=== PATIENT | female | born 1950 | race Caucasian/White ===

== ENCOUNTER 2016-03-20 12:30 | Outpatient (RCR) | payer MEDICARE | END 2016-03-31 | LOC: M CR 12:30 | PROVIDERS: ATTEND Internal Medicine Cardiovascular Disease | DX: Z98.61 Coronary angioplasty status (principal) ==

== ENCOUNTER 2016-04-01 09:18 | Outpatient (RCR) | payer MEDICARE | END 2016-04-28 | LOC: M CR 09:18 | PROVIDERS: ATTEND Internal Medicine Cardiovascular Disease | DX: Z51.89 Encounter for other specified aftercare (principal); Z95.9 Presence of cardiac and vascular implant and graft, unspecified ==

== ENCOUNTER 2016-10-08 06:39 | Day surgery (SDC) | payer MEDICARE ==
[~2016-10-08] VITALS: Ht 170.2 cm; Wt 139.2 kg
[~2016-10-08 06:39] MED LIST: ARNU1INH3 IN; ASPI1TAB PO; BETAPOW70 TOP; BUME1TAB29 PO; CALC600T31 PO; CALMOIN EX; CARD120T4 PO; COZA1TAB PO; EPIP0.3I2 IJ; ISOSPOW PO; MAGN1TAB25 PO; METF10004 PO; METO50TA7 PO; NITR0.4S14 SL; NITR4PA EXT; PLAV1TAB2 PO; PROBCAP4 PO; PROT1TAB2 PO; RANE1000 PO; SILVGEL EX; SPIR25TA2 PO; VITA200038 PO; XARE10TA PO; ZOVI5CRE4 EX
[2016-10-08] MEDS ORDERED: NS 1,000 ML IV SCH (07:30)
[2016-10-08] MEDS ORDERED: LR 1,000 ML IV SCH (07:30)
[2016-10-08] MEDS ORDERED: LOVE0.6I2 SC (07:35)
[2016-10-08] MEDS ORDERED: LIDOCAINE 2% INJ 100 MG/5 ML SDV (FOR ANES.) As Ordered ONE (07:49)
[2016-10-08] MEDS ORDERED: PROPOFOL 200 MG/20 ML VIAL As Ordered ONE (07:49)
--- NOTE | 2016-10-08 09:18 | ROOR ---
Patient Name: Shantelle Sosa Procedure Date: 10/08/2016 9:15 AM Date of : 1950 Age: 66 Room: [facility] Gender: Female Note Status: Finalized Procedure: Upper GI endoscopy Indications: Heartburn Providers: Vaughn AESTON MD Referring MD: RICHI METCALF MD Requesting Provider: Medicines: Monitored Anesthesia Care Complications: No immediate complications. Procedure: Pre-Anesthesia Assessment: - The heart rate, respiratory rate, oxygen saturations, blood pressure, adequacy of pulmonary ventilation, and response to care were monitored throughout the procedure. - The physical status of the patient was re-assessed after the procedure. The Endoscope was introduced through the mouth, and advanced to the second part of duodenum. The upper GI endoscopy was accomplished without difficulty. The patient tolerated the procedure well. Findings: A small diverticulum was found in the gastric fundus. The esophagus was normal. The stomach was normal. The examined duodenum was normal. Impression: - Gastric diverticulum. - Normal esophagus. - Normal stomach. - Normal examined duodenum. - No specimens collected. Recommendation: - Continue present medications. - Resume Lovenox (enoxaparin) today, Plavix (clopidogrel) today and Xarelto (rivaroxaban) today at prior doses. Refer to managing physician for further adjustment of therapy. Vaughn Easton MD Vaughn EASTON MD 10/08/2016 9:18:04 AM This report has been signed electronically. Number of Addenda: 0 Note Initiated On: 10/08/2016 9:15 AM Estimated Blood Loss: Estimated blood loss: none.
--- NOTE | 2016-10-08 09:32 | ROOR ---
Patient Name: Shantelle Sosa Procedure Date: 10/08/2016 8:34 AM Date of : 1950 Age: 66 Room: Main OR Gender: Female Note Status: Finalized Procedure: Colonoscopy Indications: Screening for colorectal malignant neoplasm Providers: Vaughn EASTON MD Referring MD: RICHI METCALF MD Requesting Provider: Medicines: Monitored Anesthesia Care Complications: No immediate complications. Procedure: Pre-Anesthesia Assessment: - The heart rate, respiratory rate, oxygen saturations, blood pressure, adequacy of pulmonary ventilation, and response to care were monitored throughout the procedure. The Colonoscope was introduced through the anus and advanced to the cecum, identified by appendiceal orifice and ileocecal valve. The colonoscopy was performed without difficulty. The patient tolerated the procedure well. The quality of the bowel preparation was adequate. Findings: The perianal and digital rectal examinations were normal. Five sessile polyps were found in the descending colon, transverse colon and hepatic flexure. The polyps were 3 to 5 mm in size. These polyps were removed with a cold snare. Resection and retrieval were complete. Small Internal Hemorrhoids. Multiple medium-mouthed diverticula were found in the sigmoid colon. The exam was otherwise without abnormality on direct and retroflexion views. Impression: - Five 3 to 5 mm polyps in the descending colon, in the transverse colon and at the hepatic flexure, removed with a cold snare. Resected and retrieved. - Small Internal Hemorrhoids. - Moderate diverticulosis in the sigmoid colon. - The examination was otherwise normal on direct and retroflexion views. Recommendation: - Resume Lovenox (enoxaparin) today, Plavix (clopidogrel) today and Xarelto (rivaroxaban) today at prior doses. Refer to managing physician for further adjustment of therapy. - Repeat colonoscopy in 3 years for surveillance. - Return to referring physician as previously scheduled. Vaughn Easton MD Vaughn EASTON MD 10/08/2016 9:31:40 AM This report has been signed electronically. Number of Addenda: 0 Note Initiated On: 10/08/2016 8:34 AM Estimated Blood Loss: Estimated blood loss: none.
[2016-10-08 09:40] VITALS: BP 110/59
== END 2016-10-08 10:11 | disposition home or self-care (01) ==
LOC: M SDC 06:39
PROVIDERS: ATTEND Internal Medicine Gastroenterology
DX: K92.1 Melena (principal); D12.3 Benign neoplasm of transverse colon; D12.4 Benign neoplasm of descending colon; K57.30 Diverticulosis of large intestine without perforation or abscess without bleeding; K64.8 Other hemorrhoids; K31.4 Gastric diverticulum; R12 Heartburn; I11.0 Hypertensive heart disease with heart failure; I50.9 Heart failure, unspecified; J45.909 Unspecified asthma, uncomplicated; E11.9 Type 2 diabetes mellitus without complications; I48.91 Unspecified atrial fibrillation; G50.0 Trigeminal neuralgia; I25.10 Atherosclerotic heart disease of native coronary artery without angina pectoris; I25.2 Old myocardial infarction; Z95.0 Presence of cardiac pacemaker; G47.30 Sleep apnea, unspecified; Z79.899 Other long term (current) drug therapy; Z79.01 Long term (current) use of anticoagulants; Z79.02 Long term (current) use of antithrombotics/antiplatelets; Z79.51 Long term (current) use of inhaled steroids; Z79.82 Long term (current) use of aspirin; Z79.84 Long term (current) use of oral hypoglycemic drugs; Z88.8 Allergy status to other drugs, medicaments and biological substances; Z88.2 Allergy status to sulfonamides; Z88.1 Allergy status to other antibiotic agents; Z88.5 Allergy status to narcotic agent; Z91.040 Latex allergy status; Z91.048 Other nonmedicinal substance allergy status; Z95.5 Presence of coronary angioplasty implant and graft; Z91.010 Allergy to peanuts; Z91.018 Allergy to other foods

== ENCOUNTER → 2018-01-06 | Outpatient (REF) | payer MEDICARE ==
[2018-01-06 14:51] LABS: FERRITIN 152 NG/ML (8-252); IRON (FE) 23 UG/DL (50-170); PERCENT SATURATION 7.9 % (13.2-45.0); TOTAL IRON BINDING CAPACITY 290 UG/DL (250-450)
[2018-01-06 15:17] LABS: VITAMIN B12 LEVEL 371 PG/ML
[2018-01-06 15:18] LABS: FOLATE 22.5 NG/ML
== END ==
LOC: M LAB REF 13:07
DX: D64.9 Anemia, unspecified (principal)
CPT/HCPCS: 82746

== ENCOUNTER 2018-01-28 11:04 | Outpatient (CLI) | payer MEDICARE ==
[2018-01-28] MEDS: IRON SUCROSE 25 MG in NS 50 ML IV (12:53)
[2018-01-28] MEDS: IRON SUCROSE 375 MG in NS 250 ML IV (13:51)
== END 2018-01-28 17:10 | disposition home or self-care (01) ==
LOC: M INFU 11:04
DX: D50.9 Iron deficiency anemia, unspecified (principal); N17.9 Acute kidney failure, unspecified; N18.3 Chronic kidney disease, stage 3 (moderate); I12.9 Hypertensive chronic kidney disease with stage 1 through stage 4 chronic kidney disease, or unspecified chronic kidney disease; I50.9 Heart failure, unspecified; E79.0 Hyperuricemia without signs of inflammatory arthritis and tophaceous disease; E87.6 Hypokalemia; R60.0 Localized edema; E11.9 Type 2 diabetes mellitus without complications; Z79.899 Other long term (current) drug therapy; Z88.8 Allergy status to other drugs, medicaments and biological substances; Z91.040 Latex allergy status; E73.9 Lactose intolerance, unspecified
CPT/HCPCS: J1756

== ENCOUNTER 2018-03-14 12:03 | Outpatient (CLI) | payer MEDICARE ==
[2018-03-14] VITALS (7 sets, daily range): BP systolic 54–160; BP diastolic 51–78
[~2018-03-14] VITALS: Ht 170.2 cm; Wt 116.0 kg
[~2018-03-14 12:03] MED LIST changes: +LOVE0.6I2 SC; +NITR0.4D3 EXT; -NITR4PA EXT; +SPIR-10 PO; -SPIR25TA2 PO
[2018-03-14] MEDS ORDERED: IRON SUCROSE 375 MG in NS 250 ML IV ONE (12:30)
[2018-03-14] MEDS ORDERED: IRON SUCROSE 25 MG in NS 50 ML IV ONE (12:30)
[2018-03-14] MEDS ORDERED: ASPI325T25 PO (15:03)
[2018-03-14] MEDS ORDERED: ISOS120T4 PO (15:09)
[2018-03-14] MEDS ORDERED: K-TA10TA2 PO (15:13)
[2018-03-14] MEDS ORDERED: CORE12.5 PO (15:14)
[2018-03-14] MEDS ORDERED: COLA100C5 PO (15:14)
[2018-03-14] MEDS ORDERED: MULT1TAB10 PO (15:15)
[2018-03-14] MEDS ORDERED: ZOFR8TAB24 PO (15:41)
[2018-03-14] MEDS ORDERED: FLON50SP NARES (15:41)
== END 2018-03-14 18:25 | disposition home or self-care (01) ==
LOC: M INFU 12:03
PROVIDERS: ATTEND Internal Medicine Nephrology
DX: D50.9 Iron deficiency anemia, unspecified (principal); Z91.040 Latex allergy status; Z88.8 Allergy status to other drugs, medicaments and biological substances; Z88.2 Allergy status to sulfonamides; Z91.048 Other nonmedicinal substance allergy status; Z91.018 Allergy to other foods
CPT/HCPCS: 96365; 96366; J1756

== ENCOUNTER 2018-03-28 11:27 | Outpatient (CLI) | payer MEDICARE ==
[~2018-03-28] VITALS: Ht 170.2 cm; Wt 115.9 kg
[2018-03-28] VITALS (7 sets, daily range): BP systolic 126–166; BP diastolic 60–75
[~2018-03-28 11:27] MED LIST changes: +ASPI325T25 PO; +COLA100C5 PO; +CORE12.5 PO; +FLON50SP NARES; +ISOS120T4 PO; +K-TA10TA2 PO; +MULT1TAB10 PO; +ZOFR8TAB24 PO
[2018-03-28] MEDS ORDERED: IRON SUCROSE 25 MG in NS 50 ML IV ONE (11:30)
[2018-03-28] MEDS ORDERED: IRON SUCROSE 375 MG in NS 250 ML IV ONE (11:30)
== END 2018-03-28 17:05 | disposition home or self-care (01) ==
LOC: M INFU 11:27
PROVIDERS: ATTEND Internal Medicine Nephrology
DX: D50.9 Iron deficiency anemia, unspecified (principal); Z88.8 Allergy status to other drugs, medicaments and biological substances; Z88.2 Allergy status to sulfonamides
CPT/HCPCS: 96365; 96366; J1756

== ENCOUNTER → 2018-05-31 | Outpatient (REF) | payer MEDICARE ==
[~2018-05-31] MED LIST changes: +ASPI-255 PO; -ASPI1TAB PO; -ASPI325T25 PO; +ASPI81TA26 PO; -ISOS120T4 PO; +ISOS120T7 PO; -MAGN1TAB25 PO; +MAGN1TAB26 PO
[2018-06-01 13:33] LABS: PERCENT SATURATION 11.9 % (13.2-45.0)
== END ==
LOC: M LAB REF 12:55
PROVIDERS: ATTEND Internal Medicine Nephrology
DX: D50.9 Iron deficiency anemia, unspecified (principal)

== ENCOUNTER 2018-06-14 08:57 | Outpatient (CLI) | payer MEDICARE ==
[~2018-06-14] VITALS: Ht 170.2 cm; Wt 110.9 kg
[2018-06-14 09:08] VITALS: BP 150/69
[2018-06-14] MEDS ORDERED: IRON SUCROSE 25 MG in NS 50 ML IV ONE (09:15)
[2018-06-14] MEDS ORDERED: IRON SUCROSE 200 MG in NS 100 ML IV ONE (09:15)
[2018-06-14] MEDS ORDERED: IRON SUCROSE 175 MG in NS 100 ML IV ONE (09:15)
[2018-06-14 09:50] VITALS: BP 134/68
[2018-06-14 10:37] VITALS: BP 131/60
[2018-06-14 11:34] VITALS: BP 152/77
[2018-06-14 12:25] VITALS: BP 137/67
[2018-06-14 12:57] VITALS: BP 126/71
== END 2018-06-14 13:00 | disposition home or self-care (01) ==
LOC: M INFU 08:57
PROVIDERS: ATTEND Internal Medicine Nephrology
DX: D50.9 Iron deficiency anemia, unspecified (principal); Z79.899 Other long term (current) drug therapy; Z88.2 Allergy status to sulfonamides; Z88.8 Allergy status to other drugs, medicaments and biological substances; Z91.040 Latex allergy status
CPT/HCPCS: 96365; 96366; J1756

== ENCOUNTER 2018-06-21 10:08 | Outpatient (CLI) | payer MEDICARE ==
[~2018-06-21] VITALS: Ht 167.6 cm; Wt 111.0 kg
[2018-06-21 10:23] VITALS: BP 137/69
[2018-06-21] MEDS ORDERED: IRON SUCROSE 200 MG in NS 100 ML OVER 1HR IV ONE (11:00)
[2018-06-21 11:30] VITALS: BP 141/74
[2018-06-21 13:05] VITALS: BP 127/61
== END 2018-06-21 13:05 | disposition home or self-care (01) ==
LOC: M INFU 10:08
PROVIDERS: ATTEND Internal Medicine Nephrology
DX: D50.9 Iron deficiency anemia, unspecified (principal); N18.3 Chronic kidney disease, stage 3 (moderate); R60.0 Localized edema; I12.9 Hypertensive chronic kidney disease with stage 1 through stage 4 chronic kidney disease, or unspecified chronic kidney disease; I50.9 Heart failure, unspecified; E79.0 Hyperuricemia without signs of inflammatory arthritis and tophaceous disease; Z79.899 Other long term (current) drug therapy; Z79.82 Long term (current) use of aspirin; Z88.2 Allergy status to sulfonamides; Z88.8 Allergy status to other drugs, medicaments and biological substances; Z91.040 Latex allergy status
CPT/HCPCS: 96365; 96366; J1756

== ENCOUNTER 2018-06-28 09:57 | Outpatient (CLI) | payer MEDICARE ==
[~2018-06-28] VITALS: Ht 167.6 cm; Wt 111.0 kg
[2018-06-28 10:00] VITALS: BP 137/66
[2018-06-28] MEDS ORDERED: IRON SUCROSE 200 MG in NS 100 ML IV ONE (10:15)
[2018-06-28 10:45] VITALS: BP 117/61
[2018-06-28 11:00] VITALS: BP 127/61
[2018-06-28 12:20] VITALS: BP 129/67
== END 2018-06-28 12:40 | disposition home or self-care (01) ==
LOC: M INFU 09:57
PROVIDERS: ATTEND Internal Medicine Nephrology
DX: D50.9 Iron deficiency anemia, unspecified (principal); Z88.8 Allergy status to other drugs, medicaments and biological substances; Z88.2 Allergy status to sulfonamides; Z91.040 Latex allergy status; Z91.048 Other nonmedicinal substance allergy status
CPT/HCPCS: 96365; 96366; J1756

== ENCOUNTER 2018-07-05 09:19 | Outpatient (CLI) | payer MEDICARE ==
[~2018-07-05] VITALS: Ht 167.6 cm; Wt 111.0 kg
[2018-07-05 09:30] VITALS: BP 120/64
[2018-07-05] MEDS ORDERED: IRON SUCROSE 200 MG in NS 100 ML IV ONE (10:00)
[2018-07-05 10:15] VITALS: BP 118/56
[2018-07-05 11:05] VITALS: BP 117/58
[2018-07-05 12:00] VITALS: BP 130/59
== END 2018-07-05 12:45 | disposition home or self-care (01) ==
LOC: M INFU 09:19
PROVIDERS: ATTEND Internal Medicine Nephrology
DX: D50.9 Iron deficiency anemia, unspecified (principal); Z88.2 Allergy status to sulfonamides; Z88.8 Allergy status to other drugs, medicaments and biological substances; Z91.040 Latex allergy status
CPT/HCPCS: 96365; 96366; J1756

== ENCOUNTER 2018-07-12 09:54 | Outpatient (CLI) | payer MEDICARE ==
[~2018-07-12] VITALS: Ht 167.6 cm; Wt 111.0 kg
[2018-07-12 09:55] VITALS: BP 166/74
[2018-07-12] MEDS ORDERED: IRON SUCROSE 200 MG in NS 100 ML IV ONE (11:00)
[2018-07-12 11:15] VITALS: BP 139/66
[2018-07-12 12:15] VITALS: BP 108/52
[2018-07-12 13:00] VITALS: BP 117/56
== END 2018-07-12 13:30 | disposition home or self-care (01) ==
LOC: M INFU 09:54
PROVIDERS: ATTEND Internal Medicine Nephrology
DX: D50.9 Iron deficiency anemia, unspecified (principal); Z88.8 Allergy status to other drugs, medicaments and biological substances; Z88.2 Allergy status to sulfonamides; Z91.040 Latex allergy status
CPT/HCPCS: 96365; 96366; J1756

== ENCOUNTER → 2019-04-06 | Outpatient (REF) | payer MEDICARE ==
[2019-04-06 14:27] LABS: PERCENT SATURATION 18.1 % (13.2-45.0)
== END ==
LOC: M LAB REF 13:04
PROVIDERS: ATTEND Internal Medicine Nephrology
DX: D50.9 Iron deficiency anemia, unspecified (principal)

== ENCOUNTER → 2019-08-09 | Outpatient (REF) ==
[~2019-08-09] MED LIST changes: +ACET-907 PO; +ADV100INH INH; +BACI1CAP PO; +CORE3.12 PO; +DULC10SU2 PR; +ENEMENE PR; +ISOS30TA4 PO; +LIDO5TD TOP; +MELA3TAB62 PO; +MOM30SS PO; +NITR4TASL SL; +ONDA-83 PO; +PANT-23 PO; +POTA10TA17 PO; +PREDOPD OD; +RANO500T7 PO; +SENN-23 PO; +SIME80TA PO; +TRAM50TA2 PO; +ZYLO300T6 PO
== END ==
LOC: SKLAB5 13:35
PROVIDERS: ATTEND Internal Medicine
DX: Z16.21 Resistance to vancomycin (principal)

== ENCOUNTER 2019-08-10 22:19 | Inpatient (IN) | payer MEDICARE ==
[~2019-08-10] VITALS: Ht 165.1 cm; Wt 96.0 kg
[~2019-08-10 22:19] MED LIST changes: -ACET-907 PO; -ADV100INH INH; -BACI1CAP PO; -CORE3.12 PO; -DULC10SU2 PR; -ENEMENE PR; -ISOS30TA4 PO; -LIDO5TD TOP; -MELA3TAB62 PO; -MOM30SS PO; -NITR4TASL SL; -ONDA-83 PO; -PANT-23 PO; -POTA10TA17 PO; -PREDOPD OD; -RANO500T7 PO; -SENN-23 PO; -SIME80TA PO; -TRAM50TA2 PO; -ZYLO300T6 PO
[2019-08-10] MEDS ORDERED: PANT-23 PO (22:57)
[2019-08-10] MEDS ORDERED: POTA10TA17 PO (22:57)
[2019-08-10] MEDS ORDERED: BACI1CAP PO (22:57)
[2019-08-10] MEDS ORDERED: CORE3.12 PO (22:57)
[2019-08-10] MEDS ORDERED: ENEMENE PR (22:57)
[2019-08-10] MEDS ORDERED: MELA3TAB62 PO (22:57)
[2019-08-10] MEDS ORDERED: DULC10SU2 PR (22:57)
[2019-08-10] MEDS ORDERED: ISOS30TA4 PO (22:57)
[2019-08-10] MEDS ORDERED: TRAM50TA2 PO (22:57)
[2019-08-10] MEDS ORDERED: RANO500T7 PO (22:57)
[2019-08-10] MEDS ORDERED: SENN-23 PO (22:57)
[2019-08-10] MEDS ORDERED: PLAV1TAB2 PO (22:57)
[2019-08-10] MEDS ORDERED: ZYLO300T6 PO (22:57)
[2019-08-10] MEDS ORDERED: ADV100INH INH (22:57)
[2019-08-10] MEDS ORDERED: ACET-907 PO (22:57)
[2019-08-10] MEDS ORDERED: SIME80TA PO (22:57)
[2019-08-10] MEDS ORDERED: PREDOPD OD (22:57)
[2019-08-10] MEDS ORDERED: MOM30SS PO (22:57)
[2019-08-10] MEDS ORDERED: LIDO5TD TOP (22:57)
[2019-08-10] MEDS ORDERED: NITR4TASL SL (22:57)
[2019-08-10] MEDS ORDERED: ONDA-83 PO (22:57)
[2019-08-10] MEDS ORDERED: ONDANSETRON 4MG/2ML VIAL IV ONE (23:00)
[2019-08-10 23:19] LABS: BASO # 0.1 10^3/uL (0.0-0.2); BASO % 0.5 % (0.0-1.0); EOS # 0.4 10^3/uL (0.0-0.5); EOS % 2.1 % (0.0-3.0); HEMATOCRIT 32.6 % (36.0-47.0); HEMOGLOBIN 10.4 g/dl (12.0-15.5); LYMPH # 2.3 10^3/uL (1.5-5.0); LYMPH % 11.8 % (24.0-44.0); MEAN CORPUSCULAR HEMOGLOBIN 29.5 pg (27.0-33.0); MEAN CORPUSCULAR HGB CONC 31.9 g/dl (32.0-36.5); MEAN CORPUSCULAR VOLUME 92.4 fl (80.0-96.0); MONO # 2.2 10^3/uL (0.0-0.8); MONO % 11.2 % (0.0-5.0); NEUTROPHILS # 14.2 10^3/uL (1.5-8.5); NEUTROPHILS % 73.8 % (36.0-66.0); PLATELET COUNT, AUTOMATED 344 10^3/uL (150-450); RED BLOOD COUNT 3.53 10^6/uL (4.00-5.40); WHITE BLOOD COUNT 19.3 10^3/uL (4.0-10.0)
[2019-08-10] MEDS ORDERED: ISOVUE-370 76% 100ML VIAL As Ordered ONE (23:31)
--- NOTE | 2019-08-11 00:09 | REPVR ---
PROCEDURE INFORMATION: Exam: CT Abdomen And Pelvis With Contrast Exam date and time: 08/10/2019 11:26 PM Age: 69 years old Clinical indication: Abdominal pain; Generalized; Additional info: Sbo vs ileus TECHNIQUE: Imaging protocol: Computed tomography of the abdomen and pelvis with intravenous contrast. Radiation optimization: All CT scans at this facility use at least one of these dose optimization techniques: automated exposure control; mA and/or kV adjustment per patient size (includes targeted exams where dose is matched to clinical indication); or iterative reconstruction. Contrast material: ISO; Contrast volume: 100 ml; Contrast route: AC; COMPARISON: No relevant prior studies available. FINDINGS: Lungs: Compressive atelectasis at both lung bases. Pneumonitis cannot be excluded. Pleural space: Bilateral pleural effusions. Liver: There are no focal liver lesions present. Gallbladder and bile ducts: The gallbladder is not visualized, may be completely contracted or resected. Pancreas: The pancreas is normal. Spleen: The spleen is normal. Adrenals: No adrenal mass identified. Kidneys and ureters: Simple appearing bilateral renal cysts, largest on the left measuring 4.9 cm. There is no evidence of hydronephrosis. Stomach and bowel: The stomach is normal. Diverticulosis coli. No findings of acute diverticulitis. There are several air-filled loops of small bowel, some of which are prominent but remain within upper limits of normal caliber, with multiple air-fluid levels visualized. Findings may reflect ileus or early obstruction. No focal obstructing lesion is detected. Appendix: No evidence of appendicitis. Intraperitoneal space: No free air. No free fluid. Vasculature: Atherosclerotic vascular disease is noted. There is no evidence of an abdominal aortic aneurysm. Lymph nodes: Unremarkable. No enlarged lymph nodes. Bladder: Unremarkable as visualized. Reproductive: Hysterectomy. Bones/joints: Unremarkable. No acute fracture. Soft tissues: Unremarkable. IMPRESSION: 1. Likely small bowel ileus. Early obstruction cannot be excluded. No focal obstructing lesion detected. 2. Bilateral pleural effusions, with compressive atelectasis at both lung bases. 3. Diverticulosis coli. COMMENTS: Consistent with the [employer]'s Incidental Findings Committee white paper (J Am Eri Radiol 2018): Any incidental renal lesion less than 1.0 cm or classified as too small to characterize, or any incidental cystic renal lesion characterized as simple-appearing, is likely benign. No follow-up imaging is recommended for these lesions per consensus recommendations based on imaging criteria. Electronically signed by: Odilia Montgomery On 08/11/2019 00:08:10 AM
[2019-08-11] MEDS ORDERED: MORPHINE 2 MG/ML 1ML VIAL (J2270) IV ONE (00:15)
[2019-08-11] MEDS ORDERED: BISACODYL 10 MG SUPP PR PRN (01:45)
--- NOTE | 2019-08-11 01:58 | HPEPDOC ---
[facility] Medical History & Physical Date of Admission Aug 11, 2019 Date of Service: Aug 11, 2019 Attending Physician: CELI NELSON MD History and Physical CHIEF COMPLAINT: Abdominal pain HISTORY OF PRESENT ILLNESS: 69-year-old female with past medical history of congestive heart failure, hypertension, hyperlipidemia, diabetes mellitus, coronary artery disease status post stent placement, atrial fibrillation and recent spinal fusion presents with abdominal pain. She had a mechanical fall with vertebral fractures, underwent spinal fusion a few weeks ago, currently residing at [facility] for rehabilitation. She experienced a small bowel obstruction/ileus 2 weeks ago which self resolved. She now returns with similar symptoms consisting of abdominal pain, nausea/dry heaving and const ipation for the past [address] scan of the ED, consistent with ileus/early small bowel obstruction. She has no other complaints at this time. 10 point review of system is negative except for above PAST MEDICAL HISTORY: 1. Congestive heart failure. 2. Hypertension. 3. Hyperlipidemia. 4. Coronary artery disease. 5. Diabetes mellitus. 6. Atrial fibrillation PAST SURGICAL HISTORY: 1. coronary stent placement. 2. Cholecystectomy. 3. Hysterectomy. 4. Spinal fusion SOCIAL HISTORY: Denies smoking. Denies alcohol use. Denies drug use FAMILY HISTORY: Father had AR ALLERGIES: Please see below. HOME MEDICATIONS: Please see below. PHYSICAL EXAMINATION: VITAL SIGNS: Please see below. GENERAL: No distress, morbidly obese HEENT: Normocephalic, atraumatic, moist mucous membranes NECK: Supple CARDIOVASCULAR EXAMINATION: S1, S2, no murmurs RESPIRATORY EXAMINATION: Diminished in the bases, poor air movement, basilar rhonchi, no wheezing ABDOMINAL EXAMINATION: Soft, mild diffuse tenderness to palpation, nondistended, hypoactive bowel sounds EXTREMITIES: Bilateral lower extremity pitting edema SKIN: No rash NEUROLOGICAL EXAMINATION: Alert and oriented 3, no focal deficits PSYCHIATRIC EXAMINATION: Calm and cooperative LABORATORY DATA: See below. IMAGING: CT abdomen and pelvis consistent with early small bowel obstruction versus ileus MICROBIOLOGY: Please see below. ASSESSMENT: 69-year-old female with multiple medical comorbidities who recently underwent spinal fusion being admitted for recurrent ileus versus small bowel obstruction. PLAN: 1. Ileus/small bowel obstruction. Likely caused by pain control and immobility due to recent spinal fusion, has had multiple abdominal surgeries, nothing by mouth, NG tube placement. 2. Congestive heart failure. Imaging consistent with bilateral pleural effusions with bilateral lower extremity pitting edema, will hold off on diuresis given patient will be nothing by mouth. 3. Diabetes mellitus. Sliding scale insulin coverage every 6 hours 4. Hypertension. Continue Coreg and Imdur 5. Atrial fibrillation. Not on anticoagulation, continue Coreg for rate control. 6. Coronary artery disease. Status post stent placement, continue Plavix and beta andrew. DVT prophylaxis: Heparin subcutaneous GI prophylaxis: PPI Vital Signs Vital Signs Date Time Temp Pulse Resp B/P (MAP) Pulse Ox O2 Delivery O2 Flow Rate FiO2 08/11/19 01:01 60 18 95 Room Air 08/11/19 01:00 130/61 (84) 08/10/19 22:20 98.5 Laboratory Data Labs 24H Laboratory Tests 2 08/10/19 23:07: Immature Granulocyte % (Auto) 0.6, Neutrophils (%) (Auto) 73.8H, Lymphocytes (%) (Auto) 11.8L, Monocytes (%) (Auto) 11.2H, Eosinophils (%) (Auto) 2.1, Basophils (%) (Auto) 0.5, Neutrophils # (Auto) 14.2H, Lymphocytes # (Auto) 2.3, Monocytes # (Auto) 2.2H, Eosinophils # (Auto) 0.4, Basophils # (Auto) 0.1, Nucleated Red Blood Cells % (auto) 0.0 08/10/19 23:17: POC Glucose (Misc Panel) 91, POC Sodium (Misc Panel) 136, POC Potassium (Misc Panel) 4.3, POC Chloride (Misc Panel) 103, POC Total CO2 (Misc Panel) 20.0L, POC Blood Urea Nitrogen (Misc Panel 19, POC Ionized Calcium (Misc Panel) 4.7, POC Creatinine (Misc Panel) 1.4H, POC Hematocrit (Misc Panel) 33.0L 08/10/19 23:18: POC Lactate (Misc Panel) 1.08 CBC/BMP Laboratory Tests 08/10/19 23:07 Home Medications Scheduled Allopurinol (Zyloprim) 300 Mg Tablet, 300 MG PO DAILY Bacillus Coagulans (Bacid with Lactospore) 1 Each Capsule, 1 CAP PO BID Carvedilol (Coreg) 3.125 Mg Tablet, 3.125 MG PO BID Clopidogrel Bisulfate (Plavix) 75 Mg Tablet, 75 MG PO DAILY Isosorbide Mononitrate (Isosorbide Mononitrate ER) 30 Mg Tab.er.24h, 30 MG PO DAILY Lidocaine (Lidocaine) 5% Adh..patch, 1 PATCH TOP DAILY APPLY TO BACK Melatonin (Melatonin) 3 Mg Tablet, 3 MG PO QHS Pantoprazole Sodium (Pantoprazole Sodium) 40 Mg Tablet.dr, 40 MG PO DAILY Potassium Chloride (Potassium Chloride) 10 Meq Tab.er.prt, 20 MEQ PO DAILY Prednisolone Acetate (Prednisolone Acetate 1% Opth Susp) 5 Ml Drops.susp, 1 DROP OD QID Ranolazine (Ranexa) 500 Mg Tab.er.12h, 500 MG PO BID Salmeterol/Fluticasone (Advair 100-50 Diskus) 1 Each Blst.w.dev, 1 PUFF INH BID Sennosides/Docusate Sodium (Senna-S Tablet) 1 Each Tablet, 2 TAB PO DAILY Scheduled PRN Acetaminophen (Tylenol) 325 Mg Tablet, 650 MG PO Q4H PRN for PAIN / FEVER Bisacodyl (Dulcolax) 10 Mg Supp.rect, 10 MG OK DAILY PRN for CONSTIPATION Milk Of Magnesia (Milk of Magnesia) 2,400 Mg/10 Ml Oral.susp, 10 ML PO DAILY PRN for CONSTIPATION Nitroglycerin (Nitrostat) 0.4 Mg Tab.subl, 0.4 MG SL NITRO PRN for CHEST PAIN Ondansetron HCl (Ondansetron HCl) 4 Mg Tablet, 4 MG PO Q6H PRN for NAUSEA OR VOMITING Simethicone (Simethicone) 80 Mg Tab.chew, 80 MG PO Q6H PRN for DYSPEPSIA Sodium Phosphate,[place]-Dibasic (Enema) 133 Ml Enema, 1 ROBERT OK DAILY PRN for CONSTIPATION Tramadol HCl (Tramadol HCl) 50 Mg Tablet, 50 MG PO Q6H PRN for PAIN Allergies Coded Allergies: Sulfa (Sulfonamide Antibiotics) (Verified Allergy, Severe, ANAPHYLACTIC SHOCK, 06/14/18) NUTS (Verified Allergy, Intermediate, DIFFICULTY BREATHING, 06/14/18) dronedarone (Unverified Allergy, Intermediate, CONTRAINDICATED DUE TO RANEXA, 06/14/18) lansoprazole (Unverified Allergy, Intermediate, CONTRAINDICATED DUE TO BLOOD THINNERS, 06/14/18) latex (Unverified Allergy, Intermediate, RASH, 06/14/18) bacitracin (Verified Allergy, Unknown, 08/10/19) Frzvypp-Wvi-Tib Reductase Inhibitor (Unverified Adverse Reaction, Intermediate, MUSCLE WEAKNESS, 06/14/18) glycopyrrolate (Unverified Adverse Reaction, Intermediate, CHEST PAIN, 06/14/18) naloxone (Unverified Adverse Reaction, Intermediate, GI UPSET, DIZZY, 06/14/18) nifedipine (Unverified Adverse Reaction, Intermediate, SORE THROAT, 06/14/18) pentazocine (Unverified Adverse Reaction, Intermediate, GI UPSET, DIZZY, 06/14/18) Uncoded Allergies: CLEAR DRESSING ON IV (Allergy, Intermediate, rash, 09/22/16) DEXADROL (Allergy, Intermediate, CHF, 09/22/16) dryer sheets (Allergy, Unknown, 08/10/19) purfumes (Allergy, Unknown, 08/10/19) A-FIB/CHADSVASC A-FIB History Current/History of A-Fib/PAF?: Yes Current PO Anticoag Therapy: No Treatment Reason Anticoagulant not given: Other Other reason anticoagulant not: unknown CELI NELSON MD Aug 11, 2019 01:58
[2019-08-11] MEDS ORDERED: DEXTROSE 50% 50 ML SYRINGE IV PRN (02:00)
[2019-08-11] MEDS ORDERED: GLUCAGON INJ 1MG VIAL SC PRN (02:00)
[2019-08-11] MEDS ORDERED: GLUCOSE 4GM CHEW TABLET PO PRN (02:00)
[2019-08-11 03:35] VITALS: BP 132/68
[2019-08-11 06:00] VITALS: BP 159/76
[2019-08-11] MEDS: HumaLOG INSULIN (NovoLOG) PER UNIT SC SCH ×4 (06:00→23:55)
[2019-08-11] MEDS: ADVAIR HFA 45/21MCG INHALER INH SCH ×2 (07:26→19:55)
[2019-08-11] MEDS: prednisoLONE ACET 1% OPHTH SUSP 5ML OD SCH ×5 (09:00→21:14)
[2019-08-11] MEDS ORDERED: PANTOPRAZOLE 40MG VIAL (C9113 PER 1) IV SCH (09:00)
[2019-08-11] MEDS ORDERED: PANTOPRAZOLE 40MG TAB (PROTONIX) PO SCH (09:00)
--- NOTE | 2019-08-11 09:50 | REP ---
CHEST PORTABLE: Two AP portable views of the chest are performed. Nasogastric tube is seen with sideport in the stomach. There are bibasilar infiltrates and effusions. There is cardiomegaly. Left pacemaker is noted. There are metallic rods and screws in the thoracic spine. Electronically Signed by Noe Cardenas MD 08/15/2019 06:22 P
[2019-08-11] MEDS: HEPARIN SOD (PORCINE) 5000UNITS/ML VIAL (J1644 PER 1000UNITS) SC SCH ×2 (12:15→21:13)
[2019-08-11] MEDS: RANOLAZINE 500 MG ER TAB PO SCH ×2 (12:16→21:13)
[2019-08-11] MEDS: allopurinoL 300 MG TAB PO SCH (12:16)
[2019-08-11] MEDS: ISOSORBIDE MON. (IMDUR) 30 MG XR TAB PO SCH (12:17)
[2019-08-11] MEDS: CARVedilol 3.125 MG TAB PO SCH ×2 (12:17→21:14)
[2019-08-11] MEDS: CLOPIDOGREL 75 MG TAB PO SCH (12:17)
[2019-08-11] MEDS: LIDOCAINE 5% (LIDODERM) PATCH TOP SCH (12:18)
[2019-08-11] MEDS: NYSTATIN 100,000 UNITS/GM TOPICAL PWD 15 GM TOP SCH ×2 (12:18→21:15)
[2019-08-11] MEDS: ONDANSETRON 4 MG TAB PO PRN (12:28)
[2019-08-11] MEDS: ACETAMINOPHEN 325 MG TAB PO PRN (12:28)
[2019-08-11 14:00] VITALS: BP 143/74
[2019-08-11 14:13] LABS: BASO # 0.1 10^3/uL (0.0-0.2); BASO % 0.6 % (0.0-1.0); EOS # 0.5 10^3/uL (0.0-0.5); EOS % 4.1 % (0.0-3.0); HEMATOCRIT 29.3 % (36.0-47.0); HEMOGLOBIN 9.4 g/dl (12.0-15.5); LYMPH # 1.7 10^3/uL (1.5-5.0); LYMPH % 14.3 % (24.0-44.0); MEAN CORPUSCULAR HEMOGLOBIN 29.7 pg (27.0-33.0); MEAN CORPUSCULAR HGB CONC 32.1 g/dl (32.0-36.5); MEAN CORPUSCULAR VOLUME 92.7 fl (80.0-96.0); MONO # 1.2 10^3/uL (0.0-0.8); MONO % 10.3 % (0.0-5.0); NEUTROPHILS # 8.3 10^3/uL (1.5-8.5); NEUTROPHILS % 70.2 % (36.0-66.0); PLATELET COUNT, AUTOMATED 311 10^3/uL (150-450); RED BLOOD COUNT 3.16 10^6/uL (4.00-5.40); WHITE BLOOD COUNT 11.8 10^3/uL (4.0-10.0)
[2019-08-11 14:52] LABS: ALBUMIN 2.4 GM/DL (3.2-5.2); ALT/SGPT 10 U/L (12-78); BILIRUBIN,TOTAL 0.5 MG/DL (0.2-1.0); BLOOD UREA NITROGEN 19 MG/DL (7-18); CALCIUM LEVEL 8.5 MG/DL (8.8-10.2); CARBON DIOXIDE LEVEL 24 MEQ/L (21-32); CHLORIDE LEVEL 106 MEQ/L (98-107); CK-MB VALUE MASS 1.7 NG/ML (<3.6); CPK CREATINE PHOSPHOKINASE 20 U/L (26-192); CREATININE FOR GFR 1.34 MG/DL (0.55-1.30); GLOMERULAR FILTRATION RATE 41.7 (>45); GLUCOSE, FASTING 77 MG/DL (70-100); MAGNESIUM LEVEL 1.7 MG/DL (1.8-2.4); NT-PRO BNP 5035 PG/ML (<125); POTASSIUM SERUM 4.7 MEQ/L (3.5-5.1); SODIUM LEVEL 140 MEQ/L (136-145); TOTAL PROTEIN 5.7 GM/DL (6.4-8.2); TROPONIN I < 0.02 NG/ML (< 0.10)
[2019-08-11] MEDS: metroNIDAZOLE 500 MG in IV 1 EA IV SCH ×2 (16:08→22:31)
--- NOTE | 2019-08-11 16:10 | REP ---
ABDOMINAL SERIES: Cross-table lateral and supine films of the abdomen and pelvis are performed. No free air is seen. There is air scattered throughout a mildly distended colon. There appear to be a couple of mildly dilated small bowel loops in the mid abdomen, probably representing a mild ileus. There is no compelling evidence for small bowel obstruction. Contrast material is seen in the bladder. A nasogastric tube is seen with sideport in the stomach. There are degenerative changes of the spine. An accompanying view of the chest demonstrates bibasilar pleural and parenchymal opacities, unchanged. There is cardiomegaly, unchanged. IMPRESSION: No free air. A few mildly dilated small bowel loops probably represent a mild ileus with no compelling evidence for small bowel obstruction. Electronically Signed by Noe Cardenas MD 08/15/2019 06:39 P
[2019-08-11] MEDS ORDERED: FUROSEMIDE 40MG/4ML VIAL (J1940) IV ONE (16:15)
[2019-08-11] MEDS ORDERED: HYDROMORPHONE HCL 0.5 MG/ 0.5 ML SYRINGE (J1170 PER 1) IV PRN (16:15)
[2019-08-11] MEDS: HYDROMORPHONE HCL 0.5 MG/ 0.5 ML SYRINGE (J1170 PER 1) IV PRN ×2 (16:19→21:45)
[2019-08-11] MEDS: CIPROFLOXACIN 400 MG in IV 1 EA IV SCH (17:56)
[2019-08-11] MEDS ORDERED: BACITRACIN OINTMENT 30GM TUBE TOP SCH (21:00)
[2019-08-11] MEDS: PANTOPRAZOLE 40MG VIAL (C9113 PER 1) IV SCH (21:13)
[2019-08-11] MEDS: **NOTE PATIENT COMMENT** MISC XX SCH (21:15)
[2019-08-11 22:00] VITALS: BP 168/90
[2019-08-12] MEDS: HYDROMORPHONE HCL 0.5 MG/ 0.5 ML SYRINGE (J1170 PER 1) IV PRN ×2 (02:52→19:50)
[2019-08-12] MEDS: ACETAMINOPHEN 325 MG TAB PO PRN (03:54)
[2019-08-12] MEDS: CIPROFLOXACIN 400 MG in IV 1 EA IV SCH (03:55)
[2019-08-12] MEDS: ACETAMINOPHEN TAB 650MG DOSE (2X325MG) PO PRN ×2 (04:30→22:53)
[2019-08-12 06:00] VITALS: BP 143/70
[2019-08-12] MEDS: HumaLOG INSULIN (NovoLOG) PER UNIT SC SCH ×3 (06:00→18:00)
[2019-08-12] MEDS: metroNIDAZOLE 500 MG in IV 1 EA IV SCH (06:38)
[2019-08-12] MEDS: ADVAIR HFA 45/21MCG INHALER INH SCH ×2 (07:13→19:54)
[2019-08-12 07:41] LABS: BASO # 0.1 10^3/uL (0.0-0.2); BASO % 0.6 % (0.0-1.0); EOS # 0.5 10^3/uL (0.0-0.5); EOS % 4.5 % (0.0-3.0); HEMATOCRIT 29.6 % (36.0-47.0); HEMOGLOBIN 9.4 g/dl (12.0-15.5); LYMPH # 1.7 10^3/uL (1.5-5.0); LYMPH % 14.8 % (24.0-44.0); MEAN CORPUSCULAR HEMOGLOBIN 29.5 pg (27.0-33.0); MEAN CORPUSCULAR HGB CONC 31.8 g/dl (32.0-36.5); MEAN CORPUSCULAR VOLUME 92.8 fl (80.0-96.0); MONO # 1.3 10^3/uL (0.0-0.8); MONO % 10.9 % (0.0-5.0); NEUTROPHILS # 8.1 10^3/uL (1.5-8.5); NEUTROPHILS % 68.4 % (36.0-66.0); PLATELET COUNT, AUTOMATED 316 10^3/uL (150-450); RED BLOOD COUNT 3.19 10^6/uL (4.00-5.40); WHITE BLOOD COUNT 11.8 10^3/uL (4.0-10.0)
[2019-08-12 07:45] LABS: BLOOD UREA NITROGEN 17 MG/DL (7-18); CALCIUM LEVEL 8.5 MG/DL (8.8-10.2); CARBON DIOXIDE LEVEL 23 MEQ/L (21-32); CHLORIDE LEVEL 106 MEQ/L (98-107); CREATININE FOR GFR 1.22 MG/DL (0.55-1.30); GLOMERULAR FILTRATION RATE 46.5 (>45); GLUCOSE, FASTING 79 MG/DL (70-100); MAGNESIUM LEVEL 1.7 MG/DL (1.8-2.4); POTASSIUM SERUM 4.2 MEQ/L (3.5-5.1); SODIUM LEVEL 137 MEQ/L (136-145)
[2019-08-12 07:59] LABS: CK-MB VALUE MASS 1.6 NG/ML (<3.6); CPK CREATINE PHOSPHOKINASE 26 U/L (26-192); MB/CK RELATIVE INDEX 6.15 (< OR =4); NT-PRO BNP 4334 PG/ML (<125); TROPONIN I < 0.02 NG/ML (< 0.10)
[2019-08-12] MEDS: LIDOCAINE 5% (LIDODERM) PATCH TOP SCH (09:18)
[2019-08-12] MEDS: prednisoLONE ACET 1% OPHTH SUSP 5ML OD SCH ×4 (09:18→21:27)
[2019-08-12] MEDS: NYSTATIN 100,000 UNITS/GM TOPICAL PWD 15 GM TOP SCH ×2 (09:18→21:27)
[2019-08-12] MEDS: CLOPIDOGREL 75 MG TAB PO SCH (09:19)
[2019-08-12] MEDS: RANOLAZINE 500 MG ER TAB PO SCH ×2 (09:19→21:26)
[2019-08-12] MEDS: PANTOPRAZOLE 40MG VIAL (C9113 PER 1) IV SCH ×2 (09:19→21:26)
[2019-08-12] MEDS: allopurinoL 300 MG TAB PO SCH (09:19)
[2019-08-12] MEDS: HEPARIN SOD (PORCINE) 5000UNITS/ML VIAL (J1644 PER 1000UNITS) SC SCH ×2 (09:19→21:26)
[2019-08-12] MEDS: ISOSORBIDE MON. (IMDUR) 30 MG XR TAB PO SCH (09:22)
[2019-08-12] MEDS: CARVedilol 3.125 MG TAB PO SCH ×2 (09:22→21:26)
[2019-08-12] MEDS ORDERED: FUROSEMIDE 40MG/4ML VIAL (J1940) IV ONE (10:00)
[2019-08-12] MEDS: ALVIMOPAN 12 MG CAPSULE (ENTEREG) PO SCH ×2 (11:39→21:26)
--- NOTE | 2019-08-12 12:19 | IPN ---
DATE: 08/12/2019 Patient still complains of shortness of breath, especially with exertion. Found to have bilateral pleural effusion. Status post Lasix. Diuresed 2.6 liters out yesterday. She passed a small bowel movement yesterday but says that her abdomen is still quite distended. She is passing a small amount of flatus. Per surgery, Dr. Betancur, patient does not require any surgical intervention, most likely ileus. Afebrile overnight. No chills. No nausea or vomiting. Patient has not ambulated outside of her room as yet. Temperature 97.5, pulse 56, respiratory rate 18, blood pressure 143/70, 95% on room air. GENERAL: Patient is awake, alert, oriented to person, place, and time, answering questions appropriately. No cyanosis. No pallor or icterus. LUNGS: Diminished. Bibasilar rales. HEART: S1, S2, sinus rhythm. ABDOMEN: Soft, tender in the epigastrium, distended. Hypoactive bowel sounds. Tympanitic. EXTREMITIES: Positive edema. LABORATORY DATA: Reviewed. Notable for magnesium of 1.7. BNP of 4334. On 08/11/2019, abdominal x-ray: No free air. Mild ileus. No evidence of bowel sounds obstruction. ASSESSMENT AND PLAN: This is a 69 -year-old female with a history of congestive heart failure (CHF), chronic atrial fibrillation, hyperlipidemia, diabetes, coronary artery disease (CAD) and stent, vertebral fractures and spinal fusion a few weeks ago and went to [facility] for rehabilitation. Developed a small-bowel obstruction/ileus 2 weeks ago, which resolved. Now presents with similar issues. CT shows ileus versus early small-bowel obstruction. Patient had a small bowel movement and passing small amount of gas. CURRENT ISSUES: 1. Ileus. Patient is on Cipro and Flagyl. She had multiple abdominal surgeries in the past. Remains nothing by mouth with nasogastric (NG) tube. Still is suctioning 200 mL over 24 hours. Will attempt to provide with Entereg by mouth as well as a bowel regimen. 2. Congestive heart failure, decompensated, preserved EF. Currently on intravenous (IV) Lasix. Net-negative balance. Strict intake and output and daily weights. 3. Chronic atrial fibrillation. Currently rate controlled. Patient on Coreg 3.25 twice a day. 4. History of CAD, on Plavix, Coreg, and Ranexa. 5. Type 2 diabetes, on sliding scale every 6 hours. MTDD
--- NOTE | 2019-08-12 12:39 | REP ---
CT brain: 08/12/2019. Indication: Acute mental status change. Stroke. Technique: Unenhanced axial CT images of the brain were obtained from skull base to vertex with coronal reconstructions provided. Comparison: None. Findings: There is no acute intracranial hemorrhage, acute cortical infarction, mass effect or hydrocephalous. The visualized paranasal sinuses and mastoid air cells are clear. Impression: No acute intracranial process. Electronically Signed by Dharmesh Ku DO 08/12/2019 12:30 P
[2019-08-12] MEDS ORDERED: MAG SULF 1GM/100ML (MAG RUN) 1 GM in IV 1 EA IV ONE (13:00)
[2019-08-12] MEDS: BISACODYL 10 MG SUPP PR SCH ×3 (13:14→21:26)
[2019-08-12] MEDS: FUROSEMIDE 40MG/4ML VIAL (J1940) IV SCH ×2 (13:14→17:13)
--- NOTE | 2019-08-12 13:49 | ECHO ---
DATE OF PROCEDURE: 08/11/2019 DATE OF : 1950 AGE: 69 REFERRING PROVIDER: Dr. Janis Daniel PATIENT LOCATION: Room 4205 2-D MEASUREMENTS: IVS: 1.2 cm LV: 4.51 cm LVPW: 1.2 cm LA: 5.3 cm Aorta: 3.3 cm DOPPLER MEASUREMENTS: Peak velocity across the aortic valve: 2.1 m/sec Peak velocity across the LVOT: 1.1 m/sec Mitral E: 1.1, Mitral A: 0.49 Maximum tricuspid valve velocity: 2.9 m/sec 2-D COMMENTS: 1. Normal left ventricular size and wall thickness with a low normal global left ventricular systolic function estimated at 50-55%. 2. Moderately enlarged left atrium and right atrium. Normal right ventricle. 3. The atrial septum appeared to be normal without evidence of defect or shunt. 4. Normal aortic root. 5. No pericardial effusion seen. 6. Mildly calcified aortic valve with minimally restricted leaflet motion. Mildly calcified mitral annulus with normal anterior mitral valve leaflet motion. Normal tricuspid valve. The pulmonic valve and proximal pulmonary artery branches were not well visualized. 7. The inferior vena cava was not well visualized. DOPPLER: It detects mild aortic radiation, mild mitral regurgitation, and mild tricuspid regurgitation. The calculated pulmonary artery systolic pressure varies between 40-50 mmHg. Assessment of the left ventricular diastolic function appeared to be normal. IMPRESSION: 1. Low normal global left ventricular systolic function. Assessment of the left ventricular diastolic function appeared to be normal. 2. Aortic valve sclerosis with mild aortic radiation and probably mild aortic stenosis. 3. Mitral annulus calcification with moderately enlarged left atrium and mild mitral regurgitation. 4. Mild tricuspid radiation with moderate pulmonary hypertension. The right atrium appeared to be moderately enlarged. The right ventricle appear to be normal in size. 5. Not mentioned above, pacemaker wire artifacts noted in the right heart chambers.
[2019-08-12 14:00] VITALS: BP 147/67
[2019-08-12 14:28] LABS: ALBUMIN 2.6 GM/DL (3.2-5.2); BILIRUBIN,DIRECT 0.3 MG/DL (0.0-0.2); BILIRUBIN,TOTAL 0.6 MG/DL (0.2-1.0); TOTAL PROTEIN 6.3 GM/DL (6.4-8.2)
--- NOTE | 2019-08-12 15:42 | REP ---
Three views chest and abdomen: 08/12/2019. Indication: Dyspnea. Abdominal distension. Comparison: Yesterday. Findings: Compared to yesterday, no significant changes are present. Bibasilar pleural parenchymal opacities and cardiomegaly are redemonstrated. There is no evidence of pneumothorax. Posterior stabilization hardware is noted within the thoracic spine. Left sided pacing device is unchanged. Mildly dilated loops of small and large bowel are present without evidence of obstruction. Mild ileus is again considered. There is no evidence of free intraperitoneal air. Impression: Stable examination compared to yesterday. Electronically Signed by Dharmesh Ku DO 08/12/2019 03:33 P
[2019-08-12] MEDS ORDERED: GLUCAGON INJ 1MG VIAL SC PRN (16:15)
[2019-08-12] MEDS ORDERED: GLUCOSE 4GM CHEW TABLET PO PRN (16:15)
[2019-08-12] MEDS ORDERED: DEXTROSE 50% 50 ML SYRINGE IV PRN (16:15)
[2019-08-12] MEDS: **NOTE PATIENT COMMENT** MISC XX SCH (21:27)
[2019-08-12 22:00] VITALS: BP 139/66
[2019-08-13] MEDS ORDERED: KETOROLAC 30 MG/ML 1ML VIAL IV ONE
[2019-08-13 06:00] VITALS: BP 140/65
[2019-08-13] MEDS ORDERED: CIPROFLOXACIN 200 MG in IV 1 EA IV SCH (06:00)
[2019-08-13] MEDS: HumaLOG INSULIN (NovoLOG) PER UNIT SC SCH ×5 (06:00→23:52)
[2019-08-13 06:03] LABS: BASO # 0.1 10^3/uL (0.0-0.2); BASO % 0.9 % (0.0-1.0); EOS # 0.6 10^3/uL (0.0-0.5); EOS % 5.4 % (0.0-3.0); HEMATOCRIT 30.2 % (36.0-47.0); HEMOGLOBIN 9.6 g/dl (12.0-15.5); LYMPH # 1.9 10^3/uL (1.5-5.0); LYMPH % 17.9 % (24.0-44.0); MEAN CORPUSCULAR HEMOGLOBIN 29.1 pg (27.0-33.0); MEAN CORPUSCULAR HGB CONC 31.8 g/dl (32.0-36.5); MEAN CORPUSCULAR VOLUME 91.5 fl (80.0-96.0); MONO # 1.2 10^3/uL (0.0-0.8); MONO % 10.9 % (0.0-5.0); NEUTROPHILS # 6.8 10^3/uL (1.5-8.5); PLATELET COUNT, AUTOMATED 314 10^3/uL (150-450); WHITE BLOOD COUNT 10.6 10^3/uL (4.0-10.0)
[2019-08-13 06:21] LABS: CALCIUM LEVEL 8.1 MG/DL (8.8-10.2); CREATININE FOR GFR 1.32 MG/DL (0.55-1.30); GLOMERULAR FILTRATION RATE 42.5 (>45); MAGNESIUM LEVEL 1.8 MG/DL (1.8-2.4); POTASSIUM SERUM 3.5 MEQ/L (3.5-5.1)
[2019-08-13] MEDS: ADVAIR HFA 45/21MCG INHALER INH SCH ×2 (07:15→19:48)
[2019-08-13] MEDS: NYSTATIN 100,000 UNITS/GM TOPICAL PWD 15 GM TOP SCH ×2 (09:00→20:55)
[2019-08-13] MEDS: prednisoLONE ACET 1% OPHTH SUSP 5ML OD SCH ×4 (09:00→20:55)
[2019-08-13] MEDS ORDERED: MOM 30ML SUSPENSION UDC PO SCH (09:00)
[2019-08-13] MEDS: PANTOPRAZOLE 40MG VIAL (C9113 PER 1) IV SCH ×2 (09:00→20:54)
[2019-08-13] MEDS: LIDOCAINE 5% (LIDODERM) PATCH TOP SCH (09:00)
[2019-08-13] MEDS: SENOKOT S TAB PO SCH ×2 (09:01→20:53)
[2019-08-13] MEDS: HEPARIN SOD (PORCINE) 5000UNITS/ML VIAL (J1644 PER 1000UNITS) SC SCH ×2 (09:01→20:55)
[2019-08-13] MEDS: BISACODYL 10 MG SUPP PR SCH ×2 (09:01→20:54)
[2019-08-13] MEDS: CLOPIDOGREL 75 MG TAB PO SCH (09:01)
[2019-08-13] MEDS: ISOSORBIDE MON. (IMDUR) 30 MG XR TAB PO SCH (09:01)
[2019-08-13] MEDS: RANOLAZINE 500 MG ER TAB PO SCH ×2 (09:01→20:53)
[2019-08-13] MEDS: ALVIMOPAN 12 MG CAPSULE (ENTEREG) PO SCH ×2 (09:01→20:53)
[2019-08-13] MEDS: allopurinoL 300 MG TAB PO SCH (09:01)
[2019-08-13] MEDS: CARVedilol 3.125 MG TAB PO SCH ×2 (09:02→20:54)
--- NOTE | 2019-08-13 10:23 | IPN ---
DATE OF SERVICE: 08/13/2019 Yesterday, the patient was found to be hallucinating visually, thinking that her family was close to her. Cipro and Flagyl have been discontinued as there was no signs of infection. Urinalysis (UA) was unremarkable. The patient said that her breathing is significantly improved. She diuresed 3.3 liters out yesterday via urine after Lasix three doses. This morning, she says she has a slight discomfort in the right lower quadrant of the abdomen but otherwise no vomiting overnight. Nasogastric tube put out about 300 mL overnight. The patient is anxious to start eating and is requesting some beth audi this morning. No fever or chills overnight. No dysuria, urgency, frequency. No chills. The patient overnight per nursing had complaint of chest pain. Troponins have been negative. The patient improved with a dose of Toradol 30 mg. The patient's echocardiogram had been reviewed. No new complaints of chest pain this morning. Temperature 97.1, pulse 60, respiratory rate 18, blood pressure 140/65, 96% on room air. Generally, awake, alert, oriented to person, place, and time, answering questions appropriately. No cervical lymphadenopathy. Nasogastric tube in place with bilious drainage. LUNGS: Diminished breath sounds but improve. Air entry is equal bilaterally. HEART: S1, S2, sinus rhythm. No murmurs, rubs, or gallops. ABDOMEN: Is obese, soft, slight tenderness right lower quadrant. No rebound, guarding. Positive bowel sounds. EXTREMITIES: No cyanosis or clubbing. LABORATORY DATA: White count 10.6, hemoglobin 9.6, hematocrit 30, platelet count of 314. Sodium 142, potassium 3.5, chloride 104, bicarbonate 26, BUN 17, creatinine 1.32, glucose of 73, magnesium of 1.8. ASSESSMENT AND PLAN: This is a 69-year-old female with history of coronary artery disease on chronic Ranexa, congestive heart failure (CHF), diastolic dysfunction, ejection fraction (EF) of 50%, chronic atrial fibrillation, hypertension, diabetes, coronary artery disease (CAD) stent, vertebral fracture and spinal fusion a few weeks ago. Went to [facility] for rehabilitation. Developed a small-bowel obstruction/ileus 2 weeks ago, which resolved. Now presents with increasing abdominal distention, abdominal pain. CT abdomen shows ileus versus early small-bowel obstruction. The patient had a small bowel movement yesterday and is anxious to be advanced on a diet. Yesterday, she developed some confusion with hallucinations. CT head was negative. Cipro and Flagyl have been discontinued, as there are no signs of any acute infection. The patient had decompensated heart failure and diuresed 3.3 liters out yesterday. Currently, on strict intake and output (I and O) and fluid restriction. For her ileus, she is now started on Entereg and given fluid diet this morning. IMPRESSION: 1. Ileus. Status post intravenous (IV) Cipro and Flagyl. The patient has had multiple abdominal surgeries in the past. By nothing by mouth status. Nasogastric tube still in place. Aggressive bowel regimen has been given with Dulcolax, Senokot, and milk of magnesia. She is on Entereg. We are hoping to advance her diet today. She is currently on full-liquid diet. 2. Coronary artery disease, status post stents with chest pains yesterday. The patient improved with IV Toradol. Now with acute kidney injury with creatinine of 1.32. The patient is currently asymptomatic and continued on her home regimen of Ranexa, Plavix, and Coreg. Monitor for any kind of gastrointestinal (GI) bleeding due to Plavix use. 3. Acute delirium, resolved. Cipro had been discontinued. 4. Acute kidney injury secondary to diuresis and concomitant use of Toradol, which have both been discontinued. No IV fluids due to congestive heart failure. The patient appears to be significantly improved. 5. Hypertension. On isosorbide and Coreg.
--- NOTE | 2019-08-13 10:56 | REP ---
Two views chest: 08/13/2019. Indication: Dyspnea. Comparison: 08/11/2019. Findings: Nasogastric tube is redemonstrated with the tip below the diaphragm. Bibasilar atelectasis and suspected infiltrates are stable. Bilateral pleural effusions are noted. There is cardiomegaly. Left-sided pacing / AICD device is present. Posterior instrument effusion of the thoracic spine is noted. Impression: No significant change compared with a most recent chest x-ray from 2 days earlier. Electronically Signed by Dharmesh Ku DO 08/13/2019 10:48 A
[2019-08-13] MEDS: ACETAMINOPHEN TAB 650MG DOSE (2X325MG) PO PRN (12:25)
[2019-08-13 14:00] VITALS: BP 136/63
[2019-08-13] MEDS ORDERED: MAGNESIUM CITRATE 300 ML BTL PO ONE (15:00)
[2019-08-13] MEDS ORDERED: oxyCODONE 5MG TAB PO ONE (15:00)
[2019-08-13] MEDS ORDERED: ACETAMINOPHEN *IV* 1,000 MG in IV 1 EA IV ONE (15:00)
[2019-08-13] MEDS: SIMETHICONE 80 MG CHEW TAB PO SCH ×3 (15:14→20:55)
[2019-08-13] MEDS: FUROSEMIDE 40MG/4ML VIAL (J1940) IV SCH ×3 (15:15→23:03)
[2019-08-13] MEDS: oxyCODONE 10 MG CR TAB PO SCH (20:53)
[2019-08-13] MEDS: **NOTE PATIENT COMMENT** MISC XX SCH (20:56)
[2019-08-13 22:00] VITALS: BP 128/59
[2019-08-13 22:35] LABS: CALCIUM LEVEL 8.1 MG/DL (8.8-10.2); CREATININE FOR GFR 1.42 MG/DL (0.55-1.30); POTASSIUM SERUM 3.5 MEQ/L (3.5-5.1)
[2019-08-14 00:50] LABS: CALCIUM LEVEL 8.2 MG/DL (8.8-10.2); CREATININE FOR GFR 1.28 MG/DL (0.55-1.30); POTASSIUM SERUM 3.4 MEQ/L (3.5-5.1)
[2019-08-14] MEDS: FUROSEMIDE 40MG/4ML VIAL (J1940) IV SCH ×6 (03:06→23:48)
[2019-08-14] MEDS ORDERED: MORPHINE 2 MG/ML 1ML VIAL (J2270) IV ONE (04:15)
[2019-08-14 05:52] LABS: BASO # 0.1 10^3/uL (0.0-0.2); BASO % 0.8 % (0.0-1.0); EOS # 0.9 10^3/uL (0.0-0.5); EOS % 7.8 % (0.0-3.0); HEMATOCRIT 31.5 % (36.0-47.0); HEMOGLOBIN 10.4 g/dl (12.0-15.5); LYMPH # 1.7 10^3/uL (1.5-5.0); LYMPH % 15.4 % (24.0-44.0); MEAN CORPUSCULAR HEMOGLOBIN 30.5 pg (27.0-33.0); MEAN CORPUSCULAR VOLUME 92.4 fl (80.0-96.0); MONO # 1.3 10^3/uL (0.0-0.8); MONO % 11.8 % (0.0-5.0); NEUTROPHILS # 6.9 10^3/uL (1.5-8.5); NEUTROPHILS % 63.6 % (36.0-66.0); PLATELET COUNT, AUTOMATED 334 10^3/uL (150-450); RED BLOOD COUNT 3.41 10^6/uL (4.00-5.40); WHITE BLOOD COUNT 10.9 10^3/uL (4.0-10.0)
[2019-08-14] MEDS: HumaLOG INSULIN (NovoLOG) PER UNIT SC SCH ×4 (05:54→23:48)
[2019-08-14 06:00] VITALS: BP 131/58
[2019-08-14 06:15] LABS: CALCIUM LEVEL 8.2 MG/DL (8.8-10.2); CREATININE FOR GFR 1.27 MG/DL (0.55-1.30); GLOMERULAR FILTRATION RATE 44.4 (>45); MAGNESIUM LEVEL 1.8 MG/DL (1.8-2.4); POTASSIUM SERUM 3.3 MEQ/L (3.5-5.1)
[2019-08-14] MEDS: ADVAIR HFA 45/21MCG INHALER INH SCH ×2 (07:16→19:32)
[2019-08-14] MEDS: RANOLAZINE 500 MG ER TAB PO SCH ×2 (08:24→22:05)
[2019-08-14] MEDS: CLOPIDOGREL 75 MG TAB PO SCH (08:25)
[2019-08-14] MEDS: ALVIMOPAN 12 MG CAPSULE (ENTEREG) PO SCH ×2 (08:25→22:06)
[2019-08-14] MEDS: allopurinoL 300 MG TAB PO SCH (08:25)
[2019-08-14] MEDS: SENOKOT S TAB PO SCH ×2 (08:25→22:05)
[2019-08-14] MEDS: PANTOPRAZOLE 40MG VIAL (C9113 PER 1) IV SCH ×2 (08:26→22:04)
[2019-08-14] MEDS: prednisoLONE ACET 1% OPHTH SUSP 5ML OD SCH ×4 (08:26→22:08)
[2019-08-14] MEDS: LIDOCAINE 5% (LIDODERM) PATCH TOP SCH (08:26)
[2019-08-14] MEDS: BISACODYL 10 MG SUPP PR SCH ×3 (08:26→21:00)
[2019-08-14] MEDS: SIMETHICONE 80 MG CHEW TAB PO SCH ×4 (08:26→22:05)
[2019-08-14] MEDS: HEPARIN SOD (PORCINE) 5000UNITS/ML VIAL (J1644 PER 1000UNITS) SC SCH ×2 (08:27→22:05)
[2019-08-14] MEDS: NYSTATIN 100,000 UNITS/GM TOPICAL PWD 15 GM TOP SCH ×2 (08:27→22:07)
[2019-08-14] MEDS: ISOSORBIDE MON. (IMDUR) 30 MG XR TAB PO SCH (08:27)
[2019-08-14] MEDS: CARVedilol 3.125 MG TAB PO SCH ×2 (08:27→22:06)
[2019-08-14] MEDS: oxyCODONE 10 MG CR TAB PO SCH ×2 (08:32→21:00)
[2019-08-14] MEDS ORDERED: POTASSIUM CHLORIDE 10 MEQ SR TABLET PO ONE (09:00)
[2019-08-14] MEDS: ONDANSETRON 4 MG TAB PO PRN (09:34)
[2019-08-14 12:57] LABS: CALCIUM LEVEL 8.4 MG/DL (8.8-10.2); CREATININE FOR GFR 1.29 MG/DL (0.55-1.30); GLOMERULAR FILTRATION RATE 43.6 (>45); POTASSIUM SERUM 3.7 MEQ/L (3.5-5.1)
[2019-08-14] MEDS: LINEZOLID 600 MG in IV 1 EA IV SCH ×2 (13:10→22:03)
[2019-08-14 14:00] VITALS: BP 176/79
--- NOTE | 2019-08-14 17:15 | IPN ---
DATE: 08/14/2019 The patient says that she had a bowel movement yesterday, which was yogurt-like in appearance. She has tolerated her advancement of diet without vomiting. She says that she constantly has nausea. She continues to have dyspnea on exertion, which she said she has had for months, improved on Ranexa. Dr. Brantley had cut it down from 1000 mg twice a day to 500 mg twice daily. Patient says that she is not quite back to baseline. She has her that she takes care of at home. Usually is able to wash her dishes and clean the house but usually has to stop several minutes when she gets winded. She is requesting [facility] and says that her four children have contributed to make a handicap accessible bathroom for her. Her daughter is in [place] and the other one is in [place], both of whom were involved in preparing the bathroom for her. She is anxious to go home and says that she is almost back to baseline. She diuresed about 1.1 liter yesterday, but was positive balance. She otherwise feels significantly improved. Despite low potassium, patient has no complaints of weakness or paresthesias. Vital Signs: Temperature is 98.2, pulse 60, respiratory rate 18, blood pressure 131/58, 96% on room air. Generally, awake, alert, oriented times three, able to provide review of systems. No conversational dyspnea. No cyanosis. No tracheal deviation. No jugular venous distention (JVD), no thyromegaly. No cervical lymphadenopathy. Lungs: Diminished breath sounds bilaterally but clear to auscultation, slight fine crackles at the bases. Heart: S1, S2, sinus rhythm. Abdomen is soft, nontender, nondistended. Obese abdomen. Extremities: Trace edema. Multiple excoriations. Patient's thoracic back has a midline incision that is clean with some mild serous drainage. No signs of induration or cellulitis. LABORATORY DATA: White count 10.9, hemoglobin 10, hematocrit 31, platelet count 334. Sodium 140, potassium 3.3, chloride 102, bicarbonate 29, BUN 16, creatinine 1.27, glucose of 80, BNP was 441. Wound culture on the back: Enterococcus (E) faecalis and coag negative staph sensitive to vancomycin and Zyvox, tetracycline and penicillin. 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 Ejection fraction on 08/11/2019 echo 50-55% with moderate pulmonary hypertension with low normal systolic function, chronic atrial fibrillation, vertebral fractures and spinal fusion, a few weeks ago went to [facility] for rehab developed small bowel obstruction/ileus 2 weeks ago which resolved, now presented with abdominal ileus, shortness of breath, found to have CHF, acute systolic dysfunction, EF of 50-55% with depressed systolic function. CT abdomen showed ileus. Patient had multiple bowel regimens and had a bowel movement, and diet was advanced. She was diuresed 3.3 liters since admission, but was net positive overnight. CURRENT ISSUES: 1. Congestive heart failure, acute systolic dysfunction with exacerbation. Currently on IV Lasix every 4 hours, net negative balance goal of at least one liter daily. Strict intake and output, daily weights. Patient has known history of diffuse coronary artery disease, on chronic Ranexa and says that she is dyspneic on exertion at all times. She is currently resumed on her home medications. She has improved significantly since admission. We are monitoring metabolic panel due to acute kidney injury that she had had earlier, which is most likely due to decrease in effective circulating volume. 2. Ileus, resolved. Patient has had a bowel movement yesterday, tolerating her diet well. She has learned to eat small meals. She is currently on Entereg, had been given a bowel regimen, including Senokot, Milk of Magnesia, Dulcolax, and mag citrate. 3. History of coronary artery disease, status post stent with diffuse coronary artery disease, on chronic Ranexa. Follows with Dr. Brantley. Had stents put in. Echo shows systolic dysfunction with ejection fraction (EF) of 50-55%, moderate pulmonary hypertension. 4. Moderate pulmonary hypertension contributing to chronic dyspnea on exertion. 5. Acute delirium. Most likely secondary to ciprofloxacin, which has been discontinued. Initially given for ileus versus bowel obstruction with elevated white count on admission. 6. Acute kidney injury, resolved. 7. Hypertension, on isosorbide and Coreg. 8. surgical wound infection wound cx with e. faecalis and coag neg staph. on zyvox. DISPOSITION: Patient will require another day of diuresis with Lasix, discharge home in the morning, arrange for [facility]. VINEET
[2019-08-14 18:11] VITALS: BP 129/61
[2019-08-14] MEDS: **NOTE PATIENT COMMENT** MISC XX SCH (21:00)
[2019-08-14 22:00] VITALS: BP 122/62
[2019-08-14] MEDS: ACETAMINOPHEN TAB 650MG DOSE (2X325MG) PO PRN (22:07)
[2019-08-15] MEDS: FUROSEMIDE 40MG/4ML VIAL (J1940) IV SCH ×2 (03:55→08:40)
[2019-08-15] MEDS: ACETAMINOPHEN TAB 650MG DOSE (2X325MG) PO PRN (03:55)
[2019-08-15] MEDS: HumaLOG INSULIN (NovoLOG) PER UNIT SC SCH ×3 (05:43→17:36)
[2019-08-15 05:53] LABS: BASO # 0.1 10^3/uL (0.0-0.2); BASO % 0.8 % (0.0-1.0); EOS # 0.5 10^3/uL (0.0-0.5); EOS % 5.5 % (0.0-3.0); HEMATOCRIT 29.6 % (36.0-47.0); HEMOGLOBIN 9.8 g/dl (12.0-15.5); LYMPH # 2.1 10^3/uL (1.5-5.0); LYMPH % 22.8 % (24.0-44.0); MEAN CORPUSCULAR HEMOGLOBIN 30.2 pg (27.0-33.0); MEAN CORPUSCULAR HGB CONC 33.1 g/dl (32.0-36.5); MEAN CORPUSCULAR VOLUME 91.1 fl (80.0-96.0); MONO # 1.2 10^3/uL (0.0-0.8); MONO % 12.6 % (0.0-5.0); NEUTROPHILS # 5.3 10^3/uL (1.5-8.5); NEUTROPHILS % 57.4 % (36.0-66.0); PLATELET COUNT, AUTOMATED 302 10^3/uL (150-450); RED BLOOD COUNT 3.25 10^6/uL (4.00-5.40); WHITE BLOOD COUNT 9.2 10^3/uL (4.0-10.0)
[2019-08-15 06:00] VITALS: BP 170/73
[2019-08-15 06:09] LABS: CALCIUM LEVEL 8.1 MG/DL (8.8-10.2); CREATININE FOR GFR 1.11 MG/DL (0.55-1.30); GLOMERULAR FILTRATION RATE 51.9 (>45); MAGNESIUM LEVEL 1.7 MG/DL (1.8-2.4); POTASSIUM SERUM 3.9 MEQ/L (3.5-5.1)
[2019-08-15] MEDS: ADVAIR HFA 45/21MCG INHALER INH SCH ×2 (07:37→19:45)
[2019-08-15] MEDS: PANTOPRAZOLE 40MG VIAL (C9113 PER 1) IV SCH ×2 (08:40→20:03)
[2019-08-15] MEDS: LIDOCAINE 5% (LIDODERM) PATCH TOP SCH (08:40)
[2019-08-15] MEDS: HEPARIN SOD (PORCINE) 5000UNITS/ML VIAL (J1644 PER 1000UNITS) SC SCH ×2 (08:41→20:03)
[2019-08-15] MEDS: SIMETHICONE 80 MG CHEW TAB PO SCH ×4 (08:41→20:03)
[2019-08-15] MEDS: BISACODYL 10 MG SUPP PR SCH ×2 (08:41→20:06)
[2019-08-15] MEDS: SENOKOT S TAB PO SCH ×2 (08:41→20:04)
[2019-08-15] MEDS: allopurinoL 300 MG TAB PO SCH (08:42)
[2019-08-15] MEDS: CARVedilol 3.125 MG TAB PO SCH ×2 (08:42→20:04)
[2019-08-15] MEDS: RANOLAZINE 500 MG ER TAB PO SCH ×2 (08:42→20:03)
[2019-08-15] MEDS: ISOSORBIDE MON. (IMDUR) 30 MG XR TAB PO SCH (08:42)
[2019-08-15] MEDS: ALVIMOPAN 12 MG CAPSULE (ENTEREG) PO SCH ×2 (08:42→20:03)
[2019-08-15] MEDS: CLOPIDOGREL 75 MG TAB PO SCH (08:42)
[2019-08-15] MEDS: NYSTATIN 100,000 UNITS/GM TOPICAL PWD 15 GM TOP SCH ×2 (08:43→20:05)
[2019-08-15] MEDS: prednisoLONE ACET 1% OPHTH SUSP 5ML OD SCH ×4 (08:43→20:05)
[2019-08-15] MEDS: oxyCODONE 10 MG CR TAB PO SCH (08:43)
[2019-08-15] MEDS ORDERED: FUROSEMIDE 40 MG TAB PO SCH (09:00)
[2019-08-15] MEDS ORDERED: MAGNESIUM OXIDE 400 MG TAB (MAG-OX) PO ONE (09:00)
[2019-08-15] MEDS ORDERED: traMADol 50 MG TAB PO SCH (09:45)
[2019-08-15] MEDS ORDERED: PERCOCET 5MG/325MG TAB PO PRN (09:45)
[2019-08-15] MEDS: LINEZOLID 600 MG in IV 1 EA IV SCH (10:56)
[2019-08-15] MEDS ORDERED: PERCOCET 5MG/325MG TAB PO SCH (12:00)
[2019-08-15 14:00] VITALS: BP 152/70
--- NOTE | 2019-08-15 15:38 | IPNPDOC ---
Date Seen The patient was seen on 08/15/19. Progress Note SUBJECTIVE: Modified pain medication to tramadol 100 mg every 6 hours, Tylenol [id number] and when necessary medication. Antibiotic was changed from Zyvox to vancomycin due to severe interactions between tramadol and Zyvox. Patient states the pain was uncontrolled on prior regimen. She admits to having severe back pain, unchanged compared to 08/14/2019. She denies chest pain, increased shortness of breath, fevers, chills. She had 1 large bowel movement today and her diet was further advanced this afternoon. OBJECTIVE: VITAL SIGNS: Please see below PHYSICAL EXAMINATION: CONSTITUTIONAL: Appears uncomfortable sitting at the bedside chair, AAO x 3 EYES: PERRLA, EOM intact HENT, MOUTH: Normocephalic, atraumatic, moist mucous membranes NECK: SUPPLE, no JVD, no lymphadenopathy, no carotid bruit CV: Regular rate and rhythm, S1S2 normal, no murmurs/rubs/gallops RESPIRATORY: Clear to auscultation bilaterally, no rales/rhonchi/wheezes GI: BS positive in 4 quadrants, soft, nontender, nondistended, no rebound or guarding, no organomegaly : Deferred MUSCULOSKELETAL: Hunched curvature of spine, ROM not tested. No cyanosis, clubbing, swelling, joint deformity, extremity edema INTEGUMENTARY: Large well-healing incision along the thoracic spine, exposed to air, nonsuppurative, no increased erythema. No rashes, no lesions, no erythema NEUROLOGIC: Cranial Nerves II-XII are intact, no focal deficits PSYCHIATRIC: Mood and affect are normal CURRENT MEDICATIONS: Please see below LABORATORY DATA: Please see below IMAGING: No new imaging ASSESSMENT: 69 y/o F treated for abdominal ileus-resolved, severe thoracic back pain, acute on chronic CHF exacerbation. PLAN: 1. Severe thoracic back pain, chronic. States pain is unbearable today 10 out of 10 on pain scale. Unchanged in location from prior pain. Pain regimen was adjusted to tramadol every 6 hours, Tylenol around the clock and oxycodone/acetaminophen when necessary. The patient states she has hallucinations with oxycodone and hydrocodone products. Since we were limited we had to change her antibiotics to avoid serotonin syndrome. Will follow pain closely and modify as needed. Today PT/OT. 2. Ileus, resolved. Advanced diet to low sodium diet today. Large bowel movement this morning. Continue with bowel regimen senokot, Milk of Magnesia, Dulcolax, and mag citrate. 3. Congestive heart failure, acute systolic dysfunction with exacerbation. Switched to PO lasix BID, neg fluid balance. C/w BB, lasix, strict intake and output, daily weights low sodium diet. 4. Hallucinations likely 2/2 to oxycodone/codeine derivative products that she says "always" cause hallucinations for her. Pain meds switched, listed as adverse rxn. Previously believed to be 2/2 to ciprofloxacin. Monitor for mental status changes. 5. Coronary artery disease status post stent with diffuse coronary artery disease. Denies increased SOB, chest pain. Follows with Dr. Brantley. Echo shows systolic dysfunction with ejection fraction (EF) of 50-55%, moderate pulmonary hypertension. C/w ranexa, all other cardiac medications. 6. Hypertension. C/w isosorbide and Coreg. 7. DVT px. Heparin. DISPOSITION: Needed to change antibiotics today due to conflict with pain medications. Plan is for discharge to rehab when pain is better controlled. VS, I&O, 24H, Shanta Vital Signs/I&O Vital Signs Date Time Temp Pulse Resp B/P (MAP) Pulse Ox O2 Delivery O2 Flow Rate FiO2 08/15/19 14:00 97.8 60 17 152/70 (97) 97 Room Air I&O- Last 24 Hours up to 6 AM 08/15/19 06:00 Intake Total 1080 ml Output Total 1850 ml Balance -770 ml Laboratory Data 24H LABS Laboratory Tests 2 08/14/19 17:22: Bedside Glucose (Misc Panel) 97 08/14/19 23:40: Bedside Glucose (Misc Panel) 138H 08/15/19 05:16: Immature Granulocyte % (Auto) 0.9, Neutrophils (%) (Auto) 57.4, Lymphocytes (%) (Auto) 22.8L, Monocytes (%) (Auto) 12.6H, Eosinophils (%) (Auto) 5.5H, Basophils (%) (Auto) 0.8, Neutrophils # (Auto) 5.3, Lymphocytes # (Auto) 2.1, Monocytes # (Auto) 1.2H, Eosinophils # (Auto) 0.5, Basophils # (Auto) 0.1, Nucleated Red Blood Cells % (auto) 0.0, Anion Gap 10, Glomerular Filtration Rate 51.9, Calcium Level 8.1L, Magnesium Level 1.7L, [id number] Natriuretic Peptide 3495H 08/15/19 05:36: Bedside Glucose (Misc Panel) 92 08/15/19 12:36: Bedside Glucose (Misc Panel) 125H CBC/BMP Laboratory Tests 08/15/19 05:16 Microbiology Microbiology 08/14/19 Respiratory Virus Panel (PCR) (SONJA) - Final, Complete 08/12/19 Gram Stain - Final, Complete 08/12/19 Sputum Culture - Final, Complete Yeast Like Organism 08/11/19 Gram Stain - Final, Complete 08/11/19 Wound Culture - Final, Complete Enterococcus Faecalis Staphylococcus Sp Coag Neg Current Medications Current Medications Medications (Trade) Dose Ordered Sig/Arturo Route PRN Reason Start Time Stop Time Status Last Admin Dose Admin Acetaminophen (Tylenol Tab) 650 mg Q4H PRN PO PAIN / FEVER 08/11/19 01:45 08/12/19 09:26 DC 08/12/19 03:54 Acetaminophen (Tylenol Tab) 650 mg Q4H PRN PO PAIN / FEVER 08/12/19 09:26 08/13/19 13:59 DC 08/13/19 12:25 Acetaminophen (Tylenol Tab) 650 mg Q6H PO 08/15/19 18:00 Acetaminophen (Tylenol Tab) 650 mg Q6HP PRN PO PAIN / FEVER 08/14/19 22:00 08/15/19 15:46 DC 08/15/19 03:55 Allopurinol (Zyloprim) 300 mg DAILY PO 08/11/19 09:00 08/15/19 08:42 Alvimopan (Entereg) 12 mg BID PO 08/12/19 09:00 08/19/19 08:59 08/15/19 08:42 Bacitracin (Bacitracin Oint) back x5days BID TOP 08/11/19 21:00 08/11/19 14:41 DC Bisacodyl (Dulcolax Suppository) 10 mg BID WI 08/13/19 09:00 08/15/19 08:41 Bisacodyl (Dulcolax Suppository) 10 mg DAILY PRN WI CONSTIPATION 08/11/19 01:45 08/13/19 07:07 DC Bisacodyl (Dulcolax Suppository) 10 mg TID WI 08/12/19 09:00 08/13/19 07:07 DC 08/12/19 21:26 Carvedilol (COReg) 3.125 mg BID PO 08/11/19 09:00 08/15/19 08:42 Ciprofloxacin 200 mg/IV Miscellaneous Supplies 100 ml @ 100 mls/hr Q12H IV 08/13/19 06:00 08/12/19 16:21 DC Ciprofloxacin 400 mg/IV Miscellaneous Supplies 200 ml @ 200 mls/hr Q12H IV 08/11/19 16:00 08/12/19 16:17 DC 08/12/19 03:55 Clopidogrel Bisulfate (PLAVix) 75 mg DAILY PO 08/11/19 09:00 08/15/19 08:42 Dextrose (Dextrose 50%) 25 ml ASDIRECTED PRN IV SEE LABEL COMMENTS 08/11/19 02:00 Dextrose (Dextrose 50%) 25 ml ASDIRECTED PRN IV SEE LABEL COMMENTS 08/12/19 16:15 UNV Furosemide (LASIX injection) 40 mg Q4H IV 08/13/19 15:00 08/14/19 07:08 DC 08/14/19 06:31 Furosemide (LASIX injection) 40 mg Q4H IV 08/14/19 11:00 08/15/19 07:01 DC 08/15/19 08:40 Furosemide (LASIX injection) 40 mg Q6H IV 08/12/19 12:00 08/12/19 18:01 DC 08/12/19 17:13 Furosemide (Lasix) 40 mg BID@,17 PO 08/15/19 09:00 08/15/19 08:55 DC Furosemide (Lasix) 40 mg BID@09,17 PO 08/15/19 17:00 Glucagon (Glucagon) 1 mg ASDIRECTED PRN SC SEE LABEL COMMENTS 08/11/19 02:00 Glucagon (Glucagon) 1 mg ASDIRECTED PRN SC SEE LABEL COMMENTS 08/12/19 16:15 UNV Glucose (Glucose) 16 GM ASDIRECTED PRN PO SEE LABEL COMMENTS 08/11/19 02:00 Glucose (Glucose) 16 GM ASDIRECTED PRN PO SEE LABEL COMMENTS 08/12/19 16:15 UNV Heparin Sodium (Porcine) (Heparin) 5,000 units Q12H SC 08/11/19 09:00 08/15/19 08:41 Home Med (Med Rec Complete!) ASDIRECTED XX 08/10/19 23:00 08/10/19 22:58 DC Hydromorphone HCl (Dilaudid) 0.2 mg Q3HP PRN IV MILD PAIN (PS 1-4) 08/11/19 16:15 08/13/19 13:54 DC Hydromorphone HCl (Dilaudid) 0.4 mg Q3HP PRN IV MODERATE PAIN (PS 5-7) 08/11/19 16:15 08/13/19 13:54 DC 08/12/19 19:50 Insulin Human Lispro (HumaLOG INSULIN) SEE PROTOCOL TABLE Q6H SC 08/11/19 06:00 08/15/19 13:11 Isosorbide Mononitrate (Imdur) 30 mg DAILY PO 08/11/19 09:00 08/15/19 08:42 Lidocaine (Lidoderm Patch) 1 patch DAILY TOP 08/11/19 09:00 08/15/19 08:40 Linezolid 600 mg/ IV Miscellaneous Supplies 300 ml @ 150 mls/hr Q12H IV 08/14/19 10:00 08/15/19 15:46 DC 08/15/19 10:56 Magnesium Hydroxide (Milk Of Magnesia) 30 ml BID PO 08/13/19 09:00 08/13/19 13:58 DC 08/13/19 09:00 Metronidazole 500 mg/IV Miscellaneous Supplies 100 ml @ 100 mls/hr Q8H IV 08/11/19 15:00 08/12/19 16:23 DC 08/12/19 06:38 Non-Formulary Medication ( See Comment Field Below ) REMOVE LIDODERM PATCH DAILY@21 XX 08/11/19 21:00 08/14/19 21:00 Nystatin (Mycostatin Powder, Nystop) APPLY TO REDDENED AREAS BID TOP 08/11/19 09:00 08/15/19 08:43 Ondansetron HCl (Zofran) 4 mg Q6H PRN PO NAUSEA OR VOMITING 08/11/19 01:45 08/14/19 09:34 Oxycodone HCl (OxyCONTIN) 10 mg BID PO 08/13/19 21:00 08/15/19 09:41 DC 08/14/19 08:32 Oxycodone/ Acetaminophen (Percocet 5mg/ 325mg Tablet) 1 tab Q6H PO 08/15/19 12:00 08/15/19 15:46 DC 08/15/19 11:04 Oxycodone/ Acetaminophen (Percocet 5mg/ 325mg Tablet) 1 tab Q6HP PRN PO SEVERE PAIN (PS 8-10) 08/15/19 09:45 08/15/19 10:16 DC Oxycodone/ Acetaminophen (Percocet 5mg/ 325mg Tablet) 1 tab Q6HP PRN PO SEVERE PAIN (PS 8-10) 08/15/19 16:00 Pantoprazole Sodium (Protonix) 40 mg DAILY PO 08/11/19 09:00 08/11/19 13:56 DC 08/11/19 12:16 Pantoprazole Sodium (Protonix) 40 mg Q12H IV 08/11/19 09:00 Cancel Pantoprazole Sodium (Protonix) 40 mg Q12H IV 08/11/19 21:00 08/15/19 08:40 Prednisolone Acetate (Predforte 1% Ophth Susp) 1 drop QID OD 08/11/19 09:00 08/15/19 13:11 Ranolazine (Ranexa) 500 mg BID PO 08/11/19 09:00 08/15/19 08:42 Salmeterol Xinafoate/ Fluticasone (Advair Hfa 45-21 Mcg/Act) 2 puff RBID INH 08/11/19 08:00 08/15/19 07:37 Senna/Docusate Sodium (Senokot S) 2 tab BID PO 08/13/19 09:00 08/15/19 08:41 Simethicone (Mylicon) 120 mg QID PO 08/13/19 13:00 08/15/19 13:11 Tramadol HCl (Ultram) 100 mg Q6H PO 08/15/19 18:00 Tramadol HCl (Ultram) 100 mg Q8H PO 08/15/19 09:45 08/15/19 10:09 DC Vancomycin HCl 1000 mg/IV Miscellaneous Supplies 1 each/ Dextrose 270 ml @ 270 mls/hr Q12H IV 08/15/19 15:45 UNV Allergies Coded Allergies: NUTS (Verified Allergy, Severe, DIFFICULTY BREATHING, 08/11/19) Sulfa (Sulfonamide Antibiotics) (Verified Allergy, Severe, ANAPHYLACTIC SHOCK, 06/14/18) TAPE (Verified Allergy, Intermediate, clear dressings and tape on IV's - rash, 08/11/19) dronedarone (Unverified Allergy, Intermediate, CONTRAINDICATED DUE TO DON XA, 06/14/18) lansoprazole (Unverified Allergy, Intermediate, CONTRAINDICATED DUE TO BLOOD THINNERS, 06/14/18) latex (Unverified Allergy, Intermediate, RASH, 06/14/18) PERFUMES (Verified Allergy, Unknown, 08/11/19) STATES DRYER SHEETS WELL bacitracin (Verified Allergy, Unknown, 08/10/19) ketorolac (Verified Adverse Reaction, Severe, 08/13/19) renal failure Corticosteroids (Glucocorticoids) (Verified Adverse Reaction, Intermediate, STATED CHF FROM DEXADROL, 08/11/19) Woetmic-Nck-Fyf Reductase Inhibitor (Unverified Adverse Reaction, Intermediate, MUSCLE WEAKNESS, 06/14/18) glycopyrrolate (Unverified Adverse Reaction, Intermediate, CHEST PAIN, ) naloxone (Unverified Adverse Reaction, Intermediate, GI UPSET, DIZZY, 06/14/18) nifedipine (Unverified Adverse Reaction, Intermediate, SORE THROAT, 06/14/18) pentazocine (Unverified Adverse Reaction, Intermediate, GI UPSET, DIZZY, 06/14/18) Shanta Casiano MD Aug 15, 2019 15:38
[2019-08-15] MEDS ORDERED: VANCOMYCIN HCL 1,000 MG, VIAL MATE ADAPTER 1 EACH in D5W 250 ML IV ONE ×2 (17:00→18:00)
[2019-08-15] MEDS: FUROSEMIDE 40 MG TAB PO SCH (17:33)
[2019-08-15] MEDS: traMADol 50 MG TAB PO SCH (17:35)
[2019-08-15] MEDS: ACETAMINOPHEN TAB 650MG DOSE (2X325MG) PO SCH (17:36)
[2019-08-15] MEDS: **NOTE PATIENT COMMENT** MISC XX SCH (20:05)
[2019-08-15] MEDS: PERCOCET 5MG/325MG TAB PO PRN (20:05)
[2019-08-15 22:00] VITALS: BP 143/67
[2019-08-16] MEDS: traMADol 50 MG TAB PO SCH ×5 (00:15→23:48)
[2019-08-16] MEDS: ACETAMINOPHEN TAB 650MG DOSE (2X325MG) PO SCH ×5 (00:15→23:47)
[2019-08-16 05:55] LABS: BASO # 0.1 10^3/uL (0.0-0.2); BASO % 0.5 % (0.0-1.0); EOS # 0.6 10^3/uL (0.0-0.5); EOS % 5.1 % (0.0-3.0); HEMATOCRIT 30.9 % (36.0-47.0); HEMOGLOBIN 10.1 g/dl (12.0-15.5); LYMPH # 2.3 10^3/uL (1.5-5.0); MEAN CORPUSCULAR HEMOGLOBIN 29.7 pg (27.0-33.0); MEAN CORPUSCULAR HGB CONC 32.7 g/dl (32.0-36.5); MEAN CORPUSCULAR VOLUME 90.9 fl (80.0-96.0); MONO # 1.1 10^3/uL (0.0-0.8); MONO % 10.3 % (0.0-5.0); NEUTROPHILS # 6.9 10^3/uL (1.5-8.5); NEUTROPHILS % 62.2 % (36.0-66.0); PLATELET COUNT, AUTOMATED 310 10^3/uL (150-450)
[2019-08-16 06:00] VITALS: BP 137/3
[2019-08-16 06:23] LABS: CALCIUM LEVEL 8.1 MG/DL (8.8-10.2); CREATININE FOR GFR 1.09 MG/DL (0.55-1.30); MAGNESIUM LEVEL 1.7 MG/DL (1.8-2.4); POTASSIUM SERUM 3.4 MEQ/L (3.5-5.1)
[2019-08-16] MEDS: HumaLOG INSULIN (NovoLOG) PER UNIT SC SCH ×4 (07:25→20:36)
[2019-08-16] MEDS ORDERED: VANCOMYCIN HCL 1,000 MG, VIAL MATE ADAPTER 1 EACH in D5W 250 ML IV SCH (08:00)
[2019-08-16] MEDS ORDERED: POTASSIUM CHLORIDE 10 MEQ SR TABLET PO ONE (08:00)
[2019-08-16] MEDS: RANOLAZINE 500 MG ER TAB PO SCH ×2 (08:44→20:35)
[2019-08-16] MEDS: PANTOPRAZOLE 40MG VIAL (C9113 PER 1) IV SCH ×2 (08:44→20:34)
[2019-08-16] MEDS: BISACODYL 10 MG SUPP PR SCH ×3 (08:44→20:37)
[2019-08-16] MEDS: HEPARIN SOD (PORCINE) 5000UNITS/ML VIAL (J1644 PER 1000UNITS) SC SCH ×2 (08:44→20:35)
[2019-08-16] MEDS: CARVedilol 3.125 MG TAB PO SCH ×2 (08:45→20:36)
[2019-08-16] MEDS: FUROSEMIDE 40 MG TAB PO SCH ×2 (08:45→17:22)
[2019-08-16] MEDS: ISOSORBIDE MON. (IMDUR) 30 MG XR TAB PO SCH (08:46)
[2019-08-16] MEDS: SIMETHICONE 80 MG CHEW TAB PO SCH ×4 (08:46→20:35)
[2019-08-16] MEDS: SENOKOT S TAB PO SCH ×2 (08:46→20:35)
[2019-08-16] MEDS: ALVIMOPAN 12 MG CAPSULE (ENTEREG) PO SCH ×2 (08:47→20:35)
[2019-08-16] MEDS: LIDOCAINE 5% (LIDODERM) PATCH TOP SCH (08:47)
[2019-08-16] MEDS: MAGNESIUM OXIDE 400 MG TAB (MAG-OX) PO SCH (08:47)
[2019-08-16] MEDS: CLOPIDOGREL 75 MG TAB PO SCH (08:47)
[2019-08-16] MEDS: allopurinoL 300 MG TAB PO SCH (08:47)
[2019-08-16] MEDS: NYSTATIN 100,000 UNITS/GM TOPICAL PWD 15 GM TOP SCH ×2 (08:48→20:37)
[2019-08-16] MEDS: prednisoLONE ACET 1% OPHTH SUSP 5ML OD SCH ×4 (08:48→20:37)
[2019-08-16] MEDS: ADVAIR HFA 45/21MCG INHALER INH SCH ×2 (08:50→20:24)
--- NOTE | 2019-08-16 14:14 | IPNPDOC ---
Date Seen The patient was seen on 08/16/19. Progress Note SUBJECTIVE: Pain better controlled with modified pain regimen. Blood sugar likely increased due to D5 with Vancomycin. Supplemented potassium. WBC slightly increased to 11 from 9.2. Participated well with PT today. Has had several bowel movements since 08/15/19. Appears much more comfortable today and denies chest pain, increased shortness of breath, fevers, chills. OBJECTIVE: VITAL SIGNS: Please see below PHYSICAL EXAMINATION: CONSTITUTIONAL: Appears comfortable sitting at the bedside chair, AAO x 3 EYES: PERRLA, EOM intact HENT, MOUTH: Normocephalic, atraumatic, moist mucous membranes NECK: SUPPLE, no JVD, no lymphadenopathy, no carotid bruit CV: Regular rate and rhythm, S1S2 normal, no murmurs/rubs/gallops RESPIRATORY: Clear to auscultation bilaterally, no rales/rhonchi/wheezes GI: BS positive in 4 quadrants, soft, nontender, nondistended, no rebound or guarding, no organomegaly : Deferred MUSCULOSKELETAL: Hunched curvature of spine, ROM not tested. No cyanosis, clubb ing, swelling, joint deformity, extremity edema INTEGUMENTARY: Large well-healing incision along the thoracic spine, exposed to air, nonsuppurative, no increased erythema. No rashes, no lesions, no erythema NEUROLOGIC: Cranial Nerves II-XII are intact, no focal deficits PSYCHIATRIC: Mood and affect are normal CURRENT MEDICATIONS: Please see below LABORATORY DATA: Please see below IMAGING: No new imaging ASSESSMENT: 69 y/o F treated for abdominal ileus-resolved, severe thoracic back pain, acute on chronic CHF exacerbation. PLAN: 1. Severe thoracic back pain, chronic. Pain better controlled, participated well with PT this AM.C/w tramadol 100 mg PO Q6H, Tylenol ATC and oxycodone/aceta minophen PRN. No hallucinations documented with percocet. C/w PT/OT. 2. Hypomagnesemia. Started on magnesium daily. F/u AM level. 3. Hypokalemia. Supplemented 40 mEq today. F/u AM labs. 4. Hyperglycemia likely 2/2 to D5W with Vancomycin. BS 85-190. Monitor closely, can change to consistent carb diet and add AC/HS with ISS if needed. F/u HbA1c, lipid panel. No hx of DM type II. 5. Ileus- resolved. Tolerating diet well and has had several bowel movements since 08/15/19. Continue with bowel regimen senokot, Milk of Magnesia, Dulcolax, and mag citrate. 6. Congestive heart failure, acute systolic dysfunction with exacerbation. C/w lasix BID, BB, fluid restriction, strict I&Os, daily weights, low sodium diet. 7. Coronary artery disease status post stent with diffuse coronary artery dis ease. Denies increased SOB, chest pain. Follows with Dr. Brantley. Echo shows systolic dysfunction with ejection fraction (EF) of 50-55%, moderate pulmonary hypertension. C/w ranexa, all other cardiac medications. 8. Hypertension. C/w isosorbide and Coreg. 9. DVT px. Heparin. DISPOSITION: Plan is for discharge to rehab. Will discuss with team. VS, I&O, 24H, Fishbone Vital Signs/I&O Vital Signs Date Time Temp Pulse Resp B/P (MAP) Pulse Ox O2 Delivery O2 Flow Rate FiO2 08/16/19 12:35 19 08/16/19 08:46 156/71 08/16/19 08:45 62 08/16/19 06:00 98.2 96 Room Air I&O- Last 24 Hours up to 6 AM 08/16/19 06:00 Intake Total 1370 ml Output Total 0 ml Balance 1370 ml Laboratory Data 24H LABS Laboratory Tests 2 08/15/19 17:31: Bedside Glucose (Misc Panel) 85 08/15/19 20:27: Bedside Glucose (Misc Panel) 186H 08/16/19 05:18: Immature Granulocyte % (Auto) 0.9, Neutrophils (%) (Auto) 62.2, Lymphocytes (%) (Auto) 21.0L, Monocytes (%) (Auto) 10.3H, Eosinophils (%) (Auto) 5.1H, Basophils (%) (Auto) 0.5, Neutrophils # (Auto) 6.9, Lymphocytes # (Auto) 2.3, Monocytes # (Auto) 1.1H, Eosinophils # (Auto) 0.6H, Basophils # (Auto) 0.1, Nucleated Red Blood Cells % (auto) 0.0, Anion Gap 9, Glomerular Filtration Rate 53.0, Calcium Level 8.1L, Magnesium Level 1.7L 08/16/19 11:34: Bedside Glucose (Misc Panel) 119H CBC/BMP Laboratory Tests 08/16/19 05:18 Microbiology Microbiology 08/14/19 Respiratory Virus Panel (PCR) (SONJA) - Final, Complete 08/12/19 Gram Stain - Final, Complete 08/12/19 Sputum Culture - Final, Complete Yeast Like Organism 08/11/19 Gram Stain - Final, Complete 08/11/19 Wound Culture - Final, Complete Enterococcus Faecalis Staphylococcus Sp Coag Neg Current Medications Current Medications Medications (Trade) Dose Ordered Sig/Arturo Route PRN Reason Start Time Stop Time Status Last Admin Dose Admin Acetaminophen (Tylenol Tab) 650 mg Q4H PRN PO PAIN / FEVER 08/11/19 01:45 08/12/19 09:26 DC 08/12/19 03:54 Acetaminophen (Tylenol Tab) 650 mg Q4H PRN PO PAIN / FEVER 08/12/19 09:26 08/13/19 13:59 DC 08/13/19 12:25 Acetaminophen (Tylenol Tab) 650 mg Q6H PO 08/15/19 18:00 08/16/19 12:35 Acetaminophen (Tylenol Tab) 650 mg Q6HP PRN PO PAIN / FEVER 08/14/19 22:00 08/15/19 15:46 DC 08/15/19 03:55 Allopurinol (Zyloprim) 300 mg DAILY PO 08/11/19 09:00 08/16/19 08:47 Alvimopan (Entereg) 12 mg BID PO 08/12/19 09:00 08/19/19 08:59 08/16/19 08:47 Bacitracin (Bacitracin Oint) back x5days BID TOP 08/11/19 21:00 08/11/19 14:41 DC Bisacodyl (Dulcolax Suppository) 10 mg BID [place] 08/13/19 09:00 08/15/19 08:41 Bisacodyl (Dulcolax Suppository) 10 mg DAILY PRN [place] CONSTIPATION 08/11/19 01:45 08/13/19 07:07 DC Bisacodyl (Dulcolax Suppository) 10 mg TID [place] 08/12/19 09:00 08/13/19 07:07 DC 08/12/19 21:26 Carvedilol (COReg) 3.125 mg BID PO 08/11/19 09:00 08/16/19 08:45 Ciprofloxacin 200 mg/IV Miscellaneous Supplies 100 ml @ 100 mls/hr Q12H IV 08/13/19 06:00 08/12/19 16:21 DC Ciprofloxacin 400 mg/IV Miscellaneous Supplies 200 ml @ 200 mls/hr Q12H IV 08/11/19 16:00 08/12/19 16:17 DC 08/12/19 03:55 Clopidogrel Bisulfate (PLAVix) 75 mg DAILY PO 08/11/19 09:00 08/16/19 08:47 Dextrose (Dextrose 50%) 25 ml ASDIRECTED PRN IV SEE LABEL COMMENTS 08/11/19 02:00 Dextrose (Dextrose 50%) 25 ml ASDIRECTED PRN IV SEE LABEL COMMENTS 08/12/19 16:15 UNV Furosemide (LASIX injection) 40 mg Q4H IV 08/13/19 15:00 08/14/19 07:08 DC 08/14/19 06:31 Furosemide (LASIX injection) 40 mg Q4H IV 08/14/19 11:00 08/15/19 07:01 DC 08/15/19 08:40 Furosemide (LASIX injection) 40 mg Q6H IV 08/12/19 12:00 08/12/19 18:01 DC 08/12/19 17:13 Furosemide (Lasix) 40 mg BID@09,17 PO 08/15/19 09:00 08/15/19 08:55 DC Furosemide (Lasix) 40 mg BID@09,17 PO 08/15/19 17:00 08/16/19 08:45 Glucagon (Glucagon) 1 mg ASDIRECTED PRN SC SEE LABEL COMMENTS 08/11/19 02:00 Glucagon (Glucagon) 1 mg ASDIRECTED PRN SC SEE LABEL COMMENTS 08/12/19 16:15 UNV Glucose (Glucose) 16 GM ASDIRECTED PRN PO SEE LABEL COMMENTS 08/11/19 02:00 Glucose (Glucose) 16 GM ASDIRECTED PRN PO SEE LABEL COMMENTS 08/12/19 16:15 UNV Heparin Sodium (Porcine) (Heparin) 5,000 units Q12H SC 08/11/19 09:00 08/16/19 08:44 Home Med (Med Rec Complete!) ASDIRECTED XX 08/10/19 23:00 08/10/19 22:58 DC Hydromorphone HCl (Dilaudid) 0.2 mg Q3HP PRN IV MILD PAIN (PS 1-4) 08/11/19 16:15 08/13/19 13:54 DC Hydromorphone HCl (Dilaudid) 0.4 mg Q3HP PRN IV MODERATE PAIN (PS 5-7) 08/11/19 16:15 08/13/19 13:54 DC 08/12/19 19:50 Insulin Human Lispro (HumaLOG INSULIN) SEE PROTOCOL TABLE AC [place] 08/16/19 07:30 08/16/19 12:34 Insulin Human Lispro (HumaLOG INSULIN) SEE PROTOCOL TABLE Q6H [place] 08/11/19 06:00 08/15/19 23:26 DC 08/15/19 13:11 Insulin Human Lispro (HumaLOG INSULIN) SEE PROTOCOL TABLE QHS [place] 08/16/19 21:00 Isosorbide Mononitrate (Imdur) 30 mg DAILY PO 08/11/19 09:00 08/16/19 08:46 Lidocaine (Lidoderm Patch) 1 patch DAILY TOP 08/11/19 09:00 08/16/19 08:47 Linezolid 600 mg/ IV Miscellaneous Supplies 300 ml @ 150 mls/hr Q12H IV 08/14/19 10:00 08/15/19 15:46 DC 08/15/19 10:56 Magnesium Hydroxide (Milk Of Magnesia) 30 ml BID PO 08/13/19 09:00 08/13/19 13:58 DC 08/13/19 09:00 Magnesium Oxide (Mag-Ox) 400 mg DAILY PO 08/16/19 09:00 08/16/19 08:47 Metronidazole 500 mg/IV Miscellaneous Supplies 100 ml @ 100 mls/hr Q8H IV 08/11/19 15:00 08/12/19 16:23 DC 08/12/19 06:38 Non-Formulary Medication ( See Comment Field Below ) REMOVE LIDODERM PATCH DAILY@21 XX 08/11/19 21:00 08/15/19 20:05 Nystatin (Mycostatin Powder, Nystop) APPLY TO REDDENED AREAS BID TOP 08/11/19 09:00 08/16/19 08:48 Ondansetron HCl (Zofran) 4 mg Q6H PRN PO NAUSEA OR VOMITING 08/11/19 01:45 08/14/19 09:34 Oxycodone HCl (OxyCONTIN) 10 mg BID PO 08/13/19 21:00 08/15/19 09:41 DC 08/14/19 08:32 Oxycodone/ Acetaminophen (Percocet 5mg/ 325mg Tablet) 1 tab Q6H PO 08/15/19 12:00 08/15/19 15:46 DC 08/15/19 11:04 Oxycodone/ Acetaminophen (Percocet 5mg/ 325mg Tablet) 1 tab Q6HP PRN PO SEVERE PAIN (PS 8-10) 08/15/19 09:45 08/15/19 10:16 DC Oxycodone/ Acetaminophen (Percocet 5mg/ 325mg Tablet) 1 tab Q6HP PRN PO SEVERE PAIN (PS 8-10) 08/15/19 16:00 08/15/19 20:05 Pantoprazole Sodium (Protonix) 40 mg DAILY PO 08/11/19 09:00 08/11/19 13:56 DC 08/11/19 12:16 Pantoprazole Sodium (Protonix) 40 mg Q12H IV 08/11/19 09:00 Cancel Pantoprazole Sodium (Protonix) 40 mg Q12H IV 08/11/19 21:00 08/16/19 08:44 Prednisolone Acetate (Predforte 1% Ophth Susp) 1 drop QID OD 08/11/19 09:00 08/16/19 13:34 Ranolazine (Ranexa) 500 mg BID PO 08/11/19 09:00 08/16/19 08:44 Salmeterol Xinafoate/ Fluticasone (Advair Hfa 45-21 Mcg/Act) 2 puff RBID INH 08/11/19 08:00 08/16/19 08:50 Senna/Docusate Sodium (Senokot S) 2 tab BID PO 08/13/19 09:00 08/16/19 08:46 Simethicone (Mylicon) 120 mg QID PO 08/13/19 13:00 08/16/19 12:35 Tramadol HCl (Ultram) 100 mg Q6H PO 08/15/19 18:00 08/16/19 12:35 Tramadol HCl (Ultram) 100 mg Q8H PO 08/15/19 09:45 08/15/19 10:09 DC Vancomycin HCl 1000 mg/IV Miscellaneous Supplies 1 each/ Dextrose 270 ml @ 270 mls/hr Q12H IV 08/16/19 08:00 08/16/19 08:45 Allergies Coded Allergies: NUTS (Verified Allergy, Severe, DIFFICULTY BREATHING, 08/11/19) Sulfa (Sulfonamide Antibiotics) (Verified Allergy, Severe, ANAPHYLACTIC SHOCK, 06/14/18) TAPE (Verified Allergy, Intermediate, clear dressings and tape on IV's - rash, 08/11/19) dronedarone (Unverified Allergy, Intermediate, CONTRAINDICATED DUE TO RANEXA, 06/14/18) lansoprazole (Unverified Allergy, Intermediate, CONTRAINDICATED DUE TO BLOOD THINNERS, 06/14/18) latex (Unverified Allergy, Intermediate, RASH, 06/14/18) PERFUMES (Verified Allergy, Unknown, 08/11/19) STATES DRYER SHEETS WELL bacitracin (Verified Allergy, Unknown, 08/10/19) ketorolac (Verified Adverse Reaction, Severe, 08/13/19) renal failure Corticosteroids (Glucocorticoids) (Verified Adverse Reaction, Intermediate, STATED CHF FROM DEXADROL, 08/11/19) Vdbjuzi-Wuk-Qrg Reductase Inhibitor (Unverified Adverse Reaction, Intermediate, MUSCLE WEAKNESS, 06/14/18) codeine (Verified Adverse Reaction, Intermediate, HALLUCINATIONS, 08/15/19) glycopyrrolate (Unverified Adverse Reaction, Intermediate, CHEST PAIN, 06/14/18) naloxone (Unverified Adverse Reaction, Intermediate, GI UPSET, DIZZY, 06/14/18) nifedipine (Unverified Adverse Reaction, Intermediate, SORE THROAT, 06/14/18) oxycodone (Verified Adverse Reaction, Intermediate, HALLUCINATIONS, 08/15/19) pentazocine (Unverified Adverse Reaction, Intermediate, GI UPSET, DIZZY, 06/14/18) Shanta Casiano MD Aug 16, 2019 14:14
[2019-08-16] MEDS: LINEZOLID 600MG TABLET (ZYVOX) PO SCH (20:35)
[2019-08-16] MEDS: **NOTE PATIENT COMMENT** MISC XX SCH (20:38)
[2019-08-16 22:00] VITALS: BP 151/72
[2019-08-17] MEDS: PERCOCET 5MG/325MG TAB PO PRN ×3 (03:58→21:55)
[2019-08-17 05:57] LABS: BASO # 0.1 10^3/uL (0.0-0.2); BASO % 0.8 % (0.0-1.0); EOS # 0.5 10^3/uL (0.0-0.5); EOS % 5.4 % (0.0-3.0); HEMATOCRIT 30.8 % (36.0-47.0); HEMOGLOBIN 9.9 g/dl (12.0-15.5); LYMPH # 2.1 10^3/uL (1.5-5.0); LYMPH % 21.2 % (24.0-44.0); MEAN CORPUSCULAR HEMOGLOBIN 29.5 pg (27.0-33.0); MEAN CORPUSCULAR HGB CONC 32.1 g/dl (32.0-36.5); MEAN CORPUSCULAR VOLUME 91.7 fl (80.0-96.0); MONO % 10.3 % (0.0-5.0); NEUTROPHILS # 6.1 10^3/uL (1.5-8.5); NEUTROPHILS % 61.4 % (36.0-66.0); PLATELET COUNT, AUTOMATED 314 10^3/uL (150-450); RED BLOOD COUNT 3.36 10^6/uL (4.00-5.40); WHITE BLOOD COUNT 9.9 10^3/uL (4.0-10.0)
[2019-08-17 06:00] VITALS: BP 133/63
[2019-08-17 06:14] LABS: HEMOGLOBIN A1c 6.1 %
[2019-08-17 06:31] LABS: ALBUMIN 2.5 GM/DL (3.2-5.2); BILIRUBIN,TOTAL 0.6 MG/DL (0.2-1.0); CALCIUM LEVEL 8.5 MG/DL (8.8-10.2); CHOLESTEROL RISK RATIO 5.8 (<5); CREATININE FOR GFR 1.12 MG/DL (0.55-1.30); GLOMERULAR FILTRATION RATE 51.3 (>45); POTASSIUM SERUM 3.8 MEQ/L (3.5-5.1)
[2019-08-17] MEDS: ACETAMINOPHEN TAB 650MG DOSE (2X325MG) PO SCH ×4 (06:31→23:58)
[2019-08-17] MEDS: traMADol 50 MG TAB PO SCH ×4 (06:32→23:59)
[2019-08-17] MEDS: HumaLOG INSULIN (NovoLOG) PER UNIT SC SCH ×4 (07:30→21:00)
[2019-08-17] MEDS: ADVAIR HFA 45/21MCG INHALER INH SCH ×2 (07:35→21:03)
[2019-08-17] MEDS: prednisoLONE ACET 1% OPHTH SUSP 5ML OD SCH ×4 (08:57→21:55)
[2019-08-17] MEDS: LIDOCAINE 5% (LIDODERM) PATCH TOP SCH (08:58)
[2019-08-17] MEDS: BISACODYL 10 MG SUPP PR SCH ×2 (09:00→21:00)
[2019-08-17] MEDS: HEPARIN SOD (PORCINE) 5000UNITS/ML VIAL (J1644 PER 1000UNITS) SC SCH ×2 (09:00→21:53)
[2019-08-17] MEDS: PANTOPRAZOLE 40MG VIAL (C9113 PER 1) IV SCH ×2 (09:00→21:56)
[2019-08-17] MEDS: CLOPIDOGREL 75 MG TAB PO SCH (09:01)
[2019-08-17] MEDS: MAGNESIUM OXIDE 400 MG TAB (MAG-OX) PO SCH (09:01)
[2019-08-17] MEDS: SIMETHICONE 80 MG CHEW TAB PO SCH ×4 (09:01→21:53)
[2019-08-17] MEDS: allopurinoL 300 MG TAB PO SCH (09:02)
[2019-08-17] MEDS: POTASSIUM CHLORIDE 10 MEQ SR TABLET PO SCH (09:02)
[2019-08-17] MEDS: SENOKOT S TAB PO SCH ×2 (09:02→21:53)
[2019-08-17] MEDS: CARVedilol 3.125 MG TAB PO SCH ×2 (09:03→21:54)
[2019-08-17] MEDS: LINEZOLID 600MG TABLET (ZYVOX) PO SCH ×2 (09:03→21:53)
[2019-08-17] MEDS: ALVIMOPAN 12 MG CAPSULE (ENTEREG) PO SCH ×2 (09:03→21:53)
[2019-08-17] MEDS: FUROSEMIDE 40 MG TAB PO SCH ×2 (09:03→17:50)
[2019-08-17] MEDS: RANOLAZINE 500 MG ER TAB PO SCH ×2 (09:03→21:53)
[2019-08-17] MEDS: ISOSORBIDE MON. (IMDUR) 30 MG XR TAB PO SCH (09:03)
[2019-08-17] MEDS: NYSTATIN 100,000 UNITS/GM TOPICAL PWD 15 GM TOP SCH ×2 (09:04→21:55)
[2019-08-17 14:00] VITALS: BP 114/70
--- NOTE | 2019-08-17 20:38 | IPNPDOC ---
Date Seen The patient was seen on 08/17/19. Progress Note SUBJECTIVE: No issues with pain overnight, normal bowel movements. Abx changed to zyvox again after discussion with pharmacy, vancomycin d/aliya. WBC wnl, afebrile. BNP continues to improve with lasix BID. PT/OT would like one more day to assess if patient will be able to go home with home services vs. rehabilitation center. Patient denies chest pain, increased shortness of breath, fevers, chills. OBJECTIVE: VITAL SIGNS: Please see below PHYSICAL EXAMINATION: CONSTITUTIONAL: Appears comfortable sitting at the bedside chair, AAO x 3 EYES: PERRLA, EOM intact HENT, MOUTH: Normocephalic, atraumatic, moist mucous membranes NECK: SUPPLE, no JVD, no lymphadenopathy, no carotid bruit CV: Regular rate and rhythm, S1S2 normal, no murmurs/rubs/gallops RESPIRATORY: Clear to auscultation bilaterally, no rales/rhonchi/wheezes GI: BS positive in 4 quadrants, soft, nontender, nondistended, no rebound or guarding, no organomegaly : Deferred MUSCULOSKELETAL: Hunched curvature of spine, ROM not tested. No cyanosis, clubbing, swelling, joint deformity, extremity edema INTEGUMENTARY: Large well-healing incision along the thoracic spine, exposed to air, nonsuppurative, no increased erythema. No rashes, no lesions, no erythema NEUROLOGIC: Cranial Nerves II-XII are intact, no focal deficits PSYCHIATRIC: Mood and affect are normal CURRENT MEDICATIONS: Please see below LABORATORY DATA: Please see below IMAGING: No new imaging ASSESSMENT: 69 y/o F treated for thoracic back pain, acute on chronic CHF exacerbation. PLAN: 1. Thoracic back pain, chronic. Pain controlled with current regimen. Denies hallucination with PRN oxycodone/acetaminophen. Per PT note, the patient demonstrating safe sit-stand transfers and ambulation x250' with RW. Pt reports a daughter who lives <1 mile away available to assist with donning/doffing the back brace and as needed for mobility when fatigue is present. Pt too fatigued to perform stairs this session after ambulation. Testing tairs tomorrow AM in preparation for potential d/c home with services. C/w tramadol 50 mg PO Q6H, Tylenol ATC and oxycodone/acetaminophen PRN. 2. Hypomagnesemia. Stable, c/w supplementation. 3. Hypokalemia. Resolved. F/u AM labs. 4. Hypoglycemia. Previously hyperglycemia; however, more controlled. Stopped insulin sliding scale coverage, c/w AC/HS finger sticks to see if we need to reinstitute. HbA1c 6.1. Continue to monitor closely. 5. Hx of constipation with recently resolved ileus. Daily bowel movements. Tolerating diet well. Continue with bowel regimen. 6. Congestive heart failure, acute systolic dysfunction with exacerbation. Increased lasix to 60 mg IV BID, + fluid balance today with BNP slowly leveling off in 3000's. C/w C/w lasix BID, BB, fluid restriction, strict I&Os, daily weights, low sodium diet. 7. Coronary artery disease status post stent with diffuse coronary artery disea se. Denies increased SOB, chest pain. Follows with Dr. Brantley. Echo shows systolic dysfunction with ejection fraction (EF) of 50-55%, moderate pulmonary hypertension. C/w ranexa, all other cardiac medications. 8. Hypertension. Stable. C/w isosorbide and Coreg. 9. DVT px. Heparin. DISPOSITION: Plan is for discharge home hopefully tomorrow with follow up with PCP VS, I&O, 24H, Shanta Vital Signs/I&O Vital Signs Date Time Temp Pulse Resp B/P (MAP) Pulse Ox O2 Delivery O2 Flow Rate FiO2 08/17/19 17:49 18 08/17/19 14:00 97.0 60 114/70 (85) 94 Room Air I&O- Last 24 Hours up to 6 AM 08/17/19 06:00 Intake Total 990 ml Output Total 0 ml Balance 990 ml Laboratory Data 24H LABS Laboratory Tests 2 08/17/19 05:28: Immature Granulocyte % (Auto) 0.9, Neutrophils (%) (Auto) 61.4, Lymphocytes (%) (Auto) 21.2L, Monocytes (%) (Auto) 10.3H, Eosinophils (%) (Auto) 5.4H, Basophils (%) (Auto) 0.8, Neutrophils # (Auto) 6.1, Lymphocytes # (Auto) 2.1, Monocytes # (Auto) 1.0H, Eosinophils # (Auto) 0.5, Basophils # (Auto) 0.1, Nucleated Red Blood Cells % (auto) 0.0, Anion Gap 7L, Glomerular Filtration Rate 51.3, Estimated Mean Plasma Glucose 128H, Hemoglobin A1c 6.1, Calcium Level 8.5L, Total Bilirubin 0.6, Aspartate Amino Transf (AST/SGOT) 14, Alanine Aminotransferase (ALT/SGPT) 10L, Alkaline Phosphatase 223H, GB-Vng-J-Type N atriuretic Peptide 3279H, Total Protein 6.0L, Albumin 2.5L, Albumin/Globulin Ratio 0.7L, Triglycerides Level 250H, Total Cholesterol 145, LDL Cholesterol 70, Non-HDL Cholesterol (LDL + VLDL) 120, Total HDL Cholesterol 25L, Cholesterol/HDL Ratio 5.800H 08/17/19 12:12: Bedside Glucose (Misc Panel) 102 08/17/19 16:34: Bedside Glucose (Misc Panel) 83 CBC/BMP Laboratory Tests 08/17/19 05:28 Microbiology Microbiology 08/14/19 Respiratory Virus Panel (PCR) (SONJA) - Final, Complete 08/12/19 Gram Stain - Final, Complete 08/12/19 Sputum Culture - Final, Complete Yeast Like Organism 08/11/19 Gram Stain - Final, Complete 08/11/19 Wound Culture - Final, Complete Enterococcus Faecalis Staphylococcus Sp Coag Neg Current Medications Current Medications Medications (Trade) Dose Ordered Sig/Arturo Route PRN Reason Start Time Stop Time Status Last Admin Dose Admin Acetaminophen (Tylenol Tab) 650 mg Q4H PRN PO PAIN / FEVER 08/11/19 01:45 08/12/19 09:26 DC 08/12/19 03:54 Acetaminophen (Tylenol Tab) 650 mg Q4H PRN PO PAIN / FEVER 08/12/19 09:26 08/13/19 13:59 DC 08/13/19 12:25 Acetaminophen (Tylenol Tab) 650 mg Q6H PO 08/15/19 18:00 08/17/19 17:49 Acetaminophen (Tylenol Tab) 650 mg Q6HP PRN PO PAIN / FEVER 08/14/19 22:00 08/15/19 15:46 DC 08/15/19 03:55 Allopurinol (Zyloprim) 300 mg DAILY PO 08/11/19 09:00 08/17/19 09:02 Alvimopan (Entereg) 12 mg BID PO 08/12/19 09:00 08/19/19 08:59 08/17/19 21:53 Bacitracin (Bacitracin Oint) back x5days BID TOP 08/11/19 21:00 08/11/19 14:41 DC Bisacodyl (Dulcolax Suppository) 10 mg BID [place] 08/13/19 09:00 08/15/19 08:41 Bisacodyl (Dulcolax Suppository) 10 mg DAILY PRN [place] CONSTIPATION 08/11/19 01:45 08/13/19 07:07 DC Bisacodyl (Dulcolax Suppository) 10 mg TID TN 08/12/19 09:00 08/13/19 07:07 DC 08/12/19 21:26 Carvedilol (COReg) 3.125 mg BID PO 08/11/19 09:00 08/17/19 21:54 Ciprofloxacin 200 mg/IV Miscellaneous Supplies 100 ml @ 100 mls/hr Q12H IV 08/13/19 06:00 08/12/19 16:21 DC Ciprofloxacin 400 mg/IV Miscellaneous Supplies 200 ml @ 200 mls/hr Q12H IV 08/11/19 16:00 08/12/19 16:17 DC 08/12/19 03:55 Clopidogrel Bisulfate (PLAVix) 75 mg DAILY PO 08/11/19 09:00 08/17/19 09:01 Dextrose (Dextrose 50%) 25 ml ASDIRECTED PRN IV SEE LABEL COMMENTS 08/11/19 02:00 Dextrose (Dextrose 50%) 25 ml ASDIRECTED PRN IV SEE LABEL COMMENTS 08/12/19 16:15 UNV Furosemide (LASIX injection) 40 mg Q4H IV 08/13/19 15:00 08/14/19 07:08 DC 08/14/19 06:31 Furosemide (LASIX injection) 40 mg Q4H IV 08/14/19 11:00 08/15/19 07:01 DC 08/15/19 08:40 Furosemide (LASIX injection) 40 mg Q6H IV 08/12/19 12:00 08/12/19 18:01 DC 08/12/19 17:13 Furosemide (Lasix) 40 mg BID@09,17 PO 08/15/19 09:00 08/15/19 08:55 DC Furosemide (Lasix) 40 mg BID@,17 PO 08/15/19 17:00 08/17/19 17:50 Glucagon (Glucagon) 1 mg ASDIRECTED PRN SC SEE LABEL COMMENTS 08/11/19 02:00 Glucagon (Glucagon) 1 mg ASDIRECTED PRN SC SEE LABEL COMMENTS 08/12/19 16:15 UNV Glucose (Glucose) 16 GM ASDIRECTED PRN PO SEE LABEL COMMENTS 08/11/19 02:00 Glucose (Glucose) 16 GM ASDIRECTED PRN PO SEE LABEL COMMENTS 08/12/19 16:15 UNV Heparin Sodium (Porcine) (Heparin) 5,000 units Q12H SC 08/11/19 09:00 08/17/19 21:53 Home Med (Med Rec Complete!) ASDIRECTED XX 08/10/19 23:00 08/10/19 22:58 DC Hydromorphone HCl (Dilaudid) 0.2 mg Q3HP PRN IV MILD PAIN (PS 1-4) 08/11/19 16:15 08/13/19 13:54 DC Hydromorphone HCl (Dilaudid) 0.4 mg Q3HP PRN IV MODERATE PAIN (PS 5-7) 08/11/19 16:15 08/13/19 13:54 DC 08/12/19 19:50 Insulin Human Lispro (HumaLOG INSULIN) SEE PROTOCOL TABLE AC [place] 08/16/19 07:30 08/16/19 12:34 Insulin Human Lispro (HumaLOG INSULIN) SEE PROTOCOL TABLE Q6H [place] 08/11/19 06:00 08/15/19 23:26 DC 08/15/19 13:11 Insulin Human Lispro (HumaLOG INSULIN) SEE PROTOCOL TABLE QHS [place] 08/16/19 21:00 Isosorbide Mononitrate (Imdur) 30 mg DAILY PO 08/11/19 09:00 08/17/19 09:03 Lidocaine (Lidoderm Patch) 1 patch DAILY TOP 08/11/19 09:00 08/17/19 08:58 Linezolid (Zyvox) 600 mg BID PO 08/16/19 21:00 08/17/19 21:53 Linezolid 600 mg/ IV Miscellaneous Supplies 300 ml @ 150 mls/hr Q12H IV 08/14/19 10:00 08/15/19 15:46 DC 08/15/19 10:56 Magnesium Hydroxide (Milk Of Magnesia) 30 ml BID PO 08/13/19 09:00 08/13/19 13:58 DC 08/13/19 09:00 Magnesium Oxide (Mag-Ox) 400 mg DAILY PO 08/16/19 09:00 08/17/19 09:01 Metronidazole 500 mg/IV Miscellaneous Supplies 100 ml @ 100 mls/hr Q8H IV 08/11/19 15:00 08/12/19 16:23 DC 08/12/19 06:38 Non-Formulary Medication ( See Comment Field Below ) REMOVE LIDODERM PATCH DAILY@21 XX 08/11/19 21:00 08/16/19 20:38 Nystatin (Mycostatin Powder, Nystop) APPLY TO REDDENED AREAS BID TOP 08/11/19 09:00 08/17/19 21:55 Ondansetron HCl (Zofran) 4 mg Q6H PRN PO NAUSEA OR VOMITING 08/11/19 01:45 08/14/19 09:34 Oxycodone HCl (OxyCONTIN) 10 mg BID PO 08/13/19 21:00 08/15/19 09:41 DC 08/14/19 08:32 Oxycodone/ Acetaminophen (Percocet 5mg/ 325mg Tablet) 1 tab Q6H PO 08/15/19 12:00 08/15/19 15:46 DC 08/15/19 11:04 Oxycodone/ Acetaminophen (Percocet 5mg/ 325mg Tablet) 1 tab Q6HP PRN PO SEVERE PAIN (PS 8-10) 08/15/19 09:45 08/15/19 10:16 DC Oxycodone/ Acetaminophen (Percocet 5mg/ 325mg Tablet) 1 tab Q6HP PRN PO SEVERE PAIN (PS 8-10) 08/15/19 16:00 08/17/19 21:55 Pantoprazole Sodium (Protonix) 40 mg DAILY PO 08/11/19 09:00 08/11/19 13:56 DC 08/11/19 12:16 Pantoprazole Sodium (Protonix) 40 mg Q12H IV 08/11/19 09:00 Cancel Pantoprazole Sodium (Protonix) 40 mg Q12H IV 08/11/19 21:00 08/17/19 21:56 Potassium Chloride (Micro-K Extencaps) 30 meq DAILY PO 08/17/19 09:00 08/17/19 09:02 Prednisolone Acetate (Predforte 1% Ophth Susp) 1 drop QID OD 08/11/19 09:00 08/17/19 21:55 Ranolazine (Ranexa) 500 mg BID PO 08/11/19 09:00 08/17/19 21:53 Salmeterol Xinafoate/ Fluticasone (Advair Hfa 45-21 Mcg/Act) 2 puff RBID INH 08/11/19 08:00 08/17/19 21:03 Senna/Docusate Sodium (Senokot S) 2 tab BID PO 08/13/19 09:00 08/17/19 21:53 Simethicone (Mylicon) 120 mg QID PO 08/13/19 13:00 08/17/19 21:53 Tramadol HCl (Ultram) 100 mg Q6H PO 08/15/19 18:00 08/17/19 17:49 Tramadol HCl (Ultram) 100 mg Q8H PO 08/15/19 09:45 08/15/19 10:09 DC Vancomycin HCl 1000 mg/IV Miscellaneous Supplies 1 each/ Dextrose 270 ml @ 270 mls/hr Q12H IV 08/16/19 08:00 08/16/19 14:32 DC 08/16/19 08:45 Allergies Coded Allergies: NUTS (Verified Allergy, Severe, DIFFICULTY BREATHING, 08/11/19) Sulfa (Sulfonamide Antibiotics) (Verified Allergy, Severe, ANAPHYLACTIC SHOCK, 06/14/18) TAPE (Verified Allergy, Intermediate, clear dressings and tape on IV's - rash, 08/11/19) dronedarone (Unverified Allergy, Intermediate, CONTRAINDICATED DUE TO RANEXA, 06/14/18) lansoprazole (Unverified Allergy, Intermediate, CONTRAINDICATED DUE TO BLOOD THINNERS, 06/14/18) latex (Unverified Allergy, Intermediate, RASH, 06/14/18) PERFUMES (Verified Allergy, Unknown, 08/11/19) STATES DRYER SHEETS WELL bacitracin (Verified Allergy, Unknown, 08/10/19) ketorolac (Verified Adverse Reaction, Severe, 08/13/19) renal failure Corticosteroids (Glucocorticoids) (Verified Adverse Reaction, Intermediate, STATED CHF FROM DEXADROL, 08/11/19) Qhuzlpk-Pzr-Orv Reductase Inhibitor (Unverified Adverse Reaction, Intermediate, MUSCLE WEAKNESS, 06/14/18) codeine (Verified Adverse Reaction, Intermediate, HALLUCINATIONS, 08/15/19) glycopyrrolate (Unverified Adverse Reaction, Intermediate, CHEST PAIN, 06/14/18) naloxone (Unverified Adverse Reaction, Intermediate, GI UPSET, DIZZY, 06/14/18) nifedipine (Unverified Adverse Reaction, Intermediate, SORE THROAT, 06/14/18) oxycodone (Verified Adverse Reaction, Intermediate, HALLUCINATIONS, 08/15/19) pentazocine (Unverified Adverse Reaction, Intermediate, GI UPSET, DIZZY, 06/14/18) Shanta Casiano MD Aug 17, 2019 20:38
[2019-08-17 22:00] VITALS: BP 131/65
[2019-08-18] MEDS: **NOTE PATIENT COMMENT** MISC XX SCH (00:32)
[2019-08-18] MEDS: PERCOCET 5MG/325MG TAB PO PRN ×2 (04:28→10:58)
[2019-08-18 06:00] VITALS: BP 153/75
[2019-08-18] MEDS: ACETAMINOPHEN TAB 650MG DOSE (2X325MG) PO SCH ×3 (06:03→18:06)
[2019-08-18] MEDS: traMADol 50 MG TAB PO SCH ×3 (06:03→18:07)
[2019-08-18 06:10] LABS: BASO # 0.1 10^3/uL (0.0-0.2); BASO % 0.8 % (0.0-1.0); EOS # 0.6 10^3/uL (0.0-0.5); EOS % 5.8 % (0.0-3.0); HEMATOCRIT 34.4 % (36.0-47.0); HEMOGLOBIN 11.1 g/dl (12.0-15.5); LYMPH # 2.3 10^3/uL (1.5-5.0); MEAN CORPUSCULAR HEMOGLOBIN 29.7 pg (27.0-33.0); MEAN CORPUSCULAR HGB CONC 32.3 g/dl (32.0-36.5); NEUTROPHILS # 6.3 10^3/uL (1.5-8.5); NEUTROPHILS % 60.6 % (36.0-66.0); PLATELET COUNT, AUTOMATED 329 10^3/uL (150-450); RED BLOOD COUNT 3.74 10^6/uL (4.00-5.40); WHITE BLOOD COUNT 10.4 10^3/uL (4.0-10.0)
[2019-08-18 06:40] LABS: ALBUMIN 2.6 GM/DL (3.2-5.2); BILIRUBIN,TOTAL 0.6 MG/DL (0.2-1.0); CALCIUM LEVEL 8.7 MG/DL (8.8-10.2); CREATININE FOR GFR 1.16 MG/DL (0.55-1.30); GLOMERULAR FILTRATION RATE 49.3 (>45); MAGNESIUM LEVEL 1.8 MG/DL (1.8-2.4); POTASSIUM SERUM 3.8 MEQ/L (3.5-5.1); TOTAL PROTEIN 6.8 GM/DL (6.4-8.2)
[2019-08-18] MEDS: ADVAIR HFA 45/21MCG INHALER INH SCH ×2 (07:53→18:09)
[2019-08-18] MEDS: BISACODYL 10 MG SUPP PR SCH ×2 (09:00→20:08)
[2019-08-18] MEDS: FUROSEMIDE 20 MG TAB PO SCH ×2 (09:27→18:06)
[2019-08-18] MEDS: ALVIMOPAN 12 MG CAPSULE (ENTEREG) PO SCH ×2 (09:27→21:28)
[2019-08-18] MEDS: LINEZOLID 600MG TABLET (ZYVOX) PO SCH ×2 (09:27→21:28)
[2019-08-18] MEDS: allopurinoL 300 MG TAB PO SCH (09:27)
[2019-08-18] MEDS: CARVedilol 3.125 MG TAB PO SCH ×2 (09:28→21:29)
[2019-08-18] MEDS: SENOKOT S TAB PO SCH ×2 (09:28→21:28)
[2019-08-18] MEDS: SIMETHICONE 80 MG CHEW TAB PO SCH ×4 (09:28→21:28)
[2019-08-18] MEDS: CLOPIDOGREL 75 MG TAB PO SCH (09:29)
[2019-08-18] MEDS: ISOSORBIDE MON. (IMDUR) 30 MG XR TAB PO SCH (09:29)
[2019-08-18] MEDS: POTASSIUM CHLORIDE 10 MEQ SR TABLET PO SCH (09:29)
[2019-08-18] MEDS: RANOLAZINE 500 MG ER TAB PO SCH ×2 (09:29→21:28)
[2019-08-18] MEDS: PANTOPRAZOLE 40MG VIAL (C9113 PER 1) IV SCH ×2 (09:30→21:27)
[2019-08-18] MEDS: MAGNESIUM OXIDE 400 MG TAB (MAG-OX) PO SCH (09:30)
[2019-08-18] MEDS: HEPARIN SOD (PORCINE) 5000UNITS/ML VIAL (J1644 PER 1000UNITS) SC SCH ×2 (09:30→21:27)
[2019-08-18] MEDS: LIDOCAINE 5% (LIDODERM) PATCH TOP SCH (09:30)
[2019-08-18] MEDS: prednisoLONE ACET 1% OPHTH SUSP 5ML OD SCH ×4 (09:30→21:29)
[2019-08-18] MEDS: NYSTATIN 100,000 UNITS/GM TOPICAL PWD 15 GM TOP SCH ×2 (09:31→21:29)
[2019-08-18 14:00] VITALS: BP 141/63
[2019-08-18] MEDS: ONDANSETRON 4 MG TAB PO PRN (19:58)
[2019-08-18] MEDS ORDERED: LACTULOSE 20 GM/30 ML SYRUP UD PO ONE (20:00)
--- NOTE | 2019-08-18 20:05 | IPNPDOC ---
Date Seen The patient was seen on 08/18/19. Progress Note SUBJECTIVE: Nausea this AM after eating breakfast, did not perform well with PT. Diffuse abdominal pain, 3/10 on pain scale, dull. It appears rehabilitation will be needed over sending home. Passing gas, giving lactulose and will f/u on result. Patient denies chest pain, increased shortness of breath, fevers, chills. OBJECTIVE: VITAL SIGNS: Please see below PHYSICAL EXAMINATION: CONSTITUTIONAL: Appears uncomfortable in bed today, AAO x 3 EYES: PERRLA, EOM intact HENT, MOUTH: Normocephalic, atraumatic, moist mucous membranes NECK: SUPPLE, no JVD, no lymphadenopathy, no carotid bruit CV: Regular rate and rhythm, S1S2 normal, no murmurs/rubs/gallops RESPIRATORY: Clear to auscultation bilaterally, no rales/rhonchi/wheezes GI: abdominal discomfort diffuse, 3/10. BS positive in 4 quadrants, soft, nontender, nondistended, no rebound or guarding, no organomegaly : Deferred MUSCULOSKELETAL: Hunched curvature of spine, ROM not tested. No cyanosis, clubbing, swelling, joint deformity, extremity edema INTEGUMENTARY: Large well-healing incision along the thoracic spine, exposed to air, nonsuppurative, no increased erythema. No rashes, no lesions, no erythema NEUROLOGIC: Cranial Nerves II-XII are intact, no focal deficits PSYCHIATRIC: Mood and affect are normal CURRENT MEDICATIONS: Please see below LABORATORY DATA: Please see below IMAGING: No new imaging ASSESSMENT: 69 y/o F treated for thoracic back pain, acute on chronic CHF exacerbation. PLAN: 1. Constipation with recently resolved ileus. Last BM 08/15/18 with increased cramping abdominal pain after breakfast, passing gas, + nausea without vomiting, WBC wnl. Giving lactulose,f/u results. If no result, will need KUB to r/o another ileus. Had previously been having daily bowel movements, ambulating more and tolerating diet well. Continue with bowel regimen, zofran PRN. F/u electrolytes in the AM. Also, could be since we are diuresing her, perhaps she is losing too much fluid contributing to this. Consider backing down on diuresis if no response to lactulose. 2. Thoracic back pain, chronic and controlled. Pain controlled with current regimen. Denies hallucination with PRN oxycodone/acetaminophen. Per PT note today, pt is NOT yet safe for d/c home; would require 24/7 CGA to ensure safety. Discussed with social work and rehabilitation center is likely. C/w tramadol 50 mg PO Q6H, Tylenol ATC and oxycodone/acetaminophen PRN. 3. Hypoglycemia. Resolved but caution with patient not eating much today. Stopped insulin sliding scale coverage, c/w AC/HS finger sticks to see if we need to reinstitute. HbA1c 6.1. 4. Congestive heart failure, acute systolic dysfunction with exacerbation. C/w lasix to 60 mg IV BID, - fluid balance today.. C/w lasix BID, BB, fluid restriction, strict I&Os, daily weights, low sodium diet. 5. Coronary artery disease status post stent with diffuse coronary artery disease. Denies increased SOB, chest pain. Follows with Dr. Brantley. Echo shows systolic dysfunction with ejection fraction (EF) of 50-55%, moderate pulmonary hypertension. C/w ranexa, all other cardiac medications. 6. Hypertension. Stable. C/w isosorbide and Coreg. 7. DVT px. Heparin. DISPOSITION: Plan is for discharge likely to rehabilitation center. Discussed wi th clinical social work therapist who spoke with daughter. She will need to discuss with patient. VS, I&O, 24H, Fishbone Vital Signs/I&O Vital Signs Date Time Temp Pulse Resp B/P (MAP) Pulse Ox O2 Delivery O2 Flow Rate FiO2 08/18/19 18:07 19 08/18/19 14:00 97.5 60 141/63 (89) 94 Room Air I&O- Last 24 Hours up to 6 AM 08/18/19 05:59 Intake Total 600 ml Output Total 650 ml Balance -50 ml Laboratory Data 24H LABS Laboratory Tests 2 08/17/19 20:37: Bedside Glucose (Misc Panel) 80 08/18/19 05:41: Immature Granulocyte % (Auto) 0.8, Neutrophils (%) (Auto) 60.6, Lymphocytes (%) (Auto) 22.0L, Monocytes (%) (Auto) 10.0H, Eosinophils (%) (Auto) 5.8H, Basophils (%) (Auto) 0.8, Neutrophils # (Auto) 6.3, Lymphocytes # (Auto) 2.3, Monocytes # (Auto) 1.0H, Eosinophils # (Auto) 0.6H, Basophils # (Auto) 0.1, Nucleated Red Blood Cells % (auto) 0.0, Anion Gap 8, Glomerular Filtration Rate 49.3, Calcium Level 8.7L, Magnesium Level 1.8, Total Bilirubin 0.6, Aspartate Amino Transf (AST/SGOT) 10, Alanine Aminotransferase (ALT/SGPT) 13, Alkaline Phosphatase 255H, Total Protein 6.8, Albumin 2.6L, Albumin/Globulin Ratio 0.6L 08/18/19 08:22: Bedside Glucose (Misc Panel) 89 08/18/19 11:39: Bedside Glucose (Misc Panel) 86 08/18/19 16:24: Bedside Glucose (Misc Panel) 105 CBC/BMP Laboratory Tests 08/18/19 05:41 Microbiology Microbiology 08/14/19 Respiratory Virus Panel (PCR) (SONJA) - Final, Complete 08/12/19 Gram Stain - Final, Complete 08/12/19 Sputum Culture - Final, Complete Yeast Like Organism 08/11/19 Gram Stain - Final, Complete 08/11/19 Wound Culture - Final, Complete Enterococcus Faecalis Staphylococcus Sp Coag Neg Current Medications Current Medications Medications (Trade) Dose Ordered Sig/Arturo Route PRN Reason Start Time Stop Time Status Last Admin Dose Admin Acetaminophen (Tylenol Tab) 650 mg Q4H PRN PO PAIN / FEVER 08/11/19 01:45 08/12/19 09:26 DC 08/12/19 03:54 Acetaminophen (Tylenol Tab) 650 mg Q4H PRN PO PAIN / FEVER 08/12/19 09:26 08/13/19 13:59 DC 08/13/19 12:25 Acetaminophen (Tylenol Tab) 650 mg Q6H PO 08/15/19 18:00 08/18/19 18:06 Acetaminophen (Tylenol Tab) 650 mg Q6HP PRN PO PAIN / FEVER 08/14/19 22:00 08/15/19 15:46 DC 08/15/19 03:55 Allopurinol (Zyloprim) 300 mg DAILY PO 08/11/19 09:00 08/18/19 09:27 Alvimopan (Entereg) 12 mg BID PO 08/12/19 09:00 08/19/19 08:59 08/18/19 09:27 Bacitracin (Bacitracin Oint) back x5days BID TOP 08/11/19 21:00 08/11/19 14:41 DC Bisacodyl (Dulcolax Suppository) 10 mg BID CO 08/13/19 09:00 08/15/19 08:41 Bisacodyl (Dulcolax Suppository) 10 mg DAILY PRN CO CONSTIPATION 08/11/19 01:45 08/13/19 07:07 DC Bisacodyl (Dulcolax Suppository) 10 mg TID CO 08/12/19 09:00 08/13/19 07:07 DC 08/12/19 21:26 Carvedilol (COReg) 3.125 mg BID PO 08/11/19 09:00 08/18/19 09:28 Ciprofloxacin 200 mg/IV Miscellaneous Supplies 100 ml @ 100 mls/hr Q12H IV 08/13/19 06:00 08/12/19 16:21 DC Ciprofloxacin 400 mg/IV Miscellaneous Supplies 200 ml @ 200 mls/hr Q12H IV 08/11/19 16:00 08/12/19 16:17 DC 08/12/19 03:55 Clopidogrel Bisulfate (PLAVix) 75 mg DAILY PO 08/11/19 09:00 08/18/19 09:29 Dextrose (Dextrose 50%) 25 ml ASDIRECTED PRN IV SEE LABEL COMMENTS 08/11/19 02:00 Dextrose (Dextrose 50%) 25 ml ASDIRECTED PRN IV SEE LABEL COMMENTS 08/12/19 16:15 UNV Furosemide (LASIX injection) 40 mg Q4H IV 08/13/19 15:00 08/14/19 07:08 DC 08/14/19 06:31 Furosemide (LASIX injection) 40 mg Q4H IV 08/14/19 11:00 08/15/19 07:01 DC 08/15/19 08:40 Furosemide (LASIX injection) 40 mg Q6H IV 08/12/19 12:00 08/12/19 18:01 DC 08/12/19 17:13 Furosemide (Lasix) 40 mg BID@09,17 PO 08/15/19 09:00 08/15/19 08:55 DC Furosemide (Lasix) 40 mg BID@09,17 PO 08/15/19 17:00 08/17/19 22:47 DC 08/17/19 17:50 Furosemide (Lasix) 60 mg BID@ PO 08/18/19 09:00 08/18/19 18:06 Glucagon (Glucagon) 1 mg ASDIRECTED PRN SC SEE LABEL COMMENTS 08/11/19 02:00 Glucagon (Glucagon) 1 mg ASDIRECTED PRN SC SEE LABEL COMMENTS 08/12/19 16:15 UNV Glucose (Glucose) 16 GM ASDIRECTED PRN PO SEE LABEL COMMENTS 08/11/19 02:00 Glucose (Glucose) 16 GM ASDIRECTED PRN PO SEE LABEL COMMENTS 08/12/19 16:15 UNV Heparin Sodium (Porcine) (Heparin) 5,000 units Q12H SC 08/11/19 09:00 08/18/19 09:30 Home Med (Med Rec Complete!) ASDIRECTED XX 08/10/19 23:00 08/10/19 22:58 DC Hydromorphone HCl (Dilaudid) 0.2 mg Q3HP PRN IV MILD PAIN (PS 1-4) 08/11/19 16:15 08/13/19 13:54 DC Hydromorphone HCl (Dilaudid) 0.4 mg Q3HP PRN IV MODERATE PAIN (PS 5-7) 08/11/19 16:15 08/13/19 13:54 DC 08/12/19 19:50 Insulin Human Lispro (HumaLOG INSULIN) SEE PROTOCOL TABLE AC SC 08/16/19 07:30 08/17/19 22:49 DC 08/16/19 12:34 Insulin Human Lispro (HumaLOG INSULIN) SEE PROTOCOL TABLE Q6H SC 08/11/19 06:00 08/15/19 23:26 DC 08/15/19 13:11 Insulin Human Lispro (HumaLOG INSULIN) SEE PROTOCOL TABLE QHS PR 08/16/19 21:00 08/17/19 22:49 DC Isosorbide Mononitrate (Imdur) 30 mg DAILY PO 08/11/19 09:00 08/18/19 09:29 Lidocaine (Lidoderm Patch) 1 patch DAILY TOP 08/11/19 09:00 08/18/19 09:30 Linezolid (Zyvox) 600 mg BID PO 08/16/19 21:00 08/18/19 09:27 Linezolid 600 mg/ IV Miscellaneous Supplies 300 ml @ 150 mls/hr Q12H IV 08/14/19 10:00 08/15/19 15:46 DC 08/15/19 10:56 Magnesium Hydroxide (Milk Of Magnesia) 30 ml BID PO 08/13/19 09:00 08/13/19 13:58 DC 08/13/19 09:00 Magnesium Oxide (Mag-Ox) 400 mg DAILY PO 08/16/19 09:00 08/18/19 09:30 Metronidazole 500 mg/IV Miscellaneous Supplies 100 ml @ 100 mls/hr Q8H IV 08/11/19 15:00 08/12/19 16:23 DC 08/12/19 06:38 Non-Formulary Medication ( See Comment Field Below ) REMOVE LIDODERM PATCH DAILY@21 XX 08/11/19 21:00 08/18/19 00:32 Nystatin (Mycostatin Powder, Nystop) APPLY TO REDDENED AREAS BID TOP 08/11/19 09:00 08/18/19 09:31 Ondansetron HCl (Zofran) 4 mg Q6H PRN PO NAUSEA OR VOMITING 08/11/19 01:45 08/14/19 09:34 Oxycodone HCl (OxyCONTIN) 10 mg BID PO 08/13/19 21:00 08/15/19 09:41 DC 08/14/19 08:32 Oxycodone/ Acetaminophen (Percocet 5mg/ 325mg Tablet) 1 tab Q6H PO 08/15/19 12:00 08/15/19 15:46 DC 08/15/19 11:04 Oxycodone/ Acetaminophen (Percocet 5mg/ 325mg Tablet) 1 tab Q6HP PRN PO SEVERE PAIN (PS 8-10) 08/15/19 09:45 08/15/19 10:16 DC Oxycodone/ Acetaminophen (Percocet 5mg/ 325mg Tablet) 1 tab Q6HP PRN PO SEVERE PAIN (PS 8-10) 08/15/19 16:00 08/18/19 10:58 Pantoprazole Sodium (Protonix) 40 mg DAILY PO 08/11/19 09:00 08/11/19 13:56 DC 08/11/19 12:16 Pantoprazole Sodium (Protonix) 40 mg Q12H IV 08/11/19 09:00 Cancel Pantoprazole Sodium (Protonix) 40 mg Q12H IV 08/11/19 21:00 08/18/19 09:30 Potassium Chloride (Micro-K Extencaps) 30 meq DAILY PO 08/17/19 09:00 08/18/19 09:29 Prednisolone Acetate (Predforte 1% Ophth Susp) 1 drop QID OD 08/11/19 09:00 08/18/19 18:07 Ranolazine (Ranexa) 500 mg BID PO 08/11/19 09:00 08/18/19 09:29 Salmeterol Xinafoate/ Fluticasone (Advair Hfa 45-21 Mcg/Act) 2 puff RBID INH 08/11/19 08:00 08/18/19 18:09 Senna/Docusate Sodium (Senokot S) 2 tab BID PO 08/13/19 09:00 08/18/19 09:28 Simethicone (Mylicon) 120 mg QID PO 08/13/19 13:00 08/18/19 18:06 Tramadol HCl (Ultram) 50 mg Q6H PO 08/18/19 00:00 08/18/19 18:07 Tramadol HCl (Ultram) 100 mg Q6H PO 08/15/19 18:00 08/17/19 22:50 DC 08/17/19 17:49 Tramadol HCl (Ultram) 100 mg Q8H PO 08/15/19 09:45 08/15/19 10:09 DC Vancomycin HCl 1000 mg/IV Miscellaneous Supplies 1 each/ Dextrose 270 ml @ 270 mls/hr Q12H IV 08/16/19 08:00 08/16/19 14:32 DC 08/16/19 08:45 Allergies Coded Allergies: NUTS (Verified Allergy, Severe, DIFFICULTY BREATHING, 08/11/19) Sulfa (Sulfonamide Antibiotics) (Verified Allergy, Severe, ANAPHYLACTIC SHOCK, 06/14/18) TAPE (Verified Allergy, Intermediate, clear dressings and tape on IV's - rash, 08/11/19) dronedarone (Unverified Allergy, Intermediate, CONTRAINDICATED DUE TO RANEXA, 06/14/18) lansoprazole (Unverified Allergy, Intermediate, CONTRAINDICATED DUE TO BLOOD THINNERS, 06/14/18) latex (Unverified Allergy, Intermediate, RASH, 06/14/18) PERFUMES (Verified Allergy, Unknown, 08/11/19) STATES DRYER SHEETS WELL bacitracin (Verified Allergy, Unknown, 08/10/19) ketorolac (Verified Adverse Reaction, Severe, 08/13/19) renal failure Corticosteroids (Glucocorticoids) (Verified Adverse Reaction, Intermediate, STATED CHF FROM DEXADROL, 08/11/19) Uclckgh-[id number]-Dvg Reductase Inhibitor (Unverified Adverse Reaction, Intermediate, MUSCLE WEAKNESS, 06/14/18) codeine (Verified Adverse Reaction, Intermediate, HALLUCINATIONS, 08/15/19) glycopyrrolate (Unverified Adverse Reaction, Intermediate, CHEST PAIN, 06/14/18) naloxone (Unverified Adverse Reaction, Intermediate, GI UPSET, DIZZY, 06/14/18) nifedipine (Unverified Adverse Reaction, Intermediate, SORE THROAT, 06/14/18) oxycodone (Verified Adverse Reaction, Intermediate, HALLUCINATIONS, 08/15/19) pentazocine (Unverified Adverse Reaction, Intermediate, GI UPSET, DIZZY, 06/14/18) Shanta Casiano MD Aug 18, 2019 20:05
[2019-08-18 22:00] VITALS: BP 159/65
[2019-08-19] MEDS: ACETAMINOPHEN TAB 650MG DOSE (2X325MG) PO SCH ×6 (00:44→23:57)
[2019-08-19] MEDS: traMADol 50 MG TAB PO SCH ×5 (00:46→17:17)
[2019-08-19] MEDS: PERCOCET 5MG/325MG TAB PO PRN ×3 (04:12→21:16)
[2019-08-19] MEDS: **NOTE PATIENT COMMENT** MISC XX SCH (04:26)
[2019-08-19 06:00] VITALS: BP 142/65
--- NOTE | 2019-08-19 06:48 | REPVR ---
PROCEDURE INFORMATION: Exam: XR Abdomen, 1 View Exam date and time: 08/19/2019 1:06 AM Age: 69 years old Clinical indication: Abdominal pain; Additional info: Ileus TECHNIQUE: Imaging protocol: XR of the abdomen. Views: Frontal supine view of the abdomen. 1 View. COMPARISON: CR Abdomen,Flat Upright,PA CHEST 08/12/2019 8:04 AM FINDINGS: Gastrointestinal tract: Air is seen within nondilated small and large bowel throughout the abdomen. Intraperitoneal space: No free air is appreciated on this single supine view. Bones/joints: Degenerative endplate changes are seen at multiple levels in the visualized spine. Soft tissues: A surgical clip is seen in the left upper quadrant. IMPRESSION: Unremarkable bowel gas pattern. Electronically signed by: Kim Can On 08/19/2019 06:47:21 AM
[2019-08-19 07:08] LABS: HEMOGLOBIN 10.9 g/dl (12.0-15.5); MEAN CORPUSCULAR HEMOGLOBIN 29.8 pg (27.0-33.0); MEAN CORPUSCULAR HGB CONC 32.1 g/dl (32.0-36.5); MEAN CORPUSCULAR VOLUME 92.9 fl (80.0-96.0); PLATELET COUNT, AUTOMATED 328 10^3/uL (150-450); RED BLOOD COUNT 3.66 10^6/uL (4.00-5.40); WHITE BLOOD COUNT 11.2 10^3/uL (4.0-10.0)
[2019-08-19] MEDS: ADVAIR HFA 45/21MCG INHALER INH SCH ×2 (07:21→20:38)
[2019-08-19 07:24] LABS: ALBUMIN 2.7 GM/DL (3.2-5.2); BILIRUBIN,TOTAL 0.6 MG/DL (0.2-1.0); CALCIUM LEVEL 8.2 MG/DL (8.8-10.2); CREATININE FOR GFR 1.23 MG/DL (0.55-1.30); GLOMERULAR FILTRATION RATE 46.1 (>45); POTASSIUM SERUM 4.1 MEQ/L (3.5-5.1); TOTAL PROTEIN 6.4 GM/DL (6.4-8.2)
[2019-08-19] MEDS ORDERED: MIRALAX *UNIT DOSE* 17GM PACKET PO PRN (08:30)
[2019-08-19] MEDS ORDERED: LR 1,000 ML IV SCH (09:00)
[2019-08-19] MEDS ORDERED: LACTULOSE 20 GM/30 ML SYRUP UD PO ONE (09:00)
[2019-08-19] MEDS: PANTOPRAZOLE 40MG VIAL (C9113 PER 1) IV SCH ×2 (10:17→21:13)
[2019-08-19] MEDS: SIMETHICONE 80 MG CHEW TAB PO SCH ×4 (10:17→21:14)
[2019-08-19] MEDS: FUROSEMIDE 20 MG TAB PO SCH (10:18)
[2019-08-19] MEDS: allopurinoL 300 MG TAB PO SCH (10:18)
[2019-08-19] MEDS: HEPARIN SOD (PORCINE) 5000UNITS/ML VIAL (J1644 PER 1000UNITS) SC SCH ×2 (10:18→21:14)
[2019-08-19] MEDS: RANOLAZINE 500 MG ER TAB PO SCH ×2 (10:19→21:14)
[2019-08-19] MEDS: LINEZOLID 600MG TABLET (ZYVOX) PO SCH ×2 (10:19→21:14)
[2019-08-19] MEDS: DOCUSATE SODIUM 100 MG CAP PO SCH ×2 (10:19→21:14)
[2019-08-19] MEDS: SENNA 8.6 MG TAB (SENOKOT) PO SCH (10:19)
[2019-08-19] MEDS: POTASSIUM CHLORIDE 10 MEQ SR TABLET PO SCH (10:20)
[2019-08-19] MEDS: MAGNESIUM OXIDE 400 MG TAB (MAG-OX) PO SCH (10:20)
[2019-08-19] MEDS: NYSTATIN 100,000 UNITS/GM TOPICAL PWD 15 GM TOP SCH ×2 (10:21→21:16)
[2019-08-19] MEDS: ISOSORBIDE MON. (IMDUR) 30 MG XR TAB PO SCH (10:24)
[2019-08-19] MEDS: CLOPIDOGREL 75 MG TAB PO SCH (10:24)
[2019-08-19] MEDS: CARVedilol 3.125 MG TAB PO SCH ×2 (10:24→21:15)
[2019-08-19] MEDS: prednisoLONE ACET 1% OPHTH SUSP 5ML OD SCH ×4 (10:25→21:16)
[2019-08-19] MEDS: LIDOCAINE 5% (LIDODERM) PATCH TOP SCH (10:26)
[2019-08-19 14:00] VITALS: BP 159/65
[2019-08-19] MEDS: FUROSEMIDE 40 MG TAB PO SCH (17:16)
--- NOTE | 2019-08-19 17:30 | IPNPDOC ---
Date Seen The patient was seen on 08/19/19. Progress Note SUBJECTIVE: Abdominal pain severe today, increased standing dose tramadol. Abd xr neg for ileus overnight, large BM today. Modified bowel regimen. Passing gas. Patient denies chest pain, increased shortness of breath, fevers, chills. OBJECTIVE: VITAL SIGNS: Please see below PHYSICAL EXAMINATION: CONSTITUTIONAL: Appears uncomfortable in bed today, AAO x 3 EYES: PERRLA, EOM intact HENT, MOUTH: Normocephalic, atraumatic, moist mucous membranes NECK: SUPPLE, no JVD, no lymphadenopathy, no carotid bruit CV: Regular rate and rhythm, S1S2 normal, no murmurs/rubs/gallops RESPIRATORY: Clear to auscultation bilaterally, no rales/rhonchi/wheezes GI: abdominal discomfort diffuse, 4/10, cramping type pain. BS positive in 4 quadrants, soft, nontender, nondistended, no rebound or guarding, no organomegaly : Deferred MUSCULOSKELETAL: Hunched curvature of spine, ROM not tested. No cyanosis, clubbing, swelling, joint deformity, extremity edema INTEGUMENTARY: Large well-healing incision along the thoracic spine, exposed to air, nonsuppurative, no increased erythema. No rashes, no lesions, no erythema NEUROLOGIC: Cranial Nerves II-XII are intact, no focal deficits PSYCHIATRIC: Mood and affect are normal CURRENT MEDICATIONS: Please see below LABORATORY DATA: Please see below IMAGING: Abd XR: Unremarkable bowel gas pattern. ASSESSMENT: 69 y/o F treated for abdominal discomfort 2/2 to chronic constipation, thoracic back pain, acute on chronic CHF exacerbation. PLAN: 1. Chronic constipation with recently resolved ileus. Abd XR neg for ileus, BM today. Bowel regimen modified, encouraging to keep water at bedside and will decrease lasix which might be precipitating more constipation. 2. Thoracic back pain, chronic. Increased tramadol due to increased pain. Denies hallucination with PRN oxycodone/acetaminophen. Per PT note , pt is NOT yet safe for d/c home; would require 24/7 CGA to ensure safety. Discussed with social work and rehabilitation center is likely. C/w tramadol 100 mg PO Q6H, Tylenol ATC and oxycodone/acetaminophen PRN. 3. Congestive heart failure, acute systolic dysfunction with exacerbation. Decreased lasix to 40 mg IV BID, - fluid balance today. C/w lasix BID, BB, fluid restriction, strict I&Os, daily weights, low sodium diet. 4. Coronary artery disease status post stent with diffuse coronary artery disease. Denies increased SOB, chest pain. Follows with Dr. Brantley. Echo shows systolic dysfunction with ejection fraction (EF) of 50-55%, moderate pulmonary hypertension. C/w ranexa, all other cardiac medications. 5. Hypertension. Stable. C/w isosorbide and Coreg. 6. DVT px. Heparin. DISPOSITION: Plan is for discharge likely to rehabilitation center. Discussed with social human services assistants who spoke with daughter. She will need to discuss with patient. VS, I&O, 24H, Fishbone Vital Signs/I&O Vital Signs Date Time Temp Pulse Resp B/P (MAP) Pulse Ox O2 Delivery O2 Flow Rate FiO2 08/19/19 17:17 16 Room Air 08/19/19 10:24 61 163/65 08/19/19 06:00 98.4 97 I&O- Last 24 Hours up to 6 AM 08/19/19 06:00 Intake Total 1250 ml Output Total 1580 ml Balance -330 ml Laboratory Data 24H LABS Laboratory Tests 2 08/18/19 20:21: Bedside Glucose (Misc Panel) 113 08/19/19 06:30: Nucleated Red Blood Cells % (auto) 0.0, Anion Gap 10, Glomerular Filtration Rate 46.1, Calcium Level 8.2L, Total Bilirubin 0.6, Aspartate Amino Transf (AST/SGOT) 15, Alanine Aminotransferase (ALT/SGPT) 11L, Alkaline Phosphatase 265H, Total Protein 6.4, Albumin 2.7L, Albumin/Globulin Ratio 0.7L 08/19/19 12:21: Bedside Glucose (Misc Panel) 102 CBC/BMP Laboratory Tests 08/19/19 06:30 Microbiology Microbiology 08/14/19 Respiratory Virus Panel (PCR) (SONJA) - Final, Complete 08/12/19 Gram Stain - Final, Complete 08/12/19 Sputum Culture - Final, Complete Yeast Like Organism 08/11/19 Gram Stain - Final, Complete 08/11/19 Wound Culture - Final, Complete Enterococcus Faecalis Staphylococcus Sp Coag Neg Current Medications Current Medications Medications (Trade) Dose Ordered Sig/Arturo Route PRN Reason Start Time Stop Time Status Last Admin Dose Admin Acetaminophen (Tylenol Tab) 650 mg Q4H PRN PO PAIN / FEVER 08/11/19 01:45 08/12/19 09:26 DC 08/12/19 03:54 Acetaminophen (Tylenol Tab) 650 mg Q4H PRN PO PAIN / FEVER 08/12/19 09:26 08/13/19 13:59 DC 08/13/19 12:25 Acetaminophen (Tylenol Tab) 650 mg Q6H PO 08/15/19 18:00 08/19/19 17:17 Acetaminophen (Tylenol Tab) 650 mg Q6HP PRN PO PAIN / FEVER 08/14/19 22:00 08/15/19 15:46 DC 08/15/19 03:55 Allopurinol (Zyloprim) 300 mg DAILY PO 08/11/19 09:00 08/19/19 10:18 Alvimopan (Entereg) 12 mg BID PO 08/12/19 09:00 08/19/19 08:59 DC 08/18/19 21:28 Bacitracin (Bacitracin Oint) back x5days BID TOP 08/11/19 21:00 08/11/19 14:41 DC Bisacodyl (Dulcolax Suppository) 10 mg BID ID 08/13/19 09:00 08/19/19 08:27 DC 08/15/19 08:41 Bisacodyl (Dulcolax Suppository) 10 mg DAILY PRN ID CONSTIPATION 08/11/19 01:45 08/13/19 07:07 DC Bisacodyl (Dulcolax Suppository) 10 mg TID ID 08/12/19 09:00 08/13/19 07:07 DC 08/12/19 21:26 Carvedilol (COReg) 3.125 mg BID PO 08/11/19 09:00 08/19/19 10:24 Ciprofloxacin 200 mg/IV Miscellaneous Supplies 100 ml @ 100 mls/hr Q12H IV 08/13/19 06:00 08/12/19 16:21 DC Ciprofloxacin 400 mg/IV Miscellaneous Supplies 200 ml @ 200 mls/hr Q12H IV 08/11/19 16:00 08/12/19 16:17 DC 08/12/19 03:55 Clopidogrel Bisulfate (PLAVix) 75 mg DAILY PO 08/11/19 09:00 08/19/19 10:24 Dextrose (Dextrose 50%) 25 ml ASDIRECTED PRN IV SEE LABEL COMMENTS 08/11/19 02:00 Dextrose (Dextrose 50%) 25 ml ASDIRECTED PRN IV SEE LABEL COMMENTS 08/12/19 16:15 UNV Docusate Sodium (Colace) 100 mg BID PO 08/19/19 09:00 08/19/19 10:19 Furosemide (LASIX injection) 40 mg Q4H IV 08/13/19 15:00 08/14/19 07:08 DC 08/14/19 06:31 Furosemide (LASIX injection) 40 mg Q4H IV 08/14/19 11:00 08/15/19 07:01 DC 08/15/19 08:40 Furosemide (LASIX injection) 40 mg Q6H IV 08/12/19 12:00 08/12/19 18:01 DC 08/12/19 17:13 Furosemide (Lasix) 40 mg BID@,17 PO 08/15/19 09:00 08/15/19 08:55 DC Furosemide (Lasix) 40 mg BID@,17 PO 08/15/19 17:00 08/17/19 22:47 DC 08/17/19 17:50 Furosemide (Lasix) 40 mg BID@,17 PO 08/19/19 17:00 08/19/19 17:16 Furosemide (Lasix) 60 mg BID@,17 PO 08/18/19 09:00 08/19/19 11:07 DC 08/19/19 10:18 Glucagon (Glucagon) 1 mg ASDIRECTED PRN SC SEE LABEL COMMENTS 08/11/19 02:00 Glucagon (Glucagon) 1 mg ASDIRECTED PRN SC SEE LABEL COMMENTS 08/12/19 16:15 UNV Glucose (Glucose) 16 GM ASDIRECTED PRN PO SEE LABEL COMMENTS 08/11/19 02:00 Glucose (Glucose) 16 GM ASDIRECTED PRN PO SEE LABEL COMMENTS 08/12/19 16:15 UNV Heparin Sodium (Porcine) (Heparin) 5,000 units Q12H SC 08/11/19 09:00 08/19/19 10:18 Home Med (Med Rec Complete!) ASDIRECTED XX 08/10/19 23:00 08/10/19 22:58 DC Hydromorphone HCl (Dilaudid) 0.2 mg Q3HP PRN IV MILD PAIN (PS 1-4) 08/11/19 16:15 08/13/19 13:54 DC Hydromorphone HCl (Dilaudid) 0.4 mg Q3HP PRN IV MODERATE PAIN (PS 5-7) 08/11/19 16:15 08/13/19 13:54 DC 08/12/19 19:50 Insulin Human Lispro (HumaLOG INSULIN) SEE PROTOCOL TABLE AC MS 08/16/19 07:30 08/17/19 22:49 DC 08/16/19 12:34 Insulin Human Lispro (HumaLOG INSULIN) SEE PROTOCOL TABLE Q6H MS 08/11/19 06:00 08/15/19 23:26 DC 08/15/19 13:11 Insulin Human Lispro (HumaLOG INSULIN) SEE PROTOCOL TABLE QHS MS 08/16/19 21:00 08/17/19 22:49 DC Isosorbide Mononitrate (Imdur) 30 mg DAILY PO 08/11/19 09:00 08/19/19 10:24 Lactated Ringer's 1,000 ml @ 75 mls/hr [id number] IV 08/19/19 09:00 08/19/19 10:16 DC Lidocaine (Lidoderm Patch) 1 patch DAILY TOP 08/11/19 09:00 08/19/19 10:26 Linezolid (Zyvox) 600 mg BID PO 08/16/19 21:00 08/19/19 10:19 Linezolid 600 mg/ IV Miscellaneous Supplies 300 ml @ 150 mls/hr Q12H IV 08/14/19 10:00 08/15/19 15:46 DC 08/15/19 10:56 Magnesium Hydroxide (Milk Of Magnesia) 30 ml BID PO 08/13/19 09:00 08/13/19 13:58 DC 08/13/19 09:00 Magnesium Oxide (Mag-Ox) 400 mg DAILY PO 08/16/19 09:00 08/19/19 10:20 Metronidazole 500 mg/IV Miscellaneous Supplies 100 ml @ 100 mls/hr Q8H IV 08/11/19 15:00 08/12/19 16:23 DC 08/12/19 06:38 Non-Formulary Medication ( See Comment Field Below ) REMOVE LIDODERM PATCH DAILY@21 XX 08/11/19 21:00 08/19/19 04:26 Nystatin (Mycostatin Powder, Nystop) APPLY TO REDDENED AREAS BID TOP 08/11/19 09:00 08/19/19 10:21 Ondansetron HCl (Zofran) 4 mg Q6H PRN PO NAUSEA OR VOMITING 08/11/19 01:45 08/18/19 19:58 Oxycodone HCl (OxyCONTIN) 10 mg BID PO 08/13/19 21:00 08/15/19 09:41 DC 08/14/19 08:32 Oxycodone/ Acetaminophen (Percocet 5mg/ 325mg Tablet) 1 tab Q6H PO 08/15/19 12:00 08/15/19 15:46 DC 08/15/19 11:04 Oxycodone/ Acetaminophen (Percocet 5mg/ 325mg Tablet) 1 tab Q6HP PRN PO SEVERE PAIN (PS 8-10) 08/15/19 09:45 08/15/19 10:16 DC Oxycodone/ Acetaminophen (Percocet 5mg/ 325mg Tablet) 1 tab Q6HP PRN PO SEVERE PAIN (PS 8-10) 08/15/19 16:00 08/19/19 10:54 Pantoprazole Sodium (Protonix) 40 mg DAILY PO 08/11/19 09:00 08/11/19 13:56 DC 08/11/19 12:16 Pantoprazole Sodium (Protonix) 40 mg Q12H IV 08/11/19 09:00 Cancel Pantoprazole Sodium (Protonix) 40 mg Q12H IV 08/11/19 21:00 08/19/19 10:17 Polyethylene Glycol (Miralax) 1 pkt DAILYPRN PRN PO CONSTIPATION 08/19/19 08:30 Potassium Chloride (Micro-K Extencaps) 30 meq DAILY PO 08/17/19 09:00 08/19/19 10:20 Prednisolone Acetate (Predforte 1% Ophth Susp) 1 drop QID OD 08/11/19 09:00 08/19/19 17:18 Ranolazine (Ranexa) 500 mg BID PO 08/11/19 09:00 08/19/19 10:19 Salmeterol Xinafoate/ Fluticasone (Advair Hfa 45-21 Mcg/Act) 2 puff RBID INH 08/11/19 08:00 08/19/19 07:21 Senna (Senokot) 2 tab DAILY PO 08/19/19 09:00 08/19/19 10:19 Senna/Docusate Sodium (Senokot S) 2 tab BID PO 08/13/19 09:00 08/19/19 08:27 DC 08/18/19 21:28 Simethicone (Mylicon) 120 mg QID PO 08/13/19 13:00 08/19/19 17:16 Tramadol HCl (Ultram) 50 mg Q6H PO 08/18/19 00:00 08/19/19 17:17 Tramadol HCl (Ultram) 100 mg Q6H PO 08/15/19 18:00 08/17/19 22:50 DC 08/17/19 17:49 Tramadol HCl (Ultram) 100 mg Q8H PO 08/15/19 09:45 08/15/19 10:09 DC Vancomycin HCl 1000 mg/IV Miscellaneous Supplies 1 each/ Dextrose 270 ml @ 270 mls/hr Q12H IV 08/16/19 08:00 08/16/19 14:32 DC 08/16/19 08:45 Allergies Coded Allergies: NUTS (Verified Allergy, Severe, DIFFICULTY BREATHING, 08/11/19) Sulfa (Sulfonamide Antibiotics) (Verified Allergy, Severe, ANAPHYLACTIC SHOCK, 06/14/18) TAPE (Verified Allergy, Intermediate, clear dressings and tape on IV's - rash, 08/11/19) dronedarone (Unverified Allergy, Intermediate, CONTRAINDICATED DUE TO RANEXA, 06/14/18) lansoprazole (Unverified Allergy, Intermediate, CONTRAINDICATED DUE TO BLOOD THINNERS, 06/14/18) latex (Unverified Allergy, Intermediate, RASH, 06/14/18) PERFUMES (Verified Allergy, Unknown, 08/11/19) STATES DRYER SHEETS WELL bacitracin (Verified Allergy, Unknown, 08/10/19) ketorolac (Verified Adverse Reaction, Severe, 08/13/19) renal failure Corticosteroids (Glucocorticoids) (Verified Adverse Reaction, Intermediate, STATED CHF FROM DEXADROL, 08/11/19) [id number] Reductase Inhibitor (Unverified Adverse Reaction, Intermediate, MUSCLE WEAKNESS, 06/14/18) codeine (Verified Adverse Reaction, Intermediate, HALLUCINATIONS, 08/15/19) glycopyrrolate (Unverified Adverse Reaction, Intermediate, CHEST PAIN, 06/14/18) naloxone (Unverified Adverse Reaction, Intermediate, GI UPSET, DIZZY, 06/14/18) nifedipine (Unverified Adverse Reaction, Intermediate, SORE THROAT, 06/14/18) oxycodone (Verified Adverse Reaction, Intermediate, HALLUCINATIONS, 08/15/19) pentazocine (Unverified Adverse Reaction, Intermediate, GI UPSET, DIZZY, 06/14/18) Shanta Casiano MD Aug 19, 2019 17:30
[2019-08-19] MEDS: ONDANSETRON 4 MG TAB PO PRN (21:33)
[2019-08-19 22:00] VITALS: BP 161/70
[2019-08-20] MEDS: traMADol 50 MG TAB PO SCH ×4 (00:01→17:53)
[2019-08-20] MEDS: **NOTE PATIENT COMMENT** MISC XX SCH ×2 (01:27→21:01)
[2019-08-20] MEDS: PERCOCET 5MG/325MG TAB PO PRN ×2 (04:22→20:58)
[2019-08-20 06:00] VITALS: BP 133/59
[2019-08-20] MEDS: ACETAMINOPHEN TAB 650MG DOSE (2X325MG) PO SCH ×3 (06:00→17:53)
[2019-08-20 06:30] LABS: HEMATOCRIT 34.2 % (36.0-47.0); HEMOGLOBIN 10.9 g/dl (12.0-15.5); MEAN CORPUSCULAR HEMOGLOBIN 29.5 pg (27.0-33.0); MEAN CORPUSCULAR HGB CONC 31.9 g/dl (32.0-36.5); MEAN CORPUSCULAR VOLUME 92.7 fl (80.0-96.0); PLATELET COUNT, AUTOMATED 341 10^3/uL (150-450); RED BLOOD COUNT 3.69 10^6/uL (4.00-5.40); WHITE BLOOD COUNT 11.8 10^3/uL (4.0-10.0)
[2019-08-20] MEDS: ADVAIR HFA 45/21MCG INHALER INH SCH ×2 (07:16→17:59)
[2019-08-20 07:19] LABS: ALBUMIN 2.6 GM/DL (3.2-5.2); BILIRUBIN,TOTAL 0.6 MG/DL (0.2-1.0); CALCIUM LEVEL 8.5 MG/DL (8.8-10.2); CREATININE FOR GFR 1.2 MG/DL (0.55-1.30); GLOMERULAR FILTRATION RATE 47.4 (>45); POTASSIUM SERUM 3.9 MEQ/L (3.5-5.1); TOTAL PROTEIN 6.3 GM/DL (6.4-8.2)
[2019-08-20] MEDS: RANOLAZINE 500 MG ER TAB PO SCH ×2 (08:33→20:57)
[2019-08-20] MEDS: HEPARIN SOD (PORCINE) 5000UNITS/ML VIAL (J1644 PER 1000UNITS) SC SCH ×2 (08:33→20:59)
[2019-08-20] MEDS: PANTOPRAZOLE 40MG VIAL (C9113 PER 1) IV SCH ×2 (08:33→20:57)
[2019-08-20] MEDS: MAGNESIUM OXIDE 400 MG TAB (MAG-OX) PO SCH (08:34)
[2019-08-20] MEDS: SIMETHICONE 80 MG CHEW TAB PO SCH ×4 (08:34→20:58)
[2019-08-20] MEDS: SENNA 8.6 MG TAB (SENOKOT) PO SCH (08:34)
[2019-08-20] MEDS: POTASSIUM CHLORIDE 10 MEQ SR TABLET PO SCH (08:35)
[2019-08-20] MEDS: DOCUSATE SODIUM 100 MG CAP PO SCH ×2 (08:35→20:58)
[2019-08-20] MEDS: LIDOCAINE 5% (LIDODERM) PATCH TOP SCH (08:35)
[2019-08-20] MEDS: FUROSEMIDE 40 MG TAB PO SCH ×2 (08:35→17:52)
[2019-08-20] MEDS: LINEZOLID 600MG TABLET (ZYVOX) PO SCH ×2 (08:35→20:57)
[2019-08-20] MEDS: CLOPIDOGREL 75 MG TAB PO SCH (08:35)
[2019-08-20] MEDS: allopurinoL 300 MG TAB PO SCH (08:36)
[2019-08-20] MEDS: CARVedilol 3.125 MG TAB PO SCH ×2 (08:41→20:58)
[2019-08-20] MEDS: ISOSORBIDE MON. (IMDUR) 30 MG XR TAB PO SCH (08:42)
[2019-08-20] MEDS: prednisoLONE ACET 1% OPHTH SUSP 5ML OD SCH ×4 (08:45→20:59)
[2019-08-20] MEDS: NYSTATIN 100,000 UNITS/GM TOPICAL PWD 15 GM TOP SCH ×2 (08:45→20:59)
[2019-08-20] MEDS: ONDANSETRON 4 MG TAB PO PRN (13:44)
[2019-08-20 14:00] VITALS: BP 121/56
--- NOTE | 2019-08-20 16:38 | IPNPDOC ---
Date Seen The patient was seen on 08/20/19. Progress Note SUBJECTIVE: Abdominal pain resolved, has had 3 BM since 08/19/19. Back pain controlled. Patient denies n/v, chest pain, increased shortness of breath, fevers, chills. OBJECTIVE: VITAL SIGNS: Please see below PHYSICAL EXAMINATION: CONSTITUTIONAL: sitting up at bedside chair in good spirits, AAO x 3 EYES: PERRLA, EOM intact HENT, MOUTH: Normocephalic, atraumatic, moist mucous membranes NECK: SUPPLE, no JVD, no lymphadenopathy, no carotid bruit CV: Regular rate and rhythm, S1S2 normal, no murmurs/rubs/gallops RESPIRATORY: Clear to auscultation bilaterally, no rales/rhonchi/wheezes GI: No abdominal discomfort. BS positive in 4 quadrants, soft, nontender, nondistended, no rebound or guarding, no organomegaly : Deferred MUSCULOSKELETAL: Hunched curvature of spine, ROM not tested. No cyanosis, clubbing, swelling, joint deformity, extremity edema INTEGUMENTARY: Large well-healing incision along the thoracic spine, exposed to air, nonsuppurative, no increased erythema. No rashes, no lesions, no erythema NEUROLOGIC: Cranial Nerves II-XII are intact, no focal deficits PSYCHIATRIC: Mood and affect are normal CURRENT MEDICATIONS: Please see below LABORATORY DATA: Please see below IMAGING: No new imaging ASSESSMENT: 69 y/o F treated for chronic constipation with resolved ileus, thoracic back pain, acute on chronic CHF exacerbation. PLAN: 1. Chronic constipation with recently resolved ileus. 3 BM over 24 hrs. C/w modified bowel regimen, encouraging to keep water at bedside and lasix was decreased. 2. Thoracic back pain, chronic. Controlled with pain 3-06/08. Per PT note , pt is NOT yet safe for d/c home; would require 24/7 CGA to ensure safety. Will discuss rehab facilities with social media sr strategy manager. C/w tramadol 100 mg PO Q6H, Tylenol ATC and oxycodone/acetaminophen PRN. 3. Congestive heart failure, acute systolic dysfunction with exacerbation. Improved. Neg 890/24 hrs. C/w lasix to 40 mg PO BID, BB, fluid restriction, strict I&Os, daily weights, low sodium diet. 4. Coronary artery disease status post stent with diffuse coronary artery disease. Denies increased SOB, chest pain. Follows with Dr. Brantley. Echo shows systolic dysfunction with ejection fraction (EF) of 50-55%, moderate pulmonary hypertension. C/w ranexa, all other cardiac medications. 5. Hypertension. Stable. C/w isosorbide and Coreg. 6. DVT px. Heparin. DISPOSITION: Plan is discharge likely to rehabilitation center. Discussed this with patient who is understanding that she will require more rehab prior to returning home with her daughter's help. VS, I&O, 24H, Fishbone Vital Signs/I&O Vital Signs Date Time Temp Pulse Resp B/P (MAP) Pulse Ox O2 Delivery O2 Flow Rate FiO2 08/20/19 12:09 16 08/20/19 08:41 61 188/86 08/20/19 06:00 97.2 93 Room Air I&O- Last 24 Hours up to 6 AM 08/20/19 06:00 Intake Total 2260 ml Output Total 2600 ml Balance -340 ml Laboratory Data 24H LABS Laboratory Tests 2 08/19/19 17:34: Bedside Glucose (Misc Panel) 74L 08/19/19 20:47: Bedside Glucose (Misc Panel) 86 08/20/19 06:19: Nucleated Red Blood Cells % (auto) 0.0, Anion Gap 7L, Glomerular Filtration Rate 47.4, Calcium Level 8.5L, Total Bilirubin 0.6, Aspartate Amino Transf (AST/SGOT) 20, Alanine Aminotransferase (ALT/SGPT) 12, Alkaline Phosphatase 265H, Total Protein 6.3L, Albumin 2.6L, Albumin/Globulin Ratio 0.7L 08/20/19 12:22: Bedside Glucose (Misc Panel) 108 CBC/BMP Laboratory Tests 08/20/19 06:19 Microbiology Microbiology 08/14/19 Respiratory Virus Panel (PCR) (SONJA) - Final, Complete 08/12/19 Gram Stain - Final, Complete 08/12/19 Sputum Culture - Final, Complete Yeast Like Organism 08/11/19 Gram Stain - Final, Complete 08/11/19 Wound Culture - Final, Complete Enterococcus Faecalis Staphylococcus Sp Coag Neg Current Medications Current Medications Medications (Trade) Dose Ordered Sig/Arturo Route PRN Reason Start Time Stop Time Status Last Admin Dose Admin Acetaminophen (Tylenol Tab) 650 mg Q4H PRN PO PAIN / FEVER 08/11/19 01:45 08/12/19 09:26 DC 08/12/19 03:54 Acetaminophen (Tylenol Tab) 650 mg Q4H PRN PO PAIN / FEVER 08/12/19 09:26 08/13/19 13:59 DC 08/13/19 12:25 Acetaminophen (Tylenol Tab) 650 mg Q6H PO 08/15/19 18:00 08/20/19 12:08 Acetaminophen (Tylenol Tab) 650 mg Q6HP PRN PO PAIN / FEVER 08/14/19 22:00 08/15/19 15:46 DC 08/15/19 03:55 Allopurinol (Zyloprim) 300 mg DAILY PO 08/11/19 09:00 08/20/19 08:36 Alvimopan (Entereg) 12 mg BID PO 08/12/19 09:00 08/19/19 08:59 DC 08/18/19 21:28 Bacitracin (Bacitracin Oint) back x5days BID TOP 08/11/19 21:00 08/11/19 14:41 DC Bisacodyl (Dulcolax Suppository) 10 mg BID IN 08/13/19 09:00 08/19/19 08:27 DC 08/15/19 08:41 Bisacodyl (Dulcolax Suppository) 10 mg DAILY PRN IN CONSTIPATION 08/11/19 01:45 08/13/19 07:07 DC Bisacodyl (Dulcolax Suppository) 10 mg TID IN 08/12/19 09:00 08/13/19 07:07 DC 08/12/19 21:26 Carvedilol (COReg) 3.125 mg BID PO 08/11/19 09:00 08/20/19 08:41 Ciprofloxacin 200 mg/IV Miscellaneous Supplies 100 ml @ 100 mls/hr Q12H IV 08/13/19 06:00 08/12/19 16:21 DC Ciprofloxacin 400 mg/IV Miscellaneous Supplies 200 ml @ 200 mls/hr Q12H IV 08/11/19 16:00 08/12/19 16:17 DC 08/12/19 03:55 Clopidogrel Bisulfate (PLAVix) 75 mg DAILY PO 08/11/19 09:00 08/20/19 08:35 Dextrose (Dextrose 50%) 25 ml ASDIRECTED PRN IV SEE LABEL COMMENTS 08/11/19 02:00 Dextrose (Dextrose 50%) 25 ml ASDIRECTED PRN IV SEE LABEL COMMENTS 08/12/19 16:15 UNV Docusate Sodium (Colace) 100 mg BID PO 08/19/19 09:00 08/20/19 08:35 Furosemide (LASIX injection) 40 mg Q4H IV 08/13/19 15:00 08/14/19 07:08 DC 08/14/19 06:31 Furosemide (LASIX injection) 40 mg Q4H IV 08/14/19 11:00 08/15/19 07:01 DC 08/15/19 08:40 Furosemide (LASIX injection) 40 mg Q6H IV 08/12/19 12:00 08/12/19 18:01 DC 08/12/19 17:13 Furosemide (Lasix) 40 mg BID@09,17 PO 08/15/19 09:00 08/15/19 08:55 DC Furosemide (Lasix) 40 mg BID@09,17 PO 08/15/19 17:00 08/17/19 22:47 DC 08/17/19 17:50 Furosemide (Lasix) 40 mg BID@,17 PO 08/19/19 17:00 08/20/19 08:35 Furosemide (Lasix) 60 mg BID@09,17 PO 08/18/19 09:00 08/19/19 11:07 DC 08/19/19 10:18 Glucagon (Glucagon) 1 mg ASDIRECTED PRN SC SEE LABEL COMMENTS 08/11/19 02:00 Glucagon (Glucagon) 1 mg ASDIRECTED PRN SC SEE LABEL COMMENTS 08/12/19 16:15 UNV Glucose (Glucose) 16 GM ASDIRECTED PRN PO SEE LABEL COMMENTS 08/11/19 02:00 Glucose (Glucose) 16 GM ASDIRECTED PRN PO SEE LABEL COMMENTS 08/12/19 16:15 UNV Heparin Sodium (Porcine) (Heparin) 5,000 units Q12H SC 08/11/19 09:00 08/20/19 08:33 Home Med (Med Rec Complete!) ASDIRECTED XX 08/10/19 23:00 08/10/19 22:58 DC Hydromorphone HCl (Dilaudid) 0.2 mg Q3HP PRN IV MILD PAIN (PS 1-4) 08/11/19 16:15 08/13/19 13:54 DC Hydromorphone HCl (Dilaudid) 0.4 mg Q3HP PRN IV MODERATE PAIN (PS 5-7) 08/11/19 16:15 08/13/19 13:54 DC 08/12/19 19:50 Insulin Human Lispro (HumaLOG INSULIN) SEE PROTOCOL TABLE AC SD 08/16/19 07:30 08/17/19 22:49 DC 08/16/19 12:34 Insulin Human Lispro (HumaLOG INSULIN) SEE PROTOCOL TABLE Q6H SD 08/11/19 06:00 08/15/19 23:26 DC 08/15/19 13:11 Insulin Human Lispro (HumaLOG INSULIN) SEE PROTOCOL TABLE QHS SD 08/16/19 21:00 08/17/19 22:49 DC Isosorbide Mononitrate (Imdur) 30 mg DAILY PO 08/11/19 09:00 08/20/19 08:42 Lactated Ringer's 1,000 ml @ 75 mls/hr [id number] IV 08/19/19 09:00 08/19/19 10:16 DC Lidocaine (Lidoderm Patch) 1 patch DAILY TOP 08/11/19 09:00 08/20/19 08:35 Linezolid (Zyvox) 600 mg BID PO 08/16/19 21:00 08/20/19 08:35 Linezolid 600 mg/ IV Miscellaneous Supplies 300 ml @ 150 mls/hr Q12H IV 08/14/19 10:00 08/15/19 15:46 DC 08/15/19 10:56 Magnesium Hydroxide (Milk Of Magnesia) 30 ml BID PO 08/13/19 09:00 08/13/19 13:58 DC 08/13/19 09:00 Magnesium Oxide (Mag-Ox) 400 mg DAILY PO 08/16/19 09:00 08/20/19 08:34 Metronidazole 500 mg/IV Miscellaneous Supplies 100 ml @ 100 mls/hr Q8H IV 08/11/19 15:00 08/12/19 16:23 DC 08/12/19 06:38 Non-Formulary Medication ( See Comment Field Below ) REMOVE LIDODERM PATCH DAILY@21 XX 08/11/19 21:00 08/20/19 01:27 Nystatin (Mycostatin Powder, Nystop) APPLY TO REDDENED AREAS BID TOP 08/11/19 09:00 08/20/19 08:45 Ondansetron HCl (Zofran) 4 mg Q6H PRN PO NAUSEA OR VOMITING 08/11/19 01:45 08/20/19 13:44 Oxycodone HCl (OxyCONTIN) 10 mg BID PO 08/13/19 21:00 08/15/19 09:41 DC 08/14/19 08:32 Oxycodone/ Acetaminophen (Percocet 5mg/ 325mg Tablet) 1 tab Q6H PO 08/15/19 12:00 08/15/19 15:46 DC 08/15/19 11:04 Oxycodone/ Acetaminophen (Percocet 5mg/ 325mg Tablet) 1 tab Q6HP PRN PO SEVERE PAIN (PS 8-10) 08/15/19 09:45 08/15/19 10:16 DC Oxycodone/ Acetaminophen (Percocet 5mg/ 325mg Tablet) 1 tab Q6HP PRN PO SEVERE PAIN (PS 8-10) 08/15/19 16:00 08/20/19 04:22 Pantoprazole Sodium (Protonix) 40 mg DAILY PO 08/11/19 09:00 08/11/19 13:56 DC 08/11/19 12:16 Pantoprazole Sodium (Protonix) 40 mg Q12H IV 08/11/19 09:00 Cancel Pantoprazole Sodium (Protonix) 40 mg Q12H IV 08/11/19 21:00 08/20/19 08:33 Polyethylene Glycol (Miralax) 1 pkt DAILYPRN PRN PO CONSTIPATION 08/19/19 08:30 Potassium Chloride (Micro-K Extencaps) 30 meq DAILY PO 08/17/19 09:00 08/20/19 08:35 Prednisolone Acetate (Predforte 1% Ophth Susp) 1 drop QID OD 08/11/19 09:00 08/20/19 12:11 Ranolazine (Ranexa) 500 mg BID PO 08/11/19 09:00 08/20/19 08:33 Salmeterol Xinafoate/ Fluticasone (Advair Hfa 45-21 Mcg/Act) 2 puff RBID INH 08/11/19 08:00 08/20/19 07:16 Senna (Senokot) 2 tab DAILY PO 08/19/19 09:00 08/20/19 08:34 Senna/Docusate Sodium (Senokot S) 2 tab BID PO 08/13/19 09:00 08/19/19 08:27 DC 08/18/19 21:28 Simethicone (Mylicon) 120 mg QID PO 08/13/19 13:00 08/20/19 12:10 Tramadol HCl (Ultram) 50 mg Q6H PO 08/18/19 00:00 08/19/19 17:26 DC 08/19/19 17:17 Tramadol HCl (Ultram) 100 mg Q6H PO 08/15/19 18:00 08/17/19 22:50 DC 08/17/19 17:49 Tramadol HCl (Ultram) 100 mg Q6H PO 08/20/19 00:00 08/20/19 12:09 Tramadol HCl (Ultram) 100 mg Q8H PO 08/15/19 09:45 08/15/19 10:09 DC Vancomycin HCl 1000 mg/IV Miscellaneous Supplies 1 each/ Dextrose 270 ml @ 270 mls/hr Q12H IV 08/16/19 08:00 08/16/19 14:32 DC 08/16/19 08:45 Allergies Coded Allergies: NUTS (Verified Allergy, Severe, DIFFICULTY BREATHING, 08/11/19) Sulfa (Sulfonamide Antibiotics) (Verified Allergy, Severe, ANAPHYLACTIC SHOCK, 06/14/18) TAPE (Verified Allergy, Intermediate, clear dressings and tape on IV's - r julian, 08/11/19) dronedarone (Unverified Allergy, Intermediate, CONTRAINDICATED DUE TO RANEXA, 06/14/18) lansoprazole (Unverified Allergy, Intermediate, CONTRAINDICATED DUE TO BLOOD THINNERS, 06/14/18) latex (Unverified Allergy, Intermediate, RASH, 06/14/18) PERFUMES (Verified Allergy, Unknown, 08/11/19) STATES DRYER SHEETS WELL bacitracin (Verified Allergy, Unknown, 08/10/19) ketorolac (Verified Adverse Reaction, Severe, 08/13/19) renal failure Corticosteroids (Glucocorticoids) (Verified Adverse Reaction, Intermediate, STATED CHF FROM DEXADROL, 08/11/19) Filkfak-Zdb-Yhz Reductase Inhibitor (Unverified Adverse Reaction, Intermediate, MUSCLE WEAKNESS, 06/14/18) codeine (Verified Adverse Reaction, Intermediate, HALLUCINATIONS, 08/15/19) glycopyrrolate (Unverified Adverse Reaction, Intermediate, CHEST PAIN, 06/14/18) naloxone (Unverified Adverse Reaction, Intermediate, GI UPSET, DIZZY, 06/14/18) nifedipine (Unverified Adverse Reaction, Intermediate, SORE THROAT, 06/14/18) oxycodone (Verified Adverse Reaction, Intermediate, HALLUCINATIONS, 08/15/19) pentazocine (Unverified Adverse Reaction, Intermediate, GI UPSET, DIZZY, 06/14/18) Shanta Casiano MD Aug 20, 2019 16:38
[2019-08-20 22:00] VITALS: BP 153/80
[2019-08-21] MEDS: traMADol 50 MG TAB PO SCH ×3 (00:05→12:07)
[2019-08-21] MEDS: ACETAMINOPHEN TAB 650MG DOSE (2X325MG) PO SCH ×3 (00:05→12:06)
[2019-08-21 05:52] LABS: BASO # 0.1 10^3/uL (0.0-0.2); BASO % 0.5 % (0.0-1.0); EOS # 0.4 10^3/uL (0.0-0.5); EOS % 3.1 % (0.0-3.0); HEMATOCRIT 33.4 % (36.0-47.0); HEMOGLOBIN 10.8 g/dl (12.0-15.5); LYMPH # 2.2 10^3/uL (1.5-5.0); LYMPH % 18.9 % (24.0-44.0); MEAN CORPUSCULAR HEMOGLOBIN 29.7 pg (27.0-33.0); MEAN CORPUSCULAR HGB CONC 32.3 g/dl (32.0-36.5); MEAN CORPUSCULAR VOLUME 91.8 fl (80.0-96.0); MONO # 1.2 10^3/uL (0.0-0.8); MONO % 10.6 % (0.0-5.0); NEUTROPHILS # 7.7 10^3/uL (1.5-8.5); NEUTROPHILS % 66.2 % (36.0-66.0); PLATELET COUNT, AUTOMATED 328 10^3/uL (150-450); RED BLOOD COUNT 3.64 10^6/uL (4.00-5.40); WHITE BLOOD COUNT 11.6 10^3/uL (4.0-10.0)
[2019-08-21 06:00] VITALS: BP 137/82
[2019-08-21 06:23] LABS: ALBUMIN 2.5 GM/DL (3.2-5.2); BILIRUBIN,TOTAL 0.6 MG/DL (0.2-1.0); CREATININE FOR GFR 1.35 MG/DL (0.55-1.30); GLOMERULAR FILTRATION RATE 41.4 (>45); TOTAL PROTEIN 6.8 GM/DL (6.4-8.2)
[2019-08-21] MEDS: ADVAIR HFA 45/21MCG INHALER INH SCH (07:48)
[2019-08-21 09:35] VITALS: BP 140/82
[2019-08-21] MEDS: CARVedilol 3.125 MG TAB PO SCH (09:35)
[2019-08-21] MEDS: FUROSEMIDE 40 MG TAB PO SCH (09:35)
[2019-08-21] MEDS: CLOPIDOGREL 75 MG TAB PO SCH (09:35)
[2019-08-21] MEDS: SENNA 8.6 MG TAB (SENOKOT) PO SCH (09:35)
[2019-08-21] MEDS: POTASSIUM CHLORIDE 10 MEQ SR TABLET PO SCH (09:36)
[2019-08-21] MEDS: RANOLAZINE 500 MG ER TAB PO SCH (09:36)
[2019-08-21] MEDS: allopurinoL 300 MG TAB PO SCH (09:36)
[2019-08-21] MEDS: DOCUSATE SODIUM 100 MG CAP PO SCH (09:36)
[2019-08-21] MEDS: MAGNESIUM OXIDE 400 MG TAB (MAG-OX) PO SCH (09:36)
[2019-08-21] MEDS: LINEZOLID 600MG TABLET (ZYVOX) PO SCH (09:36)
[2019-08-21] MEDS: LIDOCAINE 5% (LIDODERM) PATCH TOP SCH (09:36)
[2019-08-21] MEDS: HEPARIN SOD (PORCINE) 5000UNITS/ML VIAL (J1644 PER 1000UNITS) SC SCH (09:36)
[2019-08-21] MEDS: ISOSORBIDE MON. (IMDUR) 30 MG XR TAB PO SCH (09:36)
[2019-08-21] MEDS: SIMETHICONE 80 MG CHEW TAB PO SCH ×2 (09:37→12:06)
[2019-08-21] MEDS: prednisoLONE ACET 1% OPHTH SUSP 5ML OD SCH (09:37)
[2019-08-21] MEDS: PANTOPRAZOLE 40MG VIAL (C9113 PER 1) IV SCH (09:37)
[2019-08-21] MEDS: NYSTATIN 100,000 UNITS/GM TOPICAL PWD 15 GM TOP SCH (09:38)
[2019-08-21] MEDS ORDERED: SIME80TA PO (10:27)
[2019-08-21] MEDS ORDERED: ACET1TAB55 PO ×2 (10:27→23:19)
[2019-08-21] MEDS ORDERED: MAG400TA PO (10:27)
[2019-08-21] MEDS ORDERED: FURO40TA2 PO (10:27)
[2019-08-21] MEDS ORDERED: PERCOCET PO (10:27)
[2019-08-21] MEDS ORDERED: DOCU100C16 PO (10:27)
[2019-08-21] MEDS ORDERED: PEG1POW PO (10:27)
[2019-08-21] MEDS ORDERED: SENN18TA PO (10:27)
[2019-08-21] MEDS ORDERED: KLOR10TA76 PO (10:27)
[2019-08-21] MEDS ORDERED: TRAM50TA2 PO ×2 (10:27→23:19)
[2019-08-21] MEDS ORDERED: NYST10006 TOP (10:27)
[2019-08-21] MEDS ORDERED: LINE1TAB6 PO (10:33)
--- NOTE | 2019-08-21 16:19 | DS.PDOC ---
Discharge Summary General Date of Admission Aug 11, 2019 at 01:37 Date of Discharge 08/21/19 Attending Physician: Shanta Casiano MD Discharge Summary HISTORY OF PRESENT ILLNESS: 69-year-old female with past medical history of congestive heart failure, hypertension, hyperlipidemia, diabetes mellitus, coronary artery disease status post stent placement, atrial fibrillation and recent spinal fusion presents with abdominal pain. She had a mechanical fall with vertebral fractures, underwent spinal fusion a few weeks ago, currently residing at [facility] for rehabilitation. She experienced a small bowel obstruction/ileus 2 weeks ago which self resolved. She now returns with similar symptoms consisting of abdominal pain, nausea/dry heaving and constipation for the past [address] scan of the ED, consistent with ileus/early small bowel obstruction. She has no other complaints at time of discharge. HOSPITAL COURSE: The patient was started on IV fluids, nothing by mouth status. Over the course of the next several days her ileus resolved. She was started on a bowel regimen. She had several large vertical incisions from prior back surgery which appeared infected, culture later grew enterococcus and Staphylococcus species. Sensitivities were to Zyvox which the patient was started on. There was an issue controlling her chronic back pain during her hospital stay and this was later improved with oxljgr-vsu-rrirt tramadol at higher dose, around the clock Tylenol and oxycodone/acetaminophen when necessary. The patient had 1 episode of constipation which later resolved and the patient was started on an aggressive bowel regimen which she has tolerated fine. Physical therapy initiated was trying to send her home with physical therapy; however, she later showed to be very weak and the recommendation was rehabilitation. Her daughter who helps take care of her was also in agreement. The patient has been getting diuresed for lower extremity swelling and congestive heart failure, which helped immensely. Her Lasix was later decreased due to the belief of it causing some constipation. At the time of discharge on 08/21/2019 the patient had no acute complaints. She was discharged to [facility] in good spirits. She denied chest pain, increased shortness of breath, increased back pain, abdominal pain, nausea, vomiting, fevers, chills. ROS: Negative except for what is mentioned above. PAST MEDICAL HISTORY: 1. Congestive heart failure. 2. Hypertension. 3. Hyperlipidemia. 4. Coronary artery disease. 5. Diabetes mellitus. 6. Atrial fibrillation PAST SURGICAL HISTORY: 1. coronary stent placement. 2. Cholecystectomy. 3. Hysterectomy. 4. Spinal fusion SOCIAL HISTORY: Denies smoking. Denies alcohol use. Denies drug use FAMILY HISTORY: Father had CT ALLERGIES: Please see below. PHYSICAL EXAMINATION: CONSTITUTIONAL: sitting up at bedside chair in good spirits, AAO x 3 EYES: PERRLA, EOM intact HENT, MOUTH: Normocephalic, atraumatic, moist mucous membranes NECK: SUPPLE, no JVD, no lymphadenopathy, no carotid bruit CV: Regular rate and rhythm, S1S2 normal, no murmurs/rubs/gallops RESPIRATORY: Clear to auscultation bilaterally, no rales/rhonchi/wheezes GI: No abdominal discomfort. BS positive in 4 quadrants, soft, nontender, nondistended, no rebound or guarding, no organomegaly : Deferred MUSCULOSKELETAL: Hunched curvature of spine, ROM not tested. No cyanosis, clubbing, swelling, joint deformity, extremity edema INTEGUMENTARY: Large well-healing incision along the thoracic spine, exposed to air, nonsuppurative, no increased erythema. No rashes, no lesions, no erythema NEUROLOGIC: Cranial Nerves II-XII are intact, no focal deficits PSYCHIATRIC: Mood and affect are normal CURRENT MEDICATIONS: Please see below LABORATORY DATA: Please see below IMAGING: Please see under transcribed documents ASSESSMENT: 69 y/o F treated for chronic constipation with resolved ileus, thoracic back pain, acute on chronic CHF exacerbation. PLAN: 1. Chronic constipation with recently resolved ileus. regular BMs. C/w modified bowel regimen, encouraging to keep water at bedside. 2. Thoracic back pain, chronic. Controlled with pain 05/08. C/w PT/OT, tramadol 100 mg PO Q6H, Tylenol ATC and oxycodone/acetaminophen PRN. 3. Congestive heart failure, acute systolic dysfunction with exacerbation. Improved. Diuresed well. C/w lasix to daily, BB, strict I&Os, daily weights, low sodium diet. 4. Coronary artery disease status post stent with diffuse coronary artery disease. Denies increased SOB, chest pain. Follows with Dr. Brantley. Echo shows systolic dysfunction with ejection fraction (EF) of 50-55%, moderate pulmonary hypertension. C/w ranexa, all other cardiac medications. 5. Hypertension. Stable. C/w isosorbide and Coreg. DISPOSITION: Plan is discharge to [facility] today to continue rehabilitation. TIME SPENT ON DISCHARGE: Greater than 30 minutes. Vital Signs/I&Os Vital Signs Date Time Temp Pulse Resp B/P (MAP) Pulse Ox O2 Delivery O2 Flow Rate FiO2 08/21/19 12:07 18 95 Room Air 08/21/19 09:35 62 140/82 08/21/19 06:00 97.8 I&O- Last 24 Hours up to 6 AM 08/21/19 05:59 Intake Total 1740 ml Output Total 1450 ml Balance 290 ml Laboratory Data Labs 24H Laboratory Tests 2 08/20/19 17:15: Bedside Glucose (Misc Panel) 95 08/20/19 20:44: Bedside Glucose (Misc Panel) 107 08/21/19 05:22: Immature Granulocyte % (Auto) 0.7, Neutrophils (%) (Auto) 66.2H, Lymphocytes (%) (Auto) 18.9L, Monocytes (%) (Auto) 10.6H, Eosinophils (%) (Auto) 3.1H, Basophils (%) (Auto) 0.5, Neutrophils # (Auto) 7.7, Lymphocytes # (Auto) 2.2, Monocytes # (Auto) 1.2H, Eosinophils # (Auto) 0.4, Basophils # (Auto) 0.1, Nucleated Red Blood Cells % (auto) 0.0, Anion Gap 8, Glomerular Filtration Rate 41.4L, Calcium Level 9.0, Total Bilirubin 0.6, Aspartate Amino Transf (AST/SGOT) 16, Alanine Aminotransferase (ALT/SGPT) 11L, Alkaline Phosphatase 259H, Total Protein 6.8, Albumin 2.5L, Albumin/Globulin Ratio 0.6L 08/21/19 11:44: Bedside Glucose (Misc Panel) 94 CBC/BMP Laboratory Tests 08/21/19 05:22 FSBS Laboratory Tests Test 08/20/19 17:15 08/20/19 20:44 08/21/19 11:44 Range/Units Bedside Glucose (Misc Panel) 95 107 94 80-115 MG/DL Microbiology Microbiology 08/14/19 Respiratory Virus Panel (PCR) (SONJA) - Final, Complete 08/12/19 Gram Stain - Final, Complete 08/12/19 Sputum Culture - Final, Complete Yeast Like Organism 08/11/19 Gram Stain - Final, Complete 08/11/19 Wound Culture - Final, Complete Enterococcus Faecalis Staphylococcus Sp Coag Neg Discharge Medications Scheduled Acetaminophen (Acetaminophen) 325 Mg Tablet, 650 MG PO Q6H Allopurinol (Zyloprim) 300 Mg Tablet, 300 MG PO DAILY, (Reported) Bacillus Coagulans (Bacid with Lactospore) 1 Each Capsule, 1 CAP PO BID, (Reported) Carvedilol (Coreg) 3.125 Mg Tablet, 3.125 MG PO BID, (Reported) Clopidogrel Bisulfate (Plavix) 75 Mg Tablet, 75 MG PO DAILY, (Reported) Docusate Sodium (Docusate Sodium) 100 Mg Capsule, 100 MG PO BID Furosemide (Furosemide) 40 Mg Tablet, 60 MG PO DAILY Isosorbide Mononitrate (Isosorbide Mononitrate ER) 30 Mg Tab.er.24h, 30 MG PO DAILY, (Reported) Lidocaine (Lidocaine) 5% Adh..patch, 1 PATCH TOP DAILY, (Reported) APPLY TO BACK Linezolid (Linezolid) 600 Mg Tablet, 600 MG PO BID Magnesium Oxide (Magnesium Oxide) 400 Mg Tablet, 400 MG PO DAILY Melatonin (Melatonin) 3 Mg Tablet, 3 MG PO QHS, (Reported) Nystatin (Nystop) 60 Gm Powder, 0 DOSE TOP BID Pantoprazole Sodium (Pantoprazole Sodium) 40 Mg Tablet.dr, 40 MG PO DAILY, (Reported) Potassium Chloride (Klor-Con M10) 10 Meq Tab.er.prt, 30 MEQ PO DAILY Prednisolone Acetate (Prednisolone Acetate 1% Opth Susp) 5 Ml Drops.susp, 1 DROP OD QID, (Reported) Ranolazine (Ranexa) 500 Mg Tab.er.12h, 500 MG PO BID, (Reported) Salmeterol/Fluticasone (Advair 100-50 Diskus) 1 Each Blst.w.dev, 1 PUFF INH BID, (Reported) Senna (Senna Lax) 8.6 Mg Tablet, 2 TAB PO DAILY Tramadol HCl (Tramadol HCl) 50 Mg Tablet, 100 MG PO Q6H Scheduled PRN Nitroglycerin (Nitrostat) 0.4 Mg Tab.subl, 0.4 MG SL NITRO PRN for CHEST PAIN, ( Reported) Ondansetron HCl (Ondansetron HCl) 4 Mg Tablet, 4 MG PO Q6H PRN for NAUSEA OR VOMITING, (Reported) Oxycodone/Acetaminophen (Oxycodone-Acetaminophen 5-325) 1 Each Tablet, 1 TAB PO Q6HP PRN for SEVERE PAIN (PS 8-10) Polyethylene Glycol 3350 (Polyethylene Glycol 3350) 17 Gm Powd.pack, 1 PKT PO DAILYPRN PRN for CONSTIPATION Simethicone (Simethicone) 80 Mg Tab.chew, 120 MG PO QIDP PRN for GAS PAIN Sodium Phosphate,[place]-Dibasic (Enema) 133 Ml Enema, 1 ROBERT [place] DAILY PRN for CONS TIPATION, (Reported) Allergies Coded Allergies: NUTS (Verified Allergy, Severe, DIFFICULTY BREATHING, 08/11/19) Sulfa (Sulfonamide Antibiotics) (Verified Allergy, Severe, ANAPHYLACTIC SHOCK, 06/14/18) TAPE (Verified Allergy, Intermediate, clear dressings and tape on IV's - rash, 08/11/19) dronedarone (Unverified Allergy, Intermediate, CONTRAINDICATED DUE TO RANEXA, 06/14/18) lansoprazole (Unverified Allergy, Intermediate, CONTRAINDICATED DUE TO BLOOD THINNERS, 06/14/18) latex (Unverified Allergy, Intermediate, RASH, 06/14/18) PERFUMES (Verified Allergy, Unknown, 08/11/19) STATES DRYER SHEETS WELL bacitracin (Verified Allergy, Unknown, 08/10/19) ketorolac (Verified Adverse Reaction, Severe, 08/13/19) renal failure Corticosteroids (Glucocorticoids) (Verified Adverse Reaction, Intermedi ate, STATED CHF FROM DEXADROL, 08/11/19) Qdrglwc-Lfx-Ysg Reductase Inhibitor (Unverified Adverse Reaction, Intermediate, MUSCLE WEAKNESS, 06/14/18) codeine (Verified Adverse Reaction, Intermediate, HALLUCINATIONS, 08/15/19) glycopyrrolate (Unverified Adverse Reaction, Intermediate, CHEST PAIN, 06/14/18) naloxone (Unverified Adverse Reaction, Intermediate, GI UPSET, DIZZY, 06/14/18) nifedipine (Unverified Adverse Reaction, Intermediate, SORE THROAT, 06/14/18) oxycodone (Verified Adverse Reaction, Intermediate, HALLUCINATIONS, 08/15/19) pentazocine (Unverified Adverse Reaction, Intermediate, GI UPSET, DIZZY, 06/14/18) Shanta Casiano MD Aug 21, 2019 16:19
[2019-08-21] MEDS ORDERED: POLY1POW38 PO (23:19)
[2019-08-21] MEDS ORDERED: DULC10SU2 PR (23:19)
[2019-08-21] MEDS ORDERED: DOCU100C17 PO (23:19)
[2019-08-21] MEDS ORDERED: POTA10CA32 PO (23:19)
[2019-08-21] MEDS ORDERED: MAGN400T2 PO (23:19)
[2019-08-21] MEDS ORDERED: FURO20TA2 PO (23:19)
[2019-08-21] MEDS ORDERED: SIME40TA PO (23:19)
[2019-08-21] MEDS ORDERED: GNP8.6TA PO (23:19)
[2019-08-22] MEDS ORDERED: AUGM875T28 PO (02:12)
== END 2019-08-21 12:25 | DRG 388 ==
LOC: M ED 22:19 → M ED INP 08-11 01:37 → ENRESERV 08-11 01:50 → M MSPAV 08-11 03:35
PROVIDERS: ADMIT Internal Medicine; ATTEND Internal Medicine
DX: K56.7 Ileus, unspecified (principal); I50.23 Acute on chronic systolic (congestive) heart failure; I48.20 Chronic atrial fibrillation, unspecified; N17.9 Acute kidney failure, unspecified; R44.3 Hallucinations, unspecified; I11.0 Hypertensive heart disease with heart failure; E78.5 Hyperlipidemia, unspecified; I25.10 Atherosclerotic heart disease of native coronary artery without angina pectoris; E11.65 Type 2 diabetes mellitus with hyperglycemia; E87.6 Hypokalemia; R41.0 Disorientation, unspecified; K59.09 Other constipation; I27.20 Pulmonary hypertension, unspecified; T36.8X5A Adverse effect of other systemic antibiotics, initial encounter; T40.2X5A Adverse effect of other opioids, initial encounter; M54.6 Pain in thoracic spine; E83.42 Hypomagnesemia; Z98.1 Arthrodesis status; Z79.02 Long term (current) use of antithrombotics/antiplatelets; Z79.52 Long term (current) use of systemic steroids; Z90.49 Acquired absence of other specified parts of digestive tract; Z11.59 Encounter for screening for other viral diseases; Z95.5 Presence of coronary angioplasty implant and graft; Z91.040 Latex allergy status; Z88.8 Allergy status to other drugs, medicaments and biological substances; Z88.2 Allergy status to sulfonamides; Z79.899 Other long term (current) drug therapy

== ENCOUNTER → 2019-08-10 | Outpatient (REF) ==
[2019-08-10 14:15] LABS: HEMATOCRIT 32.2 % (36.0-47.0); HEMOGLOBIN 10.5 g/dl (12.0-15.5); MEAN CORPUSCULAR HEMOGLOBIN 30.3 pg (27.0-33.0); MEAN CORPUSCULAR HGB CONC 32.6 g/dl (32.0-36.5); MEAN CORPUSCULAR VOLUME 92.8 fl (80.0-96.0); PLATELET COUNT, AUTOMATED 394 10^3/uL (150-450); RED BLOOD COUNT 3.47 10^6/uL (4.00-5.40); WHITE BLOOD COUNT 14.7 10^3/uL (4.0-10.0)
[2019-08-10 17:52] LABS: APPEARANCE, URINE CLEAR (CLEAR); BACTERIA, URINE AUTO NEGATIVE (NEGATIVE); BILIRUBIN, URINE AUTO NEGATIVE (NEGATIVE); BLOOD, URINE BLOOD NEGATIVE (NEGATIVE); COLOR, URINE YELLOW (YELLOW); GLUCOSE, URINE (UA) AUTO NEGATIVE (NEGATIVE); KETONE, URINE AUTO NEGATIVE (NEGATIVE); LEUKOCYTE ESTERASE, URINE AUTO NEGATIVE (NEGATIVE); NITRITE, URINE AUTO NEGATIVE (NEGATIVE); PROTEIN, URINE AUTO NEGATIVE (NEGATIVE); RBC, URINE AUTO 2 /HPF (0-3); SPECIFIC GRAVITY URINE AUTO 1.005 (1.002-1.035); SQUAMOUS EPITHELIAL CELL UR AU 1 /HPF (0-6); UROBILINOGEN, URINE AUTO 0.2 mg/dL (0.0-2.0); WBC, URINE AUTO 0 /HPF (0-3)
== END ==
LOC: SKLAB5 12:30
PROVIDERS: ATTEND Internal Medicine
DX: R68.89 Other general symptoms and signs (principal); R11.0 Nausea

== ENCOUNTER → 2019-08-17 | Outpatient (REF) ==
[~2019-08-17] MED LIST changes: +ACET-907 PO; +ACET1TAB55 PO; +ADV100INH INH; +AUGM875T28 PO; +BACI1CAP PO; +CORE3.12 PO; +DOCU100C16 PO; +DOCU100C17 PO; +DULC10SU2 PR; +ENEMENE PR; +FURO20TA2 PO; +FURO40TA2 PO; +GNP8.6TA PO; +ISOS30TA4 PO; +KLOR10TA76 PO; +LIDO5TD TOP; +LINE1TAB6 PO; +MAG400TA PO; +MAGN400T2 PO; +MELA3TAB62 PO; +MOM30SS PO; +NITR4TASL SL; +NYST10006 TOP; +ONDA-83 PO; +PANT-23 PO; +PEG1POW PO; +PERCOCET PO; +POLY1POW38 PO; +POTA10CA32 PO; +POTA10TA17 PO; +PREDOPD OD; +RANO500T7 PO; +SENN-23 PO; +SENN18TA PO; +SIME40TA PO; +SIME80TA PO; +TRAM50TA2 PO; +ZYLO300T6 PO
== END ==
LOC: SKLAB5 07:35
PROVIDERS: ATTEND Internal Medicine
DX: I50.9 Heart failure, unspecified (principal); M81.0 Age-related osteoporosis without current pathological fracture

== ENCOUNTER 2019-08-21 22:32 | Emergency (ER) | payer MEDICARE ==
[~2019-08-21 22:32] MED LIST changes: -AUGM875T28 PO; -DOCU100C17 PO; -FURO20TA2 PO; -GNP8.6TA PO; -MAGN400T2 PO; -POLY1POW38 PO; -POTA10CA32 PO; -SIME40TA PO
[2019-08-21] MEDS ORDERED: NS 500 ML IV ONE (23:15)
[2019-08-21] MEDS ORDERED: MORPHINE 4 MG/ML 1ML VIAL/SYRINGE (J2270) IV ONE (23:15)
[2019-08-21] MEDS ORDERED: POTA10CA32 PO (23:19)
[2019-08-21] MEDS ORDERED: FURO20TA2 PO (23:19)
[2019-08-21] MEDS ORDERED: POLY1POW38 PO (23:19)
[2019-08-21] MEDS ORDERED: ACET1TAB55 PO (23:19)
[2019-08-21] MEDS ORDERED: TRAM50TA2 PO (23:19)
[2019-08-21] MEDS ORDERED: GNP8.6TA PO (23:19)
[2019-08-21] MEDS ORDERED: SIME40TA PO (23:19)
[2019-08-21] MEDS ORDERED: DULC10SU2 PR (23:19)
[2019-08-21] MEDS ORDERED: MAGN400T2 PO (23:19)
[2019-08-21] MEDS ORDERED: DOCU100C17 PO (23:19)
[2019-08-21] MEDS ORDERED: ISOVUE-370 76% 100ML VIAL As Ordered ONE (23:27)
[2019-08-22 00:10] LABS: BASO # 0.1 10^3/uL (0.0-0.2); BASO % 0.6 % (0.0-1.0); EOS # 0.3 10^3/uL (0.0-0.5); EOS % 1.6 % (0.0-3.0); HEMATOCRIT 34.4 % (36.0-47.0); HEMOGLOBIN 11.2 g/dl (12.0-15.5); LYMPH # 2.4 10^3/uL (1.5-5.0); LYMPH % 14.8 % (24.0-44.0); MEAN CORPUSCULAR HEMOGLOBIN 29.9 pg (27.0-33.0); MEAN CORPUSCULAR HGB CONC 32.6 g/dl (32.0-36.5); MONO # 1.5 10^3/uL (0.0-0.8); NEUTROPHILS # 11.8 10^3/uL (1.5-8.5); NEUTROPHILS % 72.8 % (36.0-66.0); PLATELET COUNT, AUTOMATED 372 10^3/uL (150-450); RED BLOOD COUNT 3.74 10^6/uL (4.00-5.40); WHITE BLOOD COUNT 16.3 10^3/uL (4.0-10.0)
[2019-08-22 00:18] LABS: INR 1.15; PARTIAL THROMBOPLASTIN TIME 30.1 SECONDS (25.0-38.4); PROTHROMBIN TIME 14.4 SECONDS (11.8-14.0)
[2019-08-22 00:30] LABS: ALBUMIN 2.8 GM/DL (3.2-5.2); ALT/SGPT 12 U/L (12-78); BILIRUBIN,DIRECT 0.3 MG/DL (0.0-0.2); BILIRUBIN,TOTAL 0.7 MG/DL (0.2-1.0); CK-MB VALUE MASS 1.6 NG/ML (<3.6); CPK CREATINE PHOSPHOKINASE 48 U/L (26-192); LIPASE 62 U/L (73-393); MB/CK RELATIVE INDEX 3.33 (< OR =4); TOTAL PROTEIN 6.8 GM/DL (6.4-8.2); TROPONIN I < 0.02 NG/ML (< 0.10)
--- NOTE | 2019-08-22 01:37 | REPVR ---
PROCEDURE INFORMATION: Exam: CT Abdomen And Pelvis With Contrast Exam date and time: 08/21/2019 11:14 PM Age: 69 years old Clinical indication: Abdominal pain; Localized; Right lower quadrant (rlq); Additional info: Rlq pain TECHNIQUE: Imaging protocol: Computed tomography of the abdomen and pelvis with intravenous contrast. Radiation optimization: All CT scans at this facility use at least one of these dose optimization techniques: automated exposure control; mA and/or kV adjustment per patient size (includes targeted exams where dose is matched to clinical indication); or iterative reconstruction. Contrast material: ISO; Contrast volume: 100 ml; Contrast route: INTRAVENOUS (IV); COMPARISON: CT ABD/PEL W/IV CONTRAST ONLY 08/10/2019 11:35 PM FINDINGS: Tubes, catheters and devices: Pacemaker leads in the right cardiac chambers and coronary sinus. Pleural space: Small bilateral pleural effusions with adjacent compressive atelectasis. Liver: Mild hepatomegaly. Gallbladder and bile ducts: Normal. No calcified stones. No ductal dilation. Pancreas: Normal. No ductal dilation. Spleen: Normal. No splenomegaly. Adrenals: Stable right adrenal adenoma. Kidneys and ureters: Multiple bilateral simple and complex renal cysts with the largest complex cyst seen in the inferior pole of the left kidney measuring approximately 4.4 cm in diameter. Several stable 1 cm exophytic hyperattenuating densities projecting off the lower and midpole of the left kidney may represent hemorrhagic cysts or solid renal mass. Bilateral renal cortical scarring. Stomach and bowel: Small diverticulum along the gastric cardia. Diverticulosis of the colon. Mild nonspecific stranding of the fat along the proximal to mid sigmoid colon may reflect early changes acute diverticulitis although no discrete inflamed diverticulum is appreciated. Appendix: Patient appears to be status post appendectomy. Intraperitoneal space: Unremarkable. No free air. No significant fluid collection. Vasculature: Atherosclerotic disease of the coronary arteries. Lymph nodes: Unremarkable. No enlarged lymph nodes. Bladder: Distended urinary bladder. Reproductive: Status post hysterectomy. Bones/joints: Osteopenia. Multilevel degenerative disc disease and facet hypertrophy of the lumbar spine. Partially visualized hardware in the thoracic spine. Soft tissues: Unremarkable. IMPRESSION: Diverticulosis of the colon. Mild nonspecific stranding of the fat along the proximal to mid sigmoid colon may reflect early changes acute diverticulitis although no discrete inflamed diverticulum is appreciated. Small bilateral pleural effusions with adjacent compressive atelectasis. COMMENTS: Consistent with the [employer] [employer]'s Incidental Findings Committee white paper (J Am Eri Radiol 2018): Any incidental renal lesion less than 1.0 cm or classified as too small to characterize, or any incidental cystic renal lesion characterized as simple-appearing, is likely benign. No follow-up imaging is recommended for these lesions per consensus recommendations based on imaging criteria. Electronically signed by: Osman Abdullahi On 08/22/2019 01:37:49 AM
[2019-08-22] MEDS ORDERED: AUGM875T28 PO (02:12)
[2019-08-22] MEDS ORDERED: AUGMENTIN 875 MG TAB PO ONE (02:15)
[2019-08-22 02:29] VITALS: BP 128/65
== END 2019-08-22 02:30 | disposition home or self-care (01) ==
LOC: M ED 22:32
DX: K57.32 Diverticulitis of large intestine without perforation or abscess without bleeding (principal); J90 Pleural effusion, not elsewhere classified; J98.11 Atelectasis; I11.0 Hypertensive heart disease with heart failure; I50.9 Heart failure, unspecified; I48.91 Unspecified atrial fibrillation; I25.2 Old myocardial infarction; E11.9 Type 2 diabetes mellitus without complications; Z95.0 Presence of cardiac pacemaker; E78.5 Hyperlipidemia, unspecified; G47.33 Obstructive sleep apnea (adult) (pediatric); M54.9 Dorsalgia, unspecified; D50.9 Iron deficiency anemia, unspecified; Z95.5 Presence of coronary angioplasty implant and graft; Z79.899 Other long term (current) drug therapy; Z79.02 Long term (current) use of antithrombotics/antiplatelets; Z88.0 Allergy status to penicillin; Z88.1 Allergy status to other antibiotic agents; Z88.8 Allergy status to other drugs, medicaments and biological substances; Z88.5 Allergy status to narcotic agent; Z91.040 Latex allergy status; Z91.048 Other nonmedicinal substance allergy status

== ENCOUNTER 2019-08-24 09:47 | Inpatient (IN) | payer MEDICARE ==
[~2019-08-24] VITALS: Ht 165.1 cm; Wt 91.9 kg
[~2019-08-24 09:47] MED LIST changes: -CARV6.25 PO; +CARVedilol 6.25 MG TAB PO SCH; -CEFD1CAP8 PO; -DOXY-350 PO; +FUROSEMIDE 20 MG TAB PO SCH; -ISOS1TAB35 PO; +ISOS30TA4 PO; +ISOSORBIDE MON. (IMDUR) 30 MG XR TAB PO SCH; +MAG400TA PO; -MAGN400T35 PO; -MELA3TAB30 PO; +MELA3TAB62 PO; -MILKSUS3 PO; +SIME40TA PO; -SIME80CH5 PO; -SIME80CH6 PO; +SIME80TA PO
--- NOTE | 2019-08-24 10:47 | REP ---
CT brain: 08/24/2019. Indication: Acute mental status change. Stroke. Technique: Unenhanced axial CT images of the brain were obtained from skull base to vertex with coronal reconstructions provided. Comparison: 08/12/2019. Findings: There is no acute intracranial hemorrhage, acute cortical infarction, mass effect or hydrocephalous. Impression: No acute intracranial process. Electronically Signed by Dharmesh Ku DO 08/24/2019 10:39 A
--- NOTE | 2019-08-24 10:53 | REP ---
CHEST, SINGLE VIEW: Single view of the chest is performed and compared to a prior study of 08/13/2019. There is cardiomegaly. There is no acute infiltrate or pulmonary edema. Mediastinal silhouette is unchanged compared to a prior study of 08/13/2019. Left pacemaker is again noted. There are metallic rods and screws in the mid thoracic spine. IMPRESSION: Cardiomegaly. No evidence of acute infiltrate. Electronically Signed by Noe Cardenas MD 08/24/2019 03:07 P
[2019-08-24] MEDS ORDERED: CARV6.25 PO (10:59)
[2019-08-24] MEDS ORDERED: AUGM875T28 PO (10:59)
[2019-08-24] MEDS ORDERED: MILKSUS3 PO (10:59)
[2019-08-24] MEDS ORDERED: ISOSORBIDE MON. (IMDUR) 30 MG XR TAB PO ONE (11:00)
[2019-08-24] MEDS ORDERED: FUROSEMIDE 20 MG TAB PO ONE (11:00)
[2019-08-24] MEDS ORDERED: CARVedilol 6.25 MG TAB PO ONE (11:00)
[2019-08-24] MEDS ORDERED: BISACODYL 10 MG SUPP PR PRN (13:15)
--- NOTE | 2019-08-24 13:29 | HPEPDOC ---
[facility] Medical History & Physical Date of Admission Aug 24, 2019 Date of Service: Aug 24, 2019 Attending Physician: CELI NELSON MD History and Physical CHIEF COMPLAINT: Altered mental status HISTORY OF PRESENT ILLNESS: 69-year-old female with past medical history of congestive heart failure, hypertension, diabetes mellitus, hyperlipidemia, coronary artery disease status post stent placement, atrial fibrillation and recent spinal fusion presents from [facility] with altered mental status. Patient was recently admitted to [facility] for ileus a few weeks ago, was discharged 3-4 days ago and now returns with altered mental status. Reportedly, she fell at [facility] and was reporting some chest pain/left upper arm pain, cardiac workup in the emergency room is negative for any acute pathology. Patient is very confused at this time, unable to provide any useful history, information obtained from emergency room staff and chart review. Patient is not making any sense at this time, unable to provide any complaints at this time PAST MEDICAL HISTORY: 1. Congestive heart failure. 2. Hypertension. 3. Diabetes mellitus. 4. Coronary artery disease. 5. Hyperlipidemia. 6. Atrial fibrillation PAST SURGICAL HISTORY: 1. Spinal fusion. 2. Permanent pacemaker. SOCIAL HISTORY: Unable to obtain FAMILY HISTORY: Unable to obtain ALLERGIES: Please see below. REVIEW OF SYSTEMS: Unable to obtain HOME MEDICATIONS: Please see below. PHYSICAL EXAMINATION: VITAL SIGNS: Please see below. GENERAL: Anxious, obese HEENT: Normocephalic, atraumatic, moist mucous membranes NECK: Supple CARDIOVASCULAR EXAMINATION: S1, S2, no murmurs RESPIRATORY EXAMINATION: Scattered rhonchi, poor air movement, diminished the basis, no wheezing ABDOMINAL EXAMINATION: Soft, mild tenderness to palpation, nondistended, positive bowel sounds EXTREMITIES: Trace edema SKIN: No rash NEUROLOGICAL EXAMINATION: Unable to assess PSYCHIATRIC EXAMINATION: Guarded LABORATORY DATA: See below. IMAGING: CT head negative for acute pathology MICROBIOLOGY: Please see below. ASSESSMENT: 69-year-old female with multiple medical comorbidities, presents from [facility] with altered mental status, possibly medication induced. PLAN: 1. Altered mental status. Possibly related to tramadol, infection is a possibility and will be worked up, hold tramadol, ceftriaxone, blood and urine cultures pending. 2. Congestive heart failure/coronary artery disease. Status post stent placement and permanent pacemaker, continue optimal medical management with Plavix, statin, beta andrew and Lasix. 3. Hypertension. Continue Coreg, Imdur 4. Diabetes mellitus. Sliding scale insulin coverage with meals and at bedtime 5. Atrial fibrillation. Not on anti-coagulation, continue Coreg 6. COPD Continue home regimen, supplemental oxygen as needed to maintain O2 sats between 88-92%. DVT prophylaxis: Heparin subcutaneous GI prophylaxis: Home PPI Vital Signs Vital Signs Date Time Temp Pulse Resp B/P (MAP) Pulse Ox O2 Delivery O2 Flow Rate FiO2 08/24/19 12:03 60 20 153/58 (89) 08/24/19 10:40 95 Room Air 08/24/19 10:33 96.2 Laboratory Data Labs 24H Laboratory Tests 2 08/24/19 10:14: POC Glucose (Misc Panel) 123H, POC Sodium (Misc Panel) 136, POC Potassium (Misc Panel) 4.2, POC Chloride (Misc Panel) 100, POC Total CO2 (Misc Panel) 26.0, POC Blood Urea Nitrogen (Misc Panel 15, POC Ionized Calcium (Misc Panel) 4.8, POC Creatinine (Misc Panel) 1.0, POC Hematocrit (Misc Panel) 36.0L 08/24/19 10:16: POC Troponin I (Misc) 0.03 08/24/19 12:58: POC Troponin I (Misc) 0.04 Home Medications Scheduled Acetaminophen (Acetaminophen) 325 Mg Tablet, 650 MG PO Q6H 0200, 0800, 1400, 2000 Allopurinol (Zyloprim) 300 Mg Tablet, 300 MG PO DAILY Amoxicillin/Potassium Clav (Augmentin 875-125 Tablet) 1 Each Tablet, 1 TAB PO BID FOR 11 DAYS, END DATE 09/01/19 Bacillus Coagulans (Bacid with Lactospore) 1 Each Capsule, 1 CAP PO BID Carvedilol (Carvedilol) 6.25 Mg Tablet, 6.25 MG PO BID Clopidogrel Bisulfate (Plavix) 75 Mg Tablet, 75 MG PO DAILY Docusate Sodium (Docusate Sodium) 100 Mg Capsule, 100 MG PO BID Furosemide (Furosemide) 20 Mg Tablet, 60 MG PO DAILY Isosorbide Mononitrate (Isosorbide Mononitrate ER) 30 Mg Tab.er.24h, 30 MG PO DAILY Lidocaine (Lidocaine) 5% Adh..patch, 1 PATCH TOP DAILY APPLY TO BACK Magnesium Oxide (Magnesium Oxide) 400 Mg Tablet, 400 MG PO DAILY Melatonin (Melatonin) 3 Mg Tablet, 3 MG PO QHS Pantoprazole Sodium (Pantoprazole Sodium) 40 Mg Tablet.dr, 40 MG PO DAILY Polyethylene Glycol 3350 (Polyethylene Glycol 3350) 17 Gm Powd.pack, 17 GRAM PO DAILY Potassium Chloride (Potassium Chloride) 10 Meq Capsule.er, 30 MEQ PO DAILY Prednisolone Acetate (Prednisolone Acetate 1% Opth Susp) 5 Ml Drops.susp, 1 DROP OD QID Ranolazine (Ranexa) 500 Mg Tab.er.12h, 500 MG PO BID Salmeterol/Fluticasone (Advair 100-50 Diskus) 1 Each Blst.w.dev, 1 PUFF INH BID Sennosides (Senna Lax) 8.6 Mg Tablet, 17.2 MG PO DAILY Tramadol HCl (Tramadol HCl) 50 Mg Tablet, 100 MG PO Q8H 0300/1100/1900, end date 08/28/19 Scheduled PRN Bisacodyl (Dulcolax) 10 Mg Supp.rect, 10 MG [place] DAILY PRN for CONSTIPATION Magnesium Hydroxide (Milk of Magnesia) 400 Mg/5 Ml Oral.susp, 2,400 MG PO DAILY PRN for CONSTIPATION Nitroglycerin (Nitrostat) 0.4 Mg Tab.subl, 0.4 MG SL NITRO PRN for CHEST PAIN Ondansetron HCl (Ondansetron HCl) 4 Mg Tablet, 4 MG PO Q6H PRN for NAUSEA OR VOMITING Simethicone (Simethicone) 80 Mg Tab.chew, 80 MG PO QID PRN for DYSPEPSIA Sodium Phosphate,[place]-Dibasic (Enema) 133 Ml Enema, 1 ROBERT [place] DAILY PRN for CONSTIPATION Allergies Coded Allergies: NUTS (Verified Allergy, Severe, DIFFICULTY BREATHING, 08/24/19) Sulfa (Sulfonamide Antibiotics) (Verified Allergy, Severe, ANAPHYLACTIC SHOCK, 08/24/19) TAPE (Verified Allergy, Intermediate, clear dressings and tape on IV's - rash, 08/24/19) dronedarone (Unverified Allergy, Intermediate, CONTRAINDICATED DUE TO RANEXA, 08/24/19) lansoprazole (Unverified Allergy, Intermediate, CONTRAINDICATED DUE TO BLOOD THINNERS, 08/24/19) latex (Unverified Allergy, Intermediate, RASH, 08/24/19) PERFUMES (Verified Allergy, Unknown, 08/24/19) STATES DRYER SHEETS WELL bacitracin (Verified Allergy, Unknown, 08/24/19) ketorolac (Verified Adverse Reaction, Severe, 08/24/19) renal failure Corticosteroids (Glucocorticoids) (Verified Adverse Reaction, Intermediate, STATED CHF FROM DEXADROL, 08/24/19) Jlqxmmf-Ugx-Btr Reductase Inhibitor (Unverified Adverse Reaction, Intermediate, MUSCLE WEAKNESS, 08/24/19) codeine (Verified Adverse Reaction, Intermediate, HALLUCINATIONS, 08/24/19) glycopyrrolate (Unverified Adverse Reaction, Intermediate, CHEST PAIN, 08/24/19) naloxone (Unverified Adverse Reaction, Intermediate, GI UPSET, DIZZY, 08/24/19) nifedipine (Unverified Adverse Reaction, Intermediate, SORE THROAT, 08/23) oxycodone (Verified Adverse Reaction, Intermediate, HALLUCINATIONS, 08/24/19) pentazocine (Unverified Adverse Reaction, Intermediate, GI UPSET, DIZZY, 08/24/19) A-FIB/CHADSVASC A-FIB History Current/History of A-Fib/PAF?: Yes Current PO Anticoag Therapy: No Treatment Reason Anticoagulant not given: Other Other reason anticoagulant not: unknown CELI NELSON MD Aug 24, 2019 13:29
[2019-08-24] MEDS ORDERED: cefTRIAXone SOD 1 GM in D5W MINI-BAG PLUS 50 ML IV ONE (13:45)
[2019-08-24] MEDS ORDERED: GLUCAGON INJ 1MG VIAL SC PRN (14:00)
[2019-08-24] MEDS ORDERED: DEXTROSE 50% 50 ML SYRINGE IV PRN (14:00)
[2019-08-24] MEDS ORDERED: GLUCOSE 4GM CHEW TABLET PO PRN (14:00)
[2019-08-24 14:33] VITALS: BP 202/82
[2019-08-24] MEDS ORDERED: amLODIPine 10 MG TAB PO ONE (15:00)
[2019-08-24] MEDS ORDERED: **hydrALAZINE HCL** 25 MG TAB PO ONE (15:30)
[2019-08-24] MEDS: PANTOPRAZOLE 40MG TAB (PROTONIX) PO SCH (15:34)
[2019-08-24] MEDS: POTASSIUM CHLORIDE 10 MEQ SR TABLET PO SCH (15:34)
[2019-08-24] MEDS: allopurinoL 300 MG TAB PO SCH (15:34)
[2019-08-24] MEDS: MAGNESIUM OXIDE 400 MG TAB (MAG-OX) PO SCH (15:34)
[2019-08-24] MEDS: DOCUSATE SODIUM 100 MG CAP PO SCH ×2 (15:34→20:21)
[2019-08-24] MEDS: ACETAMINOPHEN 325 MG TAB PO SCH ×2 (15:35→20:22)
[2019-08-24] MEDS: cefTRIAXone SOD 1 GM in D5W MINI-BAG PLUS 50 ML IV SCH (15:36)
[2019-08-24] MEDS: HumaLOG INSULIN (NovoLOG) PER UNIT SC SCH ×2 (17:30→20:10)
[2019-08-24 18:32] VITALS: BP 173/78
[2019-08-24] MEDS: SIMETHICONE 80 MG CHEW TAB PO PRN (18:36)
[2019-08-24] MEDS: ONDANSETRON 4 MG TAB PO PRN (18:57)
[2019-08-24] MEDS: ADVAIR HFA 45/21MCG INHALER INH SCH (19:33)
[2019-08-24] MEDS: CARVedilol 6.25 MG TAB PO SCH (20:21)
[2019-08-24] MEDS: RANOLAZINE 500 MG ER TAB PO SCH (20:22)
[2019-08-24] MEDS: HEPARIN SOD (PORCINE) 5000UNITS/ML VIAL (J1644 PER 1000UNITS) SC SCH (20:23)
[2019-08-24] MEDS: **NOTE PATIENT COMMENT** MISC XX SCH (21:00)
--- NOTE | 2019-08-24 21:20 | ECGEPIP ---
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
--- NOTE | 2019-08-24 21:23 | ECGEPIP ---
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
[2019-08-24 22:00] VITALS: BP 147/51
[2019-08-25] MEDS: ACETAMINOPHEN 325 MG TAB PO SCH ×4 (01:08→20:24)
[2019-08-25 06:00] VITALS: BP 141/0
[2019-08-25 06:24] LABS: HEMATOCRIT 31.1 % (36.0-47.0); MEAN CORPUSCULAR HEMOGLOBIN 30.2 pg (27.0-33.0); MEAN CORPUSCULAR HGB CONC 32.2 g/dl (32.0-36.5); PLATELET COUNT, AUTOMATED 243 10^3/uL (150-450); RED BLOOD COUNT 3.31 10^6/uL (4.00-5.40); WHITE BLOOD COUNT 15.6 10^3/uL (4.0-10.0)
[2019-08-25 06:46] LABS: ALBUMIN 2.6 GM/DL (3.2-5.2); CALCIUM LEVEL 8.4 MG/DL (8.8-10.2); CREATININE FOR GFR 1.17 MG/DL (0.55-1.30); GLOMERULAR FILTRATION RATE 48.8 (>45); MAGNESIUM LEVEL 2.1 MG/DL (1.8-2.4); POTASSIUM SERUM 4.7 MEQ/L (3.5-5.1); TOTAL PROTEIN 6.4 GM/DL (6.4-8.2)
[2019-08-25] MEDS: HumaLOG INSULIN (NovoLOG) PER UNIT SC SCH ×4 (07:30→20:18)
[2019-08-25] MEDS: ADVAIR HFA 45/21MCG INHALER INH SCH ×2 (07:39→20:06)
[2019-08-25] MEDS: RANOLAZINE 500 MG ER TAB PO SCH ×2 (08:16→20:23)
[2019-08-25] MEDS: CLOPIDOGREL 75 MG TAB PO SCH (08:16)
[2019-08-25] MEDS: POTASSIUM CHLORIDE 10 MEQ SR TABLET PO SCH (08:16)
[2019-08-25] MEDS: MAGNESIUM OXIDE 400 MG TAB (MAG-OX) PO SCH (08:16)
[2019-08-25] MEDS: FUROSEMIDE 20 MG TAB PO SCH (08:17)
[2019-08-25] MEDS: allopurinoL 300 MG TAB PO SCH (08:18)
[2019-08-25] MEDS: PANTOPRAZOLE 40MG TAB (PROTONIX) PO SCH (08:18)
[2019-08-25] MEDS: DOCUSATE SODIUM 100 MG CAP PO SCH ×2 (08:18→20:24)
[2019-08-25] MEDS: CARVedilol 6.25 MG TAB PO SCH ×2 (08:18→20:26)
[2019-08-25] MEDS: ISOSORBIDE MON. (IMDUR) 30 MG XR TAB PO SCH (08:18)
[2019-08-25] MEDS: HEPARIN SOD (PORCINE) 5000UNITS/ML VIAL (J1644 PER 1000UNITS) SC SCH ×3 (08:19→20:24)
[2019-08-25] MEDS: LIDOCAINE 5% (LIDODERM) PATCH TOP SCH (08:20)
[2019-08-25] MEDS: MIRALAX *UNIT DOSE* 17GM PACKET PO SCH (09:00)
[2019-08-25] MEDS ORDERED: ISOVUE-370 76% 100ML VIAL As Ordered ONE (12:42)
[2019-08-25 14:00] VITALS: BP 138/58
--- NOTE | 2019-08-25 14:33 | REP ---
CT thoracic spine: 08/25/2019. Indication: Thoracic pain. Technique: Unenhanced axial CT images of the thoracic spine were performed with coronal and sagittal reconstructions provided. Comparison: None. Findings: Mid-thoracic posterior instrument effusion is present with the hardware apparently intact. Evaluation of the hardware and adjacent anatomy is suboptimal secondary to associated streak artifact. There is no evidence of acute fracture, subluxation or dislocation. Diffuse osteopenia is present. There is exaggerated thoracic kyphosis. Bilateral pleural effusions are present. Atherosclerotic disease is noted. Dual lead pacing device is present. Impression: No acute osseous injury of the thoracic spine detected. Electronically Signed by Dharmesh Ku DO 08/25/2019 02:24 P
[2019-08-25] MEDS: cefTRIAXone SOD 1 GM in D5W MINI-BAG PLUS 50 ML IV SCH (16:23)
--- NOTE | 2019-08-25 17:23 | ECGEPIP ---
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
[2019-08-25] MEDS ORDERED: CALCIUM CARBONATE 500 MG CHEW U/D PO PRN (18:00)
[2019-08-25] MEDS ORDERED: MIRALAX *UNIT DOSE* 17GM PACKET PO PRN (18:00)
--- NOTE | 2019-08-25 18:08 | IPNPDOC ---
Text Note Date of Service The patient was seen on 08/25/19. NOTE SUBJECTIVE: -Having persistent AMS with hallucinations and sometimes irritable -Complaining of episodic abdominal discomfort, asking for tums PHYSICAL EXAMINATION: VITAL SIGNS: Please see below. GENERAL: Anxious, obese HEENT: Normocephalic, atraumatic, moist mucous membranes NECK: Supple CARDIOVASCULAR EXAMINATION: S1, S2, no murmurs RESPIRATORY EXAMINATION: Scattered rhonchi, poor air movement, diminished the basis, no wheezing ABDOMINAL EXAMINATION: Soft, mild tenderness to palpation, nondistended, positive bowel sounds EXTREMITIES: Trace edema SKIN: No rash NEUROLOGICAL EXAMINATION: Unable to assess PSYCHIATRIC EXAMINATION: Guarded LABORATORY DATA: See below. Reviewed IMAGING: CT head negative for acute pathology CXR without infiltrates or effusions CT T-spine without contrast: Mid-thoracic posterior instrument effusion is present with the hardware apparently intact. Evaluation of the hardware and adjacent anatomy is suboptimal secondary to associated streak artifact. There is no evidence of acute fracture, subluxation or dislocation. Diffuse osteopenia is present. There is exaggerated thoracic kyphosis. Bilateral pleural effusions are present. Atherosclerotic disease is noted. Dual lead pacing device is present. MICROBIOLOGY: Please see below. ASSESSMENT: 69-year-old female with multiple medical comorbidities, presents from [facility] with altered mental status, possibly medication induced. PLAN: 1. Altered mental status. There is the suspicion that iatrogenic 2/2 tramadol, however investigating possibility of infection and placed on empiric ceftriaxone -f/u BCx -CXR without acute pathology -CT T-spine without marga pocket, unfortunately was unable to use contrast with inadequate access and then removed her new IV -UA without bacteria, with pending UCx -Wound culture from T-spine surgical wound without organisms -CT head without acute pathology, neuro exam otherwise at recent baseline 2. Congestive heart failure/coronary artery disease. Status post stent placement and permanent pacemaker, continue optimal medical management with Plavix, statin, beta andrew and Lasix. 3. Hypertension. Continue Coreg, Imdur 4. Diabetes mellitus. Sliding scale insulin coverage with meals and at bedtime 5. Atrial fibrillation. Not on anti-coagulation, continue Coreg 6. COPD Continue home regimen, supplemental oxygen as needed to maintain O2 sats between 88-92%. DVT prophylaxis: Heparin subcutaneous GI prophylaxis: Home PPI VS,Fishbone, I+O VS, Fishbone, I+O Laboratory Tests 08/25/19 05:36 Vital Signs Date Time Temp Pulse Resp B/P (MAP) Pulse Ox O2 Delivery O2 Flow Rate FiO2 08/25/19 14:00 98.2 92 18 138/58 (84) 98 Room Air I&O- Last 24 Hours up to 6 AM 08/25/19 05:59 Intake Total 450 ml Output Total 825 ml Balance -375 ml MALENA FRANKEL MD Aug 25, 2019 18:08
[2019-08-25] MEDS: **NOTE PATIENT COMMENT** MISC XX SCH (20:08)
[2019-08-25] MEDS: SENOKOT S TAB PO SCH (20:24)
[2019-08-25 22:00] VITALS: BP 145/61
[2019-08-26] MEDS: ACETAMINOPHEN 325 MG TAB PO SCH ×3 (02:18→15:07)
[2019-08-26] MEDS: ONDANSETRON 4 MG TAB PO PRN (05:31)
[2019-08-26 06:00] VITALS: BP 158/80
[2019-08-26] MEDS: ADVAIR HFA 45/21MCG INHALER INH SCH ×2 (07:19→20:16)
[2019-08-26] MEDS: HumaLOG INSULIN (NovoLOG) PER UNIT SC SCH ×4 (07:30→20:28)
[2019-08-26 07:46] LABS: HEMATOCRIT 32.4 % (36.0-47.0); HEMOGLOBIN 10.2 g/dl (12.0-15.5); MEAN CORPUSCULAR HEMOGLOBIN 29.5 pg (27.0-33.0); MEAN CORPUSCULAR HGB CONC 31.5 g/dl (32.0-36.5); MEAN CORPUSCULAR VOLUME 93.6 fl (80.0-96.0); PLATELET COUNT, AUTOMATED 253 10^3/uL (150-450); RED BLOOD COUNT 3.46 10^6/uL (4.00-5.40); WHITE BLOOD COUNT 15.8 10^3/uL (4.0-10.0)
[2019-08-26 08:05] LABS: ALBUMIN 2.7 GM/DL (3.2-5.2); ALT/SGPT 14 U/L (12-78); BILIRUBIN,TOTAL 0.8 MG/DL (0.2-1.0); BLOOD UREA NITROGEN 15 MG/DL (7-18); CALCIUM LEVEL 8.7 MG/DL (8.8-10.2); CARBON DIOXIDE LEVEL 25 MEQ/L (21-32); CHLORIDE LEVEL 101 MEQ/L (98-107); CREATININE FOR GFR 0.93 MG/DL (0.55-1.30); GLOMERULAR FILTRATION RATE > 60.0 (>45); GLUCOSE, FASTING 101 MG/DL (70-100); POTASSIUM SERUM 4.6 MEQ/L (3.5-5.1); SODIUM LEVEL 132 MEQ/L (136-145); TOTAL PROTEIN 6.7 GM/DL (6.4-8.2)
[2019-08-26] MEDS: PANTOPRAZOLE 40MG TAB (PROTONIX) PO SCH (09:47)
[2019-08-26] MEDS: MAGNESIUM OXIDE 400 MG TAB (MAG-OX) PO SCH (09:48)
[2019-08-26] MEDS: MIRALAX *UNIT DOSE* 17GM PACKET PO SCH (09:49)
[2019-08-26] MEDS: ISOSORBIDE MON. (IMDUR) 30 MG XR TAB PO SCH (09:49)
[2019-08-26] MEDS: LIDOCAINE 5% (LIDODERM) PATCH TOP SCH (09:49)
[2019-08-26] MEDS: CARVedilol 6.25 MG TAB PO SCH ×2 (09:51→20:25)
[2019-08-26] MEDS: CLOPIDOGREL 75 MG TAB PO SCH (09:52)
[2019-08-26] MEDS: DOCUSATE SODIUM 100 MG CAP PO SCH ×2 (09:52→20:25)
[2019-08-26] MEDS: SENOKOT S TAB PO SCH ×2 (09:53→20:25)
[2019-08-26] MEDS: POTASSIUM CHLORIDE 10 MEQ SR TABLET PO SCH (09:53)
[2019-08-26] MEDS: RANOLAZINE 500 MG ER TAB PO SCH ×2 (09:53→20:24)
[2019-08-26] MEDS: allopurinoL 300 MG TAB PO SCH (09:53)
[2019-08-26] MEDS: FUROSEMIDE 20 MG TAB PO SCH (09:54)
[2019-08-26] MEDS: HEPARIN SOD (PORCINE) 5000UNITS/ML VIAL (J1644 PER 1000UNITS) SC SCH ×2 (09:59→20:26)
--- NOTE | 2019-08-26 11:43 | IPNPDOC ---
Text Note Date of Service The patient was seen on 08/26/19. NOTE SUBJECTIVE: -Persistent encephalopathy with hallucinations PHYSICAL EXAMINATION: VITAL SIGNS: Please see below. GENERAL: Anxious, obese HEENT: Normocephalic, atraumatic, moist mucous membranes NECK: Supple CARDIOVASCULAR EXAMINATION: S1, S2, no murmurs RESPIRATORY EXAMINATION: Scattered rhonchi, poor air movement, diminished the basis, no wheezing ABDOMINAL EXAMINATION: Soft, mild tenderness to palpation, nondistended, positive bowel sounds EXTREMITIES: Trace edema SKIN: No rash NEUROLOGICAL EXAMINATION: Unable to assess PSYCHIATRIC EXAMINATION: AOx2 to person and place, no date knowledge, labile mood and labile orientation LABORATORY DATA: See below. Pending AM labs IMAGING: CT head negative for acute pathology CXR without infiltrates or effusions CT T-spine without contrast: Mid-thoracic posterior instrument effusion is present with the hardware apparently intact. Evaluation of the hardware and adjacent anatomy is suboptimal secondary to associated streak artifact. There is no evidence of acute fracture, subluxation or dislocation. Diffuse osteopenia is present. There is exaggerated thoracic kyphosis. Bilateral pleural effusions are present. Atherosclerotic disease is noted. Dual lead pacing device is present. MICROBIOLOGY: Please see below. ASSESSMENT: 69-year-old female with multiple medical comorbidities who recently underwent spinal fusion surgery who presented from [facility] with altered mental status, possibly medication induced. PLAN: 1. Encephalopathy: persistent AMS with hallucinations, with high degree of in- attention, lability c/w delirium There is the suspicion that iatrogenic 2/2 tramadol, however investigating possibility of infection, thus far hewitt-negative on empiric ceftriaxone -f/u BCx NGTD -UCx was negative -CXR was negative for acute pathology -CT T-spine without marga pocket, unfortunately was unable to use contrast with inadequate access and then removed her new IV -Wound culture from T-spine surgical wound without organisms with few yeast -CT head without acute pathology, neuro exam otherwise at recent baseline -Holding tramadol 2. Congestive heart failure/coronary artery disease. Status post stent placement and permanent pacemaker, continue optimal medical management with Plavix, statin, beta andrew and Lasix. 3. Hypertension. Continue Coreg, Imdur 4. Diabetes mellitus. Sliding scale insulin coverage with meals and at bedtime 5. Atrial fibrillation. Not on anti-coagulation, continue Coreg 6. COPD Continue home regimen, supplemental oxygen as needed to maintain O2 sats between 88-92%. DVT prophylaxis: Heparin subcutaneous GI prophylaxis: Home PPI VS,Fishbone, I+O VS, Fishbone, I+O Vital Signs Date Time Temp Pulse Resp B/P (MAP) Pulse Ox O2 Delivery O2 Flow Rate FiO2 08/26/19 06:00 97.8 60 20 158/80 (106) 94 Room Air I&O- Last 24 Hours up to 6 AM 08/26/19 06:00 Intake Total 340 ml Output Total 400 ml Balance -60 ml MALENA FRANKEL MD Aug 26, 2019 07:06
[2019-08-26] MEDS ORDERED: HALOPERIDOL 5MG/ML VIAL (J1630 PER 1) IM PRN (13:15)
[2019-08-26 14:00] VITALS: BP 154/68
[2019-08-26] MEDS: ACETAMINOPHEN TAB 650MG DOSE (2X325MG) PO SCH (20:24)
[2019-08-26] MEDS: **NOTE PATIENT COMMENT** MISC XX SCH (20:26)
[2019-08-26 22:00] VITALS: BP 162/77
[2019-08-27] MEDS: ACETAMINOPHEN TAB 650MG DOSE (2X325MG) PO SCH ×5 (01:30→21:35)
[2019-08-27 06:00] VITALS: BP 156/80
[2019-08-27 06:45] LABS: HEMATOCRIT 32.1 % (36.0-47.0); HEMOGLOBIN 10.2 g/dl (12.0-15.5); MEAN CORPUSCULAR HEMOGLOBIN 30.1 pg (27.0-33.0); MEAN CORPUSCULAR HGB CONC 31.8 g/dl (32.0-36.5); MEAN CORPUSCULAR VOLUME 94.7 fl (80.0-96.0); PLATELET COUNT, AUTOMATED 273 10^3/uL (150-450); RED BLOOD COUNT 3.39 10^6/uL (4.00-5.40); WHITE BLOOD COUNT 14.7 10^3/uL (4.0-10.0)
[2019-08-27 07:04] LABS: CALCIUM LEVEL 8.9 MG/DL (8.8-10.2); CREATININE FOR GFR 1.14 MG/DL (0.55-1.30); GLOMERULAR FILTRATION RATE 50.3 (>45)
[2019-08-27] MEDS: HumaLOG INSULIN (NovoLOG) PER UNIT SC SCH ×4 (07:30→21:00)
[2019-08-27] MEDS: ADVAIR HFA 45/21MCG INHALER INH SCH ×2 (07:44→19:54)
[2019-08-27] MEDS ORDERED: diphenhydrAMINE 25MG CAP PO PRN (08:00)
[2019-08-27] MEDS ORDERED: diphenhydrAMINE 25MG CAP PO ONE (08:15)
[2019-08-27] MEDS: FUROSEMIDE 20 MG TAB PO SCH (10:18)
[2019-08-27] MEDS: MIRALAX *UNIT DOSE* 17GM PACKET PO SCH (10:18)
[2019-08-27] MEDS: allopurinoL 300 MG TAB PO SCH (10:19)
[2019-08-27] MEDS: CLOPIDOGREL 75 MG TAB PO SCH (10:19)
[2019-08-27] MEDS: POTASSIUM CHLORIDE 10 MEQ SR TABLET PO SCH (10:19)
[2019-08-27] MEDS: ISOSORBIDE MON. (IMDUR) 30 MG XR TAB PO SCH (10:20)
[2019-08-27] MEDS: MAGNESIUM OXIDE 400 MG TAB (MAG-OX) PO SCH (10:20)
[2019-08-27] MEDS: CARVedilol 6.25 MG TAB PO SCH ×3 (10:20→21:35)
[2019-08-27] MEDS: SENOKOT S TAB PO SCH ×3 (10:21→21:35)
[2019-08-27] MEDS: PANTOPRAZOLE 40MG TAB (PROTONIX) PO SCH (10:21)
[2019-08-27] MEDS: DOCUSATE SODIUM 100 MG CAP PO SCH ×3 (10:21→21:35)
[2019-08-27] MEDS: RANOLAZINE 500 MG ER TAB PO SCH ×3 (10:21→21:35)
[2019-08-27] MEDS: HEPARIN SOD (PORCINE) 5000UNITS/ML VIAL (J1644 PER 1000UNITS) SC SCH ×2 (10:21→21:36)
[2019-08-27] MEDS: LIDOCAINE 5% (LIDODERM) PATCH TOP SCH (10:22)
--- NOTE | 2019-08-27 11:37 | IPNPDOC ---
Text Note Date of Service The patient was seen on 08/27/19. NOTE SUBJECTIVE: -Persistent encephalopathy with hallucinations, did not sleep overnight, was yelling and fearful from seeing people in her room PHYSICAL EXAMINATION: VITAL SIGNS: Please see below. GENERAL: Anxious, obese HEENT: Normocephalic, atraumatic, moist mucous membranes NECK: Supple CARDIOVASCULAR EXAMINATION: S1, S2, no murmurs RESPIRATORY EXAMINATION: Scattered rhonchi, poor air movement, diminished the basis, no wheezing ABDOMINAL EXAMINATION: Soft, mild tenderness to palpation, nondistended, positive bowel sounds Back: T spine surgical site with minimal serosanguinous drainage when dressing is removed. No surrounding erythema, no marga pus. EXTREMITIES: Trace edema SKIN: No rash NEUROLOGICAL EXAMINATION: Unable to assess PSYCHIATRIC EXAMINATION: AOx2 to person and place, no date knowledge, labile mood and labile orientation LABORATORY DATA: See below. WBC 14.7 hgb 10.2 na 137 K5 Cr 1.14 IMAGING: CT head negative for acute pathology CXR without infiltrates or effusions CT T-spine without contrast: Mid-thoracic posterior instrument effusion is present with the hardware apparently intact. Evaluation of the hardware and adjacent anatomy is suboptim al secondary to associated streak artifact. There is no evidence of acute fracture, subluxation or dislocation. Diffuse osteopenia is present. There is exaggerated thoracic kyphosis. Bilateral pleural effusions are present. Atherosclerotic disease is noted. Dual lead pacing device is present. MICROBIOLOGY: Please see below. ASSESSMENT: 69-year-old female with multiple medical comorbidities who recently underwent spinal fusion surgery who presented from [facility] with altered mental status, possibly medication induced. PLAN: 1. Encephalopathy: persistent AMS with hallucinations, with high degree of in- attention, lability c/w delirium There is the suspicion that iatrogenic 2/2 tramadol, however investigating possibility of infection, thus far hewitt-negative on empiric ceftriaxone -f/u BCx NGTD -UCx was negative -CXR was negative for acute pathology -CT T-spine without marga pocket, unfortunately was unable to use contrast with inadequate access and then removed her new IV -Wound culture from T-spine surgical wound without organisms with few yeast -CT head without acute pathology, neuro exam otherwise at recent baseline -Holding tramadol -1Q8HP haldol for agitation -25mg benadryl QHS 2. Congestive heart failure/coronary artery disease. Status post stent placement and permanent pacemaker, continue optimal medical management with Plavix, statin, beta andrew and Lasix. 3. Hypertension. Continue Coreg, Imdur 4. Diabetes mellitus. Sliding scale insulin coverage with meals and at bedtime 5. Atrial fibrillation. Not on anti-coagulation, continue Coreg 6. COPD Continue home regimen, supplemental oxygen as needed to maintain O2 sats between 88-92%. DVT prophylaxis: Heparin subcutaneous GI prophylaxis: Home PPI VS,Fishbone, I+O VS, Fishbone, I+O Laboratory Tests 08/27/19 06:31 Vital Signs Date Time Temp Pulse Resp B/P (MAP) Pulse Ox O2 Delivery O2 Flow Rate FiO2 08/27/19 06:00 98.2 60 20 156/80 (105) 96 Room Air I&O- Last 24 Hours up to 6 AM 08/27/19 06:00 Intake Total 650 ml Output Total 650 ml Balance 0 ml MALENA FRANKEL MD Aug 27, 2019 08:15
[2019-08-27] MEDS ORDERED: HALOPERIDOL 5MG/ML VIAL (J1630 PER 1) IM PRN (12:15)
[2019-08-27] MEDS ORDERED: HALOPERIDOL 5MG/ML VIAL (J1630 PER 1) IM ONE (13:15)
[2019-08-27 14:00] VITALS: BP_SYST 156; BP_SYST 172; BP_DIAS 77; BP_DIAS 95
[2019-08-27] MEDS ORDERED: diphenhydrAMINE 50MG/ML VIAL (J1200) IM ONE (14:30)
[2019-08-27] MEDS ORDERED: LORazepam 2 MG/ML VIAL IM ONE (19:00)
[2019-08-27] MEDS ORDERED: diphenhydrAMINE 25MG CAP PO SCH (21:00)
[2019-08-27] MEDS: **NOTE PATIENT COMMENT** MISC XX SCH (21:36)
[2019-08-27 22:00] VITALS: BP 172/70
[2019-08-28] MEDS: ACETAMINOPHEN TAB 650MG DOSE (2X325MG) PO SCH ×4 (02:00→19:59)
[2019-08-28] MEDS ORDERED: LORazepam 2 MG/ML VIAL IM ONE (03:00)
[2019-08-28 06:00] VITALS: BP 160/78
[2019-08-28 06:56] LABS: HEMATOCRIT 31.4 % (36.0-47.0); MEAN CORPUSCULAR HEMOGLOBIN 29.9 pg (27.0-33.0); MEAN CORPUSCULAR HGB CONC 31.8 g/dl (32.0-36.5); PLATELET COUNT, AUTOMATED 317 10^3/uL (150-450); RED BLOOD COUNT 3.34 10^6/uL (4.00-5.40); WHITE BLOOD COUNT 15.4 10^3/uL (4.0-10.0)
[2019-08-28 07:15] LABS: CALCIUM LEVEL 9.1 MG/DL (8.8-10.2); CREATININE FOR GFR 1.28 MG/DL (0.55-1.30); POTASSIUM SERUM 5.6 MEQ/L (3.5-5.1)
[2019-08-28] MEDS: ADVAIR HFA 45/21MCG INHALER INH SCH ×2 (07:28→19:12)
[2019-08-28] MEDS: HumaLOG INSULIN (NovoLOG) PER UNIT SC SCH ×4 (07:30→20:54)
[2019-08-28] MEDS: MIRALAX *UNIT DOSE* 17GM PACKET PO SCH (09:00)
[2019-08-28] MEDS: LIDOCAINE 5% (LIDODERM) PATCH TOP SCH (09:00)
[2019-08-28] MEDS: DOCUSATE SODIUM 100 MG CAP PO SCH ×2 (09:00→20:52)
[2019-08-28] MEDS: RANOLAZINE 500 MG ER TAB PO SCH ×2 (09:00→20:53)
[2019-08-28] MEDS: MAGNESIUM OXIDE 400 MG TAB (MAG-OX) PO SCH (09:00)
[2019-08-28] MEDS: POTASSIUM CHLORIDE 10 MEQ SR TABLET PO SCH (09:00)
[2019-08-28] MEDS: CLOPIDOGREL 75 MG TAB PO SCH (09:00)
[2019-08-28] MEDS: CARVedilol 6.25 MG TAB PO SCH ×3 (09:00→20:53)
[2019-08-28] MEDS: allopurinoL 300 MG TAB PO SCH (09:00)
[2019-08-28] MEDS: FUROSEMIDE 20 MG TAB PO SCH (09:00)
[2019-08-28] MEDS: SENOKOT S TAB PO SCH ×2 (09:00→20:52)
[2019-08-28] MEDS: PANTOPRAZOLE 40MG TAB (PROTONIX) PO SCH (09:00)
[2019-08-28] MEDS: ISOSORBIDE MON. (IMDUR) 30 MG XR TAB PO SCH ×2 (09:00→13:59)
[2019-08-28] MEDS: HEPARIN SOD (PORCINE) 5000UNITS/ML VIAL (J1644 PER 1000UNITS) SC SCH ×2 (13:12→20:52)
[2019-08-28 14:00] VITALS: BP 140/70
[2019-08-28] MEDS ORDERED: LORazepam 2 MG/ML VIAL IV PRN (15:45)
--- NOTE | 2019-08-28 15:56 | IPNPDOC ---
Text Note Date of Service The patient was seen on 08/28/19. NOTE SUBJECTIVE: -Finally sleeping after ~72h of being awake, delirious with hallucinations and agitated. Yesterday required 4mg haldol IM, 50mg benadryl IM and 4mg ativan IM Objective: VITAL SIGNS: Please see below. GENERAL: Anxious, obese HEENT: Normocephalic, atraumatic, moist mucous membranes NECK: Supple CARDIOVASCULAR EXAMINATION: S1, S2, no murmurs RESPIRATORY EXAMINATION: Scattered rhonchi, poor air movement, diminished the basis, no wheezing ABDOMINAL EXAMINATION: Soft, mild tenderness to palpation, nondistended, positive bowel sounds Back: T spine surgical site with minimal serosanguinous drainage on dressing. No surrounding erythema, no marga pus. EXTREMITIES: Trace edema SKIN: No rash NEUROLOGICAL EXAMINATION: Unable to assess PSYCHIATRIC EXAMINATION: AOx1 to person LABORATORY DATA: See below. WBC 15.4 hgb 10 na 134 K5.6 (in the setting of daily 30meq of K) Cr 1.28 IMAGING: CT head negative for acute pathology CXR without infiltrates or effusions CT T-spine without contrast: Mid-thoracic posterior instrument effusion is present with the hardware apparently intact. Evaluation of the hardware and adjacent anatomy is suboptimal secondary to associated streak artifact. There is no evidence of acute fracture, subluxation or dislocation. Diffuse osteopenia is present. There is exaggerated thoracic kyphosis. Bilateral pleural effusions are present. Atherosclerotic disease is noted. Dual lead pacing device is present. MICROBIOLOGY: Please see below. ASSESSMENT: 69-year-old female with multiple medical comorbidities who recently underwent spinal fusion surgery who presented from [facility] with altered mental status, possibly medication induced. PLAN: 1. Encephalopathy: persistent AMS with hallucinations, with high degree of in- attention, lability c/w delirium There is the suspicion that iatrogenic 2/2 tramadol, however investigating possibility of infection, thus far hewitt-negative on empiric ceftriaxone -f/u BCx NGTD -UCx was negative -CXR was negative for acute pathology -CT T-spine without marga pocket, unfortunately was unable to use contrast with inadequate access and then removed her new IV -Wound culture from T-spine surgical wound without organisms with few yeast -CT head without acute pathology, neuro exam otherwise at recent baseline -Holding tramadol -Dc PRN haldol and benadryl QHS. responded to ativan 2mg, so will start 2Q6HP IV. 2. Congestive heart failure/coronary artery disease. Status post stent placement and permanent pacemaker, continue optimal medical management with Plavix, statin, beta andrew and Lasix. -Encourage hydration since she has barely taken PO while encephalopathic -strict I/Os 3. Hypertension. Continue Coreg, Imdur 4. Diabetes mellitus. Sliding scale insulin coverage with meals and at bedtime 5. Atrial fibrillation. Not on anti-coagulation, continue Coreg 6. COPD Continue home regimen, supplemental oxygen as needed to maintain O2 sats between 88-92%. 7.Hyperkalemia: in the setting of daily repletion per home script -stop potassium repletion, monitor DVT prophylaxis: Heparin subcutaneous GI prophylaxis: Home PPI VS,Fishbone, I+O VS, Fishbone, I+O Laboratory Tests 08/28/19 06:45 Vital Signs Date Time Temp Pulse Resp B/P (MAP) Pulse Ox O2 Delivery O2 Flow Rate FiO2 08/28/19 14:00 60 20 140/70 (93) 97 Nasal Cannula 08/28/19 06:00 97.7 I&O- Last 24 Hours up to 6 AM 08/28/19 06:00 Intake Total 340 ml Output Total 0 ml Balance 340 ml MALENA FRANKEL MD Aug 28, 2019 15:56
[2019-08-28] MEDS ORDERED: LIDOCAINE 1% MDV 20ML VIAL As Ordered ONE (16:24)
[2019-08-28] MEDS ORDERED: SODIUM CHLORIDE 0.9% INJ 10 ML SYR IV PRN (18:00)
[2019-08-28] MEDS: SODIUM CHLORIDE 0.9% INJ 10 ML SYR IV SCH (18:30)
--- NOTE | 2019-08-28 20:31 | ECGEPIP ---
[facility] Test Date: 2019-08-28 Pat Name: LOC KINCAID Department: Room: [place] [address] Gender: Female Digital Commentator: : 1950 Requested By: MALENA Brooks Order Number: [id number] Reading MD: Bhupinder Vicente Measurements Intervals [place] Rate: 62 P: [place]: 0 QRS: -50 QRSD: 138 T: 86 QT: 477 QTc: 485 Interpretive Statements ATRIAL FIBRILLATION V-PACED RHYTHM WITH PVC COMPARED TO 08/24/19 THERE HAS BEEN CHANGE IN QRS AXIS LIKELY DUE TO LEAD MISSPLACEMENT ON PRIOR EKG Electronically Signed on 08-28-2019 20:31:48 EDT by Bhupinder Vicente
[2019-08-28] MEDS: **NOTE PATIENT COMMENT** MISC XX SCH (21:00)
[2019-08-28 22:00] VITALS: BP 144/65
[2019-08-29] MEDS: ACETAMINOPHEN TAB 650MG DOSE (2X325MG) PO SCH ×4 (01:24→19:35)
--- NOTE | 2019-08-29 03:40 | REPVR ---
PROCEDURE INFORMATION: Exam: XR Abdomen, 1 View Exam date and time: 08/28/2019 10:16 PM Age: 69 years old Clinical indication: Abdominal pain; Additional info: Abd pain TECHNIQUE: Imaging protocol: XR of the abdomen. Views: Frontal supine view of the abdomen. 1 View. COMPARISON: CR Abdomen,Flat Plate KUB 08/19/2019 12:22 AM FINDINGS: Gastrointestinal tract: Mild gaseous distension of the stomach. Gas throughout colon and rectum. Intraperitoneal space: Surgical left hemiabdomen. Bones/joints: Osteopenia. Degenerative changes in the lumbar spine bilateral sacroiliac joints. IMPRESSION: Mild gaseous distension of the stomach. Gas throughout colon and rectum. Electronically signed by: Osman Abdullahi On 08/29/2019 03:39:50 AM
[2019-08-29 06:00] VITALS: BP 142/70
[2019-08-29 06:15] LABS: HEMATOCRIT 30.9 % (36.0-47.0); HEMOGLOBIN 9.8 g/dl (12.0-15.5); MEAN CORPUSCULAR HEMOGLOBIN 30.1 pg (27.0-33.0); MEAN CORPUSCULAR HGB CONC 31.7 g/dl (32.0-36.5); MEAN CORPUSCULAR VOLUME 94.8 fl (80.0-96.0); PLATELET COUNT, AUTOMATED 361 10^3/uL (150-450); RED BLOOD COUNT 3.26 10^6/uL (4.00-5.40); WHITE BLOOD COUNT 12.3 10^3/uL (4.0-10.0)
[2019-08-29] MEDS: SODIUM CHLORIDE 0.9% INJ 10 ML SYR IV SCH ×2 (06:17→17:44)
[2019-08-29 06:39] LABS: CALCIUM LEVEL 8.7 MG/DL (8.8-10.2); CREATININE FOR GFR 1.17 MG/DL (0.55-1.30); GLOMERULAR FILTRATION RATE 48.8 (>45); POTASSIUM SERUM 4.4 MEQ/L (3.5-5.1)
[2019-08-29] MEDS: ADVAIR HFA 45/21MCG INHALER INH SCH ×2 (07:22→19:39)
[2019-08-29] MEDS: HumaLOG INSULIN (NovoLOG) PER UNIT SC SCH ×4 (07:30→20:48)
--- NOTE | 2019-08-29 08:10 | REP ---
PICC/Mid line insertion under ultrasound guidance. The procedure was performed by MELANIE Ulloa, under the direct supervision of Dr. Obregon. The risks and benefits of the procedure were explained to the patient and informed consent was obtained both verbally and written. Directly prior to the start of the procedure, a formal timeout was completed in the procedure room. The right basilic vein was localized using ultrasound guidance. The skin was prepped and draped in the sterile fashion. 1 ml 1% lidocaine 10 mg/ml was used as a local anesthetic. Using ultrasound guidance the right basilic vein was cannulated and a 0.018 guidewire was inserted and advanced into the subclavian vein using fluoroscopic guidance. Multiple attempts were made to advance the wire into SVC, none of which were successful. 8 ml of a 50, 50 solution containing 4 ml of Isovue 300 and 4 ml of sterile saline were used to visualize the vessel and any possible obstruction. None were visualized, though the vessel did not look extremely small, the wire and PICC line were unable to be advanced any further into the subclavian vein. Due to the position of the PICC line. It was then decided to a midline would be a better candidate. The needle was removed and a 4.5 Sami dilator and peel-away sheath was inserted over the guidewire. A 4.5 Sami single lumen catheter was cut to the length of 15.5 cm. The dilator was removed and the catheter was inserted over the guide wire. The peel-away sheath was removed and the catheter was flushed with heparinized saline as per hospital protocol. The catheter was affixed to the skin and a sterile dressing was applied. The patient tolerated the procedure well and there were no immediate complications. 3.1 minutes of fluoroscopy time was utilized for this procedure. Some fluoroscopic images are performed with last image hold technology. These images require no additional radiation. Reviewed by MELANIE Ellis 08/28/2019 05:39 P Electronically Signed by Jhon Obregon MD 08/29/2019 08:01 A
[2019-08-29] MEDS: SENOKOT S TAB PO SCH ×2 (08:23→20:56)
[2019-08-29] MEDS: allopurinoL 300 MG TAB PO SCH (08:24)
[2019-08-29] MEDS: MIRALAX *UNIT DOSE* 17GM PACKET PO SCH (08:24)
[2019-08-29] MEDS: RANOLAZINE 500 MG ER TAB PO SCH ×2 (08:24→20:56)
[2019-08-29] MEDS: MAGNESIUM OXIDE 400 MG TAB (MAG-OX) PO SCH (08:24)
[2019-08-29] MEDS: DOCUSATE SODIUM 100 MG CAP PO SCH ×2 (08:24→20:56)
[2019-08-29] MEDS: CLOPIDOGREL 75 MG TAB PO SCH (08:24)
[2019-08-29] MEDS: CARVedilol 6.25 MG TAB PO SCH ×2 (08:25→20:56)
[2019-08-29] MEDS: FUROSEMIDE 20 MG TAB PO SCH (08:25)
[2019-08-29] MEDS: PANTOPRAZOLE 40MG TAB (PROTONIX) PO SCH (08:25)
[2019-08-29] MEDS: HEPARIN SOD (PORCINE) 5000UNITS/ML VIAL (J1644 PER 1000UNITS) SC SCH ×2 (08:26→20:55)
[2019-08-29] MEDS: ISOSORBIDE MON. (IMDUR) 30 MG XR TAB PO SCH (08:26)
[2019-08-29] MEDS: LIDOCAINE 5% (LIDODERM) PATCH TOP SCH (08:26)
[2019-08-29] MEDS: SIMETHICONE 80 MG CHEW TAB PO PRN ×2 (10:40→20:56)
[2019-08-29 14:00] VITALS: BP 149/70
--- NOTE | 2019-08-29 18:20 | IPNPDOC ---
Date Seen The patient was seen on 08/29/19. Progress Note SUBJECTIVE: Has not required ativan for >24 hrs. AAOx3. Pulled out midline this afternoon after it was itching, was not increasingly confused after she did this. Will attempt to place peripheral IV. Pain management consult placed. Denies chest pain, n/v/d. OBJECTIVE: VITAL SIGNS: Please see below. PHYSICAL EXAM: GENERAL: AAOx3, in NAD, resting at bedside chair HEENT: Normocephalic, atraumatic, moist mucous membranes NECK: Supple CARDIOVASCULAR EXAMINATION: S1, S2, no murmurs RESPIRATORY EXAMINATION: Scattered rhonchi, poor air movement, diminished the basis, no wheezing ABDOMINAL EXAMINATION: Soft, mild tenderness to palpation, nondistended, positive bowel sounds Back: T spine surgical site covered with dressing. No surrounding erythema, no marga pus. EXTREMITIES: Trace edema SKIN: No rash NEUROLOGICAL EXAMINATION: Unable to assess PSYCHIATRIC EXAMINATION: AOx1 to person LABORATORY DATA: Please see below IMAGING: CT head negative for acute pathology CXR without infiltrates or effusions CT T-spine without contrast: Mid-thoracic posterior instrument effusion is present with the hardware apparently intact. Evaluation of the hardware and adjacent anatomy is subopti mal secondary to associated streak artifact. There is no evidence of acute fracture, subluxation or dislocation. Diffuse osteopenia is present. There is exaggerated thoracic kyphosis. Bilateral pleural effusions are present. Atherosclerotic disease is noted. Dual lead pacing device is present. ASSESSMENT: 69-year-old female with multiple medical comorbidities who recently underwent spinal fusion surgery who presented from [facility] with altered mental status, possibly medication induced. PLAN: 1. Encephalopathy- Improving, no agitation overnight. Possibly multifactorial to sleep deprivation and/or possibly iatrogenic 2/2 tramadol. Cannot r/o infection (specifically spinal), on empiric ceftriaxone. -BCx NGTD, UCx neg. WBC still slightly elevated at 12.3 on empiric abx -CXR was negative for acute pathology -Wound culture from T-spine surgical wound without organisms with few yeast -CT head without acute pathology, neuro exam otherwise at recent baseline -Continue to hold tramadol, d/c ativan PRN. -CT T-spine without marga pocket, unfortunately was unable to use contrast with inadequate access. Will need to have another PICC placed if unable to get peripheral IV for contrast and do CT t spine with contrast in AM. 2. Chronic diastolic congestive heart failure/coronary artery disease. Status post stent placement and permanent pacemaker, continue optimal medical management with Plavix, statin, beta andrew and Lasix. -Encourage hydration since she has barely taken PO while encephalopathic -strict I/Os 3. Hypertension. Continue Coreg, Imdur 4. Diabetes mellitus. Sliding scale insulin coverage with meals and at bedtime 5. Chronic atrial fibrillation. Not on anti-coagulation, continue Coreg 6. COPD Continue home regimen, supplemental oxygen as needed to maintain O2 sats between 88-92%. 7.Hyperkalemia: in the setting of daily repletion per home script -stop potassium repletion, monitor DVT prophylaxis: Heparin subcutaneous GI prophylaxis: Home PPI DISPOSITION: If cannot get peripheral IV access after her pulling her midline out, will need PICC placed tomorrow. PT/OT. VS, I&O, 24H, Fishbone Vital Signs/I&O Vital Signs Date Time Temp Pulse Resp B/P (MAP) Pulse Ox O2 Delivery O2 Flow Rate FiO2 08/29/19 14:00 96.4 60 17 149/70 (96) 95 Room Air I&O- Last 24 Hours up to 6 AM 08/29/19 06:00 Intake Total 1300 ml Output Total 0 ml Balance 1300 ml Laboratory Data 24H LABS Laboratory Tests 2 08/28/19 20:04: Bedside Glucose (Misc Panel) 160H 08/29/19 05:47: Nucleated Red Blood Cells % (auto) 0.2H, Anion Gap 7L, Glomerular Filtration Rate 48.8, Calcium Level 8.7L 08/29/19 11:28: Bedside Glucose (Misc Panel) 122H 08/29/19 16:52: Bedside Glucose (Misc Panel) 124H CBC/BMP Laboratory Tests 08/29/19 05:47 Microbiology Microbiology 08/25/19 Gram Stain - Final, Complete 08/25/19 Wound Culture - Final, Complete Yeast Like Organism 08/24/19 Blood Culture - Final, Complete NO GROWTH AFTER 5 DAYS 08/24/19 Urine Culture - Final, Complete 08/24/19 Blood Culture - Final, Complete NO GROWTH AFTER 5 DAYS Current Medications Current Medications Medications (Trade) Dose Ordered Sig/Arturo Route PRN Reason Start Time Stop Time Status Last Admin Dose Admin Acetaminophen (Tylenol Tab) 650 mg 0200,0800,1400,2000 PO 08/26/19 20:00 08/29/19 13:01 Acetaminophen (Tylenol Tab) 650 mg DAILY@0200,0800 PO 08/25/19 02:00 08/26/19 16:57 DC 08/26/19 09:50 Acetaminophen (Tylenol Tab) 650 mg DAILY@1400,2000 PO 08/24/19 14:00 08/26/19 16:57 DC 08/26/19 15:07 Allopurinol (Zyloprim) 300 mg DAILY PO 08/24/19 09:00 08/29/19 08:24 Bisacodyl (Dulcolax Suppository) 10 mg DAILY PRN [place] CONSTIPATION 08/24/19 13:15 Calcium Carbonate (Tums) 1,000 mg Q4HP PRN PO HEARTBURN 08/25/19 18:00 Carvedilol (COReg) 6.25 mg BID PO 08/24/19 09:00 08/24/19 13:34 DC Carvedilol (COReg) 6.25 mg BID PO 08/24/19 21:00 08/29/19 08:25 Ceftriaxone Sodium 1 gm/ Dextrose 50 ml @ 100 mls/hr Q24H IV 08/24/19 16:00 08/26/19 16:53 DC 08/25/19 16:23 Clopidogrel Bisulfate (PLAVix) 75 mg DAILY PO 08/25/19 09:00 08/29/19 08:24 Dextrose (Dextrose 50%) 25 ml ASDIRECTED PRN IV SEE LABEL COMMENTS 08/24/19 14:00 Diphenhydramine HCl (Benadryl) 25 mg QHS PO 08/27/19 21:00 08/28/19 15:57 DC Diphenhydramine HCl (Benadryl) 25 mg QHS PRN PO INSOMNIA 08/27/19 08:00 08/28/19 15:57 DC Docusate Sodium (Colace) 100 mg BID PO 08/24/19 09:00 08/29/19 08:24 Furosemide (Lasix) 60 mg DAILY PO 08/24/19 09:00 08/24/19 13:33 DC Furosemide (Lasix) 60 mg DAILY PO 08/25/19 09:00 08/29/19 08:25 Glucagon (Glucagon) 1 mg ASDIRECTED PRN SC SEE LABEL COMMENTS 08/24/19 14:00 Glucose (Glucose) 16 GM ASDIRECTED PRN PO SEE LABEL COMMENTS 08/24/19 14:00 Haloperidol (Haldol) 1 mg Q8HP PRN IM AGITATION 08/26/19 13:15 08/27/19 12:14 DC 08/26/19 13:56 Haloperidol (Haldol) 2 mg Q6HP PRN IM AGITATION 08/27/19 12:15 08/28/19 15:43 DC 08/27/19 12:34 Heparin Sodium (Heparin (Flush)) 100 units ASDIRECTED PRN IV SEE LABEL COMMENTS 08/28/19 18:00 Heparin Sodium (Heparin (Flush)) 100 units BID@0600,1800 IV 08/28/19 18:00 08/29/19 06:17 Heparin Sodium (Porcine) (Heparin) 5,000 units Q12H SC 08/24/19 21:00 08/29/19 08:26 Home Med (Med Rec Complete!) ASDIRECTED XX 08/24/19 11:00 08/24/19 11:01 DC Insulin Human Lispro (HumaLOG INSULIN) SEE PROTOCOL TABLE AC NC 08/24/19 17:30 08/29/19 18:06 Insulin Human Lispro (HumaLOG INSULIN) SEE PROTOCOL TABLE QHS NC 08/24/19 21:00 Isosorbide Mononitrate (Imdur) 30 mg DAILY PO 08/24/19 09:00 08/24/19 13:33 DC Isosorbide Mononitrate (Imdur) 30 mg DAILY PO 08/25/19 09:00 08/29/19 08:26 Lidocaine (Lidoderm Patch) 1 patch DAILY TOP 08/25/19 09:00 08/29/19 08:26 Lorazepam (Ativan) 2 mg Q6HP PRN IV AGITATION 08/28/19 15:45 Magnesium Oxide (Mag-Ox) 400 mg DAILY PO 08/24/19 09:00 08/29/19 08:24 Non-Formulary Medication ( See Comment Field Below ) REMOVE LIDODERM PATCH DAILY@21 XX 08/24/19 21:00 08/27/19 21:36 Ondansetron HCl (Zofran) 4 mg Q6H PRN PO NAUSEA OR VOMITING 08/24/19 13:15 08/26/19 05:31 Pantoprazole Sodium (Protonix) 40 mg DAILY PO 08/24/19 09:00 08/29/19 08:25 Polyethylene Glycol (Miralax) 1 pkt DAILY PO 08/25/19 09:00 08/29/19 08:24 Polyethylene Glycol (Miralax) 1 pkt DAILYPRN PRN PO CONSTIPATION 08/25/19 18:00 Potassium Chloride (Micro-K Extencaps) 30 meq DAILY PO 08/24/19 14:00 08/28/19 15:44 DC 08/27/19 10:19 Ranolazine (Ranexa) 500 mg BID PO 08/24/19 21:00 08/29/19 08:24 Salmeterol Xinafoate/ Fluticasone (Advair Hfa 45-21 Mcg/Act) 2 puff RBID INH 08/24/19 20:00 08/29/19 07:22 Senna/Docusate Sodium (Senokot S) 1 tab BID PO 08/25/19 21:00 08/29/19 08:23 Simethicone (Mylicon) 80 mg QID PRN PO DYSPEPSIA 08/24/19 13:15 08/29/19 10:40 Sodium Chloride (Saline Lock Flush) 10 ml ASDIRECTED PRN IV SEE LABEL COMMENTS 08/28/19 18:00 Sodium Chloride (Saline Lock Flush) 10 ml BID@0600,1800 IV 08/28/19 18:00 08/29/19 06:17 Allergies Coded Allergies: NUTS (Verified Allergy, Severe, DIFFICULTY BREATHING, 08/24/19) Sulfa (Sulfonamide Antibiotics) (Verified Allergy, Severe, ANAPHYLACTIC SHOCK, 08/24/19) TAPE (Verified Allergy, Intermediate, clear dressings and tape on IV's - rash, 08/24/19) dronedarone (Unverified Allergy, Intermediate, CONTRAINDICATED DUE TO RANEXA, 08/24/19) lansoprazole (Unverified Allergy, Intermediate, CONTRAINDICATED DUE TO BLOOD THINNERS, 08/24/19) latex (Unverified Allergy, Intermediate, RASH, 08/24/19) PERFUMES (Verified Allergy, Unknown, 08/24/19) STATES DRYER SHEETS WELL bacitracin (Verified Allergy, Unknown, 08/24/19) ketorolac (Verified Adverse Reaction, Severe, 08/24/19) renal failure Corticosteroids (Glucocorticoids) (Verified Adverse Reaction, Intermediate, STATED CHF FROM DEXADROL, 08/24/19) Rmdmbnz-Kdq-Pkf Reductase Inhibitor (Unverified Adverse Reaction, Intermediate, MUSCLE WEAKNESS, 08/24/19) codeine (Verified Adverse Reaction, Intermediate, HALLUCINATIONS, 08/24/19) glycopyrrolate (Unverified Adverse Reaction, Intermediate, CHEST PAIN, 08/24/19) naloxone (Unverified Adverse Reaction, Intermediate, GI UPSET, DIZZY, 08/24/19) nifedipine (Unverified Adverse Reaction, Intermediate, SORE THROAT, 08/24/19) oxycodone (Verified Adverse Reaction, Intermediate, HALLUCINATIONS, 08/24/19) pentazocine (Unverified Adverse Reaction, Intermediate, GI UPSET, DIZZY, 08/24/19) Shanta Casiano MD Aug 29, 2019 18:20
[2019-08-29] MEDS: **NOTE PATIENT COMMENT** MISC XX SCH (20:58)
[2019-08-29 22:00] VITALS: BP 145/70
[2019-08-30] MEDS: ACETAMINOPHEN TAB 650MG DOSE (2X325MG) PO SCH ×4 (01:52→21:08)
[2019-08-30 05:44] LABS: HEMATOCRIT 30.3 % (36.0-47.0); HEMOGLOBIN 9.8 g/dl (12.0-15.5); MEAN CORPUSCULAR HEMOGLOBIN 30.2 pg (27.0-33.0); MEAN CORPUSCULAR HGB CONC 32.3 g/dl (32.0-36.5); MEAN CORPUSCULAR VOLUME 93.5 fl (80.0-96.0); PLATELET COUNT, AUTOMATED 394 10^3/uL (150-450); RED BLOOD COUNT 3.24 10^6/uL (4.00-5.40); WHITE BLOOD COUNT 11.8 10^3/uL (4.0-10.0)
[2019-08-30] MEDS: SODIUM CHLORIDE 0.9% INJ 10 ML SYR IV SCH (05:56)
[2019-08-30 06:00] VITALS: BP 142/70
[2019-08-30 06:05] LABS: CALCIUM LEVEL 8.7 MG/DL (8.8-10.2); CREATININE FOR GFR 1.08 MG/DL (0.55-1.30); GLOMERULAR FILTRATION RATE 53.5 (>45); POTASSIUM SERUM 4.5 MEQ/L (3.5-5.1)
[2019-08-30] MEDS: HumaLOG INSULIN (NovoLOG) PER UNIT SC SCH ×4 (07:27→20:14)
[2019-08-30] MEDS: ADVAIR HFA 45/21MCG INHALER INH SCH ×2 (08:06→19:29)
[2019-08-30] MEDS: HEPARIN SOD (PORCINE) 5000UNITS/ML VIAL (J1644 PER 1000UNITS) SC SCH ×2 (08:08→21:08)
[2019-08-30] MEDS: MAGNESIUM OXIDE 400 MG TAB (MAG-OX) PO SCH (08:08)
[2019-08-30] MEDS: DOCUSATE SODIUM 100 MG CAP PO SCH ×2 (08:08→21:07)
[2019-08-30] MEDS: allopurinoL 300 MG TAB PO SCH (08:09)
[2019-08-30] MEDS: FUROSEMIDE 20 MG TAB PO SCH (08:09)
[2019-08-30] MEDS: SENOKOT S TAB PO SCH ×2 (08:09→21:07)
[2019-08-30] MEDS: RANOLAZINE 500 MG ER TAB PO SCH ×2 (08:09→21:07)
[2019-08-30] MEDS: PANTOPRAZOLE 40MG TAB (PROTONIX) PO SCH (08:11)
[2019-08-30] MEDS: CARVedilol 6.25 MG TAB PO SCH ×2 (08:11→21:09)
[2019-08-30] MEDS: CLOPIDOGREL 75 MG TAB PO SCH (08:11)
[2019-08-30] MEDS: MIRALAX *UNIT DOSE* 17GM PACKET PO SCH (08:11)
[2019-08-30] MEDS: ISOSORBIDE MON. (IMDUR) 30 MG XR TAB PO SCH (08:11)
[2019-08-30] MEDS: LIDOCAINE 5% (LIDODERM) PATCH TOP SCH (08:12)
[2019-08-30] MEDS ORDERED: ISOVUE-370 76% 100ML VIAL As Ordered ONE (09:51)
--- NOTE | 2019-08-30 10:48 | REP ---
Clinical: Rule out abscess. Technique: Axial contrast enhanced images through the thoracic spine with coronal and sagittal re-formations using 75 ml Isovue 370 intravenous contrast material. Findings: Thoracic spine demonstrates marked osteopenia, exaggerated kyphosis, and extensive degenerative changes. There is evidence for prior posterior fixation spanning T7 - T10 and the associated vertebral bodies demonstrate considerable chronic/post traumatic changes suggesting the possibility of underlying osteomyelitis/diskitis. No obvious paraspinal fluid collection or abscess is identifiable. The adjacent lung gamez demonstrate moderate pleural effusions and lower lobe consolidations/atelectasis (right greater than left). Impression: 1. Chronic osteopenia and advanced multilevel degenerative changes. Evidence for fixation through the mid to lower thoracic spine with the accompanying vertebral bodies demonstrating significant heterogeneity and somewhat destructive changes. Underlying osteomyelitis/diskitis cannot definitively be excluded. 2. No obvious paraspinal fluid collection or abscess identified. Consider MRI for further investigation if necessary. 3. Visualized lung gamez demonstrate moderate pleural effusions and lower lobe consolidations (right greater than left). Electronically Signed by Benson Byrne MD 08/30/2019 10:40 A
[2019-08-30 14:00] VITALS: BP 141/71
[2019-08-30] MEDS ORDERED: IPRATROPIUM 0.5MG/ALBUTEROL 2.5MG INH SOL UD 3ML (DUONEB) NEB PRN (18:45)
--- NOTE | 2019-08-30 18:51 | IPNPDOC ---
Date Seen The patient was seen on 08/30/19. Progress Note SUBJECTIVE: AAOx3. CT thoracic spine with contrast done today- cannot r/o osteomyelitis. Cannot do MRI b/c has PM. Will discuss with orthopedic surgery. Pain controlled currently. Denies chest pain, n/v/d. OBJECTIVE: VITAL SIGNS: Please see below. PHYSICAL EXAM: GENERAL: AAOx3, in NAD, resting at bedside chair HEENT: Normocephalic, atraumatic, moist mucous membranes NECK: Supple CARDIOVASCULAR EXAMINATION: S1, S2, no murmurs RESPIRATORY EXAMINATION: diminished the basis, no wheezing or rhonchi ABDOMINAL EXAMINATION: Soft, mild tenderness to palpation, nondistended, positive bowel sounds Back: T spine surgical site covered with dressing. No surrounding erythema, no marga pus. EXTREMITIES: Trace edema SKIN: No rash NEUROLOGICAL EXAMINATION: Unable to assess PSYCHIATRIC EXAMINATION: AOx1 to person LABORATORY DATA: Please see below IMAGING: CT T spine with contrast: Impression: 1. Chronic osteopenia and advanced multilevel degenerative changes. Evidence for fixation through the mid to lower thoracic spine with the accompanying vertebral bodies demonstrating significant heterogeneity and somewhat destructive changes. Underlying osteomyelitis/diskitis cannot definitively be excluded. 2. No obvious paraspinal fluid collection or abscess identified. Consider MRI for further investigation if necessary. 3. Visualized lung gamez demonstrate moderate pleural effusions and lower lobe consolidations (right greater than left). CT head negative for acute pathology CXR without infiltrates or effusions CT T-spine without contrast: Mid-thoracic posterior instrument effusion is present with the hardware apparently intact. Evaluation of the hardware and adjacent anatomy is suboptimal secondary to associated streak artifact. There is no evidence of acute fract ure, subluxation or dislocation. Diffuse osteopenia is present. There is exaggerated thoracic kyphosis. Bilateral pleural effusions are present. Atherosclerotic disease is noted. Dual lead pacing device is present. ASSESSMENT: 69-year-old female with multiple medical comorbidities who recently underwent spinal fusion surgery who presented from [facility] with altered mental status, possibly medication induced. PLAN: Encephalopathy- r/o infection as cause, possible osteomyelitis. -Improved during the day; however, as night approaches patient becomes more confused. Occasionally during day she sees people or things in room. She was like this on last hospitalization when she would take opiates. Previously thought to be iatrogenic 2/2 tramadol. -Not currently sleep deprived. -BCx NGTD, UCx neg. WBC further improved to 11.8. -CXR was negative for acute pathology -Wound culture from T-spine surgical wound without organisms with few yeast -CT head without acute pathology, neuro exam otherwise at recent baseline -Continue to hold tramadol, d/c ativan PRN. -CT T-spine with contrast cannot r/o osteomyelitis/diskitis. -Continue to monitor closely Leukocytosis, r/o osteomyelitis/diskitis -CT thoracic spine above -WBC improving with empiric Ceftriaxone -Discuss with radiologist and possibly orthopedic surgery -F/u daily CBC -C/w ceftriaxone Bilateral pleural effusions likely 2/2 to CHF -Some mild SOB today -Last hospitaliztion required aggressive diuresis. -CT thoracic spine: moderate pleural effusions and lower lobe consolidations (right greater than left) -Increased lasix to 40 BID, monitor I&O's, daily wt., fluid restriction -F/u daily labs, BNP in AM. Chronic diastolic congestive heart failure/coronary artery disease. Status post stent placement and permanent pacemaker -Encourage hydration since she has barely taken PO while encephalopathic -Strict I/Os -F/u BMP -C/w optimal medical management with Plavix, statin, beta andrew and Lasix. Hypertension. Continue Coreg, Imdur Diabetes mellitus. Sliding scale insulin coverage with meals and at bedtime Chronic atrial fibrillation. Not on anti-coagulation, continue Coreg COPD Continue home regimen, supplemental oxygen as needed to maintain O2 sats between 88-92%. DVT prophylaxis: -Heparin subcutaneous GI prophylaxis: -Home PPI DISPOSITION: Will discuss findings on CT thoracic spine with radiology and possibly orthopedic surgery to decide on course of treatment. Plan for discharge undetermined. VS, I&O, 24H, Shanta Vital Signs/I&O Vital Signs Date Time Temp Pulse Resp B/P (MAP) Pulse Ox O2 Delivery O2 Flow Rate FiO2 08/30/19 14:00 96.7 57 18 141/71 (94) 95 Room Air I&O- Last 24 Hours up to 6 AM 08/30/19 05:59 Intake Total 1030 ml Output Total 750 ml Balance 280 ml Laboratory Data 24H LABS Laboratory Tests 2 08/29/19 20:37: Bedside Glucose (Misc Panel) 227H 08/30/19 05:15: Nucleated Red Blood Cells % (auto) 0.3H, Anion Gap 8, Glomerular Filtration Rate 53.5, Calcium Level 8.7L 08/30/19 11:33: Bedside Glucose (Misc Panel) 220H 08/30/19 17:02: Bedside Glucose (Misc Panel) 91 CBC/BMP Laboratory Tests 08/30/19 05:15 Microbiology Microbiology 08/25/19 Gram Stain - Final, Complete 08/25/19 Wound Culture - Final, Complete Yeast Like Organism 08/24/19 Blood Culture - Final, Complete NO GROWTH AFTER 5 DAYS 08/24/19 Urine Culture - Final, Complete 08/24/19 Blood Culture - Final, Complete NO GROWTH AFTER 5 DAYS Current Medications Current Medications Medications (Trade) Dose Ordered Sig/Arturo Route PRN Reason Start Time Stop Time Status Last Admin Dose Admin Acetaminophen (Tylenol Tab) 650 mg 0200,0800,1400,1999 PO 08/26/19 20:00 08/30/19 13:48 Acetaminophen (Tylenol Tab) 650 mg DAILY@0200,0800 PO 08/25/19 02:00 08/26/19 16:57 DC 08/26/19 09:50 Acetaminophen (Tylenol Tab) 650 mg DAILY@1400,1999 PO 08/24/19 14:00 08/26/19 16:57 DC 08/26/19 15:07 Albuterol/ Ipratropium (Duoneb (Ipr 0.5mg/Alb 2.5mg)) 3 ml Q6HP PRN NEB SOB/WHEEZING 08/30/19 18:45 Allopurinol (Zyloprim) 300 mg DAILY PO 08/24/19 09:00 08/30/19 08:09 Bisacodyl (Dulcolax Suppository) 10 mg DAILY PRN [place] CONSTIPATION 08/24/19 13:15 Calcium Carbonate (Tums) 1,000 mg Q4HP PRN PO HEARTBURN 08/25/19 18:00 Carvedilol (COReg) 6.25 mg BID PO 08/24/19 09:00 08/24/19 13:34 DC Carvedilol (COReg) 6.25 mg BID PO 08/24/19 21:00 08/30/19 08:11 Ceftriaxone Sodium 1 gm/ Dextrose 50 ml @ 100 mls/hr Q24H IV 08/24/19 16:00 08/26/19 16:53 DC 08/25/19 16:23 Clopidogrel Bisulfate (PLAVix) 75 mg DAILY PO 08/25/19 09:00 08/30/19 08:11 Dextrose (Dextrose 50%) 25 ml ASDIRECTED PRN IV SEE LABEL COMMENTS 08/24/19 14:00 Diphenhydramine HCl (Benadryl) 25 mg QHS PO 08/27/19 21:00 08/28/19 15:57 DC Diphenhydramine HCl (Benadryl) 25 mg QHS PRN PO INSOMNIA 08/27/19 08:00 08/28/19 15:57 DC Docusate Sodium (Colace) 100 mg BID PO 08/24/19 09:00 08/30/19 08:08 Furosemide (Lasix) 60 mg DAILY PO 08/24/19 09:00 08/24/19 13:33 DC Furosemide (Lasix) 60 mg DAILY PO 08/25/19 09:00 08/30/19 08:09 Glucagon (Glucagon) 1 mg ASDIRECTED PRN SC SEE LABEL COMMENTS 08/24/19 14:00 Glucose (Glucose) 16 GM ASDIRECTED PRN PO SEE LABEL COMMENTS 08/24/19 14:00 Haloperidol (Haldol) 1 mg Q8HP PRN IM AGITATION 08/26/19 13:15 08/27/19 12:14 DC 08/26/19 13:56 Haloperidol (Haldol) 2 mg Q6HP PRN IM AGITATION 08/27/19 12:15 08/28/19 15:43 DC 08/27/19 12:34 Heparin Sodium (Heparin (Flush)) 100 units ASDIRECTED PRN IV SEE LABEL COMMENTS 08/28/19 18:00 Cancel Heparin Sodium (Heparin (Flush)) 100 units BID@0600,1800 IV 08/28/19 18:00 08/30/19 18:14 DC 08/29/19 06:17 Heparin Sodium (Porcine) (Heparin) 5,000 units Q12H SC 08/24/19 21:00 08/30/19 08:08 Home Med (Med Rec Complete!) ASDIRECTED XX 08/24/19 11:00 08/24/19 11:01 DC Insulin Human Lispro (HumaLOG INSULIN) SEE PROTOCOL TABLE AC SC 08/24/19 17:30 08/30/19 12:50 Insulin Human Lispro (HumaLOG INSULIN) SEE PROTOCOL TABLE QHS SC 08/24/19 21:00 Isosorbide Mononitrate (Imdur) 30 mg DAILY PO 08/24/19 09:00 08/24/19 13:33 DC Isosorbide Mononitrate (Imdur) 30 mg DAILY PO 08/25/19 09:00 08/30/19 08:11 Lidocaine (Lidoderm Patch) 1 patch DAILY TOP 08/25/19 09:00 08/30/19 08:12 Lorazepam (Ativan) 2 mg Q6HP PRN IV AGITATION 08/28/19 15:45 08/29/19 18:13 DC Magnesium Oxide (Mag-Ox) 400 mg DAILY PO 08/24/19 09:00 08/30/19 08:08 Non-Formulary Medication ( See Comment Field Below ) REMOVE LIDODERM PATCH DAILY@21 XX 08/24/19 21:00 08/29/19 20:58 Ondansetron HCl (Zofran) 4 mg Q6H PRN PO NAUSEA OR VOMITING 08/24/19 13:15 08/26/19 05:31 Pantoprazole Sodium (Protonix) 40 mg DAILY PO 08/24/19 09:00 08/30/19 08:11 Polyethylene Glycol (Miralax) 1 pkt DAILY PO 08/25/19 09:00 08/30/19 08:11 Polyethylene Glycol (Miralax) 1 pkt DAILYPRN PRN PO CONSTIPATION 08/25/19 18:00 Potassium Chloride (Micro-K Extencaps) 30 meq DAILY PO 08/24/19 14:00 08/28/19 15:44 DC 08/27/19 10:19 Ranolazine (Ranexa) 500 mg BID PO 08/24/19 21:00 08/30/19 08:09 Salmeterol Xinafoate/ Fluticasone (Advair Hfa 45-21 Mcg/Act) 2 puff RBID INH 08/24/19 20:00 08/30/19 08:06 Senna/Docusate Sodium (Senokot S) 1 tab BID PO 08/25/19 21:00 08/30/19 08:09 Simethicone (Mylicon) 80 mg QID PRN PO DYSPEPSIA 08/24/19 13:15 08/29/19 20:56 Sodium Chloride (Saline Lock Flush) 10 ml ASDIRECTED PRN IV SEE LABEL COMMENTS 08/28/19 18:00 Cancel Sodium Chloride (Saline Lock Flush) 10 ml BID@0600,1800 IV 08/28/19 18:00 08/30/19 18:14 DC 08/29/19 06:17 Allergies Coded Allergies: NUTS (Verified Allergy, Severe, DIFFICULTY BREATHING, 08/24/19) Sulfa (Sulfonamide Antibiotics) (Verified Allergy, Severe, ANAPHYLACTIC SHOCK, 08/24/19) TAPE (Verified Allergy, Intermediate, clear dressings and tape on IV's - rash, 08/24/19) dronedarone (Unverified Allergy, Intermediate, CONTRAINDICATED DUE TO RANEXA, 08/24/19) lansoprazole (Unverified Allergy, Intermediate, CONTRAINDICATED DUE TO BLOOD THINNERS, 08/24/19) latex (Unverified Allergy, Intermediate, RASH, 08/24/19) PERFUMES (Verified Allergy, Unknown, 08/24/19) STATES DRYER SHEETS WELL bacitracin (Verified Allergy, Unknown, 08/24/19) ketorolac (Verified Adverse Reaction, Severe, 08/24/19) renal failure Corticosteroids (Glucocorticoids) (Verified Adverse Reaction, Intermediate, STATED CHF FROM DEXADROL, 08/24/19) Hlhhnkg-Wyu-Dfr Reductase Inhibitor (Unverified Adverse Reaction, Interme diate, MUSCLE WEAKNESS, 08/24/19) codeine (Verified Adverse Reaction, Intermediate, HALLUCINATIONS, 08/24/19) glycopyrrolate (Unverified Adverse Reaction, Intermediate, CHEST PAIN, 08/24/19) naloxone (Unverified Adverse Reaction, Intermediate, GI UPSET, DIZZY, 08/24/19) nifedipine (Unverified Adverse Reaction, Intermediate, SORE THROAT, 08/24/19) oxycodone (Verified Adverse Reaction, Intermediate, HALLUCINATIONS, 08/24/19) pentazocine (Unverified Adverse Reaction, Intermediate, GI UPSET, DIZZY, 08/24/19) Shanta Casiano MD Aug 30, 2019 18:51
[2019-08-30] MEDS: FUROSEMIDE 40 MG TAB PO SCH (21:08)
[2019-08-30] MEDS: **NOTE PATIENT COMMENT** MISC XX SCH (21:10)
[2019-08-30 22:00] VITALS: BP 178/71
[2019-08-31] MEDS: ACETAMINOPHEN TAB 650MG DOSE (2X325MG) PO SCH ×4 (02:24→20:39)
[2019-08-31 06:00] VITALS: BP 141/72
[2019-08-31] MEDS: ADVAIR HFA 45/21MCG INHALER INH SCH ×2 (07:28→19:40)
[2019-08-31] MEDS: HumaLOG INSULIN (NovoLOG) PER UNIT SC SCH ×4 (08:02→20:28)
[2019-08-31] MEDS: MIRALAX *UNIT DOSE* 17GM PACKET PO SCH (08:23)
[2019-08-31] MEDS: LIDOCAINE 5% (LIDODERM) PATCH TOP SCH (08:23)
[2019-08-31] MEDS: FUROSEMIDE 40 MG TAB PO SCH (08:25)
[2019-08-31] MEDS: HEPARIN SOD (PORCINE) 5000UNITS/ML VIAL (J1644 PER 1000UNITS) SC SCH ×2 (08:25→20:39)
[2019-08-31] MEDS: RANOLAZINE 500 MG ER TAB PO SCH ×2 (08:26→20:38)
[2019-08-31] MEDS: ISOSORBIDE MON. (IMDUR) 30 MG XR TAB PO SCH (08:26)
[2019-08-31] MEDS: CARVedilol 6.25 MG TAB PO SCH ×2 (08:26→20:39)
[2019-08-31] MEDS: allopurinoL 300 MG TAB PO SCH (08:26)
[2019-08-31] MEDS: CLOPIDOGREL 75 MG TAB PO SCH (08:27)
[2019-08-31] MEDS: DOCUSATE SODIUM 100 MG CAP PO SCH ×2 (08:27→20:38)
[2019-08-31] MEDS: SENOKOT S TAB PO SCH ×2 (08:27→20:38)
[2019-08-31] MEDS: PANTOPRAZOLE 40MG TAB (PROTONIX) PO SCH (08:27)
[2019-08-31] MEDS: MAGNESIUM OXIDE 400 MG TAB (MAG-OX) PO SCH (08:27)
[2019-08-31 09:22] LABS: BASO # 0.1 10^3/uL (0.0-0.2); BASO % 0.5 % (0.0-1.0); EOS # 0.2 10^3/uL (0.0-0.5); EOS % 1.9 % (0.0-3.0); HEMATOCRIT 31.2 % (36.0-47.0); HEMOGLOBIN 10.1 g/dl (12.0-15.5); LYMPH # 1.9 10^3/uL (1.5-5.0); LYMPH % 17.6 % (24.0-44.0); MEAN CORPUSCULAR HEMOGLOBIN 30.8 pg (27.0-33.0); MEAN CORPUSCULAR HGB CONC 32.4 g/dl (32.0-36.5); MEAN CORPUSCULAR VOLUME 95.1 fl (80.0-96.0); MONO # 1.2 10^3/uL (0.0-0.8); NEUTROPHILS # 7.1 10^3/uL (1.5-8.5); PLATELET COUNT, AUTOMATED 411 10^3/uL (150-450); RED BLOOD COUNT 3.28 10^6/uL (4.00-5.40); WHITE BLOOD COUNT 10.5 10^3/uL (4.0-10.0)
[2019-08-31 09:45] LABS: ALBUMIN 2.7 GM/DL (3.2-5.2); BILIRUBIN,TOTAL 0.6 MG/DL (0.2-1.0); CALCIUM LEVEL 8.6 MG/DL (8.8-10.2); CREATININE FOR GFR 1.22 MG/DL (0.55-1.30); GLOMERULAR FILTRATION RATE 46.5 (>45); POTASSIUM SERUM 4.2 MEQ/L (3.5-5.1); TOTAL PROTEIN 6.4 GM/DL (6.4-8.2)
[2019-08-31] MEDS: DOXYCYCLINE HYCLATE 100MG TABLET PO SCH ×2 (10:56→20:38)
[2019-08-31] MEDS: cefTRIAXone SOD 1 GM in D5W MINI-BAG PLUS 50 ML IV SCH (10:56)
[2019-08-31] MEDS: LACTOBACILLUS ACIDOPHILUS CAP (BACID) PO SCH ×2 (10:56→17:27)
[2019-08-31] MEDS: ONDANSETRON 4 MG TAB PO PRN (12:40)
[2019-08-31] MEDS: SIMETHICONE 80 MG CHEW TAB PO PRN (12:40)
[2019-08-31 14:00] VITALS: BP_SYST 144; BP_SYST 172; BP_DIAS 75; BP_DIAS 78
--- NOTE | 2019-08-31 17:09 | IPNPDOC ---
Date Seen The patient was seen on 08/31/19. Progress Note SUBJECTIVE: AAOx3. WBC 10.5, further improved. Restarted ceftriaxone, doxy which patient was previously on due to pneumonia seen on CT. Pain controlled currently. Denies chest pain, n/v/d. OBJECTIVE: VITAL SIGNS: Please see below. PHYSICAL EXAM: GENERAL: AAOx3, in NAD, resting at bedside chair HEENT: Normocephalic, atraumatic, moist mucous membranes NECK: Supple CARDIOVASCULAR EXAMINATION: S1, S2, no murmurs RESPIRATORY EXAMINATION: diminished the basis, no wheezing or rhonchi ABDOMINAL EXAMINATION: Soft, mild tenderness to palpation, nondistended, positive bowel sounds Back: T spine surgical site covered with dressing. No surrounding erythema, no marga pus. EXTREMITIES: Trace edema SKIN: No rash NEUROLOGICAL EXAMINATION: Unable to assess PSYCHIATRIC EXAMINATION: AOx1 to person LABORATORY DATA: Please see below IMAGING: CT T spine with contrast 08/30/19: 1. Chronic osteopenia and advanced multilevel degenerative changes. Evidence for fixation through the mid to lower thoracic spine with the accompanying vertebral bodies demonstrating significant heterogeneity and somewhat destructive changes. Underlying osteomyelitis/diskitis cannot definitively be excluded. 2. No obvious paraspinal fluid collection or abscess identified. Consider MRI for further investigation if necessary. 3. Visualized lung gamez demonstrate moderate pleural effusions and lower lobe consolidations (right greater than left). CT head: negative for acute pathology CXR: without infiltrates or effusions CT T-spine without contrast: Mid-thoracic posterior instrument effusion is present with the hardware apparently intact. Evaluation of the hardware and adjacent anatomy is subopt imal secondary to associated streak artifact. There is no evidence of acute fracture, subluxation or dislocation. Diffuse osteopenia is present. There is exaggerated thoracic kyphosis. Bilateral pleural effusions are present. Atherosclerotic disease is noted. Dual lead pacing device is present. Last echo 08/11/19: 1. Normal left ventricular size and wall thickness with a low normal global left ventricular systolic function estimated at 50-55%. 2. Moderately enlarged left atrium and right atrium. Normal right ventricle 3. The atrial septum appeared to be normal without evidence of defect or shunt. 4. Normal aortic root. 5. No pericardial effusion seen. 6. Mildly calcified aortic valve with minimally restricted leaflet motion. Mildly calcified mitral annulus with normal anterior mitral valve leaflet motion. Normal tricuspid valve. The pulmonic valve and proximal pulmonary artery branches were not well visualized. 7. The inferior vena cava was not well visualized. ASSESSMENT: 69-year-old female with multiple medical comorbidities who recently underwent spinal fusion surgery who presented from [facility] with altered mental status, possibly medication induced, hospital acquired PNA PLAN: 1. Healthcare associated PNA -Likely cause of leukocytosis, elevated CRP, ESR -WBC 10.5, increased SOB during day but saturating well on RA. Had not been on antibiotics but leukocytosis improving -CT thoracic spine with contrast from 08/30/19: moderate pleural effusions and lower lobe consolidations (right greater than left). -Recent hospital admission -As patient previously responded to ceftriaxone, will start back on ceftriaxone, doxy -F/u sputum culture, daily labs. 2. Thoracic spine wound -CT thoracic spine: Underlying osteomyelitis/diskitis cannot definitively be excluded. -Reviewed CT with covering radiologist 08/30/19 who did not believe this was osteomyelitis. -Wound culture NG, few yeast -D/aliya pain management consult as pain is currently controlled on regimen. 3. Bilateral pleural effusions likely 2/2 to CHF -Pos fluid balance despite increasing lasix BID -BNP >5000, worse than prior admission. -Last hospitalization required aggressive diuresis. -Echo above -CT thoracic spine: moderate pleural effusions -Increased lasix to 60 IV BID, monitor I&O's, daily wt., fluid restriction -If does not improve, consider drainage of pleural effusions -F/u daily labs -C/w beta andrew and Lasix. 4. Chronic diastolic congestive heart failure/coronary artery disease. Status post stent placement and permanent pacemaker -Encourage hydration since she has barely taken PO while encephalopathic -Strict I/Os -F/u BMP -C/w optimal medical management with Plavix, statin, beta andrew and Lasix. 5. Encephalopathy possibly medication induced- resolved -Near baseline and will occasionally have visual hallucinations in room. As night approaches patient becomes more confused at times. She was like this on last hospitalization when she would take opiates. Previously thought to be iatrogenic 2/2 tramadol. -Continue to hold tramadol, d/aliya ativan PRN. -Continue to monitor closely 6. Physical deconditioning -Previously in rehab facility -PT/OT 7. Hypertension. Continue Coreg, Imdur 8. Diabetes mellitus. Sliding scale insulin coverage with meals and at bedtime 9. Chronic atrial fibrillation. Not on anti-coagulation, continue Coreg 10. COPD Continue home regimen, supplemental oxygen as needed to maintain O2 sats between 88-92%. 11. DVT prophylaxis: -Heparin subcutaneous 12. GI prophylaxis: -Home PPI DISPOSITION: C/w treatment above. Plan is likely discharge to rehab facility when medically improved. VS, I&O, 24H, Fishbone Vital Signs/I&O Vital Signs Date Time Temp Pulse Resp B/P (MAP) Pulse Ox O2 Delivery O2 Flow Rate FiO2 08/31/19 14:00 97.7 60 19 144/78 (100) 98 Room Air I&O- Last 24 Hours up to 6 AM 08/31/19 06:00 Intake Total 850 ml Output Total 1025 ml Balance -175 ml Laboratory Data 24H LABS Laboratory Tests 2 08/30/19 17:02: Bedside Glucose (Misc Panel) 91 08/30/19 19:33: Erythrocyte Sedimentation Rate 58H, C-Reactive Protein, Quantitative 4.24H 08/30/19 20:13: Bedside Glucose (Misc Panel) 129H 08/31/19 05:39: EO-Vka-D-Type Natriuretic Peptide 5139H 08/31/19 06:00: Bedside Glucose (Misc Panel) 104 08/31/19 08:57: Immature Granulocyte % (Auto) 1.0, Neutrophils (%) (Auto) 68.0H, Lymphocytes (%) (Auto) 17.6L, Monocytes (%) (Auto) 11.0H, Eosinophils (%) (Auto) 1.9, Basophils (%) (Auto) 0.5, Neutrophils # (Auto) 7.1, Lymphocytes # (Auto) 1.9, Monocytes # (Auto) 1.2H, Eosinophils # (Auto) 0.2, Basophils # (Auto) 0.1, Nucleated Red Blood Cells % (auto) 0.0, Anion Gap 10, Glomerular Filtration Rate 46.5, Calcium Level 8.6L, Total Bilirubin 0.6, Aspartate Amino Transf (AST/SGOT) 17, Alanine Aminotransferase (ALT/SGPT) 18, Alkaline Phosphatase 261H, Troponin I 0.02, Total Protein 6.4, Albumin 2.7L, Albumin/Globulin Ratio 0.7L 08/31/19 11:29: Bedside Glucose (Misc Panel) 126H 08/31/19 16:33: Bedside Glucose (Misc Panel) 96 CBC/BMP Laboratory Tests 08/31/19 08:57 Microbiology Microbiology 08/25/19 Gram Stain - Final, Complete 08/25/19 Wound Culture - Final, Complete Yeast Like Organism 08/24/19 Blood Culture - Final, Complete NO GROWTH AFTER 5 DAYS 08/24/19 Urine Culture - Final, Complete 08/24/19 Blood Culture - Final, Complete NO GROWTH AFTER 5 DAYS Current Medications Current Medications Medications (Trade) Dose Ordered Sig/Arturo Route PRN Reason Start Time Stop Time Status Last Admin Dose Admin Acetaminophen (Tylenol Tab) 650 mg 0200,0800,1400,2000 PO 08/26/19 20:00 08/31/19 14:05 Acetaminophen (Tylenol Tab) 650 mg DAILY@0200,0800 PO 08/25/19 02:00 08/26/19 16:57 DC 08/26/19 09:50 Acetaminophen (Tylenol Tab) 650 mg DAILY@1400,1999 PO 08/24/19 14:00 08/26/19 16:57 DC 08/26/19 15:07 Albuterol/ Ipratropium (Duoneb (Ipr 0.5mg/Alb 2.5mg)) 3 ml Q6HP PRN NEB SOB/WHEEZING 08/30/19 18:45 08/30/19 21:36 Allopurinol (Zyloprim) 300 mg DAILY PO 08/24/19 09:00 08/31/19 08:26 Bisacodyl (Dulcolax Suppository) 10 mg DAILY PRN [place] CONSTIPATION 08/24/19 13:15 Calcium Carbonate (Tums) 1,000 mg Q4HP PRN PO HEARTBURN 08/25/19 18:00 Carvedilol (COReg) 6.25 mg BID PO 08/24/19 09:00 08/24/19 13:34 DC Carvedilol (COReg) 6.25 mg BID PO 08/24/19 21:00 08/31/19 08:26 Ceftriaxone Sodium 1 gm/ Dextrose 50 ml @ 100 mls/hr Q24H IV 08/24/19 16:00 08/26/19 16:53 DC 08/25/19 16:23 Ceftriaxone Sodium 1 gm/ Dextrose 50 ml @ 100 mls/hr Q24H IV 08/31/19 11:00 08/31/19 10:56 Clopidogrel Bisulfate (PLAVix) 75 mg DAILY PO 08/25/19 09:00 08/31/19 08:27 Dextrose (Dextrose 50%) 25 ml ASDIRECTED PRN IV SEE LABEL COMMENTS 08/24/19 14:00 Diphenhydramine HCl (Benadryl) 25 mg QHS PO 08/27/19 21:00 08/28/19 15:57 DC Diphenhydramine HCl (Benadryl) 25 mg QHS PRN PO INSOMNIA 08/27/19 08:00 08/28/19 15:57 DC Docusate Sodium (Colace) 100 mg BID PO 08/24/19 09:00 08/31/19 08:27 Doxycycline Hyclate (Vibramycin) 100 mg BID PO 08/31/19 09:00 08/31/19 10:56 Furosemide (LASIX injection) 60 mg BID@09,17 IV 08/31/19 17:00 Furosemide (Lasix) 40 mg BID PO 08/30/19 21:00 08/31/19 08:28 DC 08/31/19 08:25 Furosemide (Lasix) 60 mg DAILY PO 08/24/19 09:00 08/24/19 13:33 DC Furosemide (Lasix) 60 mg DAILY PO 08/25/19 09:00 08/30/19 18:40 DC 08/30/19 08:09 Glucagon (Glucagon) 1 mg ASDIRECTED PRN SC SEE LABEL COMMENTS 08/24/19 14:00 Glucose (Glucose) 16 GM ASDIRECTED PRN PO SEE LABEL COMMENTS 08/24/19 14:00 Haloperidol (Haldol) 1 mg Q8HP PRN IM AGITATION 08/26/19 13:15 08/27/19 12:14 DC 08/26/19 13:56 Haloperidol (Haldol) 2 mg Q6HP PRN IM AGITATION 08/27/19 12:15 08/28/19 15:43 DC 08/27/19 12:34 Heparin Sodium (Heparin (Flush)) 100 units ASDIRECTED PRN IV SEE LABEL COMMENTS 08/28/19 18:00 Cancel Heparin Sodium (Heparin (Flush)) 100 units BID@0600,1800 IV 08/28/19 18:00 08/30/19 18:14 DC 08/29/19 06:17 Heparin Sodium (Porcine) (Heparin) 5,000 units Q12H VT 08/24/19 21:00 08/31/19 08:25 Home Med (Med Rec Complete!) ASDIRECTED XX 08/24/19 11:00 08/24/19 11:01 DC Insulin Human Lispro (HumaLOG INSULIN) SEE PROTOCOL TABLE AC VT 08/24/19 17:30 08/31/19 12:37 Insulin Human Lispro (HumaLOG INSULIN) SEE PROTOCOL TABLE QHS VT 08/24/19 21:00 Isosorbide Mononitrate (Imdur) 30 mg DAILY PO 08/24/19 09:00 08/24/19 13:33 DC Isosorbide Mononitrate (Imdur) 30 mg DAILY PO 08/25/19 09:00 08/31/19 08:26 Lactobacillus Acidophilus (Bacid) 1 ea BIDWM PO 08/31/19 08:00 08/31/19 10:56 Lidocaine (Lidoderm Patch) 1 patch DAILY TOP 08/25/19 09:00 08/31/19 08:23 Lorazepam (Ativan) 2 mg Q6HP PRN IV AGITATION 08/28/19 15:45 08/29/19 18:13 DC Magnesium Oxide (Mag-Ox) 400 mg DAILY PO 08/24/19 09:00 08/31/19 08:27 Non-Formulary Medication ( See Comment Field Below ) REMOVE LIDODERM PATCH DAILY@21 XX 08/24/19 21:00 08/30/19 21:10 Ondansetron HCl (Zofran) 4 mg Q6H PRN PO NAUSEA OR VOMITING 08/24/19 13:15 08/31/19 12:40 Pantoprazole Sodium (Protonix) 40 mg DAILY PO 08/24/19 09:00 08/31/19 08:27 Polyethylene Glycol (Miralax) 1 pkt DAILY PO 08/25/19 09:00 08/31/19 08:23 Polyethylene Glycol (Miralax) 1 pkt DAILYPRN PRN PO CONSTIPATION 08/25/19 18:00 Potassium Chloride (Micro-K Extencaps) 30 meq DAILY PO 08/24/19 14:00 08/28/19 15:44 DC 08/27/19 10:19 Ranolazine (Ranexa) 500 mg BID PO 08/24/19 21:00 08/31/19 08:26 Salmeterol Xinafoate/ Fluticasone (Advair Hfa 45-21 Mcg/Act) 2 puff RBID INH 08/24/19 20:00 08/31/19 07:28 Senna/Docusate Sodium (Senokot S) 1 tab BID PO 08/25/19 21:00 08/31/19 08:27 Simethicone (Mylicon) 80 mg QID PRN PO DYSPEPSIA 08/24/19 13:15 08/31/19 12:40 Sodium Chloride (Saline Lock Flush) 10 ml ASDIRECTED PRN IV SEE LABEL COMMENTS 08/28/19 18:00 Cancel Sodium Chloride (Saline Lock Flush) 10 ml BID@0600,1800 IV 08/28/19 18:00 08/30/19 18:14 DC 08/29/19 06:17 Allergies Coded Allergies: NUTS (Verified Allergy, Severe, DIFFICULTY BREATHING, 08/24/19) Sulfa (Sulfonamide Antibiotics) (Verified Allergy, Severe, ANAPHYLACTIC SHOCK, 08/24/19) TAPE (Verified Allergy, Intermediate, clear dressings and tape on IV's - rash, 08/24/19) dronedarone (Unverified Allergy, Intermediate, CONTRAINDICATED DUE TO RANEXA, 08/24/19) lansoprazole (Unverified Allergy, Intermediate, CONTRAINDICATED DUE TO BLOOD THINNERS, 08/24/19) latex (Unverified Allergy, Intermediate, RASH, 08/24/19) PERFUMES (Verified Allergy, Unknown, 08/24/19) STATES DRYER SHEETS WELL bacitracin (Verified Allergy, Unknown, 08/24/19) ketorolac (Verified Adverse Reaction, Severe, 08/24/19) renal failure Corticosteroids (Glucocorticoids) (Verified Adverse Reaction, Intermediate, STATED CHF FROM DEXADROL, 08/24/19) Yudiqaf-Bur-Mai Reductase Inhibitor (Unverified Adverse Reaction, Intermediate, MUSCLE WEAKNESS, 08/24/19) codeine (Verified Adverse Reaction, Intermediate, HALLUCINATIONS, 08/24/19) glycopyrrolate (Unverified Adverse Reaction, Intermediate, CHEST PAIN, 08/24/19) naloxone (Unverified Adverse Reaction, Intermediate, GI UPSET, DIZZY, 08/24/19) nifedipine (Unverified Adverse Reaction, Intermediate, SORE THROAT, 08/24/19) oxycodone (Verified Adverse Reaction, Intermediate, HALLUCINATIONS, 08/24/19) pentazocine (Unverified Adverse Reaction, Intermediate, GI UPSET, DIZZY, 08/24/19) Shanta Casiano MD Aug 31, 2019 17:09
[2019-08-31] MEDS: FUROSEMIDE 100MG/10ML VIAL (J1940) IV SCH (17:27)
[2019-08-31] MEDS: **NOTE PATIENT COMMENT** MISC XX SCH (20:39)
[2019-08-31 22:00] VITALS: BP 125/61
[2019-09-01] MEDS: ACETAMINOPHEN TAB 650MG DOSE (2X325MG) PO SCH ×4 (01:19→20:28)
[2019-09-01 06:00] VITALS: BP 161/77
[2019-09-01 06:44] LABS: HEMATOCRIT 30.5 % (36.0-47.0); HEMOGLOBIN 9.6 g/dl (12.0-15.5); MEAN CORPUSCULAR HEMOGLOBIN 29.8 pg (27.0-33.0); MEAN CORPUSCULAR HGB CONC 31.5 g/dl (32.0-36.5); MEAN CORPUSCULAR VOLUME 94.7 fl (80.0-96.0); PLATELET COUNT, AUTOMATED 427 10^3/uL (150-450); RED BLOOD COUNT 3.22 10^6/uL (4.00-5.40); WHITE BLOOD COUNT 10.9 10^3/uL (4.0-10.0)
[2019-09-01 07:04] LABS: ALBUMIN 2.5 GM/DL (3.2-5.2); BILIRUBIN,TOTAL 0.7 MG/DL (0.2-1.0); CALCIUM LEVEL 8.4 MG/DL (8.8-10.2); CREATININE FOR GFR 1.08 MG/DL (0.55-1.30); GLOMERULAR FILTRATION RATE 53.5 (>45); POTASSIUM SERUM 3.8 MEQ/L (3.5-5.1); TOTAL PROTEIN 6.1 GM/DL (6.4-8.2)
[2019-09-01] MEDS: HumaLOG INSULIN (NovoLOG) PER UNIT SC SCH ×4 (07:08→20:13)
[2019-09-01] MEDS: ADVAIR HFA 45/21MCG INHALER INH SCH ×2 (07:34→20:03)
[2019-09-01] MEDS: MIRALAX *UNIT DOSE* 17GM PACKET PO SCH (07:55)
[2019-09-01] MEDS: SIMETHICONE 80 MG CHEW TAB PO PRN (07:55)
[2019-09-01] MEDS: RANOLAZINE 500 MG ER TAB PO SCH ×2 (07:55→20:28)
[2019-09-01] MEDS: CARVedilol 6.25 MG TAB PO SCH ×2 (07:57→20:29)
[2019-09-01] MEDS: CLOPIDOGREL 75 MG TAB PO SCH (07:57)
[2019-09-01] MEDS: SENOKOT S TAB PO SCH ×2 (07:57→20:28)
[2019-09-01] MEDS: PANTOPRAZOLE 40MG TAB (PROTONIX) PO SCH (07:57)
[2019-09-01] MEDS: allopurinoL 300 MG TAB PO SCH (07:57)
[2019-09-01] MEDS: FUROSEMIDE 100MG/10ML VIAL (J1940) IV SCH ×2 (07:57→17:02)
[2019-09-01] MEDS: DOXYCYCLINE HYCLATE 100MG TABLET PO SCH ×2 (07:58→20:28)
[2019-09-01] MEDS: MAGNESIUM OXIDE 400 MG TAB (MAG-OX) PO SCH (07:58)
[2019-09-01] MEDS: HEPARIN SOD (PORCINE) 5000UNITS/ML VIAL (J1644 PER 1000UNITS) SC SCH (07:58)
[2019-09-01] MEDS: LACTOBACILLUS ACIDOPHILUS CAP (BACID) PO SCH ×2 (07:58→17:02)
[2019-09-01] MEDS: DOCUSATE SODIUM 100 MG CAP PO SCH ×2 (07:58→20:28)
[2019-09-01] MEDS: ISOSORBIDE MON. (IMDUR) 30 MG XR TAB PO SCH (07:58)
[2019-09-01] MEDS: LIDOCAINE 5% (LIDODERM) PATCH TOP SCH (07:59)
[2019-09-01] MEDS: cefTRIAXone SOD 1 GM in D5W MINI-BAG PLUS 50 ML IV SCH (11:31)
[2019-09-01 14:00] VITALS: BP 140/67
[2019-09-01] MEDS: SIMETHICONE 80 MG CHEW TAB PO SCH ×2 (17:02→20:28)
--- NOTE | 2019-09-01 17:40 | IPNPDOC ---
Date Seen The patient was seen on 09/01/19. Progress Note SUBJECTIVE: No complaints overnight. WBC 10.9, sputum cx pending. Denies chest pain, shortness of breath, n/v/d. OBJECTIVE: VITAL SIGNS: Please see below. PHYSICAL EXAM: GENERAL: AAOx3, in NAD, resting at bedside chair HEENT: Normocephalic, atraumatic, moist mucous membranes NECK: Supple CARDIOVASCULAR EXAMINATION: S1, S2, no murmurs RESPIRATORY EXAMINATION: diminished the basis, no wheezing or rhonchi ABDOMINAL EXAMINATION: Soft, mild tenderness to palpation, nondistended, positive bowel sounds Back: T spine surgical site covered with dressing. No surrounding erythema, no marga pus. EXTREMITIES: Trace edema SKIN: No rash NEUROLOGICAL EXAMINATION: Unable to assess PSYCHIATRIC EXAMINATION: AOx1 to person LABORATORY DATA: Please see below IMAGING: CT T spine with contrast 08/30/19: 1. Chronic osteopenia and advanced multilevel degenerative changes. Evidence for fixation through the mid to lower thoracic spine with the accompanying vertebral bodies demonstrating significant heterogeneity and somewhat destructive changes. Underlying osteomyelitis/diskitis cannot definitively be excluded. 2. No obvious paraspinal fluid collection or abscess identified. Consider MRI for further investigation if necessary. 3. Visualized lung gamez demonstrate moderate pleural effusions and lower lobe consolidations (right greater than left). CT head: negative for acute pathology CXR: without infiltrates or effusions CT T-spine without contrast: Mid-thoracic posterior instrument effusion is present with the hardware apparently intact. Evaluation of the hardware and adjacent anatomy is suboptimal secondary to associated streak artifact. There is no evidence of acute f racture, subluxation or dislocation. Diffuse osteopenia is present. There is exaggerated thoracic kyphosis. Bilateral pleural effusions are present. Atherosclerotic disease is noted. Dual lead pacing device is present. Last echo 08/11/19: 1. Normal left ventricular size and wall thickness with a low normal global left ventricular systolic function estimated at 50-55%. 2. Moderately enlarged left atrium and right atrium. Normal right ventricle 3. The atrial septum appeared to be normal without evidence of defect or shunt. 4. Normal aortic root. 5. No pericardial effusion seen. 6. Mildly calcified aortic valve with minimally restricted leaflet motion. Mildly calcified mitral annulus with normal anterior mitral valve leaflet motion. Normal tricuspid valve. The pulmonic valve and proximal pulmonary artery branches were not well visualized. 7. The inferior vena cava was not well visualized. ASSESSMENT: 69-year-old female with multiple medical comorbidities who recently underwent spinal fusion surgery who presented from [facility] with altered mental status, possibly medication induced, hospital acquired PNA PLAN: 1. Healthcare associated PNA -Likely cause of leukocytosis, elevated CRP, ESR -WBC 10.9, afebrile -As patient previously responded to ceftriaxone, will start back on ceftriaxone, doxy -F/u sputum culture, blood cultures, daily labs. 2. Bilateral pleural effusions likely 2/2 to CHF -Pos fluid balance despite increasing lasix BID -Tightened fluid restriction to 1.5 L/day -Last hospitalization required aggressive diuresis. -Echo above -C/w BB, lasix to 60 IV BID (consider increasing further), monitor I&O's, daily wt., fluid restriction -F/u daily labs, repeat BNP in AM -If does not improve, consider drainage of pleural effusions 3. Thoracic spine wound -Stable with wound care -CT thoracic spine: Underlying osteomyelitis/diskitis cannot definitively be excluded. -Reviewed CT with covering radiologist 08/30/19 who did not believe this was osteomyelitis. -Wound culture NG, few yeast -D/aliya pain management consult as pain is currently controlled on regimen. 4. Chronic diastolic congestive heart failure/coronary artery disease. Status post stent placement and permanent pacemaker -Encourage hydration since she has barely taken PO while encephalopathic -Strict I/Os -F/u BMP, repeat BNP -C/w optimal medical management with plavix, statin, beta andrew and Lasix. 5. Physical deconditioning -Previously in rehab facility -PT/OT 6. Hypertension. Continue Coreg, Imdur 7. Diabetes mellitus. Sliding scale insulin coverage with meals and at bedtime 8. Chronic atrial fibrillation. Not on anti-coagulation, continue Coreg 9. COPD Continue home regimen, supplemental oxygen as needed to maintain O2 sats between 88-92%. 10. DVT prophylaxis: -Heparin subcutaneous 11. GI prophylaxis: -Home PPI DISPOSITION: C/w treatment above. Plan is likely discharge to rehab facility when medically improved. VS, I&O, 24H, Fishbone Vital Signs/I&O Vital Signs Date Time Temp Pulse Resp B/P (MAP) Pulse Ox O2 Delivery O2 Flow Rate FiO2 09/01/19 14:00 98.0 61 18 140/67 (91) 98 Room Air I&O- Last 24 Hours up to 6 AM 09/01/19 06:00 Intake Total 1400 ml Output Total 200 ml Balance 1200 ml Laboratory Data 24H LABS Laboratory Tests 2 08/31/19 20:07: Bedside Glucose (Misc Panel) 149H 09/01/19 05:45: Nucleated Red Blood Cells % (auto) 0.0, Anion Gap 10, Glomerular Filtration Rate 53.5, Calcium Level 8.4L, Total Bilirubin 0.7, Aspartate Amino Transf (AST/SGOT) 16, Alanine Aminotransferase (ALT/SGPT) 13, Alkaline Phosphatase 274H, Total Protein 6.1L, Albumin 2.5L, Albumin/Globulin Ratio 0.7L 09/01/19 11:19: Bedside Glucose (Misc Panel) 117H 09/01/19 16:36: Bedside Glucose (Misc Panel) 93 CBC/BMP Laboratory Tests 09/01/19 05:45 Microbiology Microbiology 09/01/19 Blood Culture, Received Pending 09/01/19 Blood Culture, Received Pending 08/31/19 Gram Stain - Final, Resulted 08/31/19 Sputum Culture, Resulted Pending 08/25/19 Gram Stain - Final, Complete 08/25/19 Wound Culture - Final, Complete Yeast Like Organism 08/24/19 Blood Culture - Final, Complete NO GROWTH AFTER 5 DAYS 08/24/19 Urine Culture - Final, Complete 08/24/19 Blood Culture - Final, Complete NO GROWTH AFTER 5 DAYS Current Medications Current Medications Medications (Trade) Dose Ordered Sig/Arturo Route PRN Reason Start Time Stop Time Status Last Admin Dose Admin Acetaminophen (Tylenol Tab) 650 mg 0200,0800,1400,1999 PO 08/26/19 20:00 09/01/19 13:41 Acetaminophen (Tylenol Tab) 650 mg DAILY@0200,0800 PO 08/25/19 02:00 08/26/19 16:57 DC 08/26/19 09:50 Acetaminophen (Tylenol Tab) 650 mg DAILY@1400,2000 PO 08/24/19 14:00 08/26/19 16:57 DC 08/26/19 15:07 Albuterol/ Ipratropium (Duoneb (Ipr 0.5mg/Alb 2.5mg)) 3 ml Q6HP PRN NEB SOB/WHEEZING 08/30/19 18:45 08/30/19 21:36 Allopurinol (Zyloprim) 300 mg DAILY PO 08/24/19 09:00 09/01/19 07:57 Bisacodyl (Dulcolax Suppository) 10 mg DAILY PRN ME CONSTIPATION 08/24/19 13:15 Calcium Carbonate (Tums) 1,000 mg Q4HP PRN PO HEARTBURN 08/25/19 18:00 Carvedilol (COReg) 6.25 mg BID PO 08/24/19 09:00 08/24/19 13:34 DC Carvedilol (COReg) 6.25 mg BID PO 08/24/19 21:00 09/01/19 07:57 Ceftriaxone Sodium 1 gm/ Dextrose 50 ml @ 100 mls/hr Q24H IV 08/24/19 16:00 08/26/19 16:53 DC 08/25/19 16:23 Ceftriaxone Sodium 1 gm/ Dextrose 50 ml @ 100 mls/hr Q24H IV 08/31/19 11:00 09/01/19 11:31 Clopidogrel Bisulfate (PLAVix) 75 mg DAILY PO 08/25/19 09:00 09/01/19 07:57 Dextrose (Dextrose 50%) 25 ml ASDIRECTED PRN IV SEE LABEL COMMENTS 08/24/19 14:00 Diphenhydramine HCl (Benadryl) 25 mg QHS PO 08/27/19 21:00 08/28/19 15:57 DC Diphenhydramine HCl (Benadryl) 25 mg QHS PRN PO INSOMNIA 08/27/19 08:00 08/28/19 15:57 DC Docusate Sodium (Colace) 100 mg BID PO 08/24/19 09:00 09/01/19 07:58 Doxycycline Hyclate (Vibramycin) 100 mg BID PO 08/31/19 09:00 09/01/19 07:58 Furosemide (LASIX injection) 60 mg BID@09,17 IV 08/31/19 17:00 09/01/19 17:02 Furosemide (Lasix) 40 mg BID PO 08/30/19 21:00 08/31/19 08:28 DC 08/31/19 08:25 Furosemide (Lasix) 60 mg DAILY PO 08/24/19 09:00 08/24/19 13:33 DC Furosemide (Lasix) 60 mg DAILY PO 08/25/19 09:00 08/30/19 18:40 DC 08/30/19 08:09 Glucagon (Glucagon) 1 mg ASDIRECTED PRN SC SEE LABEL COMMENTS 08/24/19 14:00 Glucose (Glucose) 16 GM ASDIRECTED PRN PO SEE LABEL COMMENTS 08/24/19 14:00 Haloperidol (Haldol) 1 mg Q8HP PRN IM AGITATION 08/26/19 13:15 08/27/19 12:14 DC 08/26/19 13:56 Haloperidol (Haldol) 2 mg Q6HP PRN IM AGITATION 08/27/19 12:15 08/28/19 15:43 DC 08/27/19 12:34 Heparin Sodium (Heparin (Flush)) 100 units ASDIRECTED PRN IV SEE LABEL COMMENTS 08/28/19 18:00 Cancel Heparin Sodium (Heparin (Flush)) 100 units BID@0600,1800 IV 08/28/19 18:00 08/30/19 18:14 DC 08/29/19 06:17 Heparin Sodium (Porcine) (Heparin) 5,000 units Q12H SC 08/24/19 21:00 09/01/19 07:58 Home Med (Med Rec Complete!) ASDIRECTED XX 08/24/19 11:00 08/24/19 11:01 DC Insulin Human Lispro (HumaLOG INSULIN) SEE PROTOCOL TABLE AC SC 08/24/19 17:30 09/01/19 11:33 Insulin Human Lispro (HumaLOG INSULIN) SEE PROTOCOL TABLE QHS SC 08/24/19 21:00 Isosorbide Mononitrate (Imdur) 30 mg DAILY PO 08/24/19 09:00 08/24/19 13:33 DC Isosorbide Mononitrate (Imdur) 30 mg DAILY PO 08/25/19 09:00 09/01/19 07:58 Lactobacillus Acidophilus (Bacid) 1 ea BIDWM PO 08/31/19 08:00 09/01/19 17:02 Lidocaine (Lidoderm Patch) 1 patch DAILY TOP 08/25/19 09:00 09/01/19 07:59 Lorazepam (Ativan) 2 mg Q6HP PRN IV AGITATION 08/28/19 15:45 08/29/19 18:13 DC Magnesium Oxide (Mag-Ox) 400 mg DAILY PO 08/24/19 09:00 09/01/19 07:58 Non-Formulary Medication ( See Comment Field Below ) REMOVE LIDODERM PATCH DAILY@21 XX 08/24/19 21:00 08/31/19 20:39 Ondansetron HCl (Zofran) 4 mg Q6H PRN PO NAUSEA OR VOMITING 08/24/19 13:15 08/31/19 12:40 Pantoprazole Sodium (Protonix) 40 mg DAILY PO 08/24/19 09:00 09/01/19 07:57 Polyethylene Glycol (Miralax) 1 pkt DAILY PO 08/25/19 09:00 09/01/19 07:55 Polyethylene Glycol (Miralax) 1 pkt DAILYPRN PRN PO CONSTIPATION 08/25/19 18:00 Potassium Chloride (Micro-K Extencaps) 30 meq DAILY PO 08/24/19 14:00 08/28/19 15:44 DC 08/27/19 10:19 Ranolazine (Ranexa) 500 mg BID PO 08/24/19 21:00 09/01/19 07:55 Salmeterol Xinafoate/ Fluticasone (Advair Hfa 45-21 Mcg/Act) 2 puff RBID INH 08/24/19 20:00 09/01/19 07:34 Senna/Docusate Sodium (Senokot S) 1 tab BID PO 08/25/19 21:00 09/01/19 07:57 Simethicone (Mylicon) 80 mg QID PRN PO DYSPEPSIA 08/24/19 13:15 09/01/19 09:57 DC 09/01/19 07:55 Simethicone (Mylicon) 80 mg TID PO 09/01/19 16:00 09/01/19 17:02 Sodium Chloride (Saline Lock Flush) 10 ml ASDIRECTED PRN IV SEE LABEL COMMENTS 08/28/19 18:00 Cancel Sodium Chloride (Saline Lock Flush) 10 ml BID@0600,1800 IV 08/28/19 18:00 08/30/19 18:14 DC 08/29/19 06:17 Allergies Coded Allergies: NUTS (Verified Allergy, Severe, DIFFICULTY BREATHING, 08/24/19) Sulfa (Sulfonamide Antibiotics) (Verified Allergy, Severe, ANAPHYLACTIC SHOCK, 08/24/19) TAPE (Verified Allergy, Intermediate, clear dressings and tape on IV's - rash, 08/24/19) dronedarone (Unverified Allergy, Intermediate, CONTRAINDICATED DUE TO RANEXA, 08/24/19) lansoprazole (Unverified Allergy, Intermediate, CONTRAINDICATED DUE TO BLOOD THINNERS, 08/24/19) latex (Unverified Allergy, Intermediate, RASH, 08/24/19) PERFUMES (Verified Allergy, Unknown, 08/24/19) STATES DRYER SHEETS WELL bacitracin (Verified Allergy, Unknown, 08/24/19) ketorolac (Verified Adverse Reaction, Severe, 08/24/19) renal failure Corticosteroids (Glucocorticoids) (Verified Adverse Reaction, Intermediate, STATED CHF FROM DEXADROL, 08/24/19) Hjaeeed-Nbn-Ttp Reductase Inhibitor (Unverified Adverse Reaction, Intermediate, MUSCLE WEAKNESS, 08/24/19) codeine (Verified Adverse Reaction, Intermediate, HALLUCINATIONS, 08/24/19) glycopyrrolate (Unverified Adverse Reaction, Intermediate, CHEST PAIN, 08/24/19) naloxone (Unverified Adverse Reaction, Intermediate, GI UPSET, DIZZY, 08/24/19) nifedipine (Unverified Adverse Reaction, Intermediate, SORE THROAT, 08/24/19) oxycodone (Verified Adverse Reaction, Intermediate, HALLUCINATIONS, 08/24/19) pentazocine (Unverified Adverse Reaction, Intermediate, GI UPSET, DIZZY, 08/24/19) Shanta Casiano MD Sep 01, 2019 17:40
[2019-09-01] MEDS: **NOTE PATIENT COMMENT** MISC XX SCH (20:29)
[2019-09-01 22:00] VITALS: BP 142/64
[2019-09-02] MEDS ORDERED: IBUPROFEN 400 MG TAB PO ONE (01:30)
[2019-09-02] MEDS: ACETAMINOPHEN TAB 650MG DOSE (2X325MG) PO SCH ×4 (02:33→20:50)
[2019-09-02 06:00] VITALS: BP 135/72
[2019-09-02 06:30] LABS: HEMATOCRIT 31.6 % (36.0-47.0); HEMOGLOBIN 10.1 g/dl (12.0-15.5); MEAN CORPUSCULAR HEMOGLOBIN 30.1 pg (27.0-33.0); MEAN CORPUSCULAR VOLUME 94.3 fl (80.0-96.0); PLATELET COUNT, AUTOMATED 433 10^3/uL (150-450); RED BLOOD COUNT 3.35 10^6/uL (4.00-5.40); WHITE BLOOD COUNT 9.8 10^3/uL (4.0-10.0)
[2019-09-02 07:01] LABS: ALBUMIN 2.6 GM/DL (3.2-5.2); BILIRUBIN,TOTAL 0.7 MG/DL (0.2-1.0); CALCIUM LEVEL 8.6 MG/DL (8.8-10.2); CREATININE FOR GFR 1.22 MG/DL (0.55-1.30); GLOMERULAR FILTRATION RATE 46.5 (>45); POTASSIUM SERUM 3.7 MEQ/L (3.5-5.1); TOTAL PROTEIN 6.6 GM/DL (6.4-8.2)
[2019-09-02] MEDS: ADVAIR HFA 45/21MCG INHALER INH SCH ×2 (07:20→20:13)
[2019-09-02] MEDS: HumaLOG INSULIN (NovoLOG) PER UNIT SC SCH ×4 (07:27→20:34)
[2019-09-02] MEDS: PANTOPRAZOLE 40MG TAB (PROTONIX) PO SCH (08:55)
[2019-09-02] MEDS: DOCUSATE SODIUM 100 MG CAP PO SCH ×2 (08:55→20:49)
[2019-09-02] MEDS: MIRALAX *UNIT DOSE* 17GM PACKET PO SCH (08:55)
[2019-09-02] MEDS: MAGNESIUM OXIDE 400 MG TAB (MAG-OX) PO SCH (08:55)
[2019-09-02] MEDS: allopurinoL 300 MG TAB PO SCH (08:55)
[2019-09-02] MEDS: RANOLAZINE 500 MG ER TAB PO SCH ×2 (08:55→20:47)
[2019-09-02] MEDS: SENOKOT S TAB PO SCH ×2 (08:55→20:50)
[2019-09-02] MEDS: DOXYCYCLINE HYCLATE 100MG TABLET PO SCH ×2 (08:55→20:47)
[2019-09-02] MEDS: LACTOBACILLUS ACIDOPHILUS CAP (BACID) PO SCH ×2 (08:55→17:48)
[2019-09-02] MEDS: CLOPIDOGREL 75 MG TAB PO SCH (08:55)
[2019-09-02] MEDS: SIMETHICONE 80 MG CHEW TAB PO SCH ×3 (08:55→20:50)
[2019-09-02] MEDS: LIDOCAINE 5% (LIDODERM) PATCH TOP SCH (08:56)
[2019-09-02] MEDS: ENOXAPARIN 40MG/0.4ML SYRINGE (J1650 PER 10MG) SC SCH (08:56)
[2019-09-02] MEDS: ISOSORBIDE MON. (IMDUR) 30 MG XR TAB PO SCH (08:58)
[2019-09-02] MEDS: FUROSEMIDE 100MG/10ML VIAL (J1940) IV SCH ×2 (08:58→17:48)
[2019-09-02] MEDS: CARVedilol 6.25 MG TAB PO SCH ×2 (08:59→20:49)
[2019-09-02] MEDS: ONDANSETRON 4 MG TAB PO PRN ×2 (09:40→19:54)
[2019-09-02] MEDS ORDERED: LACTULOSE 20 GM/30 ML SYRUP UD PO ONE (10:00)
[2019-09-02] MEDS: cefTRIAXone SOD 1 GM in D5W MINI-BAG PLUS 50 ML IV SCH (10:42)
[2019-09-02 14:00] VITALS: BP 106/58
--- NOTE | 2019-09-02 16:01 | IPNPDOC ---
Date Seen The patient was seen on 09/02/19. Progress Note SUBJECTIVE: Given lactulose today for constipation and abdominal pain (chronic issue), now has had 2 BM thus far today. No other complaints overnight. WBC wnl, afebrile, sputum cx normal nicholas. Denies chest pain, shortness of breath, n/v/d. OBJECTIVE: VITAL SIGNS: Please see below. PHYSICAL EXAM: GENERAL: AAOx3, in NAD, resting at bedside chair HEENT: Normocephalic, atraumatic, moist mucous membranes NECK: Supple CARDIOVASCULAR EXAMINATION: S1, S2, no murmurs RESPIRATORY EXAMINATION: diminished the basis, no wheezing or rhonchi ABDOMINAL EXAMINATION: Soft, mild tenderness to palpation, nondistended, positive bowel sounds Back: T spine surgical site covered with dressing. No surrounding erythema, no marga pus. Back brace in place EXTREMITIES: Trace edema SKIN: No rash NEUROLOGICAL EXAMINATION: Unable to assess PSYCHIATRIC EXAMINATION: AOx1 to person LABORATORY DATA: Please see below IMAGING: CT T spine with contrast 08/30/19: 1. Chronic osteopenia and advanced multilevel degenerative changes. Evidence for fixation through the mid to lower thoracic spine with the accompanying vertebral bodies demonstrating significant heterogeneity and somewhat destructive changes. Underlying osteomyelitis/diskitis cannot definitively be excluded. 2. No obvious paraspinal fluid collection or abscess identified. Consider MRI for further investigation if necessary. 3. Visualized lung gamez demonstrate moderate pleural effusions and lower lobe consolidations (right greater than left). CT head: negative for acute pathology CXR: without infiltrates or effusions CT T-spine without contrast: Mid-thoracic posterior instrument effusion is present with the hardware apparently intact. Evaluation of the hardware and adjacent anatomy is suboptimal secondary to associated streak artifact. There is no evidence of acute fracture, subluxation or dislocation. Diffuse osteopenia is present. There is exaggerated thoracic kyphosis. Bilateral pleural effusions are present. Atherosclerotic disease is noted. Dual lead pacing device is present. Last echo 08/11/19: 1. Normal left ventricular size and wall thickness with a low normal global left ventricular systolic function estimated at 50-55%. 2. Moderately enlarged left atrium and right atrium. Normal right ventricle 3. The atrial septum appeared to be normal without evidence of defect or shunt. 4. Normal aortic root. 5. No pericardial effusion seen. 6. Mildly calcified aortic valve with minimally restricted leaflet motion. Mildly calcified mitral annulus with normal anterior mitral valve leaflet motion . Normal tricuspid valve. The pulmonic valve and proximal pulmonary artery branches were not well visualized. 7. The inferior vena cava was not well visualized. ASSESSMENT: 69-year-old female with multiple medical comorbidities who recently underwent spinal fusion surgery who presented from [facility] with altered mental status, possibly medication induced, hospital acquired PNA PLAN: 1. Healthcare associated PNA -WBC wnl today, afebrile -As patient previously responded to ceftriaxone, will start back on ceftriaxone, doxy -Sputum culture normal nicholas -BCx NG thus far -F/u Daily labs, ESR, CRP 2. Bilateral pleural effusions likely 2/2 to CHF -Pos fluid balance despite increasing lasix BID further -Fluid restriction to 1.5 L/day started 09/01/19 -Last hospitalization required aggressive diuresis. -Echo above -BNP slightly improved -C/w BB, lasix to 60 IV BID (consider increasing further), monitor I&O's, daily wt., fluid restriction -F/u daily labs -If does not improve further, consider pulmonary consult and drainage of pleural effusions 3. Thoracic spine wound -Stable with wound care -CT thoracic spine: Underlying osteomyelitis/diskitis cannot definitively be excluded. -Reviewed CT with covering radiologist 08/30/19 who did not believe this was osteomyelitis. -Wound culture NG, few yeast -D/aliya pain management consult as pain is currently controlled on regimen. 4. Chronic diastolic congestive heart failure/coronary artery disease. Status post stent placement and permanent pacemaker -Encourage hydration since she has barely taken PO while encephalopathic -Strict I/Os -Daily wt -C/w optimal medical management with plavix, statin, beta andrew and Lasix. 5. Physical deconditioning -Previously in rehab facility -PT/OT 6. Hypertension. Continue Coreg, Imdur 7. Diabetes mellitus. Sliding scale insulin coverage with meals and at bedtime 8. Chronic atrial fibrillation. Not on anti-coagulation, continue Coreg 9. COPD Continue home regimen, supplemental oxygen as needed to maintain O2 sats between 88-92%. 10. DVT prophylaxis: -Heparin subcutaneous 11. GI prophylaxis: -Home PPI DISPOSITION: C/w treatment above. Plan is likely discharge to rehab facility when medically improved. VS, I&O, 24H, Fishbone Vital Signs/I&O Vital Signs Date Time Temp Pulse Resp B/P (MAP) Pulse Ox O2 Delivery O2 Flow Rate FiO2 09/02/19 14:00 97.4 60 18 106/58 (74) 98 Room Air I&O- Last 24 Hours up to 6 AM 09/02/19 06:00 Intake Total 1220 ml Output Total 551 ml Balance 669 ml Laboratory Data 24H LABS Laboratory Tests 2 09/01/19 16:36: Bedside Glucose (Misc Panel) 93 09/01/19 20:02: Bedside Glucose (Misc Panel) 125H 09/02/19 06:10: Nucleated Red Blood Cells % (auto) 0.2H, Anion Gap 8, Glomerular Filtration Rate 46.5, Calcium Level 8.6L, Total Bilirubin 0.7, Aspartate Amino Transf (AST/SGOT) 17, Alanine Aminotransferase (ALT/SGPT) 11L, Alkaline Phosphatase 266H, OA-Rjm-[id number]-Type Natriuretic Peptide 4261H, Total Protein 6.6, Albumin 2.6L, Albumin/Globulin Ratio 0.7L 09/02/19 11:35: Bedside Glucose (Misc Panel) 148H CBC/BMP Laboratory Tests 09/02/19 06:10 Microbiology Microbiology 09/01/19 Blood Culture - Preliminary, Resulted No growth after 24 hours . All specim... 09/01/19 Blood Culture - Preliminary, Resulted No growth after 24 hours . All specim... 08/31/19 Gram Stain - Final, Complete 08/31/19 Sputum Culture - Final, Complete Yeast Like Organism 08/25/19 Gram Stain - Final, Complete 08/25/19 Wound Culture - Final, Complete Yeast Like Organism 08/24/19 Blood Culture - Final, Complete NO GROWTH AFTER 5 DAYS 08/24/19 Urine Culture - Final, Complete 08/24/19 Blood Culture - Final, Complete NO GROWTH AFTER 5 DAYS Current Medications Current Medications Medications (Trade) Dose Ordered Sig/Arturo Route PRN Reason Start Time Stop Time Status Last Admin Dose Admin Acetaminophen (Tylenol Tab) 650 mg 0200,0800,1400,1999 PO 08/26/19 20:00 09/02/19 14:01 Acetaminophen (Tylenol Tab) 650 mg DAILY@0200,0800 PO 08/25/19 02:00 08/26/19 16:57 DC 08/26/19 09:50 Acetaminophen (Tylenol Tab) 650 mg DAILY@1400,1999 PO 08/24/19 14:00 08/26/19 16:57 DC 08/26/19 15:07 Albuterol/ Ipratropium (Duoneb (Ipr 0.5mg/Alb 2.5mg)) 3 ml Q6HP PRN NEB SOB/WHEEZING 08/30/19 18:45 08/30/19 21:36 Allopurinol (Zyloprim) 300 mg DAILY PO 08/24/19 09:00 09/02/19 08:55 Bisacodyl (Dulcolax Suppository) 10 mg DAILY PRN MA CONSTIPATION 08/24/19 13:15 Calcium Carbonate (Tums) 1,000 mg Q4HP PRN PO HEARTBURN 08/25/19 18:00 Carvedilol (COReg) 6.25 mg BID PO 08/24/19 09:00 08/24/19 13:34 DC Carvedilol (COReg) 6.25 mg BID PO 08/24/19 21:00 09/02/19 08:59 Ceftriaxone Sodium 1 gm/ Dextrose 50 ml @ 100 mls/hr Q24H IV 08/24/19 16:00 08/26/19 16:53 DC 08/25/19 16:23 Ceftriaxone Sodium 1 gm/ Dextrose 50 ml @ 100 mls/hr Q24H IV 08/31/19 11:00 09/02/19 10:42 Clopidogrel Bisulfate (PLAVix) 75 mg DAILY PO 08/25/19 09:00 09/02/19 08:55 Dextrose (Dextrose 50%) 25 ml ASDIRECTED PRN IV SEE LABEL COMMENTS 08/24/19 14:00 Diphenhydramine HCl (Benadryl) 25 mg QHS PO 08/27/19 21:00 08/28/19 15:57 DC Diphenhydramine HCl (Benadryl) 25 mg QHS PRN PO INSOMNIA 08/27/19 08:00 08/28/19 15:57 DC Docusate Sodium (Colace) 100 mg BID PO 08/24/19 09:00 09/02/19 08:55 Doxycycline Hyclate (Vibramycin) 100 mg BID PO 08/31/19 09:00 09/02/19 08:55 Enoxaparin Sodium (Lovenox) 40 mg DAILY SC 09/02/19 09:00 09/02/19 08:56 Furosemide (LASIX injection) 60 mg BID@09,17 IV 08/31/19 17:00 09/02/19 08:58 Furosemide (Lasix) 40 mg BID PO 08/30/19 21:00 08/31/19 08:28 DC 08/31/19 08:25 Furosemide (Lasix) 60 mg DAILY PO 08/24/19 09:00 08/24/19 13:33 DC Furosemide (Lasix) 60 mg DAILY PO 08/25/19 09:00 08/30/19 18:40 DC 08/30/19 08:09 Glucagon (Glucagon) 1 mg ASDIRECTED PRN SC SEE LABEL COMMENTS 08/24/19 14:00 Glucose (Glucose) 16 GM ASDIRECTED PRN PO SEE LABEL COMMENTS 08/24/19 14:00 Haloperidol (Haldol) 1 mg Q8HP PRN IM AGITATION 08/26/19 13:15 08/27/19 12:14 DC 08/26/19 13:56 Haloperidol (Haldol) 2 mg Q6HP PRN IM AGITATION 08/27/19 12:15 08/28/19 15:43 DC 08/27/19 12:34 Heparin Sodium (Heparin (Flush)) 100 units ASDIRECTED PRN IV SEE LABEL COMMENTS 08/28/19 18:00 Cancel Heparin Sodium (Heparin (Flush)) 100 units BID@0600,1800 IV 08/28/19 18:00 08/30/19 18:14 DC 08/29/19 06:17 Heparin Sodium (Porcine) (Heparin) 5,000 units Q12H SC 08/24/19 21:00 09/01/19 17:40 DC 09/01/19 07:58 Home Med (Med Rec Complete!) ASDIRECTED XX 08/24/19 11:00 08/24/19 11:01 DC Insulin Human Lispro (HumaLOG INSULIN) SEE PROTOCOL TABLE AC SC 08/24/19 17:30 09/02/19 14:01 Insulin Human Lispro (HumaLOG INSULIN) SEE PROTOCOL TABLE QHS SC 08/24/19 21:00 Isosorbide Mononitrate (Imdur) 30 mg DAILY PO 08/24/19 09:00 08/24/19 13:33 DC Isosorbide Mononitrate (Imdur) 30 mg DAILY PO 08/25/19 09:00 09/02/19 08:58 Lactobacillus Acidophilus (Bacid) 1 ea BIDWM PO 08/31/19 08:00 09/02/19 08:55 Lidocaine (Lidoderm Patch) 1 patch DAILY TOP 08/25/19 09:00 09/02/19 08:56 Lorazepam (Ativan) 2 mg Q6HP PRN IV AGITATION 08/28/19 15:45 08/29/19 18:13 DC Magnesium Oxide (Mag-Ox) 400 mg DAILY PO 08/24/19 09:00 09/02/19 08:55 Non-Formulary Medication ( See Comment Field Below ) REMOVE LIDODERM PATCH DAILY@21 XX 08/24/19 21:00 09/01/19 20:29 Ondansetron HCl (Zofran) 4 mg Q6H PRN PO NAUSEA OR VOMITING 08/24/19 13:15 09/02/19 09:40 Pantoprazole Sodium (Protonix) 40 mg DAILY PO 08/24/19 09:00 09/02/19 08:55 Polyethylene Glycol (Miralax) 1 pkt DAILY PO 08/25/19 09:00 09/02/19 08:55 Polyethylene Glycol (Miralax) 1 pkt DAILYPRN PRN PO CONSTIPATION 08/25/19 18:00 Potassium Chloride (Micro-K Extencaps) 30 meq DAILY PO 08/24/19 14:00 08/28/19 15:44 DC 08/27/19 10:19 Ranolazine (Ranexa) 500 mg BID PO 08/24/19 21:00 09/02/19 08:55 Salmeterol Xinafoate/ Fluticasone (Advair Hfa 45-21 Mcg/Act) 2 puff RBID INH 08/24/19 20:00 09/02/19 07:20 Senna (Senokot) 2 tab QHS PO 09/02/19 21:00 Senna/Docusate Sodium (Senokot S) 1 tab BID PO 08/25/19 21:00 09/02/19 08:55 Simethicone (Mylicon) 80 mg QID PRN PO DYSPEPSIA 08/24/19 13:15 09/01/19 09:57 DC 09/01/19 07:55 Simethicone (Mylicon) 80 mg TID PO 09/01/19 16:00 09/02/19 08:55 Sodium Chloride (Saline Lock Flush) 10 ml ASDIRECTED PRN IV SEE LABEL COMMENTS 08/28/19 18:00 Cancel Sodium Chloride (Saline Lock Flush) 10 ml BID@0600,1800 IV 08/28/19 18:00 08/30/19 18:14 DC 08/29/19 06:17 Allergies Coded Allergies: NUTS (Verified Allergy, Severe, DIFFICULTY BREATHING, 08/24/19) Sulfa (Sulfonamide Antibiotics) (Verified Allergy, Severe, ANAPHYLACTIC SHOCK, 08/24/19) TAPE (Verified Allergy, Intermediate, clear dressings and tape on IV's - rash, 08/24/19) dronedarone (Unverified Allergy, Intermediate, CONTRAINDICATED DUE TO RAN EXA, 08/24/19) lansoprazole (Unverified Allergy, Intermediate, CONTRAINDICATED DUE TO BLOOD THINNERS, 08/24/19) latex (Unverified Allergy, Intermediate, RASH, 08/24/19) PERFUMES (Verified Allergy, Unknown, 08/24/19) STATES DRYER SHEETS WELL bacitracin (Verified Allergy, Unknown, 08/24/19) ketorolac (Verified Adverse Reaction, Severe, 08/24/19) renal failure Corticosteroids (Glucocorticoids) (Verified Adverse Reaction, Intermediate, STATED CHF FROM DEXADROL, 08/24/19) Mncslap-Xhk-Jrp Reductase Inhibitor (Unverified Adverse Reaction, Intermediate, MUSCLE WEAKNESS, 08/24/19) codeine (Verified Adverse Reaction, Intermediate, HALLUCINATIONS, 08/24/19) glycopyrrolate (Unverified Adverse Reaction, Intermediate, CHEST PAIN, 08/24/19) naloxone (Unverified Adverse Reaction, Intermediate, GI UPSET, DIZZY, 08/24/19) nifedipine (Unverified Adverse Reaction, Intermediate, SORE THROAT, 08/24/19) oxycodone (Verified Adverse Reaction, Intermediate, HALLUCINATIONS, 08/24/19) pentazocine (Unverified Adverse Reaction, Intermediate, GI UPSET, DIZZY, 08/24/19) Shanta Casiano MD Sep 02, 2019 16:01
[2019-09-02] MEDS ORDERED: traMADol 50 MG TAB PO ONE (17:30)
[2019-09-02] MEDS: **NOTE PATIENT COMMENT** MISC XX SCH (20:50)
[2019-09-02] MEDS: SENNA 8.6 MG TAB (SENOKOT) PO SCH (20:50)
[2019-09-02 22:00] VITALS: BP 139/66
[2019-09-03] MEDS: ONDANSETRON 4 MG TAB PO PRN ×2 (02:07→12:57)
[2019-09-03] MEDS: ACETAMINOPHEN TAB 650MG DOSE (2X325MG) PO SCH ×4 (02:08→22:05)
[2019-09-03 06:00] VITALS: BP 132/69
[2019-09-03 07:22] LABS: HEMATOCRIT 30.5 % (36.0-47.0); HEMOGLOBIN 9.8 g/dl (12.0-15.5); MEAN CORPUSCULAR HEMOGLOBIN 30.2 pg (27.0-33.0); MEAN CORPUSCULAR HGB CONC 32.1 g/dl (32.0-36.5); MEAN CORPUSCULAR VOLUME 93.8 fl (80.0-96.0); PLATELET COUNT, AUTOMATED 430 10^3/uL (150-450); RED BLOOD COUNT 3.25 10^6/uL (4.00-5.40); WHITE BLOOD COUNT 11.9 10^3/uL (4.0-10.0)
[2019-09-03] MEDS: HumaLOG INSULIN (NovoLOG) PER UNIT SC SCH ×4 (07:30→21:00)
[2019-09-03 07:40] LABS: ERYTHROCYTE SEDIMENTATION RATE 48 mm/hr (0-30)
[2019-09-03 07:50] LABS: ALBUMIN 2.5 GM/DL (3.2-5.2); BILIRUBIN,TOTAL 0.6 MG/DL (0.2-1.0); C REACTIVE PROTEIN QUANTITATIV 3.9 MG/DL (0.00-0.30); CALCIUM LEVEL 8.4 MG/DL (8.8-10.2); CREATININE FOR GFR 1.44 MG/DL (0.55-1.30); GLOMERULAR FILTRATION RATE 38.4 (>45); POTASSIUM SERUM 3.3 MEQ/L (3.5-5.1); TOTAL PROTEIN 6.4 GM/DL (6.4-8.2)
[2019-09-03] MEDS: ADVAIR HFA 45/21MCG INHALER INH SCH ×2 (08:11→18:31)
[2019-09-03] MEDS: PANTOPRAZOLE 40MG TAB (PROTONIX) PO SCH (09:31)
[2019-09-03] MEDS: RANOLAZINE 500 MG ER TAB PO SCH ×2 (09:31→22:10)
[2019-09-03] MEDS: allopurinoL 300 MG TAB PO SCH (09:32)
[2019-09-03] MEDS: SENOKOT S TAB PO SCH ×2 (09:32→22:03)
[2019-09-03] MEDS: LACTOBACILLUS ACIDOPHILUS CAP (BACID) PO SCH ×2 (09:32→18:05)
[2019-09-03] MEDS: DOXYCYCLINE HYCLATE 100MG TABLET PO SCH ×2 (09:32→22:03)
[2019-09-03] MEDS: SIMETHICONE 80 MG CHEW TAB PO SCH ×3 (09:32→22:03)
[2019-09-03] MEDS: MAGNESIUM OXIDE 400 MG TAB (MAG-OX) PO SCH (09:32)
[2019-09-03] MEDS: DOCUSATE SODIUM 100 MG CAP PO SCH ×2 (09:32→22:03)
[2019-09-03] MEDS: CLOPIDOGREL 75 MG TAB PO SCH (09:34)
[2019-09-03] MEDS: ISOSORBIDE MON. (IMDUR) 30 MG XR TAB PO SCH (09:34)
[2019-09-03] MEDS: CARVedilol 6.25 MG TAB PO SCH ×2 (09:34→22:04)
[2019-09-03] MEDS: MIRALAX *UNIT DOSE* 17GM PACKET PO SCH (09:34)
[2019-09-03] MEDS: LIDOCAINE 5% (LIDODERM) PATCH TOP SCH (09:35)
[2019-09-03] MEDS: FUROSEMIDE 100MG/10ML VIAL (J1940) IV SCH ×2 (09:35→18:06)
[2019-09-03] MEDS: ENOXAPARIN 40MG/0.4ML SYRINGE (J1650 PER 10MG) SC SCH (09:35)
[2019-09-03] MEDS: cefTRIAXone SOD 1 GM in D5W MINI-BAG PLUS 50 ML IV SCH (11:25)
[2019-09-03 14:00] VITALS: BP 134/61
--- NOTE | 2019-09-03 16:18 | IPNPDOC ---
Subjective Date Seen The patient was seen on 09/03/19. Subjective Chief Complaint/HPI Ms. Sosa reports that her back is still really bothering her. Unfortunately she's had hallucinations with any narcotic she tried. She is on routine Tylenol for pain control because this. She denies any significant problems with her breathing. General: Reports: Normal Appetite Constitutional: Denies: Chills, Fever Pulmonary: Denies: Cough, Pleuritic Chest Pain Cardiovascular: Denies: Chest Pain, Palpitations Musculoskeletal: Reports: Back Pain Psych: Reports: Mood Normal Objective Physical Examination General Exam: Positive: Alert, Cooperative (laying in bed talking to the nurse when I entered the room), No Acute Distress Eye Exam: Positive: Conjunctiva & lids normal; Negative: Sclera icteric ENT Exam: Positive: Mucous membr. moist/pink Neck Exam: Negative: Lymphadenopathy Chest Exam: Positive: Clear to auscultation, Diminished (at the bases bilaterally secondary to positioning or thoracic deformity); Negative: Wheezing Heart Exam: Positive: Rate Normal, Normal S1, Normal S2 Abdomen Exam: Positive: Normal bowel sounds, Soft; Negative: Tenderness Extremity Exam: Positive: Edema (trace malleolar edema) Psych Exam: Positive: Mood NL, Oriented x 3 Other physical findings There is a long dressing over her thoracic wound. This is not saturated. Assessment /Plan Problems (1) Healthcare-associated pneumonia Status: Acute Response to Treatment: Improving Discussed With: Nurse, Patient Problem Specific Plan: Monitor Clinically, Repeat Labs Problem Text: She is currently on Rocephin and doxycycline and this seems to be working. Her sputum culture came back with yeast-like organism only (which I strongly suspect is an oral contaminant). Blood cultures are negative 48 hours. I anticipate she'll remain on this regimen for about four additional days. (2) Bilateral pleural effusion Problem Specific Plan: Monitor Clinically, Repeat Tests Problem Text: I'm not sure if the diminished sounds in crackles and hearing at her bases are atelectatic crackles related to positioning and her thoracic wound or if they are effusions. She's not had a chest x-ray in some time. I'll repeat a chest x-ray in the morning. (3) Wound of left side of back Status: Chronic Discussed With: Nurse, Patient Problem Specific Plan: Monitor Clinically Problem Text: Wound culture returned with a yeast-like organism. Blood cultures remain negative 48 hours. She will probably have to stick with Tylenol for pain control. (4) Chronic diastolic (congestive) heart failure Status: Chronic Response to Treatment: Compensated Problem Specific Plan: Monitor Clinically, Repeat Labs Problem Text: She appears to be reasonably compensated at this time. It is possible she has persistent for pleural effusions. There is trace leg edema around the ankles, though overall her heart failure seems to be reasonably controlled. (5) Hypertension Status: Chronic Response to Treatment: Controlled Problem Specific Plan: Monitor Clinically Problem Text: Her blood pressures have been reasonably controlled today. Continue current regimen, monitor. (6) Coronary artery disease Status: Chronic Response to Treatment: Stable Problem Specific Plan: Monitor Clinically (7) Type 2 diabetes mellitus Status: Chronic Response to Treatment: Controlled Problem Specific Plan: Monitor Clinically, Repeat Labs Problem Text: Her blood glucose levels have been quite well controlled today. This is important for managing her infection risk as well. Continue current medications, monitor. (8) Chronic atrial fibrillation Status: Chronic Response to Treatment: Stable Problem Specific Plan: Monitor Clinically Problem Text: Her heart rate is quite well controlled with carvedilol. She sounds pretty regular on exam today. She is not anticoagulated, although it's not entirely clear to me why. (9) COPD (chronic obstructive pulmonary disease) Status: Chronic Response to Treatment: Stable Problem Specific Plan: Monitor Clinically Problem Text: Her breathing is reasonably controlled. Continue current medications, monitor. Plan/VTE VTE Prophylaxis Ordered?: Yes (subcutaneous heparin) VS, I&O, 24H, Fishbone Vital Signs/I&O Vital Signs Date Time Temp Pulse Resp B/P (MAP) Pulse Ox O2 Delivery O2 Flow Rate FiO2 09/03/19 14:00 97.8 60 18 134/61 (85) 98 Room Air I&O- Last 24 Hours up to 6 AM 09/03/19 06:00 Intake Total 945 ml Balance 945 ml Laboratory Data 24H LABS Laboratory Tests 2 09/02/19 16:46: Bedside Glucose (Misc Panel) 101 09/02/19 19:53: Bedside Glucose (Misc Panel) 96 09/03/19 06:49: Bedside Glucose (Misc Panel) 114 09/03/19 07:08: Nucleated Red Blood Cells % (auto) 0.0, Erythrocyte Sedimentation Rate 48H, Anion Gap 11, Glomerular Filtration Rate 38.4L, Calcium Level 8.4L, Total Bilirubin 0.6, Aspartate Amino Transf (AST/SGOT) 14, Alanine Aminotransferase (ALT/SGPT) 12, Alkaline Phosphatase 289H, C-Reactive Protein, Quantitative 3.90H, Total Protein 6.4, Albumin 2.5L, Albumin/Globulin Ratio 0.6L 09/03/19 11:36: Bedside Glucose (Misc Panel) 115 CBC/BMP Laboratory Tests 09/03/19 07:08 Microbiology Microbiology 09/01/19 Blood Culture - Preliminary, Resulted No Growth after 48 hours. All Specime... 09/01/19 Blood Culture - Preliminary, Resulted No Growth after 48 hours. All Specime... 08/31/19 Gram Stain - Final, Complete 08/31/19 Sputum Culture - Final, Complete Yeast Like Organism 08/25/19 Gram Stain - Final, Complete 08/25/19 Wound Culture - Final, Complete Yeast Like Organism 08/24/19 Blood Culture - Final, Complete NO GROWTH AFTER 5 DAYS 08/24/19 Urine Culture - Final, Complete 08/24/19 Blood Culture - Final, Complete NO GROWTH AFTER 5 DAYS Vamsi Razo MD Sep 03, 2019 16:18
[2019-09-03 22:00] VITALS: BP 133/84
[2019-09-03] MEDS: SENNA 8.6 MG TAB (SENOKOT) PO SCH (22:03)
[2019-09-03] MEDS: **NOTE PATIENT COMMENT** MISC XX SCH (23:02)
[2019-09-04] MEDS: ACETAMINOPHEN TAB 650MG DOSE (2X325MG) PO SCH ×4 (01:59→19:57)
[2019-09-04] MEDS: ONDANSETRON 4 MG TAB PO PRN ×3 (04:09→16:59)
[2019-09-04 06:00] VITALS: BP 139/64
[2019-09-04 06:09] LABS: HEMATOCRIT 31.7 % (36.0-47.0); HEMOGLOBIN 10.1 g/dl (12.0-15.5); MEAN CORPUSCULAR HEMOGLOBIN 30.4 pg (27.0-33.0); MEAN CORPUSCULAR HGB CONC 31.9 g/dl (32.0-36.5); MEAN CORPUSCULAR VOLUME 95.5 fl (80.0-96.0); PLATELET COUNT, AUTOMATED 453 10^3/uL (150-450); RED BLOOD COUNT 3.32 10^6/uL (4.00-5.40); WHITE BLOOD COUNT 10.3 10^3/uL (4.0-10.0)
[2019-09-04 06:34] LABS: ALBUMIN 2.7 GM/DL (3.2-5.2); BILIRUBIN,TOTAL 0.8 MG/DL (0.2-1.0); C REACTIVE PROTEIN QUANTITATIV 4.76 MG/DL (0.00-0.30); CALCIUM LEVEL 8.6 MG/DL (8.8-10.2); CREATININE FOR GFR 1.43 MG/DL (0.55-1.30); GLOMERULAR FILTRATION RATE 38.7 (>45); POTASSIUM SERUM 3.7 MEQ/L (3.5-5.1); TOTAL PROTEIN 6.4 GM/DL (6.4-8.2)
[2019-09-04] MEDS: HumaLOG INSULIN (NovoLOG) PER UNIT SC SCH ×4 (07:30→21:00)
[2019-09-04] MEDS: ADVAIR HFA 45/21MCG INHALER INH SCH ×2 (07:34→20:14)
--- NOTE | 2019-09-04 09:59 | IPNPDOC ---
Subjective Date Seen The patient was seen on 09/04/19. Subjective Chief Complaint/HPI Patient was seen on 09/04/2019 at bed side. She reports having pain in the back in thoracic and buttock region, reports having poor sleep because of that. Denies having any other problems. Constitutional: Denies: Chills, Fever Pulmonary: Denies: Pleuritic Chest Pain Cardiovascular: Denies: Chest Pain, Palpitations Psych: Reports: Mood Normal Objective Physical Examination General Exam: Positive: Alert (laying on her right second bed when I entered the room), Cooperative, No Acute Distress Eye Exam: Positive: Conjunctiva & lids normal; Negative: Sclera icteric ENT Exam: Positive: Mucous membr. moist/pink Neck Exam: Positive: Supple; Negative: Lymphadenopathy Chest Exam: Positive: Rales (occasional fine rales noted in the right/dependent base), Diminished; Negative: Wheezing Heart Exam: Positive: Rate Normal, Normal S1, Normal S2 Abdomen Exam: Positive: Normal bowel sounds, Soft; Negative: Tenderness Extremity Exam: Positive: Edema (1+ midtibial edema today) Skin Exam: Positive: Breakdown (she has a rather large stage I and two small stage II ulcerations noted on her buttocks under the ischeal tuberosities), Other skin issue (she has several areas of incomplete closure wound dehiscence thoracic spine. I see pink granulation tissue with a nice mukherjee coagulum covering it and no evidence of an acute bacterial infection) Psych Exam: Positive: Mood NL, Oriented x 3 Assessment /Plan Assessment 69-year-old female with multiple medical comorbidities who recently underwent spinal fusion surgery who presented from [facility] with altered mental status vs hospital acquired pneumonia. Patient was treated with antibiotics. Problems (1) Healthcare-associated pneumonia Status: Acute Response to Treatment: Improving Discussed With: Nurse, Patient Problem Specific Plan: Monitor Clinically, Repeat Labs Problem Text: She is currently on Rocephin and doxycycline and this seems to be working. I am aware that this is not typically prescribed regimen for nosocomial pneumonia, but this is what she was on when I received her from the previous physician. I rechecked a procalcitonin level today and it is negative. Therefore, I believe that this regimen is working effectively for her. Her sputum culture came back with yeast-like organism only (which I strongly suspect is an oral contaminant). Blood cultures are negative 72 hours. I anticipate she'll remain on this regimen for about two additional days. (2) Bilateral pleural effusion Problem Specific Plan: Monitor Clinically, Repeat Tests Problem Text: The repeat chest x-ray did demonstrate some fluid at the lung bases (right greater than left). We'll continue treating for the pneumonia as above. (3) Wound of left side of back Status: Chronic Discussed With: Nurse, Patient Problem Specific Plan: Monitor Clinically Problem Text: I asked the PT wound team to take a look at her today. Blood cultures remain negative 72 hours. She will probably have to stick with Tylenol for pain control. (4) Chronic diastolic (congestive) heart failure Status: Chronic Response to Treatment: Compensated Problem Specific Plan: Monitor Clinically, Repeat Labs Problem Text: She appears to be reasonably compensated at this time. She has persistent for pleural effusions. There is slightly more leg edema then there was yesterday, though overall her heart failure seems to be reasonably controlled. (5) Hypertension Status: Chronic Response to Treatment: Controlled Problem Specific Plan: Monitor Clinically Problem Text: Her blood pressures have been reasonably controlled today. Continue current regimen, monitor. (6) Coronary artery disease Status: Chronic Response to Treatment: Stable Problem Specific Plan: Monitor Clinically (7) Type 2 diabetes mellitus Status: Chronic Response to Treatment: Controlled Problem Specific Plan: Monitor Clinically, Repeat Labs Problem Text: Her blood glucose levels have been quite well controlled today. This is important for managing her infection risk as well. Continue current medications, monitor. (8) Chronic atrial fibrillation Status: Chronic Response to Treatment: Stable Problem Specific Plan: Monitor Clinically Problem Text: Her heart rate is quite well controlled with carvedilol. She sounds pretty regular on exam today. She is not anticoagulated, although it's not entirely clear to me why. (9) COPD (chronic obstructive pulmonary disease) Status: Chronic Response to Treatment: Stable Problem Specific Plan: Monitor Clinically Problem Text: Her breathing is reasonably controlled. Continue current medications, monitor. Plan/VTE VTE Prophylaxis Ordered?: Yes (subcutaneous heparin) Plan Anticipated Discharge: Sub Acute Rehab (likely back to [facility] once her course of antibiotics is completed) VS, I&O, 24H, Fishbone Vital Signs/I&O Vital Signs Date Time Temp Pulse Resp B/P (MAP) Pulse Ox O2 Delivery O2 Flow Rate FiO2 7/6/20 06:00 98.1 62 20 139/64 (89) 99 Room Air I&O- Last 24 Hours up to 6 AM 09/04/19 06:00 Intake Total 1220 ml Output Total 0 ml Balance 1220 ml Laboratory Data 24H LABS Laboratory Tests 2 09/03/19 11:36: Bedside Glucose (Misc Panel) 115 09/03/19 16:24: Bedside Glucose (Misc Panel) 149H 09/03/19 20:23: Bedside Glucose (Misc Panel) 151H 09/04/19 05:39: Nucleated Red Blood Cells % (auto) 0.0, Anion Gap 9, Glomerular Filtration Rate 38.7L, Calcium Level 8.6L, Total Bilirubin 0.8, Aspartate Amino Transf (AST/SGOT) 19, Alanine Aminotransferase (ALT/SGPT) 13, Alkaline Phosphatase 299H, C-Reactive Protein, Quantitative 4.76H, Total Protein 6.4, Albumin 2.7L, Albumin/Globulin Ratio 0.7L CBC/BMP Laboratory Tests 09/04/19 05:39 Microbiology Microbiology 09/01/19 Blood Culture - Preliminary, Resulted No Growth after 72 hours. All specime... 09/01/19 Blood Culture - Preliminary, Resulted No Growth after 72 hours. All specime... 08/31/19 Gram Stain - Final, Complete 08/31/19 Sputum Culture - Final, Complete Yeast Like Organism 08/25/19 Gram Stain - Final, Complete 08/25/19 Wound Culture - Final, Complete Yeast Like Organism Vamsi Razo MD Sep 04, 2019 09:59
[2019-09-04] MEDS: MIRALAX *UNIT DOSE* 17GM PACKET PO SCH (10:04)
[2019-09-04] MEDS: FUROSEMIDE 100MG/10ML VIAL (J1940) IV SCH ×2 (10:05→17:51)
[2019-09-04] MEDS: RANOLAZINE 500 MG ER TAB PO SCH ×2 (10:06→19:58)
[2019-09-04] MEDS: LIDOCAINE 5% (LIDODERM) PATCH TOP SCH (10:06)
[2019-09-04] MEDS: cefTRIAXone SOD 1 GM in D5W MINI-BAG PLUS 50 ML IV SCH (10:06)
[2019-09-04] MEDS: MAGNESIUM OXIDE 400 MG TAB (MAG-OX) PO SCH (10:06)
[2019-09-04] MEDS: LACTOBACILLUS ACIDOPHILUS CAP (BACID) PO SCH ×2 (10:07→17:52)
[2019-09-04] MEDS: DOCUSATE SODIUM 100 MG CAP PO SCH ×2 (10:07→19:58)
[2019-09-04] MEDS: CLOPIDOGREL 75 MG TAB PO SCH (10:07)
[2019-09-04] MEDS: DOXYCYCLINE HYCLATE 100MG TABLET PO SCH ×2 (10:08→19:59)
[2019-09-04] MEDS: SIMETHICONE 80 MG CHEW TAB PO SCH ×3 (10:08→19:59)
[2019-09-04] MEDS: ISOSORBIDE MON. (IMDUR) 30 MG XR TAB PO SCH (10:08)
[2019-09-04] MEDS: CARVedilol 6.25 MG TAB PO SCH ×2 (10:08→19:59)
[2019-09-04] MEDS: allopurinoL 300 MG TAB PO SCH (10:08)
[2019-09-04] MEDS: SENOKOT S TAB PO SCH ×2 (10:08→19:59)
[2019-09-04] MEDS: PANTOPRAZOLE 40MG TAB (PROTONIX) PO SCH (10:08)
[2019-09-04] MEDS: ENOXAPARIN 40MG/0.4ML SYRINGE (J1650 PER 10MG) SC SCH (10:09)
[2019-09-04 14:00] VITALS: BP 135/56
[2019-09-04] MEDS: **NOTE PATIENT COMMENT** MISC XX SCH (19:57)
[2019-09-04] MEDS: SENNA 8.6 MG TAB (SENOKOT) PO SCH (19:58)
[2019-09-04 22:00] VITALS: BP 127/63
[2019-09-05] MEDS: ACETAMINOPHEN TAB 650MG DOSE (2X325MG) PO SCH ×4 (01:50→20:54)
[2019-09-05 05:25] LABS: HEMATOCRIT 32.1 % (36.0-47.0); HEMOGLOBIN 10.3 g/dl (12.0-15.5); MEAN CORPUSCULAR HEMOGLOBIN 30.5 pg (27.0-33.0); MEAN CORPUSCULAR HGB CONC 32.1 g/dl (32.0-36.5); PLATELET COUNT, AUTOMATED 428 10^3/uL (150-450); RED BLOOD COUNT 3.38 10^6/uL (4.00-5.40); WHITE BLOOD COUNT 10.8 10^3/uL (4.0-10.0)
[2019-09-05 06:00] VITALS: BP 130/62
[2019-09-05 06:01] LABS: ALBUMIN 2.7 GM/DL (3.2-5.2); BILIRUBIN,TOTAL 0.5 MG/DL (0.2-1.0); CALCIUM LEVEL 8.9 MG/DL (8.8-10.2); CREATININE FOR GFR 1.35 MG/DL (0.55-1.30); GLOMERULAR FILTRATION RATE 41.4 (>45); POTASSIUM SERUM 3.8 MEQ/L (3.5-5.1); TOTAL PROTEIN 6.3 GM/DL (6.4-8.2)
[2019-09-05] MEDS: ONDANSETRON 4 MG TAB PO PRN ×2 (06:09→21:53)
[2019-09-05] MEDS: HumaLOG INSULIN (NovoLOG) PER UNIT SC SCH ×4 (07:30→20:59)
[2019-09-05] MEDS: ADVAIR HFA 45/21MCG INHALER INH SCH ×2 (07:59→18:18)
[2019-09-05] MEDS: FUROSEMIDE 100MG/10ML VIAL (J1940) IV SCH ×3 (09:00→17:51)
[2019-09-05] MEDS: MAGNESIUM OXIDE 400 MG TAB (MAG-OX) PO SCH (09:52)
[2019-09-05] MEDS: ENOXAPARIN 40MG/0.4ML SYRINGE (J1650 PER 10MG) SC SCH (09:52)
[2019-09-05] MEDS: MIRALAX *UNIT DOSE* 17GM PACKET PO SCH (09:52)
[2019-09-05] MEDS: SIMETHICONE 80 MG CHEW TAB PO SCH ×3 (09:52→20:54)
[2019-09-05] MEDS: RANOLAZINE 500 MG ER TAB PO SCH ×2 (09:53→20:54)
[2019-09-05] MEDS: allopurinoL 300 MG TAB PO SCH (09:53)
[2019-09-05] MEDS: LACTOBACILLUS ACIDOPHILUS CAP (BACID) PO SCH ×2 (09:53→18:09)
[2019-09-05] MEDS: DOXYCYCLINE HYCLATE 100MG TABLET PO SCH ×2 (09:53→20:55)
[2019-09-05] MEDS: CLOPIDOGREL 75 MG TAB PO SCH (09:54)
[2019-09-05] MEDS: CARVedilol 6.25 MG TAB PO SCH ×2 (09:54→20:58)
[2019-09-05] MEDS: DOCUSATE SODIUM 100 MG CAP PO SCH (09:54)
[2019-09-05] MEDS: ISOSORBIDE MON. (IMDUR) 30 MG XR TAB PO SCH (09:54)
[2019-09-05] MEDS: PANTOPRAZOLE 40MG TAB (PROTONIX) PO SCH (09:54)
[2019-09-05] MEDS: cefTRIAXone SOD 1 GM in D5W MINI-BAG PLUS 50 ML IV SCH ×2 (09:55→11:00)
[2019-09-05] MEDS: SENOKOT S TAB PO SCH ×2 (09:55→20:54)
[2019-09-05] MEDS: LIDOCAINE 5% (LIDODERM) PATCH TOP SCH (09:56)
--- NOTE | 2019-09-05 10:14 | REP ---
reason for today's exam is pleural effusion. Multiple priors reviewed, the latest 08/24/2019. There is a new opacity in the right lower lobe. There are no other significant changes from the prior exam of 08/24/2019 other than technique. IMPRESSION: New right lower lobe opacity pneumonia/atelectasis/effusion which as increased. Followup is recommended. Electronically Signed by Jose Carlos Gonzalez DO 09/05/2019 05:20 P
[2019-09-05 14:00] VITALS: BP 113/58
[2019-09-05] MEDS ORDERED: LIDOCAINE 1% MDV 20ML VIAL As Ordered ONE (15:25)
[2019-09-05] MEDS ORDERED: SODIUM CHLORIDE 0.9% INJ 10 ML SYR IV PRN (17:00)
[2019-09-05] MEDS: SODIUM CHLORIDE 0.9% INJ 10 ML SYR IV SCH (17:51)
--- NOTE | 2019-09-05 19:36 | REP ---
MIDLINE CATHETER INSERTION WITH SITE ROBERTO CARLOSHroace The procedure was performed under the direct supervision of Dr. Cardenas. The risks and benefits of the procedure were explained and informed consent was obtained by the health care proxy. The right brachial vein was localized using ultrasound guidance. The skin was prepped and draped in a sterile fashion. 1% lidocaine was used as a local anesthetic. Using ultrasound guidance the brachial vein was cannulated and a 0.018 guidewire was inserted. The needle was removed and a 4.5 [place] dilator and peel-away sheath was inserted over the guide wire. A 4.5 [place] single-lumen catheter was cut to length of 15 cm. The dilator was removed and the catheter was inserted over the guide wire. The peel-away sheath was removed and the catheter was flushed with heparinized saline as per Hospital protocol. The catheter was affixed to the skin and a sterile dressing was applied. The patient tolerated the procedure well and there were no immediate complications. Electronically Signed by MELANIE Dobson 09/05/2019 04:54 P Electronically Signed by Noe Cardenas MD 09/05/2019 07:27 P
[2019-09-05] MEDS: SENNA 8.6 MG TAB (SENOKOT) PO SCH (20:54)
[2019-09-05] MEDS: **NOTE PATIENT COMMENT** MISC XX SCH (21:10)
[2019-09-05 22:00] VITALS: BP 130/58
[2019-09-06] MEDS: ACETAMINOPHEN TAB 650MG DOSE (2X325MG) PO SCH ×4 (02:04→20:52)
[2019-09-06 06:00] VITALS: BP 131/86
[2019-09-06 06:02] LABS: HEMATOCRIT 30.2 % (36.0-47.0); HEMOGLOBIN 9.8 g/dl (12.0-15.5); MEAN CORPUSCULAR HEMOGLOBIN 30.7 pg (27.0-33.0); MEAN CORPUSCULAR HGB CONC 32.5 g/dl (32.0-36.5); MEAN CORPUSCULAR VOLUME 94.7 fl (80.0-96.0); PLATELET COUNT, AUTOMATED 386 10^3/uL (150-450); RED BLOOD COUNT 3.19 10^6/uL (4.00-5.40); WHITE BLOOD COUNT 11.7 10^3/uL (4.0-10.0)
[2019-09-06 06:26] LABS: ALBUMIN 2.5 GM/DL (3.2-5.2); BILIRUBIN,TOTAL 0.4 MG/DL (0.2-1.0); C REACTIVE PROTEIN QUANTITATIV 4.44 MG/DL (0.00-0.30); CALCIUM LEVEL 8.6 MG/DL (8.8-10.2); CREATININE FOR GFR 1.25 MG/DL (0.55-1.30); GLOMERULAR FILTRATION RATE 45.2 (>45); POTASSIUM SERUM 3.2 MEQ/L (3.5-5.1); TOTAL PROTEIN 6.4 GM/DL (6.4-8.2)
[2019-09-06] MEDS: ADVAIR HFA 45/21MCG INHALER INH SCH ×2 (06:58→18:12)
[2019-09-06 07:28] LABS: ERYTHROCYTE SEDIMENTATION RATE 47 mm/hr (0-30)
--- NOTE | 2019-09-06 07:32 | CR ---
DATE OF CONSULTATION: 09/05/2019 REASON FOR CONSULTATION: Questionable postoperative wound infection from thoracic fusion and pneumonia. HISTORY OF PRESENT ILLNESS: Shantelle is a pleasant 69-year-old female who was admitted on August 23 from the longterm where she was undergoing rehabilitation for altered mental status. The patient's history dates back to early June when she was at home and she was cooking. Her steak fell on the floor, she slipped and fell on the floor herself as well, landing on her thoracic spine. She had an acute fracture of T9. The patient was sent to [facility] where she had fixation of T7-T10 with a fusion. The patient came back to [facility] rehab on August 07. On August 10, she was admitted to [facility] for 10 days with an ileus. She also had aspiration pneumonia as a complication of her surgery and vocal cord paralysis. The patient was discharged back to the longterm to continue physical therapy. She came back on August 23, three days later, with acute confusion which was felt to be related to her medication. The patient cannot give me much information about the day of her admission. She is now doing much better. Her confusion has resolved. She complains of back pain, but it is not much worse than what it had been, it is slowly improving. She came with a white count of 15.8 and it is currently 10.8. She was afebrile. The patient has received IV ceftriaxone August 23 and , and that was later discontinued. On August 30, there was a concern of pneumonia. She was started on ceftriaxone and by mouth doxycycline to cover for community-acquired pneumonia. Chest x-ray showed a new right lower lobe infiltrate. Blood cultures were negative. Sputum culture had yeastlike organism. PAST MEDICAL HISTORY: Significant for congestive heart failure, hypertension, diabetes, coronary artery disease, hyperlipidemia, atrial fibrillation, history of gout, history of asthma for which she takes Arnuity and follows up with Dr. Roberts. PAST SURGICAL HISTORY: Spinal fusion T7-T10 in early June 2019 after a fall with a T9 acute fracture, permanent pacemaker. SOCIAL HISTORY: She was living at home. She was very independent and plans to go back home and does not want to go back to the longterm. She wants to do rehab at home with outpatient physical therapy. ALLERGIES: - STEROIDS - NUTS - PERFUMES - STATIN - SULFA - TAPE - BACITRACIN MEDICATIONS: - senna 2 tablets by mouth at bedtime - Lovenox 40 mg subcu daily - simethicone 80 mg by mouth three times a day - Lasix 60 mg IV twice a day - Rocephin 1 gram IV every 24 hours - doxycycline 100 mg by mouth twice a day, currently day #6 - probiotics 1 tablet by mouth twice a day - Albuterol/Atrovent nebs every 6 hours as needed - Senokot-S 1 tablet by mouth twice a day - MiraLax 1 packet by mouth daily - Imdur 30 mg by mouth daily - Ranexa 500 mg by mouth twice a day - Coreg 6.25 mg by mouth twice a day - insulin sliding scale - allopurinol 300 mg by mouth daily - magnesium oxide 400 mg by mouth daily - pantoprazole 40 mg by mouth daily LABORATORY DATA: White count 10.8, hemoglobin 10.3, hematocrit 32.1, platelets 428. ESR 48. Sodium 136, potassium 3.8, chloride 101, bicarb 26, BUN 19, creatinine 1.35, glucose 99, calcium 8.9, bilirubin 0.5, AST 21, ALT 11, alkaline phosphatase 336, CRP 4.76 which has remained stable. Albumin 2.7. Procalcitonin 0.04. Culture of blood, two sets on 08/24/2019, are no growth after 5 days. Urine culture was negative. Back culture had yeastlike organism. Sputum culture had yeastlike organism. The back culture had moderate growth. Blood cultures on 09/01/2019 were no growth after [address] done on August 24 without contrast showed no evidence of paraspinal fluid collection or abscess identified, but underlying osteomyelitis and diskitis could not be excluded. There is a posterior fixation spanning from T7-T10 with considerable osteopenia. PHYSICAL EXAMINATION: She is a healthy female in no acute distress. She is able to sit on her own. She is afebrile since admission. Temperature is 98.1, pulse 61, respirations 18, blood pressure 113/58, and O2 sat 99% on room air. Heart: Normal, S1-S2. No murmurs, rubs or gallops. Lungs: Few crackles at the bases. No wheezes or rhonchi. Abdomen is obese, soft, nontender. Back: No CVA or lumbosacral tenderness. Extremities: Trace ankle edema. She has a large cast, but no significant edema. She has a few scabs on both calves, but they are dry and not infected. Back has severe kyphoscoliosis with a large incision in thoracic spine with two open wound measuring 1 cm each. There is no purulent discharge. There is some yellow necrotic tissue, but no surrounding cellulitis. Minimal purulent on the Optifoam dressing. No significant tenderness. The wounds do not probe down to bone. Chest x-ray done on 09/04/2019 shows a new right lower lobe opacity pneumonia, atelectasis/effusion. IMPRESSION: 1. This is a 69-year-old female who was admitted with confusion, felt to be medication related, who has developed since hospitalization a new right lower lobe pneumonia. The patient is being treated with IV ceftriaxone and doxycycline. Methicillin-resistant Staphylococcus aureus (MRSA) screen was negative. The patient is clinically better. She states she has a cough which was productive of yellow phlegm which is new for her that is improving. Her shortness of breath is a little increased from baseline even though she is not hypoxic. There is definite evidence of a right lower lobe infiltrate which is new on her chest x-ray which needs to be treated and the patient has received 6 days of antibiotic. 2. Thoracic fusion. The patient is clinically improving, even though the wound has two small open lesions. They do not look infected. There is mild wound dehiscence, but I do not see significant purulence or surrounding cellulitis. There is no abscess on CT and doubt she has a postoperative wound infection. This will need to be monitored clinically and with inflammatory markers. PLAN: Suggest continuing antibiotics for a total of 7 days for pneumonia. Obtain urine Legionella antigen and pneumococcal antigen. Continue with topical with wound care for open wounds on the back. The patient does not like the Optifoam dressing, it makes her itch. Would suggest using paper tape and dry gauze. Continue monitoring ESR and CRP for another 48 hours to make sure they do not trend up.
[2019-09-06] MEDS ORDERED: POTASSIUM CHLORIDE 10 MEQ SR TABLET PO ONE (08:00)
[2019-09-06 08:21] LABS: MAGNESIUM LEVEL 1.8 MG/DL (1.8-2.4)
[2019-09-06] MEDS ORDERED: MAGIC MOUTHWASH SUSPENSION BTL SS PRN (08:30)
[2019-09-06] MEDS: ENOXAPARIN 40MG/0.4ML SYRINGE (J1650 PER 10MG) SC SCH (08:41)
[2019-09-06] MEDS: LIDOCAINE 5% (LIDODERM) PATCH TOP SCH (08:41)
[2019-09-06] MEDS: HumaLOG INSULIN (NovoLOG) PER UNIT SC SCH ×4 (08:41→20:51)
[2019-09-06] MEDS: MIRALAX *UNIT DOSE* 17GM PACKET PO SCH (08:41)
[2019-09-06] MEDS: LACTOBACILLUS ACIDOPHILUS CAP (BACID) PO SCH ×2 (08:42→17:23)
[2019-09-06] MEDS: FUROSEMIDE 100MG/10ML VIAL (J1940) IV SCH ×2 (08:42→17:22)
[2019-09-06] MEDS: SIMETHICONE 80 MG CHEW TAB PO SCH ×3 (08:42→20:52)
[2019-09-06] MEDS: PANTOPRAZOLE 40MG TAB (PROTONIX) PO SCH (08:42)
[2019-09-06] MEDS: SENOKOT S TAB PO SCH ×2 (08:42→20:51)
[2019-09-06] MEDS: DOXYCYCLINE HYCLATE 100MG TABLET PO SCH ×2 (08:42→20:52)
[2019-09-06] MEDS: RANOLAZINE 500 MG ER TAB PO SCH ×2 (08:42→20:52)
[2019-09-06] MEDS: CLOPIDOGREL 75 MG TAB PO SCH (08:43)
[2019-09-06] MEDS: MAGNESIUM OXIDE 400 MG TAB (MAG-OX) PO SCH (08:43)
[2019-09-06] MEDS: allopurinoL 300 MG TAB PO SCH (08:43)
[2019-09-06] MEDS: ISOSORBIDE MON. (IMDUR) 30 MG XR TAB PO SCH (08:46)
[2019-09-06] MEDS: CARVedilol 6.25 MG TAB PO SCH ×2 (08:46→20:51)
[2019-09-06] MEDS: ONDANSETRON 4 MG TAB PO PRN (09:01)
[2019-09-06] MEDS: cefTRIAXone SOD 1 GM in D5W MINI-BAG PLUS 50 ML IV SCH (11:22)
[2019-09-06 14:00] VITALS: BP 130/80
--- NOTE | 2019-09-06 15:11 | IPNPDOC ---
Text Note Date of Service The patient was seen on 09/06/19. NOTE Subjective: Patient was seen on 09/06/2019 at bed side. She reports having nausea. . He reports having back pain and states she tolerates it much better than before. D enies having any other symptoms. Objective: General:Patient is awake, alert, on bed, no apparent distress. Eyes: Conjunctiva normal, Fundus: not visualized. ENT: Diminished hearing. No nasal deviation. Ulcer/laceration measuring 10x5mm on the right side of tongue and a broken sharp tooth adjacent to it. Neck: no lymphenopathy. Pulses: pedal 3+ symmetric, no edema. Respiratory: Diminished breath sounds at bases. No rhonchi, wheezes or rubs. Abdomen: Soft, bowel sounds positive, no bruits. Nontender on palpation. Extremities: No clubbing or cyanosis. No edema, no tenderness. Spine: kyphosis noted, no costovertebral tenderness. Skin: No rashes, lesions, ulcerations, subcutaneous nodules or induration. IMAGING: CT T spine with contrast 08/30/19: 1. Chronic osteopenia and advanced multilevel degenerative changes. Evidence for fixation through the mid to lower thoracic spine with the accompanying vertebral bodies demonstrating significant heterogeneity and somewhat destructive changes. Underlying osteomyelitis/diskitis cannot definitively be excluded. 2. No obvious paraspinal fluid collection or abscess identified. Consider MRI for further investigation if necessary. 3. Visualized lung gamez demonstrate moderate pleural effusions and lower lobe consolidations (right greater than left). CT head: negative for acute pathology CXR: without infiltrates or effusions CT T-spine without contrast: Mid-thoracic posterior instrument effusion is present with the hardware apparently intact. Evaluation of the hardware and adjacent anatomy is sub optimal secondary to associated streak artifact. There is no evidence of acute fracture, subluxation or dislocation. Diffuse osteopenia is present. There is exaggerated thoracic kyphosis. Bilateral pleural effusions are present. Atherosclerotic disease is noted. Dual lead pacing device is present. Last echo 08/11/19: 1. Normal left ventricular size and wall thickness with a low normal global left ventricular systolic function estimated at 50-55%. 2. Moderately enlarged left atrium and right atrium. Normal right ventricle 3. The atrial septum appeared to be normal without evidence of defect or shunt. 4. Normal aortic root. 5. No pericardial effusion seen. 6. Mildly calcified aortic valve with minimally restricted leaflet motion. Mildly calcified mitral annulus with normal anterior mitral valve leaflet motion. Normal tricuspid valve. The pulmonic valve and proximal pulmonary artery branches were not well visualized. 7. The inferior vena cava was not well visualized. CXR (09/04/2019): IMPRESSION: New right lower lobe opacity pneumonia/atelectasis/effusion which as increased. Assessment: 69-year-old female with multiple medical comorbidities who recently underwent spinal fusion surgery who presented from [facility] with altered mental status vs hospital acquired pneumonia. Patient is been treated with antibiotics. Plan: 1. Healthcare associated PNA --WBC 11.7(elevated), afebrile. Patient is on Day 7 of Rocephin and doxycycline. --Her procalcitonin 0.04(09/04/19), ESR:47, CRP:4.4(09/06/19) --Dr. Pablo was consulted for a possible discitis. --Will get pneumococcal antigens, Legionella antigen and will monitor her ESR and CRP for 48( recommended by ID). 2. Bilateral pleural effusion: - Diminished breath sounds at bases( examined her when she is in chair) and not sure whether the atelectasis is related to her positing vs pleural effusion. -- CXR done on 09/03 have right lower lobe opacity ddx pneumonia vs atelectasis vs effusion, increased compared to the prior chest x-ray. 3. Wound of left side of back: --She does have a secondary intention wound on buttocks and noted some redness --. Continue wound care. Suggest using paper tape and dry gauze instead of OptiFoam dressing. 4. Tongue laceration ulcer: --Patient has a 10x5mm mm ulcer on the right lateral border of tongue and a sharp broken tooth adjacent to it. She might have had a laceration during the fall. Patient did not compliant of pain until yesterday evening. --Started her on magic mouth wash and see if it helps with her pain. 4. Chronic diastolic (congestive) heart failure: --She is compensated and possible she has persistent for pleural effusions. --No pedal edema. Overall her heart failure seems to be reasonably controlled. Getting furosemide 60 mg. --Her K was low 3.2, so Potassium chloride 4meq was given. 5. Hypertension. Her blood pressure is reasonably controlled today. Continue current regimen, monitor. 6. Coronary artery disease: Monitor clinically 7. Type 2 diabetes: Her glucose levels are well controlled today. Continue current medications, monitor 8. Chronic atrial fibrillation: Heart rate is controlled with carvedilol. She is not anticoagulated, although not clear why. 9. COPD: breathing is normal. Continue current medications, monitor. VTE prophylaxis: Subcutaneous heparin VS,Fishbone, I+O VS, Fishbone, I+O Laboratory Tests 09/06/19 05:37 Vital Signs Date Time Temp Pulse Resp B/P (MAP) Pulse Ox O2 Delivery O2 Flow Rate FiO2 09/06/19 08:46 62 135/68 09/06/19 06:00 97.8 18 95 Room Air I&O- Last 24 Hours up to 6 AM 09/06/19 06:00 Intake Total 1180 ml Output Total 400 ml Balance 780 ml STEFFEN CAMPOS MD Sep 06, 2019 15:11
[2019-09-06] MEDS: SODIUM CHLORIDE 0.9% INJ 10 ML SYR IV SCH (17:22)
[2019-09-06] MEDS: **NOTE PATIENT COMMENT** MISC XX SCH (20:53)
[2019-09-06] MEDS: SENNA 8.6 MG TAB (SENOKOT) PO SCH (20:53)
[2019-09-06 22:00] VITALS: BP 131/75
[2019-09-06] MEDS ORDERED: SODIUM CHLORIDE 0.9% INJ 10 ML SYR IV PRN (23:45)
[2019-09-07] MEDS: ACETAMINOPHEN TAB 650MG DOSE (2X325MG) PO SCH ×2 (01:43→09:05)
[2019-09-07 06:00] VITALS: BP 110/61
[2019-09-07] MEDS: HumaLOG INSULIN (NovoLOG) PER UNIT SC SCH ×2 (07:30→12:00)
[2019-09-07] MEDS: ADVAIR HFA 45/21MCG INHALER INH SCH (07:34)
[2019-09-07 07:57] LABS: BASO # 0.1 10^3/uL (0.0-0.2); BASO % 0.6 % (0.0-1.0); EOS # 0.3 10^3/uL (0.0-0.5); EOS % 3.2 % (0.0-3.0); HEMATOCRIT 31.8 % (36.0-47.0); HEMOGLOBIN 10.1 g/dl (12.0-15.5); LYMPH # 1.9 10^3/uL (1.5-5.0); LYMPH % 17.9 % (24.0-44.0); MEAN CORPUSCULAR HGB CONC 31.8 g/dl (32.0-36.5); MEAN CORPUSCULAR VOLUME 94.4 fl (80.0-96.0); MONO % 9.4 % (0.0-5.0); NEUTROPHILS # 7.2 10^3/uL (1.5-8.5); NEUTROPHILS % 68.3 % (36.0-66.0); PLATELET COUNT, AUTOMATED 396 10^3/uL (150-450); RED BLOOD COUNT 3.37 10^6/uL (4.00-5.40); WHITE BLOOD COUNT 10.5 10^3/uL (4.0-10.0)
[2019-09-07 08:12] LABS: C REACTIVE PROTEIN QUANTITATIV 4.31 MG/DL (0.00-0.30); CALCIUM LEVEL 8.7 MG/DL (8.8-10.2); CREATININE FOR GFR 1.14 MG/DL (0.55-1.30); GLOMERULAR FILTRATION RATE 50.3 (>45); POTASSIUM SERUM 3.7 MEQ/L (3.5-5.1)
[2019-09-07 08:30] LABS: ERYTHROCYTE SEDIMENTATION RATE 41 mm/hr (0-30)
[2019-09-07] MEDS ORDERED: SODIUM CHLORIDE 0.9% INJ 10 ML SYR IV SCH (09:00)
[2019-09-07] MEDS: MAGNESIUM OXIDE 400 MG TAB (MAG-OX) PO SCH (09:01)
[2019-09-07 09:03] VITALS: BP 162/74
[2019-09-07] MEDS: RANOLAZINE 500 MG ER TAB PO SCH (09:03)
[2019-09-07] MEDS: LACTOBACILLUS ACIDOPHILUS CAP (BACID) PO SCH (09:03)
[2019-09-07] MEDS: ISOSORBIDE MON. (IMDUR) 30 MG XR TAB PO SCH (09:03)
[2019-09-07] MEDS: SIMETHICONE 80 MG CHEW TAB PO SCH (09:03)
[2019-09-07] MEDS: allopurinoL 300 MG TAB PO SCH (09:04)
[2019-09-07] MEDS: CARVedilol 6.25 MG TAB PO SCH (09:04)
[2019-09-07] MEDS: PANTOPRAZOLE 40MG TAB (PROTONIX) PO SCH (09:04)
[2019-09-07] MEDS: SENOKOT S TAB PO SCH (09:05)
[2019-09-07] MEDS: CLOPIDOGREL 75 MG TAB PO SCH (09:05)
[2019-09-07] MEDS: ENOXAPARIN 40MG/0.4ML SYRINGE (J1650 PER 10MG) SC SCH (09:05)
[2019-09-07] MEDS: FUROSEMIDE 100MG/10ML VIAL (J1940) IV SCH (09:06)
[2019-09-07] MEDS: MIRALAX *UNIT DOSE* 17GM PACKET PO SCH (09:06)
[2019-09-07] MEDS: LIDOCAINE 5% (LIDODERM) PATCH TOP SCH (09:06)
[2019-09-07] MEDS: DOXYCYCLINE HYCLATE 100MG TABLET PO SCH (09:07)
[2019-09-07] MEDS ORDERED: CEFD1CAP8 PO (11:02)
[2019-09-07] MEDS ORDERED: DOXY-350 PO (11:02)
[2019-09-07] MEDS: cefTRIAXone SOD 1 GM in D5W MINI-BAG PLUS 50 ML IV SCH (11:42)
--- NOTE | 2019-09-08 08:16 | DS.PDOC ---
Discharge Summary General Date of Admission Aug 24, 2019 at 13:08 Date of Discharge 09/07/19 Discharge Summary PROCEDURES PERFORMED DURING STAY: [None]. ADMITTING DIAGNOSES: 1. Congestive heart failure, HFpEF, EF 50-55%, Permanent pacemaker. 2. Hypertension, controlled 3. Diabetes mellitus, controlled 4. Coronary artery disease, s/p stent placement and ICD 5. Hyperlipidemia. 6. Atrial fibrillation. 7. Asthma. 8. Gout. 9. YURY DISCHARGE DIAGNOSES: 1. Pnemonia 2. CHF, permanent pacemaker 3. , Hypertension 4. Diabetes mellitus 5. CAD S/P stent placement and ICD 6. Atrial fibrillation, rate controlled 7. Asthma 8. Gout 9. YURY COMPLICATIONS/CHIEF COMPLAINT: Altered mental status from tramadol use HISTORY OF PRESENT ILLNESS: : 69-year-old female presented from [facility] with altered mental status and reportedly sustaining a fall at [facility]. Reports having chest pain . Cardiac workup was done. HOSPITAL COURSE: She remained confused and delirium for 3 days (CT head was negative). She reported having visual hallucinations as managed and improved eventually on 08/29/19. On 08/31/2019, patient reported having productive cough with the yellow phlegm and was suspected to have pneumonia. . She was started on Rocephin and doxycycline 8days in total(last day09/07/19). Blood cultures were negative, but her sputum and back wound cultures were growing yeast like organisms. ID was consulted as her ESR and CRP were high, and recommended continuing antibiotics for 7 days. Legionella and pneumococcal antigens were obtained , results pending DISCHARGE MEDICATIONS: Please see below. ALLERGIES: Please see below. PHYSICAL EXAMINATION ON DISCHARGE: General:Patient is awake, alert, on bed, no apparent distress. Eyes: Conjunctiva normal, Fundus: not visualized. ENT: No nasal deviation. Ulcer/laceration measuring 10x5mm on the right side of tongue and a broken sharp tooth adjacent to it. Neck: no lymphenopathy. Pulses: pedal 3+ symmetric, no edema. Respiratory: Diminished breath sounds at bases, fair air movement, limitated by significant kyphosis. No rhonchi, wheezes or rubs. Abdomen: Soft, bowel sounds positive, no bruits. Nontender on palpation. Extremities: No clubbing or cyanosis. No edema, no tenderness, Lower extremity excoriations noted Spine: kyphosis noted, no costovertebral tenderness. Skin: two small area of dehiscence at surgical site mid back, no drainage or associated cellulitis. Decubitus ulcer noted over the coccyx. LABORATORY DATA: Please see below. IMAGING: Head CT(08/24/2019): No acute intracranial process Chest x-ray(08/24/2019): Cardiomegaly. No evidence of acute infiltration. Left pacemaker is noted. There are metallic rods and screws in the midthoracic spine. Thoracic spine CT [08/25/2019]: No acute osseous injury of the thoracic spine detected. Abdominal x-ray[08/28/2019]: Mild gaseous distention of the stomach. Gastric throughout colon and stomach. Thoracic spine CT [08/30/2019]: Chronic osteopenia and advanced multilevel degenerative changes. Evidence for fixation through the mid to lower thoracic spine with the accompanying vertebral bodies demonstrating significant heterogeneity and somewhat destructive changes. Underlying osteomyelitis/diskitis cannot definitively be excluded. 2. No obvious paraspinal fluid collection or abscess identified. Consider MRI for further investigation if necessary. 3. Visualized lung gamez demonstrate moderate pleural effusions and lower lobe consolidations (right greater than left). Chest x-ray [09/04/2019]:New right lower lobe opacity, pneumonia/atelectasis/effusion which has increased. PROGNOSIS: Poor ACTIVITY: [As tolerated]. DIET: Regular diet DISCHARGE PLAN: [facility]. DISPOSITION: [facility] DISCHARGE INSTRUCTIONS: --Discharge to [facility] for continued rehabilitation. --Continue antibiotics for 5 days. Cefdinir 300 mg 2 by mouth twice a day for 5 days. Doxycycline 100 mg by mouth twice a day 5 days. continue wound care DISCHARGE CONDITION: [Stable]. TIME SPENT ON DISCHARGE: 50 minutes. Vital Signs/I&Os Vital Signs Date Time Temp Pulse Resp B/P (MAP) Pulse Ox O2 Delivery O2 Flow Rate FiO2 09/07/19 09:04 62 09/07/19 09:03 162/74 09/07/19 06:00 98.4 18 91 Room Air I&O- Last 24 Hours up to 6 AM 09/08/19 06:00 Intake Total 300 ml Output Total 400 ml Balance -100 ml Laboratory Data Labs 24H Laboratory Tests 2 09/07/19 08:53: Coronavirus (COVID-19)(PCR) NEGATIVE 09/07/19 11:33: Bedside Glucose (Misc Panel) 143H FSBS Laboratory Tests Test 09/07/19 11:33 Range/Units Bedside Glucose (Misc Panel) 143 80-115 MG/DL Microbiology Microbiology 09/01/19 Blood Culture - Final, Complete NO GROWTH AFTER 5 DAYS 09/01/19 Blood Culture - Final, Complete NO GROWTH AFTER 5 DAYS 08/31/19 Gram Stain - Final, Complete 08/31/19 Sputum Culture - Final, Complete Yeast Like Organism Discharge Medications Scheduled Acetaminophen (Acetaminophen) 325 Mg Tablet, 650 MG PO Q6H, (Reported) 0200, 0800, 1400, 2000 Allopurinol (Zyloprim) 300 Mg Tablet, 300 MG PO DAILY, (Reported) Bacillus Coagulans (Bacid with Lactospore) 1 Each Capsule, 1 CAP PO BID, (Reported) Carvedilol (Carvedilol) 6.25 Mg Tablet, 6.25 MG PO BID, (Reported) Cefdinir (Cefdinir) 300 Mg Capsule, 1 CAP PO BID Clopidogrel Bisulfate (Plavix) 75 Mg Tablet, 75 MG PO DAILY, (Reported) Docusate Sodium (Docusate Sodium) 100 Mg Capsule, 100 MG PO BID, (Reported) Doxycycline Monohydrate (Doxycycline) 100 Mg Capsule, 1 CAP PO BID Furosemide (Furosemide) 20 Mg Tablet, 60 MG PO DAILY, (Reported) Isosorbide Mononitrate (Isosorbide Mononitrate ER) 30 Mg Tab.er.24h, 30 MG PO DAILY, (Reported) Lidocaine (Lidocaine) 5% Adh..patch, 1 PATCH TOP DAILY, (Reported) APPLY TO BACK Magnesium Oxide (Magnesium Oxide) 400 Mg Tablet, 400 MG PO DAILY, (Reported) Melatonin (Melatonin) 3 Mg Tablet, 3 MG PO QHS, (Reported) Pantoprazole Sodium (Pantoprazole Sodium) 40 Mg Tablet.dr, 40 MG PO DAILY, (Reported) Polyethylene Glycol 3350 (Polyethylene Glycol 3350) 17 Gm Powd.pack, 17 GRAM PO DAILY, (Reported) Potassium Chloride (Potassium Chloride) 10 Meq Capsule.er, 30 MEQ PO DAILY, (Reported) Prednisolone Acetate (Prednisolone Acetate 1% Opth Susp) 5 Ml Drops.susp, 1 DROP OD QID, (Reported) Ranolazine (Ranexa) 500 Mg Tab.er.12h, 500 MG PO BID, (Reported) Salmeterol/Fluticasone (Advair 100-50 Diskus) 1 Each Blst.w.dev, 1 PUFF INH BID, (Reported) Sennosides (Senna Lax) 8.6 Mg Tablet, 17.2 MG PO DAILY, (Reported) Scheduled PRN Bisacodyl (Dulcolax) 10 Mg Supp.rect, 10 MG NM DAILY PRN for CONSTIPATION, (Reported) Magnesium Hydroxide (Milk of Magnesia) 400 Mg/5 Ml Oral.susp, 2,400 MG PO DAILY PRN for CONSTIPATION, (Reported) Nitroglycerin (Nitrostat) 0.4 Mg Tab.subl, 0.4 MG SL NITRO PRN for CHEST PAIN, (Reported) Ondansetron HCl (Ondansetron HCl) 4 Mg Tablet, 4 MG PO Q6H PRN for NAUSEA OR VOMITING, (Reported) Simethicone (Simethicone) 80 Mg Tab.chew, 80 MG PO QID PRN for DYSPEPSIA, (Reported) Sodium Phosphate,[place]-Dibasic (Enema) 133 Ml Enema, 1 ROBERT NM DAILY PRN for CONSTIPATION, (Reported) Allergies Coded Allergies: NUTS (Verified Allergy, Severe, DIFFICULTY BREATHING, 08/24/19) Sulfa (Sulfonamide Antibiotics) (Verified Allergy, Severe, ANAPHYLACTIC SHOCK, 08/24/19) TAPE (Verified Allergy, Intermediate, clear dressings and tape on IV's - rash, 08/24/19) dronedarone (Unverified Allergy, Intermediate, CONTRAINDICATED DUE TO RANEXA, 08/24/19) lansoprazole (Unverified Allergy, Intermediate, CONTRAINDICATED DUE TO BLOOD THINNERS, 08/24/19) latex (Unverified Allergy, Intermediate, RASH, 08/24/19) PERFUMES (Verified Allergy, Unknown, 08/24/19) STATES DRYER SHEETS WELL bacitracin (Verified Allergy, Unknown, 08/24/19) ketorolac (Verified Adverse Reaction, Severe, 08/24/19) renal failure Corticosteroids (Glucocorticoids) (Verified Adverse Reaction, Intermediate, STATED CHF FROM DEXADROL, 08/24/19) Zvqcnlx-Nth-Zlq Reductase Inhibitor (Unverified Adverse Reaction, Intermediate, MUSCLE WEAKNESS, 08/24/19) codeine (Verified Adverse Reaction, Intermediate, HALLUCINATIONS, 08/24/19) glycopyrrolate (Unverified Adverse Reaction, Intermediate, CHEST PAIN, 08/24/19) naloxone (Unverified Adverse Reaction, Intermediate, GI UPSET, DIZZY, 08/24/19) nifedipine (Unverified Adverse Reaction, Intermediate, SORE THROAT, 0) oxycodone (Verified Adverse Reaction, Intermediate, HALLUCINATIONS, 08/24/19) pentazocine (Unverified Adverse Reaction, Intermediate, GI UPSET, DIZZY, 08/24/19) STEFFEN CAMPOS MD Sep 08, 2019 08:15
[2019-09-11 15:05] LABS: BODY FLUID CULTURE Not indicated. (.); LEGIONELLA ANTIGEN URINE Negative (Negative); ORGANISM ID Not indicated. (.); SPECIMEN SOURCE Urine (.); URINE STREP PNEUMONIAE ANTIGEN Negative (Negative)
== END 2019-09-07 13:21 | DRG 70 ==
LOC: M ED 09:47 → EDBD 09:47 → M ED INP 13:08 → ENRESERV 13:39 → M MSPAV 14:33
PROVIDERS: ADMIT Internal Medicine; ATTEND Internal Medicine
PROC: 05H533Z Insertion of Infusion Device into Right Subclavian Vein, Percutaneous Approach (ICD-10-PCS; principal; 2019-08-28 15:00)
PROC: 05H933Z Insertion of Infusion Device into Right Brachial Vein, Percutaneous Approach (ICD-10-PCS; 2019-09-05)
DX: G93.40 Encephalopathy, unspecified (principal); J18.9 Pneumonia, unspecified organism; I50.32 Chronic diastolic (congestive) heart failure; I48.20 Chronic atrial fibrillation, unspecified; T81.31XA Disruption of external operation (surgical) wound, not elsewhere classified, initial encounter; I11.0 Hypertensive heart disease with heart failure; E11.9 Type 2 diabetes mellitus without complications; I25.10 Atherosclerotic heart disease of native coronary artery without angina pectoris; E78.5 Hyperlipidemia, unspecified; J44.9 Chronic obstructive pulmonary disease, unspecified; M10.9 Gout, unspecified; G47.33 Obstructive sleep apnea (adult) (pediatric); E87.5 Hyperkalemia; M85.88 Other specified disorders of bone density and structure, other site; J45.909 Unspecified asthma, uncomplicated; Z98.1 Arthrodesis status; Z95.0 Presence of cardiac pacemaker; Z79.52 Long term (current) use of systemic steroids; Z79.891 Long term (current) use of opiate analgesic; Z79.899 Other long term (current) drug therapy; Z88.2 Allergy status to sulfonamides; Z88.1 Allergy status to other antibiotic agents; Z88.8 Allergy status to other drugs, medicaments and biological substances; Z88.5 Allergy status to narcotic agent; Z91.040 Latex allergy status; Z91.018 Allergy to other foods; Z91.048 Other nonmedicinal substance allergy status; Z11.59 Encounter for screening for other viral diseases; T40.4X5A Adverse effect of other synthetic narcotics, initial encounter; Y95 Nosocomial condition; Y83.8 Other surgical procedures as the cause of abnormal reaction of the patient, or of later complication, without mention of misadventure at the time of the procedure

== ENCOUNTER → 2019-08-24 | Outpatient (REF) ==
[~2019-08-24] MED LIST changes: +AUGM875T28 PO; +CARV6.25 PO; +CEFD1CAP8 PO; +DOCU100C17 PO; +DOXY-350 PO; +FURO20TA2 PO; +GNP8.6TA PO; +ISOS1TAB35 PO; -ISOS30TA4 PO; -MAG400TA PO; +MAGN400T2 PO; +MAGN400T35 PO; +MELA3TAB30 PO; -MELA3TAB62 PO; +MILKSUS3 PO; +POLY1POW38 PO; +POTA10CA32 PO; +SIME80CH5 PO; +SIME80CH6 PO; -SIME80TA PO
[2019-08-24 08:48] LABS: HEMATOCRIT 34.2 % (36.0-47.0); HEMOGLOBIN 10.6 g/dl (12.0-15.5); MEAN CORPUSCULAR HEMOGLOBIN 29.7 pg (27.0-33.0); MEAN CORPUSCULAR VOLUME 95.8 fl (80.0-96.0); PLATELET COUNT, AUTOMATED 293 10^3/uL (150-450); RED BLOOD COUNT 3.57 10^6/uL (4.00-5.40); WHITE BLOOD COUNT 15.5 10^3/uL (4.0-10.0)
[2019-08-24 09:08] LABS: CREATININE FOR GFR 1.13 MG/DL (0.55-1.30); GLOMERULAR FILTRATION RATE 50.8 (>45); POTASSIUM SERUM 4.1 MEQ/L (3.5-5.1)
[2019-08-24 09:39] LABS: CK-MB VALUE MASS 2.2 NG/ML (<3.6); MB/CK RELATIVE INDEX 2.72 (< OR =4); TROPONIN I 0.04 NG/ML (< 0.10)
--- NOTE | 2019-08-25 17:09 | ECGEPIP ---
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
== END ==
LOC: SKLAB5 06:40
PROVIDERS: ATTEND Internal Medicine
DX: I50.9 Heart failure, unspecified (principal)

== ENCOUNTER → 2019-08-31 | Outpatient (REF) ==
[~2019-08-31] MED LIST changes: +CARV6.25 PO; -CARVedilol 6.25 MG TAB PO SCH; +CEFD1CAP8 PO; +DOXY-350 PO; -FUROSEMIDE 20 MG TAB PO SCH; -ISOSORBIDE MON. (IMDUR) 30 MG XR TAB PO SCH; +MILKSUS3 PO
== END ==
LOC: SKLAB5 08:04
PROVIDERS: ATTEND Internal Medicine
DX: I50.9 Heart failure, unspecified (principal); N18.9 Chronic kidney disease, unspecified; D64.9 Anemia, unspecified

== ENCOUNTER → 2019-09-07 | Outpatient (REF) | LOC: SKLAB5 07:08 | PROVIDERS: ATTEND Internal Medicine | DX: D64.9 Anemia, unspecified (principal); N18.9 Chronic kidney disease, unspecified; I50.9 Heart failure, unspecified ==

== ENCOUNTER → 2019-09-28 | Outpatient (REF) | payer MEDICARE ==
[~2019-09-28] MED LIST changes: +MELA3TAB30 PO; -MELA3TAB62 PO
[2019-11-09 11:13] LABS: BLOOD UREA NITROGEN 34 MG/DL (7-18); CALCIUM LEVEL 8.7 MG/DL (8.8-10.2); CARBON DIOXIDE LEVEL 24 MEQ/L (21-32); CHLORIDE LEVEL 103 MEQ/L (98-107); CREATININE FOR GFR 0.87 MG/DL (0.55-1.30); GLOMERULAR FILTRATION RATE > 60.0 (>45); GLUCOSE, FASTING 73 MG/DL (70-100); POTASSIUM SERUM 4.6 MEQ/L (3.5-5.1); SODIUM LEVEL 135 MEQ/L (136-145)
[2019-11-10 10:46] LABS: HEMOGLOBIN 12.4 g/dl (12.0-15.5); INR 1.61; MEAN CORPUSCULAR HEMOGLOBIN 31.2 pg (27.0-33.0); MEAN CORPUSCULAR HGB CONC 32.6 g/dl (32.0-36.5); MEAN CORPUSCULAR VOLUME 95.5 fl (80.0-96.0); PROTHROMBIN TIME 19.5 SECONDS (11.8-14.0); RED BLOOD COUNT 3.98 10^6/uL (4.00-5.40); WHITE BLOOD COUNT 11.4 10^3/uL (4.0-10.0)
[2019-11-10 10:47] LABS: PLATELET COUNT, AUTOMATED 262 10^3/uL (150-450)
== END ==
LOC: SKLAB5 09:52
DX: K13.79 Other lesions of oral mucosa (principal)

== ENCOUNTER → 2019-10-02 | Outpatient (REF) | payer MEDICARE ==
[2019-12-13 13:13] LABS: HEMATOCRIT 36.1 % (36.0-47.0); HEMOGLOBIN 11.7 g/dl (12.0-15.5); MEAN CORPUSCULAR HEMOGLOBIN 31.3 pg (27.0-33.0); MEAN CORPUSCULAR HGB CONC 32.4 g/dl (32.0-36.5); MEAN CORPUSCULAR VOLUME 96.5 fl (80.0-96.0); PLATELET COUNT, AUTOMATED 272 10^3/uL (150-450); RED BLOOD COUNT 3.74 10^6/uL (4.00-5.40); WHITE BLOOD COUNT 11.9 10^3/uL (4.0-10.0)
[2019-12-13 13:16] LABS: ERYTHROCYTE SEDIMENTATION RATE 7 mm/hr (0-30); INR 1.83; PROTHROMBIN TIME 21.6 SECONDS (12.5-14.3)
[2019-12-13 13:19] LABS: APPEARANCE, URINE HAZY (CLEAR); BACTERIA, URINE AUTO 1+ (NEGATIVE); BILIRUBIN, URINE AUTO NEGATIVE (NEGATIVE); BLOOD, URINE BLOOD NEGATIVE (NEGATIVE); COLOR, URINE AMBER (YELLOW); GLUCOSE, URINE (UA) AUTO NEGATIVE (NEGATIVE); KETONE, URINE AUTO NEGATIVE (NEGATIVE); LEUKOCYTE ESTERASE, URINE AUTO 3+ (NEGATIVE); MUCUS, URINE SMALL (NEGATIVE); NITRITE, URINE AUTO NEGATIVE (NEGATIVE); PROTEIN, URINE AUTO NEGATIVE (NEGATIVE); RBC, URINE AUTO 6 /HPF (0-3); RENAL EPITHELIAL CELLS 1 /HPF; SPECIFIC GRAVITY URINE AUTO 1.015 (1.002-1.035); SQUAMOUS EPITHELIAL CELL UR AU 2 /HPF (0-6); TRANSITIONAL EPITHELIAL AUTO <1 /HPF; UROBILINOGEN, URINE AUTO 0.2 mg/dL (0.0-2.0); WBC, URINE AUTO 24 /HPF (0-3)
[2019-12-26 09:31] LABS: ALBUMIN 2.7 GM/DL (3.2-5.2); BILIRUBIN,TOTAL 0.6 MG/DL (0.2-1.0); CALCIUM LEVEL 8.7 MG/DL (8.8-10.2); CREATININE FOR GFR 1.31 MG/DL (0.55-1.30); GLOMERULAR FILTRATION RATE 42.9 (>45); POTASSIUM SERUM 5.4 MEQ/L (3.5-5.1); TOTAL PROTEIN 6.2 GM/DL (6.4-8.2)
== END ==
LOC: SKLAB5 11:51
PROVIDERS: ATTEND Internal Medicine
DX: L29.9 Pruritus, unspecified (principal); I50.30 Unspecified diastolic (congestive) heart failure

== ENCOUNTER → 2019-10-08 | Outpatient (REF) | payer MEDICARE | LOC: SKLAB5 07:00 | PROVIDERS: ATTEND Internal Medicine | DX: R06.02 Shortness of breath (principal); Z79.899 Other long term (current) drug therapy ==

== ENCOUNTER 2019-10-10 02:11 | Inpatient (IN) | payer MEDICARE ==
[2019-10-10] MEDS ORDERED: NITROGLYCERIN 0.4 MG SUBL TABLET ONE (23:12)
[2019-10-10] MEDS ORDERED: ASPIRIN 81 MG CHEW TABLET ONE (23:12)
[2019-10-10] MEDS ORDERED: NITROGLYCERIN 0.4 MG SUBL TABLET As Ordered ONE (23:12)
[2019-10-10] MEDS ORDERED: ASPIRIN 81 MG CHEW TABLET As Ordered ONE (23:12)
[2019-10-11] MEDS ORDERED: SOD POLYSTYRENE SULFONATE SUSP 15 GM/60 ML UD As Ordered ONE (07:05)
[2019-10-11] MEDS ORDERED: FUROSEMIDE 40MG/4ML VIAL (J1940) ONE (07:05)
[2019-10-11] MEDS ORDERED: SOD POLYSTYRENE SULFONATE SUSP 15 GM/60 ML UD ONE (07:05)
[2019-10-11] MEDS ORDERED: RANOLAZINE 500 MG ER TAB ONE (09:00)
[2019-10-11] MEDS ORDERED: FUROSEMIDE 40MG/4ML VIAL (J1940) As Ordered ONE (09:54)
[2019-10-11] MEDS ORDERED: ACETAMINOPHEN 325 MG TAB As Ordered ONE (11:50)
[2019-10-11] MEDS ORDERED: ACETAMINOPHEN 325 MG TAB ONE (11:50)
[2019-10-11] MEDS ORDERED: ACETAMINOPHEN TAB 650MG DOSE (2X325MG) ONE (20:00)
[2019-10-11] MEDS ORDERED: APIXABAN 5 MG TAB (ELIQUIS) ONE (20:00)
[2019-10-11] MEDS ORDERED: CARVedilol 6.25 MG TAB ONE (20:00)
[2019-10-11] MEDS ORDERED: DOCUSATE SODIUM 100 MG CAP ONE (20:00)
[2019-10-11] MEDS ORDERED: CARVedilol 6.25 MG TAB As Ordered ONE (20:08)
[2019-10-11] MEDS ORDERED: APIXABAN 5 MG TAB (ELIQUIS) As Ordered ONE (20:08)
[2019-10-11] MEDS ORDERED: DOCUSATE SODIUM 100 MG CAP As Ordered ONE (20:08)
[2019-10-11] MEDS ORDERED: ACETAMINOPHEN TAB 650MG DOSE (2X325MG) As Ordered ONE (22:04)
[2019-10-12] MEDS ORDERED: prednisoLONE ACET 1% OPHTH SUSP 5ML ONE (03:00)
[2019-10-12] MEDS ORDERED: PERMETHRIN 5% CREAM 60 GM ONE (03:00)
[2019-10-12] MEDS ORDERED: ASPIRIN 81 MG CHEW TABLET ONE (08:43)
[2019-10-12] MEDS ORDERED: MOM 30ML SUSPENSION UDC ONE (08:43)
[2019-10-12] MEDS ORDERED: CARVedilol 6.25 MG TAB ONE (08:43)
[2019-10-12] MEDS ORDERED: FUROSEMIDE 20 MG TAB ONE (08:43)
[2019-10-12] MEDS ORDERED: FAMOTIDINE 20 MG TAB ONE (08:43)
[2019-10-12] MEDS ORDERED: DOCUSATE SODIUM 100 MG CAP ONE (08:43)
[2019-10-12] MEDS ORDERED: DULoxetine 30 MG CAP (CYMBALTA) ONE (08:43)
[2019-10-12] MEDS ORDERED: SIMETHICONE 80 MG CHEW TAB ONE (08:43)
[2019-10-12] MEDS ORDERED: APIXABAN 5 MG TAB (ELIQUIS) ONE (08:43)
[2019-10-12] MEDS ORDERED: ACETAMINOPHEN TAB 650MG DOSE (2X325MG) ONE (08:43)
[2019-10-12] MEDS ORDERED: MIRALAX *UNIT DOSE* 17GM PACKET ONE (08:43)
[2019-10-12] MEDS ORDERED: ISOSORBIDE MON. (IMDUR) 60 MG XR TAB ONE (08:43)
[2019-10-12] MEDS ORDERED: RANOLAZINE 500 MG ER TAB ONE (09:00)
--- NOTE | 2019-11-15 11:05 | ECGEPIP ---
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
--- NOTE | 2019-11-16 15:42 | ECGEPIP ---
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
[2019-11-25 07:49] LABS: BASO # 0.1 10^3/uL (0.0-0.2); BASO % 0.7 % (0.0-1.0); EOS # 0.6 10^3/uL (0.0-0.5); EOS % 5.6 % (0.0-3.0); HEMATOCRIT 31.6 % (36.0-47.0); HEMOGLOBIN 10.5 g/dl (12.0-15.5); LYMPH # 2.1 10^3/uL (1.5-5.0); LYMPH % 21.6 % (24.0-44.0); MEAN CORPUSCULAR HEMOGLOBIN 31.8 pg (27.0-33.0); MEAN CORPUSCULAR HGB CONC 33.2 g/dl (32.0-36.5); MEAN CORPUSCULAR VOLUME 95.8 fl (80.0-96.0); MONO # 1.1 10^3/uL (0.0-0.8); MONO % 11.7 % (0.0-5.0); NEUTROPHILS # 5.9 10^3/uL (1.5-8.5); NEUTROPHILS % 60.1 % (36.0-66.0); PLATELET COUNT, AUTOMATED 259 10^3/uL (150-450); WHITE BLOOD COUNT 9.8 10^3/uL (4.0-10.0)
[2019-12-03 16:42] LABS: HEMATOCRIT 35.1 % (36.0-47.0); HEMOGLOBIN 11.6 g/dl (12.0-15.5); MEAN CORPUSCULAR HEMOGLOBIN 31.2 pg (27.0-33.0); MEAN CORPUSCULAR VOLUME 94.4 fl (80.0-96.0); PLATELET COUNT, AUTOMATED 296 10^3/uL (150-450); RED BLOOD COUNT 3.72 10^6/uL (4.00-5.40)
--- NOTE | 2019-12-04 10:35 | HPE ---
DATE OF ADMISSION: 10/12/2019 HISTORY OF PRESENT ILLNESS: This is a 69-year-old white female known to me. She had a recent stay at [facility], which has been complicated by several returns to the hospital. Each time it is for a different problem. This time it was with complaints of chest pain suggestive of angina. The patient was admitted to telemetry. Electrocardiogram showed atrial fibrillation, ventricular pacemaker and premature ventricular contractions (PVCs). Troponins were nondiagnostic. The patient also follows with Dr. Brantley for cardiology. A follow up will be scheduled with him. She is on several medications for her coronary disease including Imdur and ranolazine. Her ventricular rate has been well controlled. She also is maintained on carvedilol. MEDICATIONS: She is on Eliquis 5 mg b.i.d., Pepcid 20 mg a day, Lasix 20 mg a day, Imdur 30 mg a day, ranolazine, baby aspirin, carvedilol, duloxetine 60 mg a day PAST MEDICAL HISTORY: She has had a fairly recent C-spine surgery in [place]. That was done in June. She has congestive heart failure with preserved LV systolic function, pacemaker, hypertension, hyperlipidemia, type 2 diabetes, coronary artery disease with stent placement, and she has an ICD, atrial fibrillation, asthma, history of gout, obstructive sleep apnea (YURY) for which she is compliant, cholecystitis, hysterectomy and cataract surgery. SOCIAL HISTORY: She is and lives with her . She is rehabbing at [facility] and I believe eventually supposed to return to home. ALLERGIES: Multiple allergies, please check with patient. PHYSICAL EXAMINATION: Vitals are stable as recorded. HEENT is unremarkable. Neck veins are flat. No carotid bruits. Heart rate is regular and she is paced. Underlying atrial fibrillation on electrocardiogram. Chest is clear. Her chest x-ray incidentally bilateral pleural effusions, right greater than left. These are reported as chronic and stable. Abdomen is obese, otherwise unremarkable. Extremities are unremarkable. No cyanosis, clubbing or edema. 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 IMPRESSION/PLAN: 1. Coronary artery disease, stable. She will follow up with Dr. Brantley. 2. Chronic congestive heart failure appears to be compensated. 3. Bilateral pleural effusions. 4. Atrial fibrillation. 5. Status post permanent pacemaker and implantable cardioverter defibrillator (ICD), follows with Dr. Brantley. 6. Diabetes, diet controlled. 7. Obstructive sleep apnea (YURY), compliant. 8. Recovering from recent C-spine surgery, which was done in [place] in May. 9. Cymbalta. Continues on Cymbalta. Cymbalta might be also useful on this patient as an adjunctive to chronic pain. VINEET
[2019-12-29 08:28] LABS: BLOOD UREA NITROGEN 22 MG/DL (7-18); CALCIUM LEVEL 7.4 MG/DL (8.8-10.2); CARBON DIOXIDE LEVEL 23 MEQ/L (21-32); CHLORIDE LEVEL 105 MEQ/L (98-107); CK-MB VALUE MASS 2.9 NG/ML (<3.6); CPK CREATINE PHOSPHOKINASE 49 U/L (26-192); CREATININE FOR GFR 0.84 MG/DL (0.55-1.30); GLOMERULAR FILTRATION RATE > 60.0 (>45); GLUCOSE, FASTING 76 MG/DL (70-100); MB/CK RELATIVE INDEX 5.92 (< OR =4); NT-PRO BNP 4457 PG/ML (<125); SODIUM LEVEL 132 MEQ/L (136-145); TROPONIN I 0.06 NG/ML (< 0.10)
[2020-01-03 04:32] LABS: BLOOD UREA NITROGEN 24 MG/DL (7-18); CALCIUM LEVEL 8.4 MG/DL (8.8-10.2); CARBON DIOXIDE LEVEL 28 MEQ/L (21-32); CHLORIDE LEVEL 102 MEQ/L (98-107); CK-MB VALUE MASS 4.7 NG/ML (<3.6); CPK CREATINE PHOSPHOKINASE 38 U/L (26-192); CREATININE FOR GFR 0.84 MG/DL (0.55-1.30); GLOMERULAR FILTRATION RATE > 60.0 (>45); GLUCOSE, FASTING 70 MG/DL (70-100); MB/CK RELATIVE INDEX 12.37 (< OR =4); PHOSPHORUS LEVEL 4.2 MG/DL (2.5-4.9); POTASSIUM SERUM 4.4 MEQ/L (3.5-5.1); SODIUM LEVEL 134 MEQ/L (136-145)
[2020-01-03 04:32] LABS: CK-MB VALUE MASS 2.7 NG/ML (<3.6); MB/CK RELATIVE INDEX 7.5 (< OR =4); TROPONIN I 0.07 NG/ML (< 0.10)
[2020-01-03 16:34] LABS: BLOOD UREA NITROGEN 21 MG/DL (7-18); CALCIUM LEVEL 8.2 MG/DL (8.8-10.2); CARBON DIOXIDE LEVEL 27 mmol/L (20-29); CHLORIDE LEVEL 100 MEQ/L (98-107); CREATININE FOR GFR 0.88 MG/DL (0.55-1.30); GLOMERULAR FILTRATION RATE > 60.0 (>45); GLUCOSE, FASTING 65 MG/DL (70-100); PHOSPHORUS LEVEL 4.3 MG/DL (2.5-4.9); POTASSIUM SERUM 4.1 MEQ/L (3.5-5.1); SODIUM LEVEL 133 MEQ/L (136-145)
== END 2019-10-12 14:10 | disposition home or self-care (01) | DRG 313 ==
LOC: M ED 02:11 → M PCU 10-11 10:30 → UNDOADMIN 10-12 14:10 → UNDODISIN 10-12 14:10
PROVIDERS: ADMIT Internal Medicine; ATTEND Internal Medicine
DX: R07.9 Chest pain, unspecified (principal); I50.22 Chronic systolic (congestive) heart failure; E87.1 Hypo-osmolality and hyponatremia; Z95.0 Presence of cardiac pacemaker; I11.0 Hypertensive heart disease with heart failure; G47.33 Obstructive sleep apnea (adult) (pediatric); E78.5 Hyperlipidemia, unspecified; E11.9 Type 2 diabetes mellitus without complications; I25.10 Atherosclerotic heart disease of native coronary artery without angina pectoris; M10.9 Gout, unspecified; Z95.2 Presence of prosthetic heart valve; Z79.01 Long term (current) use of anticoagulants; Z79.899 Other long term (current) drug therapy; E87.6 Hypokalemia; I48.91 Unspecified atrial fibrillation

== ENCOUNTER → 2019-10-22 | Outpatient (REF) | payer MEDICARE | LOC: SKLAB5 12:30 | PROVIDERS: ATTEND Internal Medicine | DX: R31.9 Hematuria, unspecified (principal) ==

== ENCOUNTER → 2019-10-22 | Outpatient (REF) | payer MEDICARE ==
[2019-10-22 13:59] LABS: APPEARANCE, URINE CLOUDY (CLEAR); BACTERIA, URINE AUTO 1+ (NEGATIVE); BILIRUBIN, URINE AUTO NEGATIVE (NEGATIVE); BLOOD, URINE BLOOD 3+ (NEGATIVE); COLOR, URINE AMBER (YELLOW); GLUCOSE, URINE (UA) AUTO NEGATIVE (NEGATIVE); KETONE, URINE AUTO NEGATIVE (NEGATIVE); LEUKOCYTE ESTERASE, URINE AUTO 3+ (NEGATIVE); NITRITE, URINE AUTO NEGATIVE (NEGATIVE); PROTEIN, URINE AUTO 2+ mg/dL (NEGATIVE); RBC, URINE AUTO TNTC /HPF (0-3); SPECIFIC GRAVITY URINE AUTO 1.013 (1.002-1.035); SQUAMOUS EPITHELIAL CELL UR AU 0 /HPF (0-6); UROBILINOGEN, URINE AUTO 0.2 mg/dL (0.0-2.0); WBC, URINE AUTO TNTC /HPF (0-3)
[2019-10-22 16:02] LABS: HEMATOCRIT 32.5 % (36.0-47.0); HEMOGLOBIN 10.7 g/dl (12.0-15.5); MEAN CORPUSCULAR HEMOGLOBIN 32.1 pg (27.0-33.0); MEAN CORPUSCULAR HGB CONC 32.9 g/dl (32.0-36.5); MEAN CORPUSCULAR VOLUME 97.6 fl (80.0-96.0); PLATELET COUNT, AUTOMATED 282 10^3/uL (150-450); RED BLOOD COUNT 3.33 10^6/uL (4.00-5.40); WHITE BLOOD COUNT 10.1 10^3/uL (4.0-10.0)
[2019-10-22 16:25] LABS: CALCIUM LEVEL 8.1 MG/DL (8.8-10.2); CREATININE FOR GFR 1.05 MG/DL (0.55-1.30); GLOMERULAR FILTRATION RATE 55.3 (>45); POTASSIUM SERUM 5.2 MEQ/L (3.5-5.1)
== END ==
LOC: M LAB 13:21
DX: R31.9 Hematuria, unspecified (principal)

== ENCOUNTER → 2019-10-26 | Outpatient (REF) ==
[2019-10-26 10:54] LABS: HEMATOCRIT 36.6 % (36.0-47.0); HEMOGLOBIN 11.9 g/dl (12.0-15.5); MEAN CORPUSCULAR HEMOGLOBIN 32.3 pg (27.0-33.0); MEAN CORPUSCULAR HGB CONC 32.5 g/dl (32.0-36.5); MEAN CORPUSCULAR VOLUME 99.5 fl (80.0-96.0); PLATELET COUNT, AUTOMATED 363 10^3/uL (150-450); RED BLOOD COUNT 3.68 10^6/uL (4.00-5.40); WHITE BLOOD COUNT 10.6 10^3/uL (4.0-10.0)
[2019-10-26 11:01] LABS: BLOOD UREA NITROGEN 12 MG/DL (7-18); CALCIUM LEVEL 8.5 MG/DL (8.8-10.2); CARBON DIOXIDE LEVEL 25 MEQ/L (21-32); CHLORIDE LEVEL 102 MEQ/L (98-107); CREATININE FOR GFR 0.76 MG/DL (0.55-1.30); GLOMERULAR FILTRATION RATE > 60.0 (>45); GLUCOSE, FASTING 64 MG/DL (70-100); SODIUM LEVEL 134 MEQ/L (136-145)
== END ==
LOC: SKLAB5 07:31
DX: I50.9 Heart failure, unspecified (principal)

== ENCOUNTER → 2019-10-31 | Outpatient (REF) | payer MEDICARE | LOC: SKLAB5 10:32 | PROVIDERS: ATTEND Internal Medicine | DX: R06.02 Shortness of breath (principal); Z79.899 Other long term (current) drug therapy ==

== ENCOUNTER → 2019-11-14 | Outpatient (REF) ==
--- NOTE | 2019-11-14 12:03 | REPVR ---
PROCEDURE INFORMATION: Exam: XR Chest, 2 Views Exam date and time: 11/14/2019 11:32 AM Age: 69 years old Clinical indication: Shortness of breath TECHNIQUE: Imaging protocol: XR of the chest Views: 2 views. COMPARISON: 1. CR - Chest, 2 view PA, Lat 09/04/2019 4:27 PM 2. SR - CT Spine, thoracic w/contrast 08/30/2019 10:19:26 AM FINDINGS: Limitations: The lungs are overpenetrated, limiting their evaluation. Lungs: Increased now large confluent airspace opacity of the left lower lobe. Stable mild right lower lobe airspace opacity. Small high attenuation foci within the right lower lobe, possibly representing cement emboli, are redemonstrated. Pleural space: Very limited evaluation for pneumothorax given the overpenetrated technique. Blunting of the bilateral posterior costophrenic angles. Heart/Mediastinum: A multilead cardiac conduction assist device is present with leads projecting at the right atrium, right ventricle and coronary sinus. Coronary stents. The cardiac silhouette is stably mildly diffusely enlarged. Mitral annular calcifications are present. Diaphragm: The left hemidiaphragm is silhouetted. The right hemidiaphragm is partially silhouetted. Bones/joints: The bones appear diffusely demineralized. Thoracic spine posterior gricelda and pedicle screw fixation hardware is redemonstrated. Thoracic spine surgical cement is redemonstrated. Redemonstration of lower thoracic vertebral body compression fracture deformity, in the region of the internal fixation hardware. Soft tissues: Upper abdominal surgical clips. IMPRESSION: 1. Increased now large left lower lobe airspace opacity. This may represent large left lower lobe atelectasis or consolidation. 2. Stable mild right lower lobe airspace opacity. 3. Small right pleural effusion. Small-moderate left pleural effusion. 4. Stable cardiomegaly. Electronically signed by: Brian Velez On 11/14/2019 12:02:50 PM
== END ==
LOC: SKLAB5 10:50
DX: J90 Pleural effusion, not elsewhere classified (principal)